=== PATIENT | male | born 1970 | race Caucasian/White ===

== ENCOUNTER 2018-10-22 00:52 | Outpatient (CLI) | payer BC, SELFPAY ==
--- NOTE | 2018-10-22 08:49 | DI.MRI_ITS ---
SYMPTOMS/DIAGNOSIS: LOW BACK PAIN, M54.5 MRI OF THE LUMBAR SPINE: T1, T2 and STIR sagittal and T1 and T2 axial sequences were performed. There are small endplate osteophytes, greatest at T10-11 and T11-12. Partial disc desiccation is seen throughout. There is minimal disc bulging, greatest at L3- 4. There are mild facet degenerative changes and mild ligamentous hypertrophy at this level causing mild neural foraminal narrowing bilaterally. There are facet degenerative changes at L4-5 with no significant neural foraminal narrowing or central canal stenosis. At L5-S1, there is moderate bilateral neural foraminal narrowing secondary to facet joint encroachment. No disc herniation is seen at any level. The marrow signal and conus medullaris are unremarkable. IMPRESSION: Bilateral moderate neural foraminal narrowing at L5-S1 secondary to encroachment by facet joints. There is mild neural foraminal narrowing at L3 -4 secondary to a combination of mild disc bulging and mild facet degenerative changes.
== END 2018-10-22 01:12 ==
PROVIDERS: PCP Physician Assistant Medical; Visit Provider Physician Assistant Medical
DX: M54.5 Low back pain (principal); M51.37 Other intervertebral disc degeneration, lumbosacral region; M47.817 Spondylosis without myelopathy or radiculopathy, lumbosacral region
CPT/HCPCS: 72148

== ENCOUNTER 2018-12-17 11:55 | Outpatient (CLI) | payer BC, SELFPAY ==
--- NOTE | 2018-12-17 06:00 | DI.RAD_ITS ---
SYMPTOMS/DIAGNOSIS: LUMBAR SPONDYLOSIS, LUMBAR MEDIAL BRANCH BLOCK C-ARM FLUOROSCOPY: Fluoroscopy Time: 20.9sec, 7.58mgy C-arm fluoroscopy was utilized by Dr. Groves during reported lumbar medial branch block. Hardcopies show needles projected adjacent to the pedicles of what appear to be L 4, L 5 and S 1 bilaterally.
[2018-12-17 12:01] VITALS: BP 123/86; PULSE 83; RESP 18; TEMP 36.7; O2SAT 97
--- NOTE | 2018-12-17 12:55 | PDOC.PAIN_ITS ---
Pain Clinic Procedure Note Current Active Problems Problem Status Onset Lumbar spondylosis Acute Lumbar/Sacral Medial Branch Blocks NYASIA PEREZ has been referred to the [facility] for lumbar/sacral medial branch blocks. COMMENTS: LBP with lumbar spondylosis Patient was interviewed and the medical record reviewed. There were no medical, pharmacologic, radiographic or other structural contraindications to attempting fluoroscopically guided local anesthetic lumbar/sacral medial branch blocks. Risks and expected side effects as well as potential benefit of the procedure were reviewed and voiced concerns addressed. The printed consent form was signed and witnessed. Standard time-out procedure was performed. Patient was placed in the prone position on the fluoroscopy table and automated blood pressure cuff and pulse oximeter applied. The skin entry points for abel roaching the anatomic target points of the segmental medial branches of { bilateral L3,4,5} were identified with anfluoroscopy and marked. Following thorough Chlorhexadine preparation of the skin and draping and 1% lidocaine infiltration of the skin entry points and subcutaneous tissues, a 22 gauge spinal needle was placed under fluoroscopic guidance down on to the target point for each respective segmental medial branch.Position was confirmed in A/P, oblique and lateral views with 0.25ml of omnipaque 240. At each point .5ml 0.5% Bupivacaine was injected. Vital signs were stable throughout the procedure and were as recorded in the docflowsheet by the nursing staff. Follow up plans and appointments were discussed and was instructed to keep careful note of how the usual pain was modified by these injections. Specifically was asked to keep a pain diary for the next 24 hours using a numeric pain scale of 0-10 and report these results at the follow-up visit. Post procedure instruction was given as documented in the nursing documentation and having met discharge criteria. Patient was discharged from the [facility]. Based on the medial branches blocked today, if the patient has adequate relief and we are able to proceed to radiofrequency ablation, the treatment should result in the denervation of the {bilateral L4-5,L5-S1 FACET JOINTS}. We would expect to denervate a total of {4} facets during the radiofrequency ablation. COMMENTS: pain went from 05/27 to 01/25. f/u up for 2nd MBB or RF if meets criteria. CC: Hugo Baumann
[2018-12-17 12:58] VITALS: BP 131/78; PULSE 77; RESP 17; O2SAT 100
[2018-12-17] MEDS: Bupivacaine 0.5% Pres-Free 30 ML VIAL IJ (13:00)
[2018-12-17] MEDS: Omnipaque 240 MG/ML 50 ML BTL IJ (13:00)
== END 2018-12-17 12:15 ==
PROVIDERS: PCP Physician Assistant Medical; Visit Provider Anesthesiology Pain Medicine
DX: M47.816 Spondylosis without myelopathy or radiculopathy, lumbar region (principal)
CPT/HCPCS: 64493; 64494; 64495; 72100; Q9967

== ENCOUNTER 2018-12-23 07:22 | Outpatient (CLI) | payer BC, SELFPAY ==
[2018-12-23 07:27] VITALS: BP 126/91; PULSE 83; RESP 18; TEMP 36.2; O2SAT 96
--- NOTE | 2018-12-23 08:31 | DI.RAD_ITS ---
SYMPTOMS/DIAGNOSIS: LUMBAR SPONDYLOSIS C-ARM FLUOROSCOPY OF THE LUMBAR SPINE: Fluoroscopy Time: 57.9 sec, 17.64 mGy Fluoroscopy was provided for guidance with Pain Clinic injections. Please see procedure note for details.
--- NOTE | 2018-12-23 08:32 | PDOC.PAIN ---
Pain Clinic Procedure Note Current Active Problems Problem Status Onset Lumbar spondylosis Acute Lumbar/Sacral Medial Branch Blocks #2 NYASIA PEREZ has been referred to the [facility] for lumbar/sacral medial branch blocks. COMMENTS: He did very well with the first LMBBs. Pre-procedure pain score was 7.5/10. Patient was interviewed and the medical record reviewed. There were no medical, pharmacologic, radiographic or other structural contraindications to attempting fluoroscopically guided local anesthetic lumbar/sacral medial branch blocks. Risks and expected side effects as well as potential benefit of the procedure were reviewed and voiced concerns addressed. The printed consent form was signed and witnessed. Standard time-out procedure was performed. Patient was placed in the prone position on the fluoroscopy table and automated blood pressure cuff and pulse oximeter applied. The skin entry points for approaching the anatomic target points of the segmental medial branches of bilateral L3-L5DR were identified with fluoroscopy and marked. Following thorough Chlorhexadine preparation of the skin and draping and 1% lidocaine infiltration of the skin entry points and subcutaneous tissues, a 25 gauge spinal needle was placed under fluoroscopic guidance down on to the target point for each respective segmental medial branch.Position was confirmed in A/P, oblique and lateral views with 0.25ml of omnipaque 240. At this point 0.5ml 2% Lidocaine was injected. Vital signs were stable throughout the procedure and were as recorded in the docflowsheet by the nursing staff. Follow up plans and appointments were discussed and was instructed to keep careful note of how the usual pain was modified by these injections. Specifically was asked to keep a pain diary for the next 24 hours using a numeric pain scale of 0-10 and report these results at the follow-up visit. Post procedure instruction was given as documented in the nursing documentation and having met discharge criteria. Patient was discharged from the [facility]. Based on the medial branches blocked today, if the patient has adequate relief and we are able to proceed to radiofrequency ablation, the treatment should result in the denervation of the bilateral L4-L5 and L5-S1 FACET JOINTS. We would expect to denervate a total of 4 facets during the radiofrequency ablation. COMMENTS:He will call back with his 1-4 hour post-procedure pain scores for his low back. Post-procedure pain score was 0/10. CC: Hugo Baumann
--- NOTE | 2018-12-23 08:36 | PDOC.PAIN_ITS ---
Pain Clinic Procedure Note Current Active Problems Problem Status Onset Lumbar spondylosis Acute Lumbar/Sacral Medial Branch Blocks #2 NYASIA PEREZ has been referred to the [facility] for lumbar/sacral medial branch blocks. COMMENTS: He did very well with the first LMBBs. Pre-procedure pain score was 7.5/10. Patient was interviewed and the medical record reviewed. There were no medical, pharmacologic, radiographic or other structural contraindications to attempting fluoroscopically guided local anesthetic lumbar/sacral medial branch blocks. Risks and expected side effects as well as potential benefit of the procedure were reviewed and voiced concerns addressed. The printed consent form was signed and witnessed. Standard time-out procedure was performed. Patient was placed in the prone position on the fluoroscopy table and automated blood pressure cuff and pulse oximeter applied. The skin entry points for approaching the anatomic target points of the segmental medial branches of bilateral L3-L5DR were identified with fluoroscopy and marked. Following t horough Chlorhexadine preparation of the skin and draping and 1% lidocaine infiltration of the skin entry points and subcutaneous tissues, a 25 gauge spinal needle was placed under fluoroscopic guidance down on to the target point for each respective segmental medial branch.Position was confirmed in A/P, oblique and lateral views with 0.25ml of omnipaque 240. At this point 0.5ml 2% Lidocaine was injected. Vital signs were stable throughout the procedure and were as recorded in the docflowsheet by the nursing staff. Follow up plans and appointments were discussed and was instructed to keep ca reful note of how the usual pain was modified by these injections. Specifically was asked to keep a pain diary for the next 24 hours using a numeric pain scale of 0-10 and report these results at the follow-up visit. Post procedure instruction was given as documented in the nursing documentation and having met discharge criteria. Patient was discharged from the [facility]. Based on the medial branches blocked today, if the patient has adequate relief and we are able to proceed to radiofrequency ablation, the treatment should result in the denervation of the bilateral L4-L5 and L5-S1 FACET JOINTS. We would expect to denervate a total of 4 facets during the radiofrequency ablation. COMMENTS:He will call back with his 1-4 hour post-procedure pain scores for his low back. Post-procedure pain score was 0/10. CC: Hugo Baumann
[2018-12-23 08:47] VITALS: BP 132/89; PULSE 82; RESP 20; O2SAT 99
[2018-12-23] MEDS: Omnipaque 240 MG/ML 50 ML BTL IJ (08:47)
[2018-12-23] MEDS: Lidocaine 2% Pres-Free 5 ML VIAL IJ (08:47)
== END 2018-12-23 07:42 ==
PROVIDERS: PCP Physician Assistant Medical; Visit Provider Preventive Medicine Occupational Medicine
DX: M47.816 Spondylosis without myelopathy or radiculopathy, lumbar region (principal)
CPT/HCPCS: 64493; 64494; 72100; Q9967

== ENCOUNTER 2019-01-20 07:38 | Outpatient (CLI) | payer BC, SELFPAY ==
--- NOTE | 2019-01-20 06:00 | DI.RAD_ITS ---
SYMPTOMS/DIAGNOSIS: LUMBAR SPONDYLOSIS, LUMBAR RADIOFREQUENCY ABLATION C-ARM FLUOROSCOPY OF THE LUMBAR SPINE: Fluoroscopy Time: 91.5 seconds /26.07mGy Fluoroscopy was provided for guidance with lumbar spine pain clinic injections. Please see procedure note for details.
[2019-01-20 07:44] VITALS: BP 119/82; PULSE 84; RESP 18; TEMP 36.6; O2SAT 98
[2019-01-20] MEDS: fentaNYL 100 MCG/2 ML VIAL IVP ×2 (08:17→08:22)
[2019-01-20] MEDS: Midazolam 2 MG/2 ML VIAL IVP (08:17)
[2019-01-20] MEDS: Lactated Ringers 1,000 ML 80 ML IV (08:17)
[2019-01-20 08:53] VITALS: BP 130/96; PULSE 77; RESP 15; O2SAT 97
[2019-01-20] MEDS: methylPREDNISolone ACETATE 40 MG/ML VIAL IJ (08:57)
[2019-01-20] MEDS: Lidocaine 2% Pres-Free 5 ML VIAL IJ (08:57)
[2019-01-20] MEDS: Bupivacaine 0.5% Pres-Free 10 ML VIAL IJ (08:59)
--- NOTE | 2019-01-20 09:14 | PDOC.PAIN ---
Pain Clinic Procedure Note Current Active Problems Problem Status Onset Lumbar spondylosis Acute LUMBAR/SACRAL MEDIAL BRANCH RADIOFREQUENCY WITH THE [employer] MACHINE NYASIA PEREZ has been referred to the [facility] for radiofrequency treatment of chronic axial back pain. NYASIA has had long standing back pain thought to be facet joint generated and which has been refractory to other therapies. Local anesthetic medial branch blocks or intra-articular facet joint injections resulted in NYASIA reporting reduction of the usual axial component of pain for at least the duration of the local anesthetic effect. COMMENTS: He previously had very successful LMBBs. Patient was interviewed and the medical record reviewed. There were no medical, pharmacologic, radiographic or other structural contraindications to attempting fluoroscopically guided radiofrequency treatment. Risks and expected side effects as well as potential benefit of the procedure were reviewed and voiced concerns addressed. The printed consent form was signed and witnessed. Standard time-out procedure was performed. Patient was placed in the prone position on the fluoroscopy table and automated blood pressure cuff and pulse oximeter applied. The skin entry points for approaching the anatomic target points of the segmental medial branches of the bilateral L3-L5DR medial branches were identified with fluoroscopy and marked. Following thorough Chlorhexadine preparation of the skin and draping and 1% lidocaine infiltration of the skin entry points and subcutaneous tissues, a single 18 guage curved 10 cm 10mm active tip radiofrequency cannula was placed under fluoroscopic guidance along or across the anatomic course of each respective segmental medial branch. Each placement was stimulated at 50Hz and les then 0.5V for medial branch sensory localization and the at 2Hz and up to 3 times the sensory voltage without any evidence of distal myotomal stimulation. 1cc of 1% ;idocaine was injected at each site. At each placement a continuous mode radiofrequency treatment was done at 80 degrees C for 90secs. 1/3 cc of Depomedrol (40 mg/cc) and 1 cc of Bupivacaine were injected at each segmental nerve. The needles were removed without difficulty. This radiofrequency treatment should result in the denervation of the bilateral L4-L5 and L5-S1 FACET JOINTS.~ A total of 4 facets were expected to be denervated from today's treatment. Vital signs were stable throughout the procedure and were as recorded in the docflowsheet by the nursing staff. If given, dosages of intravenous drugs for anxiolysis and analgesia were documented in the Medication Administration Record (MAR). Follow up plans and appointments were discussed. Post procedure instruction was given as documented in the nursing documentation and having met discharge criteria, NYASIA was discharged from the [facility]. COMMENTS: If this procedure gives him at least 6 months of low back pain relief, he can have this procedure repeated without repeating the LMBBs. CC: Hugo Baumann
--- NOTE | 2019-01-20 09:17 | PDOC.PAIN_ITS ---
Pain Clinic Procedure Note Current Active Problems Problem Status Onset Lumbar spondylosis Acute LUMBAR/SACRAL MEDIAL BRANCH RADIOFREQUENCY WITH THE [employer] MACHINE NYASIA PEREZ has been referred to the [facility] for radiofrequency treatment of chronic axial back pain. NYASIA has had long standing back pain thought to be facet joint generated and which has been refractory to other therapies. Local anesthetic medial branch blocks or intra- articular facet joint injections resulted in NYASIA reporting reduction of the usual axial component of pain for at least the duration of the local anesthetic effect. COMMENTS: He previously had very successful LMBBs. Patient was interviewed and the medical record reviewed. There were no medical, pharmacologic, radiographic or other structural contraindications to attempting fluoroscopically guided radiofrequency treatment. Risks and expected side effects as well as potential benefit of the procedure were reviewed and voiced concerns addressed. The printed consent form was signed and witnessed. Oscar vargas time-out procedure was performed. Patient was placed in the prone position on the fluoroscopy table and automated blood pressure cuff and pulse oximeter applied. The skin entry points for appro aching the anatomic target points of the segmental medial branches of the bilateral L3-L5DR medial branches were identified with fluoroscopy and marked. Following thorough Chlorhexadine preparation of the skin and draping and 1% lidocaine infiltration of the skin entry points and subcutaneous tissues, a single 18 guage curved 10 cm 10mm active tip radiofrequency cannula was placed under fluoroscopic guidance along or across the anatomic course of each respective segmental medial branch. Each placement was stimulated at 50Hz and l es then 0.5V for medial branch sensory localization and the at 2Hz and up to 3 times the sensory voltage without any evidence of distal myotomal stimulation. 1cc of 1% ;idocaine was injected at each site. At each placement a continuous mode radiofrequency treatment was done at 80 degrees C for 90secs. 1/3 cc of Depomedrol (40 mg/cc) and 1 cc of Bupivacaine were injected at each segmental nerve. The needles were removed without difficulty. This radiofrequency treatment should result in the denervation of the bilateral L4-L5 and L5-S1 FACET JOINTS.~ A total of 4 facets were expected to be denervated from today's treatment. Vital signs were stable throughout the procedure and were as recorded in the docflowsheet by the nursing staff. If given, dosages of intravenous drugs for anxiolysis and analgesia were documented in the Medication Administration Record (MAR). Follow up plans and appointments were discussed. Post procedure instruction was given as documented in the nursing documentation and having met discharge criteria, NYASIA was discharged from the [facility]. COMMENTS: If this procedure gives him at least 6 months of low back pain relief, he can have this procedure repeated without repeating the LMBBs. CC: Hugo Baumann
== END 2019-01-20 07:58 ==
PROVIDERS: PCP Physician Assistant Medical; Visit Provider Preventive Medicine Occupational Medicine
DX: M47.816 Spondylosis without myelopathy or radiculopathy, lumbar region (principal); M54.5 Low back pain; G89.29 Other chronic pain
CPT/HCPCS: 64635; 64636; 72100; J1030; J2250; J3010

== ENCOUNTER 2019-01-27 19:51 | Emergency (ER) | payer BC, SELFPAY ==
[2019-01-27] VITALS (15 sets, daily range): BP systolic 133–143; BP diastolic 87–92; PULSE 75–93; RESP 9–22; TEMP 36.9–37.3; O2SAT 94–98
--- NOTE | 2019-01-27 20:00 | W.ED.GENAD ---
Discharge Plan Disposition Patient Disposition: HOME Condition: Stable Discharge Details Chief Complaint: Chest Pain Clinical Impression: Left-sided chest pain Primary Care Provider: Hugo Baumann ED Provider: Julian Goff Home Meds and New Rx's Prescriptions: New lidocaine 5 % adhesive patch,medicated 2 patch TP DAILY Qty: 30 RF: 0 No Action aspirin 325 mg tablet,delayed release (DR/EC) 325 mg PO DAILY RF: 0 metformin [Glucophage] 500 mg tablet 500 mg PO BID RF: 0 naproxen 500 mg tablet 500 mg PO Q12H RF: 0 sertraline [Zoloft] 50 mg Tablet 50 mg PO DAILY RF: 0 methylsulfonylmethane [MSM] 1,000 MG tablet 1,000 mg PO DAILY RF: 0 Ibuprofen 400 MG tablet 400 mg PO DIRECTED RF: 0 Acetaminophen [Tylenol] 325 MG capsule 650 mg PO Q4H PRN PRNQty: 30 RF: 0 Discharge Instructions Additional Instructions: Your cat scan showed no concerning findings of the lung or blood vessels. There was nonspecific inflammation of the fat around your pancrease, your lipase level as well as your other lab values showed no concerning findings This could be early shingles. You may develop a rash in the area you can take 1000mg tylenol and 600mg ibuprofen every 6 hours for pain as needed if you have severe worsening of pain, difficulty breathing or feel significantly more ill return to the emergency department Medical Decision Making 48 yo male comes in with chief complaint of chest pain since this morning. He states he woke up and got out of bed and had left sided chest pain over the 5th and 6th ribs in the mid axillary line to the front of the chest without rashes. 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 he denies pain with exertion, fevers, sob, n/v, diaphoresis. HIs heart score is 2 based on age and risk factors, will send troponin. HE has no tearing back pain and normal vascular exam so doubt dissection. PE is as likely as any diagnosis, wells moderate, will obtain CTA. Given distribution of the pain could be shingles without rash present yet,b ut will eval for more worrisome pathlogy pt's labs hemolyzed so had to be redrawn. He remains HD stable, cta shows no thoracic pathology but ?haziness around pancreas concerning for pancreatitis. Will obtain ct abd/pelvis to evaluate further while labs are pending ct abd shows no other findings. lipase is normal. He only has pain in left latearl chest region in t4 dermatome. Given length of time with pain and atypical symptoms do not feel repeat troponin and ekg indicated. ADvised f/u with pcp and return precautions given Differential Diagnosis acs, pe, dissectionn, ptx, shingles Imaging Data Radiologic Study: Attestation: I personally reviewed and interpreted this imaging study as follows: Imaging: CT Scan Radiologist's impression: IMPRESSION: 1. No evidence of pulmonary embolism or other acute cardiopulmonary abnormality. No acute abnormality involving the thoracic aorta. 2. Findings concerning for acute pancreatitis. Correlate with clinical history and laboratory findings. Radiologic Study #2: Attestation: I personally reviewed and interpreted this imaging study as follows: Imaging: CT Scan Radiologist's impression: IMPRESSION: 1. Findings consistent with acute interstitial pancreatitis. 2. Diffuse hepatic steatosis. Lab Data Lab results reviewed: Yes I reviewed the patient's lab results. ECG Data Attestation: I personally reviewed and interpreted this ECG (s) as follows: Prior ECG tracings: available for review Interpretation: sinus rhythm rate of 91, pr 130, no acute st t wave ischemic changes HPI General Mode of arrival: ambulatory. Date/Time Provider Initiated Documentation: 01/27/19 19:55. Limitations to Documentation: no limitations. Information obtained by: patient. History of Present Illness 48 year old M presents to the emergency department with the chief complaint of left sided chest pain, described as moderate, with intensity rated at 7. Quality is described as aching, and is localized to the chest and left. Patient reports no radiation. Patient started experiencing this hour(s) (12) and it has been constant. No relieving factors improve symptom(s), No exacerbating factors reported . Patient notes no other symptoms.. Patient did receive the following treatments prior to arrival, NSAID Related Data Home Medications Medication Instructions Recorded Confirmed Ibuprofen 400 mg PO DIRECTED 05/03/18 01/27/19 methylsulfonylmethane [MSM] 1,000 mg PO DAILY 05/03/18 01/20/19 Acetaminophen [Tylenol] 650 mg PO Q4H PRN PRN #30 cap 05/04/18 01/20/19 aspirin 325 mg tablet,delayed 325 mg PO DAILY 12/03/18 01/20/19 release metformin 500 mg tablet 500 mg PO BID 12/03/18 01/27/19 naproxen 500 mg tablet 500 mg PO Q12H tab 12/03/18 12/23/18 sertraline [Zoloft] 50 mg PO DAILY 01/15/19 01/27/19 lidocaine 2 patch TP DAILY #30 each 01/27/19 Previous Rx's Medication Instructions Recorded Acetaminophen [Tylenol] 650 mg PO Q4H PRN PRN #30 cap 05/04/18 lidocaine 2 patch TP DAILY #30 each 01/27/19 Allergies Allergy/AdvReac Type Severity Reaction Status Date / Time Bee Sting Allergy Uncoded 01/27/19 20:03 Review of Systems Review of Systems All systems reviewed & are unremarkable except as noted in HPI and below Constitutional Denies chills, Denies fever(s) and Denies weakness ENT Denies change in voice Cardiovascular Denies dyspnea Respiratory Denies cough and Denies dyspnea Gastrointestinal Denies abdominal pain, Denies nausea and Denies vomiting Genitourinary Denies dysuria Musculoskeletal Denies joint swelling Integumentary/Breasts Denies rash Neurologic Denies weakness [facility] Medical History Acute URI (Acute) Arthritis (Acute) Hx of head injury (Acute) Low back pain (Acute) Diabetes (Chronic) Surgical History S/P shoulder surgery (Acute) H/O hernia repair (Chronic) Cholecystectomy (05/03/18) Family History Mother Lung cancer Father Myocardial infarction Sister Diabetes Carpal tunnel syndrome Fibromyalgia Social History household members: spouse housing: house lives independently: Yes number of children: 4 current occupational status: employed 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 what type of physical activity do you participate in: none Smoking and Tabacco status: Former Tobacco Use alcohol intake: never substance use type: does not use Exam Const General: no acute distress Orientation: alert HENMT Head: normal to inspection Ears: external ears normal General nose exam: external nose normal Mouth: moist mucous membranes Eyes General: appearance normal, both eyes and all related structures Neck Neck: normal visual inspection Resp Effort & Inspection: normal respiratory effort and able to speak in complete sentences Cardio Rate: regular rate Skin General skin exam: no rashes or lesions noted Neuro General: alert and oriented x3 Extrem General: normal to inspection Psych Mental Status: mental status grossly normal
--- NOTE | 2019-01-27 20:03 | ED.GENADUL_ITS ---
Discharge Plan Disposition Patient Disposition: HOME Condition: Stable Discharge Details Chief Complaint: Chest Pain Clinical Impression: Left-sided chest pain Primary Care Provider: Hugo Baumann ED Provider: Julian Goff Home Meds and New Rx's Prescriptions: New lidocaine 5 % adhesive patch,medicated 2 patch TP DAILY Qty: 30 RF: 0 No Action aspirin 325 mg tablet,delayed release (DR/EC) 325 mg PO DAILY RF: 0 metformin [Glucophage] 500 mg tablet 500 mg PO BID RF: 0 naproxen 500 mg tablet 500 mg PO Q12H RF: 0 sertraline [Zoloft] 50 mg Tablet 50 mg PO DAILY RF: 0 methylsulfonylmethane [MSM] 1,000 MG tablet 1,000 mg PO DAILY RF: 0 Ibuprofen 400 MG tablet 400 mg PO DIRECTED RF: 0 Acetaminophen [Tylenol] 325 MG capsule 650 mg PO Q4H PRN PRNQty: 30 RF: 0 Discharge Instructions Additional Instructions: Your cat scan showed no concerning findings of the lung or blood vessels. There was nonspecific inflammation of the fat around your pancrease, your lipase level as well as your other lab values showed no concerning findings This could be early shingles. You may develop a rash in the area you can take 1000mg tylenol and 600mg ibuprofen every 6 hours for pain as needed if you have severe worsening of pain, difficulty breathing or feel significantly more ill return to the emergency department Medical Decision Making 48 yo male comes in with chief complaint of chest pain since this morning. He states he woke up and got out of bed and had left sided chest pain over the 5th and 6th ribs in the mid axillary line to the front of the chest without rashes. 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 he denies pain with exertion, fevers, sob, n/v, diaphoresis. HIs heart score is 2 based on age and risk factors, will send troponin. HE has no tearing back pain and normal vascular exam so doubt dissection. PE is as likely as any diagnosis, wells moderate, will obtain CTA. Given distribution of the pain could be shingles without rash present yet,b ut will eval for more worrisome pathlogy pt's labs hemolyzed so had to be redrawn. He remains HD stable, cta shows no thoracic pathology but ?haziness around pancreas concerning for pancreatitis. Will obtain ct abd/pelvis to evaluate further while labs are pending ct abd shows no other findings. lipase is normal. He only has pain in left latearl chest region in t4 dermatome. Given length of time with pain and atyp ical symptoms do not feel repeat troponin and ekg indicated. ADvised f/u with pcp and return precautions given Differential Diagnosis acs, pe, dissectionn, ptx, shingles Imaging Data Radiologic Study: Attestation: I personally reviewed and interpreted this imaging study as follows: Imaging: CT Scan Radiologist's impression: IMPRESSION: 1. No evidence of pulmonary embolism or other acute cardiopulmonary abnormality. No acute abnormality involving the thoracic aorta. 2. Findings concerning for acute pancreatitis. Correlate with clinical history and laboratory findings. Radiologic Study #2: Attestation: I personally reviewed and interpreted this imaging study as follows: Imaging: CT Scan Radiologist's impression: IMPRESSION: 1. Findings consistent with acute interstitial pancreatitis. 2. Diffuse hepatic steatosis. Lab Data Lab results reviewed: Yes I reviewed the patient's lab results. ECG Data Attestation: I personally reviewed and interpreted this ECG (s) as follows: Prior ECG tracings: available for review Interpretation: sinus rhythm rate of 91, pr 130, no acute st t wave ischemic changes HPI General Mode of arrival: ambulatory . Date/Time Provider Initiated Documentation: 01/27/19 19:55 . Limitations to Documentation: no limitations . Information obtained by: patient . History of Present Illness 48 year old M presents to the emergency department with the chief complaint of left sided chest pain, described as moderate, with intensity rated at 7. Quality is described as aching, and is localized to the chest and left. Patient reports no radiation. Patient started experiencing this hour(s) (12) and it has been constant. No relieving factors improve symptom(s), No exacerbating factors reported . Patient notes no other symptoms.. Patient did receive the following treatments prior to arrival, NSAID Related Data Home Medications Medication Instructions Recorded Confirmed Ibuprofen 400 mg PO DIRECTED 05/03/18 01/27/19 methylsulfonylmethane [MSM] 1,000 mg PO DAILY 05/03/18 01/20/19 Acetaminophen [Tylenol] 650 mg PO Q4H PRN PRN #30 cap 05/04/18 01/20/19 aspirin 325 mg tablet,delayed 325 mg PO DAILY 12/03/18 01/20/19 release metformin 500 mg tablet 500 mg PO BID 12/03/18 01/27/19 naproxen 500 mg tablet 500 mg PO Q12H tab 12/03/18 12/23/18 sertraline [Zoloft] 50 mg PO DAILY 01/15/19 01/27/19 lidocaine 2 patch TP DAILY #30 each 01/27/19 Previous Rx's Medication Instructions Recorded Acetaminophen [Tylenol] 650 mg PO Q4H PRN PRN #30 cap 05/04/18 lidocaine 2 patch TP DAILY #30 each 01/27/19 Allergies Allergy/AdvReac Type Severity Reaction Status Date / Time Bee Sting Allergy Uncoded 01/27/19 20:03 Review of Systems Review of Systems All systems reviewed & are unremarkable except as noted in HPI and below Constitutional Denies chills, Denies fever(s) and Denies weakness ENT Denies change in voice Cardiovascular Denies dyspnea Respiratory Denies cough and Denies dyspnea Gastrointestinal Denies abdominal pain, Denies nausea and Denies vomiting Genitourinary Denies dysuria Musculoskeletal Denies joint swelling Integumentary/Breasts Denies rash Neurologic Denies weakness [facility] Medical History Acute URI (Acute) Arthritis (Acute) Hx of head injury (Acute) Low back pain (Acute) Diabetes (Chronic) Surgical History S/P shoulder surgery (Acute) H/O hernia repair (Chronic) Cholecystectomy (05/03/18) Family History Mother Lung cancer Father Myocardial infarction Sister Diabetes Carpal tunnel syndrome Fibromyalgia Social History household members: spouse housing: house lives independently: Yes number of children: 4 current occupational status: employed 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 what type of physical activity do you participate in: none Smoking and Tabacco status: Former Tobacco Use alcohol intake: never substance use type: does not use Exam Const General: no acute distress Orientation: alert HENMT Head: normal to inspection Ears: external ears normal General nose exam: external nose normal Mouth: moist mucous membranes Eyes General: appearance normal, both eyes and all related structures Neck Neck: normal visual inspection Resp Effort & Inspection: normal respiratory effort and able to speak in complete sentences Cardio Rate: regular rate Skin General skin exam: no rashes or lesions noted Neuro General: alert and oriented x3 Extrem General: normal to inspection Psych Mental Status: mental status grossly normal
--- NOTE | 2019-01-27 20:09 | DI.CT_ITS ---
SYMPTOM/DIAGNOSIS: LT SIDED CHEST PAIN, UPPER ABD PAIN PE CHEST CT: CT angiography was performed with multi slice acquisition and multi planar and 3D reconstruction. The study was conducted according to the usual protocol with an intravenous administration of 79 cc's of Omnipaque 350. Suboptimal contrast is noted in the pulmonary arteries. No gross emboli are demonstrated. There is no evidence of a pleural effusion or pulmonary infiltrate. The heart is normal. There is no pericardial effusion. There is nothing to suggest an aortic aneurysm. Evaluation of the upper abdomen reveals no abnormality involving the liver. There is some increased density in the peripancreatic fat in the pancreatic body and tail raising the possibility of pancreatitis in this patient. The findings to be correlated with the patient's clinical status. There is no evidence of ductal dilatation. Note is made of the patient's post cholecystectomy status. There are no enlarged lymph nodes. No acute bony abnormality is seen. SUMMARY: Suboptimal opacification of the pulmonary arteries is identified. There is no evidence of gross embolic disease. In the upper abdomen, there is some concern regarding the possibility of pancreatitis, the findings to be correlated with the patient's history and laboratory findings. ABDOMEN AND PELVIC CT: The study was carried out without contrast enhancement. A fatty liver is demonstrated. Note is made of small calcifications in the liver consistent with old healed granulomata. There is no hepatic mass. The patient is status post cholecystectomy. When compared with the chest CT, again noted is the haziness and fat stranding involving the peripancreatic fat consistent with pancreatitis. There is no ductal dilatation. The spleen is normal. The adrenals are normal. The kidneys are unremarkable. There is no evidence of hydronephrosis. There is no evidence of bowel obstruction or a localized bowel abnormality. There is nothing to suggest an acute appendix. The bladder appears intact. The reproductive organs as visualized are unremarkable. There is no evidence of free air or free fluid in the intraperitoneal space. There is no evidence of an intra-abdominal or pelvic mass or adenopathy. Atherosclerotic changes are identified in the aorta without evidence of an aneurysm. There are degenerative changes involving the spine. No acute bony abnormality is apparent. SUMMARY: Findings consistent with acute pancreatitis in this patient with a fatty liver who is status post cholecystectomy. There is no evidence of ductal dilatation.
[2019-01-27 20:28] LABS: Abs Immature Grans 0.03 k/cumm (0.0-0.09); Absolute Eosinophil Count 0.14 k/cumm (0.0-0.7); Absolute Lymphocyte Count 1.91 k/cumm (1.2-3.4); Absolute Monocyte Count 1.08 k/cumm (0.11-0.7); Basophils % 0.2; Eosinophils % 1.2; HCT 45.4 % (40.0-50.0); HGB 15.7 g/dL (13.5-17.5); Immature Grans % 0.2; Lymphocytes % 15.9; Mean Corp. HGB Concentration 34.6 g/dL (32.0-36.0); Mean Corpuscular Hemoglobin 30.7 pg (27.0-33.0); Mean Corpuscular Volume 88.8 fL (80-95); Mean Platelet Volume 9.2 fL (8.0-11.0); Neutrophils % 73.5; Platelet Count 172 x1000/uL (130-400); RBC 5.11 m/cumm (4.50-6.00); White Blood Cell Count 12.01 k/cumm (4.4-10.8)
[2019-01-27 20:29] LABS: Absolute Basophil Count 0.02 k/cumm (0.0-0.2); Absolute Neutrophil Count 8.83 k/cumm (1.2-6.7)
[2019-01-27] MEDS: Omnipaque 350 MG/ML 100 ML BTL IV (20:33)
[2019-01-27] MEDS: Normal Saline Flush 10 ML SYR IVP (20:51)
[2019-01-27] MEDS: fentaNYL 100 MCG/2 ML VIAL IVP (20:51)
--- NOTE | 2019-01-27 21:19 | DI.VRAD_ITS ---
EXAM: CT Angiography Chest With Contrast EXAM DATE/TIME: 01/27/2019 8:10 PM CLINICAL HISTORY: 48 years old, male; Signs and symptoms; Other: Left sided chest pain TECHNIQUE: Axial computed tomographic angiography images of the chest with intravenous contrast using CT angiography protocol. All CT scans at this facility use at least one of these dose optimization techniques: automated exposure control; mA and/or kV adjustment per patient size (includes targeted exams where dose is matched to clinical indication); or iterative reconstruction. Coronal and sagittal reformatted images were created and reviewed. MIP reconstructed images were created and reviewed. CONTRAST: Contrast Material: 79 ml of omnipaque 350 ; Contrast Route: iv COMPARISON: No relevant prior studies available. FINDINGS: Limitations: Timing of contrast bolus is suboptimal for evaluation of the pulmonary arteries. Pulmonary arteries: No pulmonary arterial filling defects are seen. Aorta: Minimal vascular calcifications are present in the aortic arch. There is no thoracic aortic aneurysm or evidence of dissection. Lungs: Bilateral dependent atelectasis. No consolidation. No masses. Pleural space: Normal. No pneumothorax. No pleural effusion. Heart: Normal. No cardiomegaly. No pericardial effusion. Liver: A few punctate calcifications in the liver likely represent small granulomas. No discrete mass is seen. Gallbladder and bile ducts: There has been a cholecystectomy. Pancreas: There is haziness of the fat about the pancreatic body and medial tail, concerning for acute pancreatitis. No evident pancreatic ductal dilatation. Lymph nodes: Unremarkable. No enlarged lymph nodes. Bones/joints: Unremarkable. No acute fracture. Soft tissues: Unremarkable. IMPRESSION: 1. No evidence of pulmonary embolism or other acute cardiopulmonary abnormality. No acute abnormality involving the thoracic aorta. 2. Findings concerning for acute pancreatitis. Correlate with clinical history and laboratory findings. Dictated and Authenticated by: Riki Milligan MD. Ordering:MARY Jordan MD
[2019-01-27 21:33] LABS: ALT 39 U/L (12-78); AST 13 U/L (15-37); Albumin 3.9 g/dL (3.4-5.0); Alkaline Phosphatase 68 U/L (46-116); Anion Gap 6.7 mmol/L (3-11); BUN 16 mg/dL (7-18); Bilirubin, Direct 0.14 mg/dL (0.00-0.20); Bilirubin, Total 0.5 mg/dL (0.2-1.0); CO2 29.3 mmol/L (21.0-32.0); Calcium 8.9 mg/dL (8.5-10.1); Chloride 101 mmol/L (98-107); Glucose 126 mg/dL (70-100); Lipase 203 U/L (73-393); Magnesium 1.9 mg/dL (1.8-2.4); Potassium 3.9 mmol/L (3.5-5.1); Sodium 137 mmol/L (136-145); Total Protein 7.3 g/dL (6.4-8.2)
[2019-01-27 21:34] LABS: Troponin I < 0.02 ng/mL (0.00-0.06)
[2019-01-27 21:47] LABS: Triglyceride 129 mg/dL (30-150)
[2019-01-27 21:54] LABS: ETHANOL BLOOD < 3.0 mg/dL (<3)
--- NOTE | 2019-01-27 22:08 | DI.VRAD_ITS ---
EXAM: CT Abdomen and Pelvis Without Contrast EXAM DATE/TIME: 01/27/2019 9:31 PM CLINICAL HISTORY: 48 years old, male; Pain; Abdominal pain; Localized; Upper; Prior surgery; Surgery date: 6+ months; Surgery type: Gallbladder removed; Patient HX: L sided chest pain and upper abdominal pain TECHNIQUE: Axial computed tomography images of the abdomen and pelvis without contrast. All CT scans at this facility use at least one of these dose optimization techniques: automated exposure control; mA and/or kV adjustment per patient size (includes targeted exams where dose is matched to clinical indication); or iterative reconstruction. Coronal and sagittal reformatted images were created and reviewed. COMPARISON: CT ABD PELVIS WITH CONTRAST 05/03/2018 4:07 AM FINDINGS: Lower thorax: No acute findings. ABDOMEN: Liver: The liver appears diffusely hypodense relative spleen, consistent with diffuse hepatic steatosis. Scattered punctate calcifications in the liver are consistent with small granulomas. No discrete masses seen. Gallbladder and bile ducts: There has been a cholecystectomy. Pancreas: Peripancreatic haziness and fat stranding is consistent with acute interstitial pancreatitis. No ductal dilatation. Spleen: Normal. No splenomegaly. Adrenals: Normal. No mass. Kidneys and ureters: Excreted contrast is present in the bilateral renal collecting systems and ureters, limiting evaluation for stones. There is no hydronephrosis. Stomach and bowel: Normal. No obstruction. No mucosal thickening. Appendix: No evidence of appendicitis. PELVIS: Bladder: Unremarkable as visualized. Reproductive: Unremarkable as visualized. ABDOMEN and PELVIS: Intraperitoneal space: Normal. No free air. No significant fluid collection. Bones/joints: Mild degenerative present in the spine. No acute fractures are seen. No subluxation/dislocation. Soft tissues: Unremarkable. Vasculature: Moderate vascular calcifications are present. There is no abdominal aortic aneurysm. Lymph nodes: Normal. No enlarged lymph nodes. IMPRESSION: 1. Findings consistent with acute interstitial pancreatitis. 2. Diffuse hepatic steatosis. Dictated and Authenticated by: Riki Milligan MD. Ordering:MARY Jordan MD
[2019-01-27] MEDS: Lidocaine 5% Patch 1 PATCH (22:40)
== END 2019-01-27 22:20 | disposition home or self-care (01) ==
PROVIDERS: Emergency Provider Emergency Medicine; PCP Physician Assistant Medical
DX: R07.9 Chest pain, unspecified (principal); E11.9 Type 2 diabetes mellitus without complications
CPT/HCPCS: 36415; 71275; 80053; 80076; 83690; 93005; 96375; 99285; 74176; 80320; 83735; 84478; 84484; 85025; 93010; 99284; J3010; J3490

== ENCOUNTER 2019-02-04 16:09 | Outpatient (REF) | payer BC, SELFPAY ==
[2019-02-04 20:16] LABS: Abs Immature Grans 0.02 k/cumm (0.0-0.09); Absolute Basophil Count 0.03 k/cumm (0.0-0.2); Absolute Eosinophil Count 0.18 k/cumm (0.0-0.7); Absolute Lymphocyte Count 1.99 k/cumm (1.2-3.4); Absolute Monocyte Count 0.45 k/cumm (0.11-0.7); Absolute Neutrophil Count 3.87 k/cumm (1.2-6.7); Basophils % 0.5; Eosinophils % 2.8; HCT 43.2 % (40.0-50.0); HGB 15.1 g/dL (13.5-17.5); Immature Grans % 0.3; Lymphocytes % 30.4; Mean Corpuscular Hemoglobin 30.8 pg (27.0-33.0); Mean Corpuscular Volume 88.2 fL (80-95); Mean Platelet Volume 9.4 fL (8.0-11.0); Monocytes % 6.9; Neutrophils % 59.1; Platelet Count 178 x1000/uL (130-400); RBC Distribution Width 12.8 % (11.8-14.1); White Blood Cell Count 6.54 k/cumm (4.4-10.8)
[2019-02-04 20:25] LABS: ALT 53 U/L (12-78); AST 22 U/L (15-37); Albumin 4.4 g/dL (3.4-5.0); Alkaline Phosphatase 59 U/L (46-116); Amylase 62 U/L (25-115); Anion Gap 7.6 mmol/L (3-11); BUN 16 mg/dL (7-18); Bilirubin, Total 0.5 mg/dL (0.2-1.0); CO2 29.4 mmol/L (21.0-32.0); CREATININE 1.05 mg/dL (0.70-1.30); Calcium 9.1 mg/dL (8.5-10.1); Chloride 101 mmol/L (98-107); Glucose 102 mg/dL (70-100); Lipase 190 U/L (73-393); Potassium 4.1 mmol/L (3.5-5.1); Sodium 138 mmol/L (136-145); Total Protein 7.7 g/dL (6.4-8.2)
== END 2019-02-04 16:29 ==
LOC: NCHCN 16:09
PROVIDERS: PCP Physician Assistant Medical; Visit Provider Physician Assistant Medical
DX: R10.9 Unspecified abdominal pain (principal)
CPT/HCPCS: 80053; 83690; 82150; 85025

== ENCOUNTER 2019-03-04 00:26 | Outpatient (CLI) | payer BC, SELFPAY ==
--- NOTE | 2019-03-04 08:44 | DI.CT_ITS ---
SYMPTOM/DIAGNOSIS: PANCREATIC DISORDER, K86.[address]: The study was carried out with oral and intravenous contrast. The examination is compared with the previous study of 01/27/2019. Small regions of bibasilar atelectasis are demonstrated. The liver is intact. The patient is status post cholecystectomy. The pancreas appears normal on today's examination and there is no evidence of a mass or pseudocyst or inflammatory change involving the peripancreatic fat. The spleen, kidneys and adrenals are normal. When compared with the prior examination, today's examination is within normal limits revealing no evidence of a pancreatic abnormality.
[2019-03-04] MEDS: Omnipaque 350 MG/ML 100 ML BTL IJ (08:49)
[2019-03-04] MEDS: Omnipaque 350 MG/ML 50 ML BTL PO (08:51)
== END 2019-03-04 00:46 ==
PROVIDERS: PCP Physician Assistant Medical; Visit Provider Physician Assistant Medical
DX: K86.9 Disease of pancreas, unspecified (principal); J98.11 Atelectasis; Z90.49 Acquired absence of other specified parts of digestive tract
CPT/HCPCS: 74160; J3490; Q9967

== ENCOUNTER 2019-08-06 07:29 | Outpatient (CLI) | payer BC, SELFPAY ==
[2019-08-06 07:41] VITALS: BP 123/86; PULSE 71; RESP 14; TEMP 36.5; O2SAT 96
[2019-08-06] MEDS: Lactated Ringers 1,000 ML 80 ML IV (08:10)
[2019-08-06] MEDS: fentaNYL 100 MCG/2 ML VIAL IVP ×3 (08:17→08:39)
[2019-08-06] MEDS: Midazolam 2 MG/2 ML VIAL IVP (08:17)
--- NOTE | 2019-08-06 09:05 | DI.RAD_ITS ---
EXAM: XR PAIN CLINIC LUMBAR SP 2V CLINICAL HISTORY: Dx: Lumbar Spondylosis. TECHNIQUE: 2D and realtime digital imaging was performed. COMPARISON: No exams were available for comparison FINDINGS: Images submitted from the pain clinic demonstrate needle positioning over the left lateral portion of L4 and L5 in connection with a radiofrequency ablation. Please see Dr. Khan's procedure report for further information.
--- NOTE | 2019-08-06 09:06 | PDOC.PAIN_ITS ---
Pain Clinic Procedure Note Procedure Note Procedure Note: LUMBAR/SACRAL MEDIAL BRANCH RADIOFREQUENCY USING THE COOLIEF MACHINE NYASIA PEREZ has been referred to the [facility] for radiofrequency treatment of chronic axial back pain. NYASIA has had long standing back pain thought to be facet joint generated and which has been refractory to other therapies. Local anesthetic medial branch blocks or intra- articular facet joint injections resulted in NYASIA reporting reduction of the usual axial component of pain for at least the duration of the local anesthetic effect. COMMENTS:>6 months relief with his last Lumbar RFA. I did add the bilateral S1 lateral branches to get a better denervation of the bilateral L5-S1 facet joints withou any added cost. Patient was interviewed and the medical record reviewed. There were no medical, pharmacologic, radiographic or other structural contraindications to attempting fluoroscopically guided radiofrequency treatment. Risks and expected side effects as well as potential benefit of the procedure were reviewed and voiced concerns addressed. The printed consent form was signed and witnessed. Standard time-out procedure was performed. Patient was placed in the prone position on the fluoroscopy table and automated blood pressure cuff and pulse oximeter applied. The skin entry points for approaching the anatomic target points of the segmental medial branches of bilateral L3-L5DR and bilateral S1 lateral branches were identified with fluoroscopy and marked. Following thorough Chlorhexadine preparation of the skin and draping and 1% lidocaine infiltration of the skin entry points and subcutaneous tissues, a single 18 guage curved 10 cm 10mm active tip radiofrequency cannula was placed under fluoroscopic guidance along or across the anatomic course of each respective segmental medial branch. Each placement was stimulated at 50Hz and les then 0.5V for medial branch sensory localization. 1cc of 1% ;idocaine was injected at each site. At each placement a continuous mode radiofrequency treatment was done at 90 degrees C for 90secs. This radiofrequency treatment should result in the denervation of the bilateral L4-L5 and L5-S1 FACET JOINTS. A total of 4 facets were expected to be denervated from today's treatment. Vital signs were stable throughout the procedure and were as recorded in the docflowsheet by the nursing staff. If given, dosages of intravenous drugs for anxiolysis and analgesia were documented in the Medication Administration Record (MAR). Follow up plans and appointments were discussed. Post procedure instruction was given as documented in the nursing documentation and having met discharge criteria, NYASIA was discharged from the [facility] Management Center. COMMENTS: If this procedure gives him at least 6 months of relief, he can have it repeated without repeating the LMBBs. CC: Hugo Baumann
[2019-08-06 09:07] VITALS: BP 142/94; PULSE 79; RESP 12; O2SAT 92
[2019-08-06] MEDS: Bupivacaine 0.5% Pres-Free 10 ML VIAL IJ (09:08)
[2019-08-06] MEDS: methylPREDNISolone ACETATE 40 MG/ML VIAL IJ (09:08)
[2019-08-06] MEDS: Lidocaine 2% Pres-Free 5 ML VIAL IJ (09:09)
== END 2019-08-06 07:49 ==
PROVIDERS: PCP Physician Assistant Medical; Visit Provider Preventive Medicine Occupational Medicine
DX: M47.817 Spondylosis without myelopathy or radiculopathy, lumbosacral region (principal)
CPT/HCPCS: 64635 ×2; 64636 ×2; 72100; J1030; J2250; J3010

== ENCOUNTER 2019-10-27 12:17 | Outpatient (CLI) | payer BC, SELFPAY ==
[2019-10-27 12:32] VITALS: BP 127/92; PULSE 78; RESP 16; TEMP 36.4; O2SAT 95
--- NOTE | 2019-10-27 13:08 | PDOC.PAIN_ITS ---
Pain Clinic Procedure Note Procedure Note Procedure Note: LUMBAR / SACRAL TRANSFORAMINAL INJECTION NYASIA PEREZ has been referred to the [facility] Center for a transforaminal nerve root block and steroid injection. COMMENTS: patient continues to have right leg pain, his back pain improved after lumbar RFA. He is here for right L5-S1 TFESI Patient was interviewed and the medical record reviewed. There were no medical, pharmacologic, radiographic or other structural contraindications to attempting fluoroscopically guided transforaminal nerve root block and epidural steroid injection. Risks and expected side effects as well as potential benefit of the procedure were reviewed and voiced concerns addressed. The printed consent form was signed and witnessed. Standard time-out procedure was performed. Patient was placed in the prone position on the fluoroscopy table and automated blood pressure cuff and pulse oximeter applied. Fluoroscopy was utilized to identify the right neural foramen between L5 and S1 . A skin desiree was made for the needle insertion site. A Chlorhexadine prep was carried out, and sterile drapes were applied. Local anesthesia was achieved in the skin and subcutaneous tissues. A 22 gauge 5'' spinal needle was then inserted, advanced with fluoroscopic guidance into the neural foramen, confirmed on the lateral view. After negative aspiration, 2 ml of Omnipaque 240 was injected confirming position in A/P and lateral views. This showed a good spread of dye transforaminally into the epidural space. There was no vascular update with contrast injection under continuous fluoroscopy and digital substraction. 15 mg of Dexamethasone was injected, followed by 0.5 ml of 1% Xylocaine flush for the nerve root block, as well. There was no unusual discomfort expressed.The needle was withdrawn. The patient tolerated the procedure well. A Band-Aid was applied. Vital signs were stable throughout the procedure and were as recorded in nursing records. If given, dosages of intravenous drugs for anxiolysis and analgesia were documented in nursing records. Follow up plans and appointments were discussed. Post procedure instruction was given as documented in nursing records and patient was discharged in the care of an identified refuse driver. COMMENTS: as the spinal needle was tracking through soft tissue, patient thought intense right sided back muscle spasm, he was tensing his back, additional 2cc of 1% lidocaine was injected. Patient was briefly diaphoretic. His vital signs was monitored and remained steady. A wet towel was placed on the back of his neck and he was able to tolerate the rest of procedure. Geeta Magallanes MD Pain Management CC: Hugo Baumann
--- NOTE | 2019-10-27 13:38 | DI.RAD_ITS ---
EXAM: XR PAIN CLINIC LUMBAR SP 2V CLINICAL HISTORY: Transforaminal Epidural Steroid Injection, lumbar radiculopathy TECHNIQUE: Fluoroscopy was provided for the referring physician for guidance with performing injecti on procedure. Fluoro time: 54.4 sec, 23.42 mGy COMPARISON: No exams were available for comparison FINDINGS: Please see procedure note for details.
[2019-10-27] MEDS: Dexamethasone Sod. Phos./Pres-Free 10 MG/ML VIAL IJ (13:41)
[2019-10-27] MEDS: Omnipaque 240 MG/ML 50 ML BTL IJ (13:42)
[2019-10-27 13:44] VITALS: BP 144/94; PULSE 80; RESP 19; O2SAT 100
== END 2019-10-27 12:37 ==
PROVIDERS: PCP Physician Assistant Medical; Visit Provider Internal Medicine
DX: M54.16 Radiculopathy, lumbar region (principal)
CPT/HCPCS: 64483; 72100; Q9967

== ENCOUNTER 2020-01-06 18:12 | Outpatient (REF) | payer BC, SELFPAY ==
[2020-01-06 20:21] LABS: ALT 51 U/L (16-63); AST 21 U/L (15-37); Albumin 4.1 g/dL (3.4-5.0); Alkaline Phosphatase 81 U/L (46-116); Anion Gap 8.9 mmol/L (3-11); Bilirubin, Total 0.3 mg/dL (0.2-1.0); CO2 28.1 mmol/L (21.0-32.0); CREATININE 0.95 mg/dL (0.70-1.30); Calcium 8.5 mg/dL (8.5-10.1); Chloride 101 mmol/L (98-107); Cholesterol 179 mg/dL (<200); Glucose 227 mg/dL (74-106); HDL Cholesterol 27 mg/dL (40-60); Potassium 4.4 mmol/L (3.5-5.1); Sodium 138 mmol/L (136-145); Total Protein 7.1 g/dL (6.4-8.2); Triglyceride 461 mg/dL (<150)
[2020-01-06 20:44] LABS: BUN 13 mg/dL (7-18); LDL CHOLESTEROL 100 mg/dL (<100)
[2020-01-08 10:07] LABS: PSA, Screening 0.6 ng/mL (0.0-3.5)
== END 2020-01-06 18:32 ==
LOC: NCHCN 18:12
PROVIDERS: PCP Physician Assistant Medical; Visit Provider Physician Assistant Medical
DX: E11.9 Type 2 diabetes mellitus without complications (principal); Z12.5 Encounter for screening for malignant neoplasm of prostate
CPT/HCPCS: 80053; 80061; 83721; 84153

== ENCOUNTER 2020-04-12 11:28 | Outpatient (CLI) | payer BC, SELFPAY ==
[2020-04-12 11:37] VITALS: BP 145/94; PULSE 86; RESP 20; TEMP 37.2; O2SAT 96
--- NOTE | 2020-04-12 12:05 | DI.RAD_ITS ---
EXAM: XR PAIN CLINIC LUMBAR SP 2V CLINICAL HISTORY: DX: Lumbar Radiculopathy. TECHNIQUE: Fluoroscopy was provided for the referring physician for guidance with performing injecti on procedure. COMPARISON: No exams were available for comparison FINDINGS: Please see procedure note for details. Fluoro time: 39.4 sec, 23.98 mGy RADIATION DOSE DELIVERED:
[2020-04-12] MEDS: Midazolam 2 MG/2 ML VIAL IVP (12:08)
[2020-04-12] MEDS: Lactated Ringers 1,000 ML 80 ML IV (12:08)
[2020-04-12 12:19] VITALS: BP 133/87; PULSE 88; RESP 14; O2SAT 95
[2020-04-12] MEDS: Dexamethasone Sod. Phos./Pres-Free 10 MG/ML VIAL IJ (12:19)
[2020-04-12] MEDS: Omnipaque 240 MG/ML 50 ML BTL IJ (12:19)
--- NOTE | 2020-04-12 12:22 | PDOC.PAIN_ITS ---
Pain Clinic Procedure Note Procedure Note Procedure Note: LUMBAR / SACRAL TRANSFORAMINAL INJECTION Pre-operative diagnosis: lumbar radiculopathy Post-operative diagnosis: same as above NYASIA PEREZ has been referred to the [facility] for a transforaminal nerve root block and steroid injection. COMMENTS: patient received right L5-S1 TFESI on 10/2019, he is unsure how much pain relief he received from this injection. I forgot to pay attention. He has been evaluated by Dr Ontiveros from [facility]. He is here for a repeat injection to see how much pain relief he gets and if he may need surgical intervention. Patient was interviewed and the medical record reviewed. There were no medical, pharmacologic, radiographic or other structural contraindications to attempting fluoroscopically guided transforaminal nerve root block and epidural steroid injection. Risks and expected side effects as well as potential benefit of the procedure were reviewed and voiced concerns addressed. The printed consent form was signed and witnessed. Standard time-out procedure was performed. Patient was placed in the prone position on the fluoroscopy table and automated blood pressure cuff and pulse oximeter applied. Fluoroscopy was utilized to identify the right neural foramen between L5 and S1 . A skin desiree was made for the needle insertion site. A Chlorhexadine prep was carried out, and sterile drapes were applied. Local anesthesia was achieved in the skin and subcutaneous tissues. A 22 gauge curved tip spinal needle was then inserted, advanced with fluoroscopic guidance into the neural foramen, confirmed on the lateral view. After negative aspiration, 2 ml of Omnipaque 240 was injected confirming position in A/P and lateral views. This showed a good spread of dye transforaminally into the epidural space. The contrast pattern is more consistent with selective nerve root. On lateral, the tip of spinal needle is well positioned into the foramen, however, contrast did not show well delineated epidural pattern. There was no vascular update with contrast injection under continuous fluoroscopy. patient reported pressure traveling to right buttock area with injection of omnipaque. Then 15 mg of Dexamethasone was injected, followed by 1 ml of 1% Xylocaine flush for the nerve root block, as well. There was no unusual discomfort expressed.Th e needle was withdrawn. The patient tolerated the procedure well. A Band-Aid was applied. Vital signs were stable throughout the procedure and were as recorded in nursing records. of note, patient has a history of anxiety and in 10/2019, he was diaphoretic during procedure. Today, he received 1mg of IV versed for anxiolytic and he tolerated procedure without issue. Follow up plans and appointments were discussed. Post procedure instruction was given as documented in nursing records and patient was discharged in the care of an identified emergency detail driver. COMMENTS: Pre-procedure VAS down right leg is 8/10, post-procedure VAS score is reported as 2 out of 10. Patient knows to follow up with Dr Ontiveros if today's injection provides significant but temporary pain relief. I personally performed the entire procedure. Geeta Magallanes MD Pain Management CC: Hugo Baumann
== END 2020-04-12 11:48 ==
PROVIDERS: PCP Physician Assistant Medical; Visit Provider Internal Medicine
DX: M54.16 Radiculopathy, lumbar region (principal)
CPT/HCPCS: 64483; 72100; J2250; Q9967

== ENCOUNTER 2020-05-09 22:11 | Outpatient (REF) | payer BC, SELFPAY ==
[2020-05-09 21:06] LABS: ALT 75 U/L (16-63); AST 32 U/L (15-37); Albumin 4.6 g/dL (3.4-5.0); Alkaline Phosphatase 81 U/L (46-116); Anion Gap 14.2 mmol/L (3-11); BUN 19 mg/dL (7-18); Bilirubin, Total 0.3 mg/dL (0.2-1.0); CO2 22.8 mmol/L (21.0-32.0); CREATININE 1.12 mg/dL (0.70-1.30); Calcium 9.2 mg/dL (8.5-10.1); Chloride 101 mmol/L (98-107); Glucose 238 mg/dL (74-106); Potassium 4.5 mmol/L (3.5-5.1); Sodium 138 mmol/L (136-145); Total Protein 7.9 g/dL (6.4-8.2)
[2020-05-09 21:12] LABS: HCT 44.9 % (40.0-50.0); HGB 15.3 g/dL (13.5-17.5); Mean Corp. HGB Concentration 34.1 g/dL (32.0-36.0); Mean Corpuscular Hemoglobin 30.4 pg (27.0-33.0); Mean Corpuscular Volume 89.3 fL (80-95); Mean Platelet Volume 10.4 fL (8.0-11.0); Platelet Count 219 x1000/uL (130-400); RBC 5.03 m/cumm (4.50-6.00); RBC Distribution Width 12.7 % (11.8-14.1); White Blood Cell Count 5.97 k/cumm (4.4-10.8)
[2020-05-09 21:47] LABS: Hemoglobin A1C 8.2 % (3.8-5.6)
== END 2020-05-09 22:31 ==
LOC: NCHCN 22:11
PROVIDERS: PCP Physician Assistant Medical; Visit Provider Physician Assistant Medical
DX: E11.9 Type 2 diabetes mellitus without complications (principal); Z01.818 Encounter for other preprocedural examination
CPT/HCPCS: 80053; 85027; 83036

== ENCOUNTER 2021-06-21 21:27 | Outpatient (REF) | payer MEDICAID, SELFPAY ==
[2021-06-21 20:26] LABS: Abs Immature Grans 0.02 10^3/uL (0.0-0.06); Absolute Basophil Count 0.05 10^3/uL (0.0-0.2); Absolute Eosinophil Count 0.22 10^3/uL (0.0-0.7); Absolute Lymphocyte Count 2.23 10^3/uL (1.2-3.4); Absolute Monocyte Count 0.49 10^3/uL (0.1-0.8); Basophils % 0.9; Eosinophils % 3.9; HCT 43.9 % (40.0-50.0); HGB 14.9 g/dL (13.5-17.5); Immature Grans % 0.4; Lymphocytes % 39.1; MCH 30.4 pg (27.0-33.0); MCHC 33.9 % (32.0-36.0); MCV 89.6 fL (80-95); MPV 9.8 fL (8.0-11.0); Monocytes % 8.6; Neutrophils % 47.1; Nucleated RBC 0 %; Platelet Count 179 10^3/uL (130-400); RDW 12.2 % (11.8-14.1); RDW-SD 40.1 fL; WBC 5.71 10^3/uL (4.4-10.8)
[2021-06-21 20:36] LABS: ALT 55 U/L (16-63); AST 19 U/L (15-37); Albumin 4.4 g/dL (3.4-5.0); Alkaline Phosphatase 72 U/L (46-116); Amylase 61 U/L (25-115); Anion Gap 11.2 mmol/L (3-11); BUN 17 mg/dL (7-18); Bilirubin, Total 0.3 mg/dL (0.2-1.0); CO2 24.8 mmol/L (21.0-32.0); CREATININE 1.1 mg/dL (0.70-1.30); Calcium 9.2 mg/dL (8.5-10.1); Chloride 106 mmol/L (98-107); Glucose 145 mg/dL (74-106); Lipase 195 U/L (73-393); Potassium 3.8 mmol/L (3.5-5.1); Sodium 142 mmol/L (136-145); Total Protein 7.4 g/dL (6.4-8.2)
[2021-06-21 20:52] LABS: Calculated LDL 92 mg/dL (<100); Cholesterol 193 mg/dL (<200); HDL Cholesterol 29 mg/dL (40-60); Triglyceride 363 mg/dL (<150)
[2021-06-21 21:02] LABS: Hemoglobin A1C 7.5 % (<5.7)
== END 2021-06-21 21:28 | disposition home or self-care (01) ==
LOC: NCHCN 21:27
PROVIDERS: PCP Physician Assistant Medical; Visit Provider Physician Assistant Medical
DX: E11.9 Type 2 diabetes mellitus without complications (principal); R10.12 Left upper quadrant pain
CPT/HCPCS: 80053; 80061; 83690; 82150; 83036; 85025

== ENCOUNTER 2022-05-16 18:12 | Outpatient (REF) | payer MEDICAID, SELFPAY ==
[2022-05-16 20:43] LABS: Abs Immature Grans 0.03 10^3/uL (0.0-0.06); Absolute Basophil Count 0.04 10^3/uL (0.0-0.2); Absolute Eosinophil Count 0.18 10^3/uL (0.0-0.7); Absolute Lymphocyte Count 2.05 10^3/uL (1.2-3.4); Absolute Monocyte Count 0.51 10^3/uL (0.1-0.8); Absolute Neutrophil Count 3.14 10^3/uL (1.2-6.7); Basophils % 0.7; HCT 45.1 % (40.0-50.0); HGB 15.5 g/dL (13.5-17.5); Immature Grans % 0.5; Lymphocytes % 34.5; MCH 30.7 pg (27.0-33.0); MCHC 34.4 % (32.0-36.0); MCV 89 fL (80-95); MPV 9.9 fL (8.0-11.0); Monocytes % 8.6; Neutrophils % 52.7; Platelet Count 177 10^3/uL (130-400); RBC 5.05 10^6/uL (4.36-5.78); RDW 12.7 % (11.8-14.1); RDW-SD 41.4 fL; WBC 5.95 10^3/uL (4.4-10.8)
[2022-05-16 21:01] LABS: ALT 41 U/L (16-63); AST 17 U/L (15-37); Albumin 4.5 g/dL (3.4-5.0); Alkaline Phosphatase 81 U/L (46-116); Amylase 67 U/L (25-115); Anion Gap 10.3 mmol/L (3-11); BUN 18 mg/dL (7-18); Bilirubin, Total 0.3 mg/dL (0.2-1.0); CO2 25.7 mmol/L (21.0-32.0); CREATININE 1.1 mg/dL (0.70-1.30); Calcium 9.2 mg/dL (8.5-10.1); Chloride 101 mmol/L (98-107); Glucose 122 mg/dL (74-106); Lipase 235 U/L (73-393); Potassium 3.7 mmol/L (3.5-5.1); Sodium 137 mmol/L (136-145); Total Protein 7.9 g/dL (6.4-8.2)
== END 2022-05-16 18:13 | disposition home or self-care (01) ==
LOC: NCHCN 18:12
PROVIDERS: PCP Physician Assistant Medical; Visit Provider Physician Assistant Medical
DX: R11.0 Nausea (principal); E11.9 Type 2 diabetes mellitus without complications
CPT/HCPCS: 80053; 83690; 82150; 83036; 85025

== ENCOUNTER 2023-03-20 20:36 | Outpatient (REF) | payer MEDICAID, SELFPAY ==
[2023-03-20 22:20] LABS: Hemoglobin A1C 8.6 % (<5.7)
[2023-03-20 22:41] LABS: Albumin 4.5 g/dL (3.4-5.0); Alkaline Phosphatase 95 U/L (46-116); Anion Gap 13.1 mmol/L (3-11); BUN 18 mg/dL (7-18); Bilirubin, Total 0.3 mg/dL (0.2-1.0); CO2 23.9 mmol/L (21.0-32.0); CREATININE 1.3 mg/dL (0.70-1.30); Calcium 9.1 mg/dL (8.5-10.1); Chloride 101 mmol/L (98-107); Cholesterol 232 mg/dL (<200); Estimated GFR 65.28 (mL/min/1.73m2); Glucose 219 mg/dL (74-106); HDL Cholesterol 27 mg/dL (40-60); Magnesium 2.1 mg/dL (1.8-2.4); Potassium 3.7 mmol/L (3.5-5.1); Sodium 138 mmol/L (136-145); Total Protein 8.1 g/dL (6.4-8.2); Triglyceride 851 mg/dL (<150)
[2023-03-20 23:48] LABS: ALT 44 U/L (16-63)
[2023-03-20 23:54] LABS: AST 18 U/L (15-37)
[2023-03-21 00:06] LABS: LDL CHOLESTEROL 107 mg/dL (<100)
== END 2023-03-20 20:37 | disposition home or self-care (01) ==
LOC: NCHCN 20:36
PROVIDERS: PCP Physician Assistant Medical; Visit Provider Physician Assistant Medical
DX: E11.9 Type 2 diabetes mellitus without complications (principal); R19.7 Diarrhea, unspecified
CPT/HCPCS: 80053; 80061; 83721; 83036; 83735

== ENCOUNTER 2023-05-31 15:15 | Outpatient (REF) | payer MEDICAID, SELFPAY ==
[2023-05-31 15:36] LABS: Abs Immature Grans 0.01 10^3/uL (0.0-0.06); Absolute Basophil Count 0.05 10^3/uL (0.0-0.2); Absolute Eosinophil Count 0.17 10^3/uL (0.0-0.7); Absolute Lymphocyte Count 1.94 10^3/uL (1.2-3.4); Absolute Monocyte Count 0.44 10^3/uL (0.1-0.8); Absolute Neutrophil Count 2.39 10^3/uL (1.2-6.7); Eosinophils % 3.4; HCT 45.9 % (40.0-50.0); HGB 15.7 g/dL (13.5-17.5); Immature Grans % 0.2; Lymphocytes % 38.8; MCHC 34.2 % (32.0-36.0); MCV 91 fL (80-95); MPV 9.8 fL (8.0-11.0); Monocytes % 8.8; Neutrophils % 47.8; Platelet Count 198 10^3/uL (130-400); RBC 5.07 10^6/uL (4.36-5.78); RDW 12.2 % (11.8-14.1); RDW-SD 40.3 fL
[2023-05-31 15:45] LABS: ALT 38 U/L (16-63); AST 16 U/L (15-37); Albumin 4.7 g/dL (3.4-5.0); Alkaline Phosphatase 72 U/L (46-116); Anion Gap 11.3 mmol/L (3-11); BUN 20 mg/dL (7-18); Bilirubin, Total 0.5 mg/dL (0.2-1.0); CO2 26.7 mmol/L (21.0-32.0); CREATININE 1.1 mg/dL (0.70-1.30); Calcium 9.6 mg/dL (8.5-10.1); Calculated LDL 103 mg/dL (<100); Chloride 103 mmol/L (98-107); Cholesterol 201 mg/dL (<200); Estimated GFR 79.77 (mL/min/1.73m2); Glucose 182 mg/dL (74-106); HDL Cholesterol 30 mg/dL (40-60); Potassium 4.4 mmol/L (3.5-5.1); Sodium 141 mmol/L (136-145); Total Protein 8.2 g/dL (6.4-8.2); Triglyceride 341 mg/dL (<150)
== END 2023-05-31 15:16 | disposition home or self-care (01) ==
LOC: NCHCN 15:15
PROVIDERS: PCP Physician Assistant Medical; Visit Provider Physician Assistant Medical
DX: E11.9 Type 2 diabetes mellitus without complications (principal); M12.851 Other specific arthropathies, not elsewhere classified, right hip; R79.89 Other specified abnormal findings of blood chemistry
CPT/HCPCS: 80053; 80061; 83036; 85025

== ENCOUNTER 2024-01-13 10:01 | Outpatient (RCR) | payer MEDICAID, SELFPAY | END 2024-01-16 23:59 | disposition home or self-care (01) | LOC: CR 10:01 | PROVIDERS: PCP Physician Assistant Medical; Visit Provider Internal Medicine Cardiovascular Disease | DX: R69 Illness, unspecified (principal) ==

== ENCOUNTER 2024-02-14 09:06 | Outpatient (RCR) | payer MEDICAID, SELFPAY | END 2024-02-16 23:59 | disposition home or self-care (01) | LOC: CR 09:06 | PROVIDERS: PCP Physician Assistant Medical; Visit Provider Internal Medicine Cardiovascular Disease | DX: I25.810 Atherosclerosis of coronary artery bypass graft(s) without angina pectoris (principal); Z51.89 Encounter for other specified aftercare | CPT/HCPCS: S9472 ==

== ENCOUNTER 2024-03-16 09:00 | Outpatient (RCR) | payer MEDICAID, SELFPAY ==
--- OUTSIDE RECORDS SUMMARY | 2024-02-17 10:55 | XMS_ITS | Continuity of Care Document ---
Author Name Unknown Organization [facility] Ambulatory Clinics Address [address] [place] [address] Care Team Providers Care Basket Turner Name Role Phone STANLEY PEREZ PA-C Primary Care Opal toconsuelo Encounter [facility] NBR [id number] Date(s): 04/16/23 - 04/16/23 [facility] Ambulatory Clinics [address] [place] [address]- [place] Discharge Disposition: Home Allergies, Adverse Reactions, Alerts Substance Reaction Severity Status Wasps critical Severe Active Assessment and Plan Future Scheduled Tests Radiology* MRI Hip w/o Contrast Right 04/10/23 Medications Creon 3000 units oral delayed release capsule 1 cap, Oral, QID, with each meal and snack, # 120 cap, 0 Refill(s) Start Date: 03/08/23 Status: Ordered glipiZIDE 5 mg oral tablet 5 mg = 1 tab, Oral, Daily, # 30 tab, 0 Refill(s) Start Date: 03/08/23 Status: Ordered Jardiance 10 mg oral tablet 10 mg = 1 tab, Oral, every morning, # 30 tab, 0 Refill(s) Start Date: 03/08/23 Status: Ordered pantoprazole 20 mg oral delayed release tablet 20 mg = 1 tab, Oral, Daily, # 90 tab, 0 Refill(s) Start Date: 03/08/23 Status: Ordered Procedures Procedure Date Related Diagnosis Body Site Status Procedure on 2019 [facility] ed Radiofrequency ablation of n erve root of lumbar spine using fluoroscopic guidance 01/19/19 Completed Arthroscopy of shoulder 1 10/04/15 Completed Abdominal wall hernia procedure 2 1970 Completed 1Left 2herniorraphy Social History Social History Type Response Tobacco Former tobacco user Tobacco Use:. Sex Male Patient Care team information Care Team Personnel Name: STANLEY PEREZ PA-C Position: No Access Member Role: Primary Care Physician Address: Address: [address] Care Team Related Persons Name: JG PEREZ Address: Home [address] [place], [place] [id number] [place] [address] Name: AYDEN DANIELSON Address: Home [address]
--- OUTSIDE RECORDS SUMMARY | 2024-02-17 10:55 | XMS_ITS | Continuity of Care Document ---
Author Name Unknown Organization [facility] Address [address] [place] [address] Care Team Providers Care Hydraulic Chair Assembler Name Role Phone STANLEY PEREZ PA-C Primary Care Opal steel Encounter [facility] NBR [id number] Date(s): 07/02/23 - 09/06/23 [facility] [address] [place] [address]- [place] Discharge Disposition: Home Attending Physician: Salty Rust PT, DPT Admitting Physician: Zo Vicente APRN Referring Physician: Zo Vicente APRN Allergies, Adverse Reactions, Alerts Substance Reaction Severity Status Wasps Anaphylaxis critical Severe Active Assessment and Plan Future Appointments Future Scheduled Tests Radiology* MRI Hip w/o Contrast Right 04/10/23 Medications acetaminophen 500 mg oral tablet 1,000 mg = 2 tab, Oral, every 6 hr, PRN as needed for pain Start Date: 07/08/23 Status: Ordered colestipol 1 g oral tablet 2 g = 2 tab, Oral, BID, with a full glass of water, # 120 tab, 11 Refill(s), Pharmacy: [facility], 167, cm, 07/10/23 16:23:00 EDT, Height/Length Dosing, 99, kg, 07/10/23 16:23:00 EDT, Weight Dosing Start Date: 08/06/23 Status: Ordered Creon 24,000 units oral delayed release capsule 2 cap, Oral, TID w/ Meals, also has snack time dose, 0 Refill(s) Start Date: 04/24/23 Status: Ordered Creon 24,000 units oral delayed release capsule 1 cap, Oral, TID, PRN other (see comment), with snacks; also has meal time dose Start Date: 07/08/23 Status: Ordered fenofibrate 48 mg oral tablet 48 mg = 1 tab, Oral, every evening, 0 Refill(s) Start Date: 04/24/23 Status: Ordered Jardiance 25 mg oral tablet 25 mg = 1 tab, Oral, every morning, 0 Refill(s) Start Date: 04/24/23 Status: Ordered MetFORMIN (Eqv-Glucophage XR) 500 mg oral tablet, extended release 1,000 mg = 2 tab, Oral, BID, 0 Refill(s) Start Date: 04/24/23 Status: Ordered NovoLOG FlexPen 100 units/mL injectable solution Subcutaneous, QID Start Date: 07/07/23 Status: Ordered oxyCODONE 5 mg oral tablet 5 mg = 1 tab, Oral, every 6 hr, PRN pain, take 1 to 2 tabs as needed for severe pain that is not tolerable, # 20 tab, 0 Refill(s), Pharmacy: [facility], 167, cm, 07/08/23 11:33:00 EDT, Height/Length Dosing, 99, kg, 07/08/23 11:33:00 EDT, Weight Dosing Start Date: 07/10/23 Stop Date: 07/13/23 Status: Ordered pantoprazole 40 mg oral delayed release tablet 40 mg = 1 tab, Oral, every morning, 0 Refill(s) Start Date: 04/24/23 Status: Ordered Tresiba FlexTouch 100 units/mL subcutaneous solution 26 units =, Subcutaneous, every evening Start Date: 07/07/23 Status: Ordered Xarelto 15 mg oral tablet 15 mg = 1 tab, Oral, BID, with food, # 42 tab, 0 Refill(s) Start Date: 08/06/23 Stop Date: 08/26/23 Status: Ordered Problem List Condition Confirmation Course Effective Dates Status Health St atus Informant Abdominal pain Confirmed Active Actinic keratosis Confirmed Active Acute pancreatitis Confirmed Active Alcohol abuse Confirmed Active Anxiety Confirmed Active Arthritis Confirmed Active Atelectasis Confirmed Active Diabetes mellitus Confirmed Active Diarrhea Confirmed Active Diastasis recti Confirmed Active Ex-smoker Confirmed Active Fatty liver Confirmed Active Blood in stool Confirmed Active Knee pain Confirmed Active Leukoplakia Confirmed Active Low back pain Confirmed Active Carcinoma 1 Confirmed Active EDGAR (obstructive sleep apnea) Confirmed Active Lumbar spine pain Confirmed Active Peptic ulcer Confirmed Active Spirochetal infection Confirmed Active Head trauma Confirmed Active Upper respiratory infection Confirmed Active 1basal cell Procedures Procedure Date Related Diagnosis Body Site Status Procedure on back 2019 [facility] ed Radiofrequency ablation of n erve root of lumbar spine using fluoroscopic guidance 01/19/19 Completed Arthroscopy of shoulder 1 10/04/15 Completed Abdominal wall hernia procedure 2 1969 Completed Cholecystectomy 3 [facility] ed 1Left 2herniorraphy [id number] Social History Social History Type Response Tobacco Former tobacco user Tobacco Use:. Sex Male Patient Care team information Care Team Personnel Name: STANLEY PEREZ PA-C Position: No Access Member Role: Primary Care Physician Address: Address: [address] Care Team Related Persons Name: JG PEREZ Address: Home [address] [place], [place] [phone] [facility] Name: AYDEN DANIELSON Address: Home [address] [place] [address] [facility] Name: AYDEN DANIELSON Address: Home [address] [place], [place] [id number] [facility]
--- OUTSIDE RECORDS SUMMARY | 2024-02-17 10:55 | XMS_ITS | Continuity of Care Document ---
Author Name Unknown Organization [facility] Address [address] [place] [address] Care Team Providers Care Supervisor Area Name Role Phone STANLEY PEREZ PA-C Primary Care Opal damián Encounter [facility] FIN NBR [id number] Date(s): 08/10/23 - 08/10/[address] [address]- [place] Discharge Disposition: Home or Self Care Attending Physician: Delmer Arrieta MD Admitting Physician: Delmer Arrieta MD Referring Physician: Delmer Arrieta MD Allergies, Adverse Reactions, Alerts Substance Reaction Severity Status Wasps Anaphylaxis critical Severe Active Assessment and Plan Future Appointments Diagnostic Tests Pending * Pancreatic Elastase, Fecal LC 08/10/23 * Calprotectin, Fecal LC 08/10/23 * Fecal Fat, Qualitative LC 08/10/23 Future Scheduled Tests Radiology* MRI Hip w/o Contrast Right 04/10/23 Medications acetaminophen 500 mg oral tablet 1,000 mg = 2 tab, Oral, every 6 hr, PRN as needed for pain Start Date: 07/08/23 Status: Ordered colestipol 1 g oral tablet 2 g = 2 tab, Oral, BID, with a full glass of water, # 120 tab, 11 Refill(s), Pharmacy: [facility], 167, cm, 07/10/23 16:23:00 EDT, Height/Length Dosing, [...] tolerable, # 20 tab, 0 Refill(s), Pharmacy: [facility], 167, cm, 07/08/23 11:33:00 EDT, Height/Length [...] Body Site Status Procedure on back 2019 [facility] ed Radiofrequency ablation of n erve root of lumbar spine using fluoroscopic guidance 01/19/19 Completed Arthroscopy of shoulder 1 10/04/15 Completed Abdominal wall hernia procedure 1969 Completed Cholecystectomy 3 [facility] ed 1Left 2herniorraphy [id number] Social History Social History Type Response Tobacco Former tobacco user Tobacco Use:. Sex Male Patient Care team information Care Team Personnel Name: STANLEY PEREZ PA-C Position: No Access Member Role: Primary Care Physician Address: Address: [facility] [address] [place], [place] [phone] [place] [address] Care Team Related Persons Name: JG PEREZ Address: Home [address] [place], [place] [phone] [facility] Name: AYDEN DANIELSON Address: Home [address] [place], [place] [phone] [facility] Name: AYDEN DANIELSON Address: Home [address] [place] [address] [facility]
--- OUTSIDE RECORDS SUMMARY | 2024-02-17 10:55 | XMS_ITS | Continuity of Care Document ---
Author Name Unknown Organization [facility] Ambulatory Clinics Address [address] [place] [address] Care Team Providers Care Manager Clinical Research Name Role Phone STANLEY PEREZ PA-C Primary Care Opal toconsuelo Encounter [facility] FIN NBR [id number] Date(s): 03/08/23 - 03/08/23 [facility] Ambulatory Clinics [address] [place], [place] [address] Encounter Diagnosis Primary osteoarthritis of right hip(Discharge Diagnosis) - 03/08/23 Discharge Disposition: Home or Self Care Attending Physician: Diana Meek LAWN SERVICE WORKER, Allergies, Adverse Reactions, Alerts Substance Reaction Severity Status Wasps critical Severe Active Assessment and Plan Future Appointments Functional Status 03/08/23 Other exposure to Infectious Disease Non e Medications Creon 3000 units oral delayed release [...] Diagnosis Body Site Status Procedure on 2019 [facility] ed Radiofrequency ablation of n erve root of lumbar spine using fluoroscopic guidance 01/19/19 Completed Arthroscopy of shoulder 1 10/04/15 Completed Abdominal wall hernia procedure 1969 Completed 1Left 2herniorraphy Vital Signs Most recent to oldest [Reference Range]: 1 Peripheral Pulse Rate [60-100 bpm] 92 bp m (03/08/23 8:22 AM) Blood Pressure [90-140/60-90 mmHg] 128/8 4mmHg (03/08/23 8:22 AM) Weight 97.07 kg (03/08/23 8:22 AM) Weight Measured (lbs) 214.002 lb (03/08/23 8:22 AM) Height 167.64 cm (03/08/23 8:22 AM) Height/Length Measured (inches) 66 inch (03/08/23 8:22 AM) BSA Measured 2.13 m2 (03/08/23 8:22 AM) Body Mass Index 34.54 kg/m2 (03/08/23 8:22 AM) Social History Social History Type Response Tobacco Former tobacco user Tobacco Use:. Sex Male Hospital Discharge Instructions Follow Up Care 02/12/2023 10:39:32 With:Zo Cortes APRN Address: [address] [place] [address] When: Unknown Comments:US-GUIDED INJECTION RIGHT HIP (NO X-RAY) Physician Outpatient Note * Diana Meek APRN,: PERFORM Event Display: Office Clinic Note Physician Authored Date: [id number] JULIAN PEREZ :1970 Age:52 years Sex:Male Visit Date:03/08/2023 Primary Care Physician: CHRIS KINNEY, STANLEY NUGENT Chief Complaint RIght hip pain History of Present Illness Julian is a pleasant??52-year-old man??who is kindly referred to the practice for evaluation of right hip pain.?? He tells me he has been struggling with??back and right leg pain for years now.?? Hedid have??back surgery through [facility] neurology and neurosurgery several years ago. ??This was successful. ??When he began to have back and hip pain??again he first went to see them, but they did not feel that his pain was coming from the lumbar spine.?? He then underwent evaluation for the hip. ??He has had x-rays of the hip.?? He describes a steady pain at the low back and right buttock??that is constant.?? He has pain with standing and walking. ??Pain with range of motion. ??He describes popping, snapping and crunching at the hip.?? In terms of treatment he has used Tylenol and ibuprofen. ??He has used some topical patches.?? He has not done any physical therapy. ??No previous injuries or surgeries to the right hip or leg.?? 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 Review of Systems Constitutional:?No??fevers,?No??chills,?No??sweats Respiratory:?No??shortness of breath,?No??cough Cardiovascular:?No??Chest pain,?No??palpitations,?No??syncope Gastrointestinal:?Nonausea,?No??vomiting,?No??diarrhea Musculoskeletal:??No??back pain,??No??neck pain,??No??joint pain,??No??muscle pain,??No??decreased range of motion Integumentary:?No??rash,?No??pruritus,?No??abrasions Neurologic: Alert & oriented X 4 Psychiatric:?No??anxiety,?No??depression Physical Exam Vitals & Measurements HR:??92??(Peripheral)?? BP:??128/84?? SpO2:??93%?? HT:??167.64??cm?? WT:??97.07??kg?? BMI:??34.54?? Pain Score:??7?? BSA:??2.13?? The patient is alert and oriented x3. ??Pleasant and cooperative. ??Well-dressed and well-groomed.?? Appears stated age and is well-nourished and well- developed.?? Examination of the right hip is without deformity. ??Skin is intact. ??There is no erythema or warmth. ??No signs or symptoms of infection. ??There is point tenderness overlying the greater trochanter. ??Forward flexion is to 95 degrees with groin and buttock pain.?? Internal and external rotation??are without limitation, but??external rotation reproduces buttock pain.?? Internal rotation does not reproduce pain.?? Abduction is to 80 degrees with mild discomfort at the buttock. ??Patient is able to straight leg raise and cross the leg without difficulty. ??Frog-leg maneuver is without difficulty.?? Strength is intact throughoutthe lower extremity. ??Thigh and calf compartments are soft and nontender. ??The right lower extremity is neurovascularly intact distally. Assessment/Plan 1.??Primary osteoarthritis of right hip??M16.11 Julian is a pleasant 52-year-old man who has been struggling with low back and right hip pain for quite some time now.?? He has a history of lumbar spine surgery through [facility].?? When the back and hip pain began,??he saw them for reevaluation but it was not??felt??his pain is stemming??from the lumbar spine.?? He has had recent x-rays of the hip which show earlydegenerative changes as well as gluteus tendinopathy.?? He complains of??buttock pain??worse with standing, walking.?? I do feel that some of his pain could be generating from the hip joint due to this early arthritis. ??Therefore I recommended that we try an ultrasound-guided intra-articular injection as both a diagnostic and therapeutic approach.?? He would like to give this a try.?? He also has point tenderness overlying the greater trochanter, however this pain is not as bothersome.?? However, if he does not respond to intra-articular injection we could consider??bursal injection??versus??referral to the pain service to consider??epidural spine injection??versus physical therapy.?? Julian may continue with all supportive care.?? He is encouraged to contact the office at anytime with questions or concerns. ??I spent 30 minutes in reviewing the record, seeing the patient and documenting in the medical record.?? I will follow-up with him post??intra-articular injection. Follow Up Instructions With When Contact Information Zo Cortes, LAWN SERVICE WORKER [address] [place] [address]- Additional Instructions: US-GUIDED INJECTION RIGHT HIP (NO X-RAY) Problem List/Past Medical History Ongoing No qualifying data Historical No qualifying data Procedure/Surgical History ???Procedure on back (2019) Medications Creon 3000 units oral delayed release capsule, 1 cap, Oral, QID glipiZIDE 5 mg oral tablet, 5 mg= 1 tab, Oral, Daily Jardiance 10 mg oral tablet, 10 mg= 1 tab, Oral, every morning pantoprazole 20 mg oral delayed release tablet, 20 mg= 1 tab, Oral, Daily Allergies Wasps??(critical) Social History Electronic Cigarette/Vaping Electronic Cigarette Use: Never. Tobacco Former tobacco user Tobacco Use:. Diagnostic Results Diagnostic Study Interpretation: X-rays of the pelvis and right hip from December 12, 2022 have been pushed to the [facility] system from [facility] and are personally reviewed.?? No acute fracture or dislocation.?? Small osteophyte seen at the lateral acetabulum with subchondral sclerosis indicative of early degenerative changes. Electronically Signed on 03/08/23 09:15 AM Diana Meek APRN, Patient Care team information Care Team Personnel Name: STANLEY PEREZ PA-C Position: No Access Member Role: Primary Care Physician Address: Address: [facility] [address] [place] [address]- Care Team Related Persons Name: JG PEREZ Address: Home [address] [place], [place] [phone] [place] [address] Name: AYDEN DANIELSON Address: Home [facility] [address]
--- OUTSIDE RECORDS SUMMARY | 2024-02-17 10:55 | XMS_ITS | Continuity of Care Document ---
Author Name Unknown Organization [facility] Address [address] [place] [address] Care Team Providers Care [employer] Team Member Name Role Phone STANLEY PEREZ PA-C Primary Care Opal damián Encounter [facility] NBR [id number] Date(s): 09/10/23 - 09/10/23 [facility] [address], [place] [address] Encounter Diagnosis Diarrhea(Discharge Diagnosis) - 09/10/23 Alcohol abuse(Discharge Diagnosis) - 09/10/23 Acute pancreatitis(Discharge Diagnosis) - 09/10/23 Discharge Disposition: Home or Self Care Attending Physician: Bhavana Villatoro APRN Allergies, Adverse Reactions, Alerts Substance Reaction Severity Status Wasps Anaphylaxis critical Severe Active Assessment and Plan Future Appointments Future Scheduled Tests Radiology* MRI Hip w/o Contrast Right 04/10/23 Functional Status 09/10/23 Other exposure to Infectious Disease Non e Medications acetaminophen 500 mg oral tablet 1,000 mg = 2 tab, Oral, every 6 hr, PRN as needed for pain Start Date: 07/08/23 Status: Ordered colestipol 1 g oral tablet 2 g = 2 tab, Oral, BID, with a full glass of water, # 120 tab, 11 Refill(s), [facility]acy: [id number], 167, cm, 07/10/23 16:23:00 EDT, Height/Length Dosing, 99, kg, 07/10/23 16:23:00 EDT, Weight Dosing Start Date: 08/06/23 Status: Ordered Creon 24,000 units oral delayed release capsule 3 cap, Oral, TID w/ Meals, also has snack time dose, # 270 cap, 3 Refill(s), Pharmacy: [id number], 167, cm, 07/10/23 16:23:00 EDT, Height/Length Dosing, 99, kg, 07/10/23 16:23:00 EDT, Weight Dosing Start Date: 09/10/23 Stop Date: 01/08/24 Status: Ordered Creon 24,000 units oral delayed release capsule 2 ccap, Oral, TID, PRN other (see comment), with snacks; also has meal time dose, # 120 cap, 0 Refill(s), Pharmacy: [id number], 167, cm, 07/10/23 16:23:00 EDT, Height/Length Dosing, 99, kg, 07/10/23 16:23:00 EDT, Weight Dosing Start Date: 09/10/23 Stop Date: 10/10/23 Status: Ordered fenofibrate 48 mg oral tablet [...] tolerable, # 20 tab, 0 Refill(s), Pharmacy: [facility], 167, cm, 07/08/23 11:33:00 [...] Confirmed Active Blood in stool Confirmed Active Hyperplastic polyp Confirmed Active Knee pain Confirmed Active Leukoplakia Confirmed Active Low back pain Confirmed Active Carcinoma 1 Confirmed Active EDGAR (obstructive sleep apnea) Confirmed Active Lumbar spine pain Confirmed Active Peptic ulcer Confirmed Active Spirochetal infection Confirmed Active Head trauma Confirmed Active Upper respiratory infection Confirmed Active 1basal cell Procedures Procedure Date Related Diagnosis Body Site Status Colonoscopy 06/13/22 Completed Esophagogastroduodenoscopy 06/13/22 Completed Procedure on back 2019 [facility] ed Radiofrequency ablation of n erve root of lumbar spine using fluoroscopic guidance 01/19/19 Completed Colonoscopy 02/17/18 Completed Arthroscopy of shoulder 1 10/04/15 Completed Abdominal wall hernia procedure 1969 Completed Cholecystectomy 3 [facility] ed Surgical removal of wisdom tooth Completed 1Left 2herniorraphy 56162 Vital Signs Most recent to oldest [Reference Range]: 1 Temperature Temporal Artery [36-38 Deg C ] 36.1 Deg C (09/10/23 8:06 AM) Apical Heart Rate [60-100 bpm] 75 bpm (09/10/23 8:06 AM) Weight 93.89 kg (09/10/23 8:06 AM) Weight Measured (lbs) 206.992 lb (09/10/23 8:06 AM) [place] Body Weight Calculated 63.8 kg (09/10/23 8:06 AM) Height 167.64 cm (09/10/23 8:06 AM) Height/Length Measured (inches) 66 inch (09/10/23 8:06 AM) BSA Measured 2.09 m2 (09/10/23 8:06 AM) Body Mass Index 33.41 kg/m2 (09/10/23 8:06 AM) Social History Social History Type Response Tobacco Former tobacco user Tobacco Use:. Sex Male Physician Outpatient Note * Bhavana Villatoro APRN: PERFORM Event Display: Office Clinic Note Physician Authored Date: [id number] NYASIA PEREZ :1970 Age:53 years Sex:Male Visit Date:09/10/2023 Primary Care Physician: STANLEY PEREZ PA-C Chief Complaint follow up chronic diarrhea History of Present Illness Patient is a 53-year-old??male??who is here at the request of Josephine Perez PA-C??for chronic diarrhea. ??He has a history of diabetes??, status postcholecystectomy,??alcohol use disorder in remission??who carries a diagnosis of chronic pancreatitis complicated by??recurrent acute pancreatitis??a nd??exocrine insufficiency,??on??pancreatic??enzyme??replacement therapy??complains of ongoing??diarrhea??despite??use of??Creon,??2 tablets before meals and 1 before snacks. ?? Patient has a history of??diabetes??established approximate 12 years ago. ??He has been on insulin for the last 3 months.?? His first episode of pancreatitis??was 10 years ago??but has??not been admitted to the hospital??until??June of this year??where he was admitted??from??07/07/2023 to 07/10/2023??for uncomplicated??interstitial pancreatitis.? The patient's last alcoholic drink??was over 25 years ago.?? He reports heavy alcohol use??for??approximately 5 years??prior to that.?? During his recent admission??his hematocrit was 45 on on discharge, BUN 17 admission 10 at discharge, normal liver enzymes, normal calcium, normal triglycerides.?? Amylase and lipase were??elevated less than twice the upper limit of normal.?? His triglycerides were 83??at that time.?? His admission was primarily due to pain.?? While n.p.o. during that admission he had no??bowel movements.?CT scan during that admission??which was a CT angio??ofthe abdomen pelvis??on 07/08/2023??showed mild atherosclerosis, no??stenosis,??fatty liver, status po stcholecystectomy with normal common bile duct, and mild peripancreatic inflammations without any abnormalities noted of the??pancreatic duct. ? The patient??underwent cholecystectomy??5 years ago??for cholecystitis??and??reports onset of diarrhea??with??in several months.?? The patient is unsure if he has ever had??light-colored, greasy, frothy??or bubbly stools.? Patient was seen at [facility] 1 year ago??for diarrhea??and at that time was??diagnosed with pancreatic insufficiency and treated with pancreatic enzymes which the patient reports??initially??improved his diarrhea??but as of late??he has had??more frequent??loose stools.?? Stools are dark??occasionally black??Montague 7.?? He is also had episodes of bright red blood per rectum.? Since starting colestipol 2 g twice??daily??his stools are now Montague form 6 and 7. ??They occur with urgency and occur 3-4 times per day.?? He states??this was overall an improvement??but still??bothersome. ?? Labs: 08/06/2023 celiac negative at, fecal calprotectin??normal,??fecal fat normal, pancreatic elastase??low 112. ?? EGD: 06/11/2022 showed no H. pylori infection and normal esophageal biopsies. -EIS at [facility] last week.?? Results are not available. ?? Colonoscopy: 06/11/2022 intestinal spherocytosis. ?? He is status post hemorrhoidectomy 12 years ago.? He has no first-degree relatives with colorectal cancer,??alcohol use disorder,??liver disease??or celiac disease.? Review of Systems Pertinent positives and negatives are discussed in HPI. Physical Exam Vitals & Measurements T:??36.1?C ??(Temporal Artery)?? HR:??75??(Apical)?? SpO2:??98%?? HT:??167.64??cm?? WT:??93.89??kg?? BMI:??33.41?? BSA:??2.09?? General: Well-nourished well-developed??male in no acute distress. HEENT: Head is normocephalic, trachea midline, and no cervical lymphadenopathy. Respiratory: Respirations are even and unlabored. ??Lungs are clear to auscultation. Cardiovascular: Regular rate and rhythm with S1 and S2. Abdomen: Positive bowel sounds x4 quadrants, no masses, no guarding, no tenderness. ??No hepatosplenomegaly. ??Abdomen is soft. Skin: Warm, dry, and pink. Neurological: Alert and oriented x3, speech is clear and gait is steady. Psychological: Pleasant, calm and cooperative. Assessment/Plan 1.??Diarrhea??R19.7 Slight improvement with colestipol 2??Pills daily.?? No inflammation seen calprotectin. ??Celiac negative.?? Pancreatic elastase low. ??Increase??Creon to 3 tablets with meals??and 2 tablets with snacks.?? Continue low-fat diet. ??Reevaluate in 4 weeks.?? Colonoscopy 2021 was unremarkable other than intestinal spirochetes which was treated.?? He was seen by??infectious disease at [facility]. 2.??Alcohol abuse??F10.10 As above.?Abstinent for over 25 years. 3.??Acute pancreatitis??K85.90 Had a EUS. ??Will get a copy of those results.?? Has pancreatic insufficiency??as a result. ??Increase Creon as above. ??Reevaluate in 4 weeks. Orders: Creon 24,000 units oral delayed release capsule, 3 cap, Oral, TID w/ Meals, also has snack time dose, # 270 cap, 3 Refill(s), Pharmacy: [id number], 167, cm, 07/10/23 16:23:00 EDT, Height/LengthDosing, 99, kg, 07/10/23 16:23:00 EDT, Weight Dosing Creon 24,000 units oral delayed release capsule, 2 ccap, Oral, TID, PRN other (see comment), with snacks; also has meal time dose, # 120 cap, 0 Refill(s), Pharmacy: [facility], 167, cm, 07/10/23 16:23:00 EDT, Height/Length Dosing, 99, kg, 07/10/23 16:23:00 EDT, Weight Dosing Follow-up Appointment Request [facility], *Est. 10/08/23 +/- 4 days, Future Order, f/u diarrhea, chroni pancreatitis, In Approximately, [facility] Gastroenterology Voice recognition software utilized which may result in minor line production cook error. Problem List/Past Medical History Ongoing Abdominal pain Actinic keratosis Acute pancreatitis Alcohol abuse Anxiety Arthritis Atelectasis Blood in stool Carcinoma Diabetes mellitus Diarrhea Diastasis recti Ex-smoker Fatty liver Head trauma Hyperplastic polyp Knee pain Leukoplakia Low back pain Lumbar spine pain EDGAR (obstructive sleep apnea) Peptic ulcer Spirochetal infection Upper respiratory infection Historical No qualifying data Procedure/Surgical History ???Colonoscopy (06/14/2022)???Esophagogastroduodenoscopy (06/14/2022)???Procedure on back (2019)???Radiofrequency ablation of nerve root of lumbar spine using fluoroscopic guidance (01/20/2019)???Colonoscopy (02/18/2018)???Arthroscopy of shoulder (10/05/2015)???Abdominal wall hernia procedure (1969)???Cholecystectomy???Surgical removal of wisdom tooth Medications acetaminophen 500 mg oral tablet, 1000 mg= 2 tab, Oral, every 6 hr, PRN colestipol 1 g oral tablet, 2 g= 2 tab, Oral, BID, 11 refills Creon 24,000 units oral delayed release capsule, 3 cap, Oral, TID w/ Meals, 3 refills Creon 24,000 units oral delayed release capsule, 2 ccap, Oral, TID, PRN fenofibrate 48 mg oral tablet, 48 mg= 1 tab, Oral, every evening NovoLOG FlexPen 100 units/mL injectable solution, Subcutaneous, QID oxyCODONE 5 mg oral tablet, 5 mg= 1 tab, Oral, every 6 hr, PRN pantoprazole 40 mg oral delayed release tablet, 40 mg= 1 tab, Oral, every morning Tresiba FlexTouch 100 units/mL subcutaneous solution, 26 units, Subcutaneous, every evening Xarelto 15 mg oral tablet, 15 mg= 1 tab, Oral, BID Allergies Wasps??(Anaphylaxis, critical) Social History Alcohol Never Electronic Cigarette/Vaping Electronic Cigarette Use: Never. Substance Use Never Tobacco Former tobacco user Tobacco Use:. Family History Heart disease: Father. Lung cancer: Mother. Myocardial infarction: Father. Family Member(s): ?? FATHER, at age: Unknown. Cause of : Family Member(s): ?? MOTHER, at age: Unknown. Cause of : Electronically Signed on 09/10/23 08:58 AM Bhavana Villatoro APRN Patient Care team information Care Team Personnel Name: STANLEY PEREZ PA-C Position: No Access Member Role: Primary Care Physician Address: Address: [place] [address]- Care Team Related Persons Name: JG PEREZ Address: Home [address] [place] [id number] [facility] Name: AYDEN DANIELSON Address: Home [address] [place], [place] [id number] [facility] Name: AYDEN DANIELSON Address: Home [address] [place] [address] [facility]
--- OUTSIDE RECORDS SUMMARY | 2024-02-17 10:55 | XMS_ITS | Continuity of Care Document ---
Author Name Unknown Organization [facility] Address [address] [place] [id number] Care Team Providers Care Product Planner Name Role Phone STANLEY PEREZ PA-C Primary Care Opal toconsuelo Encounter LTTL_DE FIN NBR [id number] Date(s): 07/07/23 - 07/07/[address] [id number] Encounter Diagnosis Duodenitis(Discharge Diagnosis) - 07/07/23 Discharge Disposition: Home or Self Care Attending Physician: Delmer Aguillon DO Admitting Physician: Delmer Aguillon DO Allergies, Adverse Reactions, Alerts Substance Reaction Severity Status Wasps critical Severe Active Assessment and Plan Future Scheduled Tests Radiology* MRI Hip w/o Contrast Right 04/10/23 Functional Status 07/07/23 Other exposure to Infectious Disease Non e Medications Creon 24,000 units oral delayed release capsule 2 cap, Oral, TID, 240 EA, TAKE 2 CAPSULES BY MOUTH PRIOR TO MEALS AND 1 CAPSULE PRIOR TO SNACKS, 0 Refill(s) Start Date: 04/24/23 Status: Ordered fenofibrate 48 mg oral tablet 48 mg = 1 tab, Oral, Daily, 90 EA, TAKE ONE TABLET BY MOUTH EVERY DAY, 0 Refill(s) Start Date: 04/24/23 Status: Ordered Jardiance 25 mg oral tablet 25 mg = 1 tab, Oral, every morning, 90 EA, TAKE 1 TABLET BY MOUTH DAILY, 0 Refill(s) Start Date: 04/24/23 Status: Ordered MetFORMIN (Eqv-Glucophage XR) 500 mg oral tablet, extended release 1,000 mg = 2 tab, Oral, BID, 360 EA, TAKE 2 TABLETS BY MOUTH TWICE DAILY, 0 Refill(s) Start Date: 04/24/23 Status: Ordered NovoLOG FlexPen 100 units/mL injectable solution Subcutaneous, QID Start Date: 07/07/23 Status: Ordered pantoprazole 40 mg oral delayed release tablet 40 mg = 1 tab, Oral, Daily, 90 EA, TAKE ONE TABLET BY MOUTH EVERY DAY (TO REPLACE OMEPRAZOLE), 0 Refill(s) Start Date: 04/24/23 Status: Ordered Percocet 5 mg-325 mg oral tablet 1 tab, Oral, every 6 hr, PRN as needed for pain, X 3 days, # 12 tab, 0 Refill(s), 07/10/23 1:30:00 PM CDT Start Date: 07/07/23 Stop Date: 07/10/23 Status: Ordered pioglitazone 30 mg oral tablet 30 mg = 1 tab, Oral, Daily, 0 Refill(s) Start Date: 04/24/23 Status: Ordered Tresiba FlexTouch 100 units/mL subcutaneous solution 26 units =, Subcutaneous, Daily Start Date: 07/07/23 Status: Ordered Mental Status 07/07/23 Eye Opening Response Luis Spontaneous ly Best Verbal Response Luis Oriented Best Motor Response Luis Obeys comman ds Luis Coma Score 15 Problem List Condition Confirmation Course Effective Dates Status Health St atus Informant Abdominal pain Confirmed Active Actinic keratosis Confirmed Active Alcohol abuse Confirmed Active Anxiety Confirmed Active Arthritis Confirmed Active Diabetes mellitus Confirmed Active Diarrhea Confirmed Active Diastasis recti Confirmed Active Blood in stool Confirmed Active Carcinoma 1 Confirmed Active EDGAR (obstructive sleep apnea) Confirmed Active Lumbar spine pain Confirmed Active Peptic ulcer Confirmed Active Spirochetal infection Confirmed Active Upper respiratory infection Confirmed Active 1basal cell Procedures Procedure Date Related Diagnosis Body Site Status Procedure on back 2019 [facility] ed Radiofrequency ablation of n erve root of lumbar spine using fluoroscopic guidance 01/19/19 Completed Arthroscopy of shoulder 1 10/04/15 Completed Abdominal wall hernia procedure 2 1969 Completed 1Left 2herniorraphy Results Laboratory List Name Date Urinalysis with Micro if Indicated and C ulture if Indicated 07/07/23 Amylase Level 07/07/23 CBC w/ Diff 07/07/23 Comprehensive Metabolic Panel 07/07/23 Lipase Level 07/07/23 PT/ INR 07/07/23 Troponin-I High Sensitivity 07/07/23 Automated Diff 07/07/23 Most recent to oldest [Reference Range]: 1 WBC [4.8-10.8 K/mcL] 7.8 K/mcL (07/07/23 12:40 PM) RBC [4.20-6.10 Million/mcL] 4.90 Million /mcL (07/07/23 12:40 PM) Neutro Auto [42.2-75.2 %] 67.0 % (07/07/23 12:40 PM) Lymph Auto [20.5-51.1 %] 21.9 % (07/07/23 12:40 PM) Garland Auto [1.7-9.3 %] 7.9 % (07/07/23 12:40 PM) Basophil Auto [0.0-0.8 %] 0.5 % (07/07/23 12:40 PM) Prothrombin Time [9.1-10.6 seconds] 9.9 seconds (07/07/23 12:40 PM) INR [0.9-1.1] 1.0 1 (07/07/23 12:40 PM) BUN [8-26 mg/dL] 17 mg/dL (07/07/23 12:40 PM) UA Color [Yellow] Yellow (07/07/23 2:45 PM) Glucose Level [74-106 mg/dL] 130 mg/dL *HI* (07/07/23 12:40 PM) Potassium Level [3.5-5.1 mmol/L] 4.5 mmo l/L (07/07/23 12:40 PM) Baso Absolute [0.0-0.2 K/mcL] 0.0 K/mcL (07/07/23 12:40 PM) MCV [80.0-94.0 fL] 92.2 fL (07/07/23 12:40 PM) UA Urobilinogen [0.2] 0.2 (07/07/23 2:45 PM) UA Bili [Negative] Negative (07/07/23 2:45 PM) UA Ketones [Negative] Negative (07/07/23 2:45 PM) AST [15-41 IntlUnit/L] 24 IntlUnit/L (07/07/23 12:40 PM) Amylase Level [28-100 unit/L] 70 unit/L (07/07/23 12:40 PM) ALT [17-63 IntlUnit/L] 22 IntlUnit/L (07/07/23 12:40 PM) MCHC [32.0-36.0 g/dL] 33.6 g/dL (07/07/23 12:40 PM) Osmolality [275-295 mOsm/kg] 279 mOsm/kg (07/07/23 12:40 PM) Sodium Level [134-143 mmol/L] 138 mmol/L (07/07/23 12:40 PM) UA Leuk Est [Negative] Negative (07/07/23 2:45 PM) Lymph Absolute [1.2-3.4 K/mcL] 1.7 K/mcL (07/07/23 12:40 PM) UA Nitrite [Negative] Negative (07/07/23 2:45 PM) UA Glucose [Negative] >=1000 *ABN* (07/07/23 2:45 PM) Hct [42.0-52.0 %] 45.2 % (07/07/23 12:40 PM) Lipase Level [18-51 unit/L] 47 unit/L 2 (07/07/23 12:40 PM) Calcium Level [8.9-10.3 mg/dL] 9.0 mg/dL (07/07/23 12:40 PM) Garland Absolute [0.1-0.6 K/mcL] 0.6 K/mcL (07/07/23 12:40 PM) Albumin Level [3.5-5.0 g/dL] 4.2 g/dL (07/07/23 12:40 PM) Protein Total [6.5-8.1 g/dL] 7.2 g/dL (07/07/23 12:40 PM) UA Protein [Negative] Negative (07/07/23 2:45 PM) MCH [27.0-31.0 pg] 31.0 pg (07/07/23 12:40 PM) Neutro Absolute [1.4-6.5 K/mcL] 5.2 K/mc L (07/07/23 12:40 PM) Bilirubin Total [0.2-1.2 mg/dL] 0.6 mg/d L (07/07/23 12:40 PM) Hgb [14.0-18.0 g/dL] 15.2 g/dL (07/07/23 12:40 PM) Alk Phos [38-130 IntlUnit/L] 49 IntlUnit /L (07/07/23 12:40 PM) UA Blood [Negative] Negative (07/07/23 2:45 PM) MPV [7.4-10.4 fL] 9.4 fL (07/07/23 12:40 PM) UA Spec Grav [1.001-1.030] 1.010 (07/07/23 2:45 PM) Platelets [130-400 K/mcL] 209 K/mcL (07/07/23 12:40 PM) CO2 [22-32 mmol/L] 22 mmol/L (07/07/23 12:40 PM) Eos Absolute [0.0-0.2 K/mcL] 0.2 K/mcL (07/07/23 12:40 PM) UA pH [5.00-9.00] 5.00 (07/07/23 2:45 PM) UA Appear [Clear] Clear (07/07/23 2:45 PM) Chloride Level [98-111 mmol/L] 105 mmol/ L (07/07/23 12:40 PM) RDW-CV [11.5-14.5 %] 12.4 % (07/07/23 12:40 PM) A/G Ratio [1.0-2.5 g/dL] 1.4 g/dL (07/07/23 12:40 PM) BUN/Creat Ratio [8.0-20.0] 14.8 (07/07/23 12:40 PM) Globulin [2.3-3.5 g/dL] 3.0 g/dL (07/07/23 12:40 PM) Imm Gran Absolute 0.03 *NA* (07/07/23 12:40 PM) Imm Gran Auto [0.0-0.5 %] 0.4 % (07/07/23 12:40 PM) Urine Srce Clean Catch (07/07/23 2:45 PM) Creatinine Level [0.61-1.24 mg/dL] 1.15 mg/dL (07/07/23 12:40 PM) Troponin-I HS [<=20 ng/L] 2 ng/L 3 (07/07/23 12:40 PM) Anion Gap [3.0-12.0] 11.0 (07/07/23 12:40 PM) Eos, Auto [0.00-3.00 %] 2.30 % (07/07/23 12:40 PM) eGFR CKD-EPI [>=60 mL/min/1.73 m2] 76 mL /min/1.73 m2 (07/07/23 12:40 PM) 1Interpretive Data: THERAPEUTIC INR RANGES FOR WARFARIN Uncomplicated venous thromboembolic disease 2-3 Lupus Anticoagulant and recurrent thrombosis 3-3.5 Mechanical prosthetic valve or recurrent thrombosis 2.5-3.5 2Interpretive Data: L-veitfp-i-benzoquinone imine (meabolite of Acetaminophen) will generate erroneously low lipase results in samples for patients that have taken toxic doses of acetaminophen. 3Interpretive Data: The [facility] ACCESS high-sensitivity Troponin I (hsTNI) 99 percentile cutoffs forhealthy adults are 12 ng/L or less for females and 20 ng/L or less for males. SERIAL MEASUREMENT IS HIGHLY RECOMMENDED for the diagnosis or exclusion of Acute Coronary Syndromes(ACS). Please refer to the High-Sensitivity Troponin Algorithm 2022 for guidance. As with all markers of cardiac injury, elevations of hsTnI do not in and of themselves indicate thepresence of an ischemic mechanism. Many other disease states can be associated with elevations via mechanisms different from those that cause injury in patients with ACS. These include trauma (contusion, ablation, pacing); congestive heart failure; pulmonary embolism; kidney failure; and myocarditis. Clinical judgement is necessary to distinguish patients who have ischemic heart disease from those who do not. Radiology Reports * Exam Date Time Procedure Performing Provider Status 07/07/23 1:[address] Abdomen and Pelvis w/ Contrast Perr as, Lawanda; Auth (Verified) Notes: (CT Abdomen and Pelvis w/ Contrast) Reason For Exam: Abdominal Pain CT Abdomen and Pelvis w/ Contrast PROCEDURE INFORMATION: Exam: CT Abdomen And Pelvis With Contrast Exam date and time: 07/07/2023 12:53 PM Age: 52 years old Clinical indication: Abdominal pain; Epigastric TECHNIQUE: Imaging protocol: Computed tomography of the abdomen and pelvis with contrast. Radiation optimization: All CT scans at this facility use at least one of these dose optimization techniques: automated exposure control; mA and/or kV adjustment per patient size (includes targeted exams where dose is matched to clinical indication); or iterative reconstruction. Contrast material: ISOVUE 300; Contrast volume: 100 ml; Contrast route: INTRAVENOUS (IV); REPORTING DATA: Count of CT and Cardiac NM exams in prior 12 months: This patient has received 0 known CTs and 0 known cardiac nuclear medicine studies in the 12 months prior to the current study. COMPARISON: CR XR HIP SINGLE W PELVIS 12/12/2022 8:04 AM FINDINGS: Liver: Fatty infiltration of the liver. Gallbladder and bile ducts: Previous cholecystectomy. Pancreas: Normal. No ductal dilation. Spleen: Normal. No splenomegaly. Adrenal glands: Normal. No mass. Kidneys and ureters: Normal. No hydronephrosis. Stomach and bowel: Suspected wall thickening of the 3rd portion of the duodenum with mild adjacent inflammatory changes. Nonspecific duodenitis, clinical correlation necessary. Appendix: No evidence of appendicitis. Intraperitoneal space: Unremarkable. No free air. No significant fluid collection. Vasculature: Unremarkable. No abdominal aortic aneurysm. Lymph nodes: Multiple adjacent unenlarged lymph nodes noted. Urinary bladder: Unremarkable as visualized. Reproductive: Unremarkable as visualized. Bones/joints: Unremarkable. No acute fracture. Soft tissues: Unremarkable. IMPRESSION: Suspected wall thickening of the 3rd portion of the duodenum with mild adjacent inflammatory changes. Multiple adjacent unenlarged lymph nodes noted. Nonspecific duodenitis, clinical correlation necessary. THIS DOCUMENT HAS BEEN ELECTRONICALLY SIGNED BY MARTI MUSE MD on 07/07/2023 01:46 PM Final Signed by: Marti Muse MD Signed (Electronic Signature): 07/07/2023 1:46 pm * Exam Date Time Procedure Performing Provider Status 07/07/23 1:02 PM XR Chest 2 Views Lawanda Gifford; Auth (V erified) Notes: (XR Chest 2 Views) Reason For Exam: Epigastric Pain XR Chest 2 Views PROCEDURE INFORMATION: Exam: XR Chest Exam date and time: 07/07/2023 12:48 PM Age: 52 years old Clinical indication: Pain; Chest pressure; Additional info: Epigastric pain TECHNIQUE: Imaging protocol: Radiologic exam of the chest. Views: 2 views. COMPARISON: MR SHOULDER RIGHT WO CONTRAST 12/15/2018 12:15 PM FINDINGS: Lungs: Mild left basilar atelectasis. No focal consolidation. Pleural spaces: Unremarkable. No pleural effusion. No pneumothorax. Heart/Mediastinum: Unremarkable. No cardiomegaly. Bones/joints: Unremarkable. IMPRESSION: Mild left basilar atelectasis. No focal consolidation. THIS DOCUMENT HAS BEEN ELECTRONICALLY SIGNED BY MARTI MUSE MD on 07/07/2023 01:48 PM Final Signed by: Marti Muse MD Signed (Electronic Signature): 07/07/2023 1:48 pm Vital Signs Most recent to oldest [Reference Range]: 1 2 3 Temperature Temporal Artery [36-38 Deg C] 36.2 Deg C (07/07/23 11:59 AM) Peripheral Pulse Rate [60-100 bpm] 72 bpm (07/07/23 2:16 PM) 79 bpm (07/07/23 1:30 PM) 84 bpm (07/07/23 11:59 AM) Heart Rate Monitored [60-100 bpm] 72 bpm (07/07/23 2:16 PM) 76 bpm (07/07/23 1:30 PM) Respiratory Rate [12-24 br/min] 16 br/min (07/07/23 2:16 PM) 16 br/min (07/07/23 1:30 PM) 16 br/min (07/07/23 11:59 AM) Blood Pressure [90-140/60-90 mmHg] 160/99mmHg *HI* (07/07/23 2:16 PM) 164/106mmHg *HI* (07/07/23 1:30 PM) 148/91mmHg *HI* (07/07/23 11:59 AM) Mean Arterial Pressure Cuff 123 mmHg (07/07/23 1:30 PM) Weight 99.79 kg (07/07/23 11:59 AM) Weight Dosing 99.79 kg (07/07/23 12:16 PM) Height 167.640 cm (07/07/23 11:59 AM) Height/Length Dosing 167.640 cm (07/07/23 12:16 PM) Body Mass Index 36.000 kg/m2 (07/07/23 11:59 AM) Social History Social History Type Response Tobacco Former tobacco user Tobacco Use:. Sex Male Hospital Discharge Instructions Patient Education 07/07/2023 13:27:24 Duodenitis Duodenitis Duodenitis is inflammation of the lining of the first part of the small intestine (duodenum). It iscommonly caused by an infection from bacteria, which may also lead to open sores (ulcers) in the intestine. Duodenitis may develop suddenly and last for a short time (acute), or it may develop gradually and last for months or years (chronic). What are the causes? The most common cause of duodenitis is an infection from a type of bacteria called Helicobacter pylori (H. pylori). Other causes of this condition include: ??? Long-term use of NSAIDs. ??? Excessive use of alcohol. ??? An infection of the small intestine caused by the Giardia parasite (giardiasis). ??? Crohn's disease. ??? Certain diseases of the body's defense system (immune system). ??? Certain treatments for cancer. What increases the risk? The following factors may make you more likely to develop this condition: ??? Smoking cigarettes. ??? Drinking alcohol. ??? Having a family history of duodenitis. ??? Taking NSAIDs. ??? Eating a high-fat diet. What are the signs or symptoms? Symptoms of this condition may include: ??? Gnawing or burning pain in the upper center of the abdomen (epigastric pain). This may get worse when the stomach is empty and may get better after eating. ??? Abdominal cramps. ??? Nausea and vomiting. ??? Bloody vomit. ??? Stools that are bloody, dark, or look like tar. ??? Diarrhea. ??? Weight loss. ??? Fatigue. How is this diagnosed? This condition may be diagnosed based on your medical history and a physical exam. You may also have tests, such as: ??? Blood tests. ??? Stool tests. ??? A test that checks the gases in your breath. ??? An X-ray that is done after you swallow a liquid (barium) that makes your digestive tract easier to see. ??? Endoscopy. This is an exam of the duodenum that is done by putting a thin tube with a tiny camera on the end (endoscope) down your throat. A sample of tissue from your duodenum (biopsy) may be removed with the endoscope and examined under a microscope for signs of inflammation and infection. How is this treated? Treatment depends on the cause of your condition. Treatment may include: ??? Antibiotic medicine to treat H. pylori infection. ??? Stopping your intake of NSAIDs. ??? Medicine to reduce stomach acids. ??? Medicines to treat other conditions, such as Crohn's disease or giardiasis. ??? Surgery to treat severe inflammation that causes scarring or severe bleeding. Follow these instructions at home: Medicines ??? Take ajsr-nrj-udwjzzo and prescription medicines only as told by your health care provider. ??? If you were prescribed an antibiotic medicine, take it as told by your health care provider. Donot stop taking the antibiotic even if you start to feel better. Eating and drinking ??? Eat small, frequent meals. ??? Do not drink alcohol. ??? Drink enough water to keep your urine pale yellow. ??? Follow instructions from your health care provider about eating or drinking restrictions. You may be asked to avoid: ??? Caffeinated drinks. ??? Chocolate. ??? Peppermint or mint-flavored food or drinks. ??? Garlic or onions. ??? Spicy foods. ??? Randall fruits. ??? Tomato-based foods. ??? Fatty or fried foods. General instructions ??? Do not use any products that contain nicotine or tobacco, such as cigarettes and e-cigarettes. If you need help quitting, ask your health care provider. ??? Keep all follow-up visits as told by your health care provider. This is important. Contact a health care provider if: ??? You have a fever. ??? Your symptoms come back, get worse, or do not get better with treatment. Get help right away if: ??? You vomit blood. ??? You have severe abdominal pain. ??? Your abdomen swells and is painful. ??? You have a lot of blood in your stool. ??? You feel dizzy or light-headed. Summary ??? Duodenitis is inflammation of the lining of the first part of the small intestine. This part ofthe small intestine is called the duodenum. ??? Duodenitis may develop suddenly and last for a short time (acute), or it may develop gradually and last longer (chronic). ??? The most common cause of duodenitis is an infection from a type of bacteria. ??? Take svfm-yis-muaaupr and prescription medicines only as told by your health care provider. This information is not intended to replace advice given to you by your health care provider. Make sure you discuss any questions you have with your health care provider. Document Revised: 05/16/2022 Document Reviewed: 05/16/2022 [employer] Patient Education ?? 2022 [employer] Follow Up Care 07/07/2023 11:59:01 With:STANLEY PEREZ PA-C Address: [address] When:1 week Comments:After extensive work-up in the emergency department the only??finding was of duodenitis which couldexplain your presentation of your??central back and epigastric discomfort.?? Please make sure you take your??Protonix as prescribed 40 mg daily.?? Additionally I prescribed you Percocet 5/325??for those times when pain is more moderate/severe. ??You can take 1??to 2 tablets every 6 hours.?? Adhere to a liquid diet for the next 12-24 hours (beef broth, bone broth, chicken broth) followed by brat diet for 24 hours??and then??only??advance as tolerated carefully.?? 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 Otherwise return to the emergency department any new or worsening symptoms or for any concerns you may have earlier. Physician Emergency department Note * Delmer Aguillon DO: MODIFY, PERFORM Event Display: ED Note Physician Authored Date: NYASIA PEREZ :1970 Age:52 years Sex:Male Visit Date:07/07/2023 Primary Care Physician: STANLEY PEREZ PA-C Basic Information Time Seen: Delmer Aguillon DO / 07/07/2023 11:59 Chief Complaint Diagnosed in the last year with pancreatic insufficiency, [place] [facility] [place] Thinks pancreas is 'acting up'. C/O LEFT sided pain and a headache since last night. 1 G tylenol, 800 mg ibuprofen 0900 with norelief. History Of Present Illness: This is a 52-year-old male PMH IDDM II, pancreatic insufficiency on Creon, GERD presents emergency department with concerns of centralized back discomfort with radiation around the left costovertebral angle under the axillary line to the epigastric region.?? He states that this discomfort was of insidious onset but??persistent since last evening??making difficult??sleeping.?? He also complains ofa headache. ??He attempted to take 1 g of Tylenol and 800 mg of ibuprofen at 9 AM with no??significant relief. ??Additionally he shares that for the past several months he just has not been feeling right and senses something is wrong.?? He has sensation of being in a fog??for the past??at least month timeframe.?? His sugars have wqdhg-ona-iyycvd from high to low??despite changing diet to a more appropriate glycemic index.?? Due to persistence??of this vague??sensation and now with new??pain in the central part of his back radiating to the epigastrium around the left??axillary region??promptedhim to come to the emergency department for evaluation. ??No fever/chills. Review of Systems: CONSTITUTIONAL: No fevers or chills. EYES: No change in vision. ENT: No hearing loss or tinnitus. No sore throat. ??No neck pain. CARDIOVASCULAR: No chest pain, palpitations or passing out episodes. RESPIRATORY: No cough, shortness of breath or hemoptysis. GI:??(+)ve central back pain with radiation to epigastric??abdominal region. No nausea, vomiting ordiarrhea. No melena or hematochezia. : No change in urination - no dysuria, urinary frequency or urgency. LMP xxx SKIN: No rash. NEUROLOGIC: No focal numbness or weakness.??(+)ve generalized??headache. MUSCULOSKELTAL: No midline CTLS tenderness. Moves all 4-extremities PSYCHIATRIC: No anxiety or depression. ?? Review of systems otherwise as stated in HPI Physical Exam Vitals & Measurements T:??36.2?C ??(Temporal Artery)?? HR:??84??(Peripheral)?? RR:??16?? BP:??148/91?? SpO2:??96%?? HT:??167.640??cm?? WT:??99.79??kg?? BMI:??36.000?? O2 Therapy:??Room air?? GENERAL APPEARANCE: Some very pleasant older male??resting semi-gonzalez on the hospital bed in no acute??distress. HEENT: NC/AT; EOMI. PERRL, no conjunctival injection; no scleral icterus. TMs not examined. Nares patent. No posterior pharyngeal erythema or tonsillar exudate. ??Dry mucous membranes/lips. NECK: Supple. HEART: RRR; No M/R/G CHEST: CTA B/L with symmetric excursions.?? ABDOMEN: Protuberant/obese, soft,??non-distended.?? There is tenderness from the central back region across the left CVAT??wrapping around the left side to the epigastric region.?? Villa sign negative. ??No guarding, rebound or rigidity. : Deferred. MUSCULOSKELETAL: Adequate gait and station without ataxia. ??Moves all 4 extremities. EXTREMITIES:??No edema. ??No unilateral leg swelling or posterior calf tenderness. BACK/SPINE: No midline CTLS tenderness. ??No CVAT. NEURO: Cranial nerves grossly intact. ??No acute focal neurologic deficit. Medical Decision Making: Central back pain wrapping around to the left CVAT to the epigastrium suggests??possible pancreaticversus ureterolithiasis??versus splenic pathology.?? Patient is overall a vague historian??he can only??share there??is a sensation as if something was wrong for the past several months and that he is definitely been in a fog for the past month. ??His sugars have been waxing and waning??from high to low??despite??being on a more strict glycemic index diet.?? No nausea, vomiting, fevers, chills. ??Does endorse a headache as well??which is generalized in nature and not associate with any focal neurologic deficit.?? No meningeal signs. ??No chest pain or shortness of breath. ??Will obtain Procedure Opiate requirements for emergency medicine prescribing: informed consent and agreement for opiate therapy was signed with the patient outlining the risks, benefits, and alternative associated with opioid use. ??In addition, the [place] prescription drug monitoring program was queried prior toprescribing the opioid today and results of the query were reviewed and negative. ??Finally, an opiate risk assessment was obtained and noted to have a score of??1 which places the patient in a low risk category. No Qualifying Data Reexamination/Reevaluation CT imaging demonstrated findings consistent with duodenitis (non- specific).??Gastritis and duodenitis were used to note inflammatory associated mucosal injury.?? He denied any associated gastrointestinal bleeding (no melena or hematochezia). ??No elevation in lipase or amylase. ??No evidence of panc reatitis on CT imaging. ??No objective evidence of acute ischemia or infarction on EKG or troponin testing.?? Normal chest x-ray makes pneumonia, pneumothorax, aortic or other intrathoracic abnormalities much less likely.?? His blood glucose here is 130 mg/dL??which is actually quite good especially in the setting of his reports of??highs and lows that have been waxing and??waning.?? Not much therapeutic intervention to pursue in the setting of duodenitis??as bleeding and discomfort is often self-limited.?? Treatment will include a course of acid suppression with PPI of which she is already maximized at 40 mg??Protonix. ??Patient states Tylenol has not been cutting for pain relief and NSAIDs??are questionable and likely not supported with an underlying diagnosis of duodenitis. ??Thereby??we agreed to start on??Percocet 5/325 1 tablet every 6 hours as needed for moderate/severe discomfort.?? I recommended he follow-up with his primary care health professional to discussed exercise provocative stress testing as a??another way to rule out any cardiac reason to explain his vague symptoms of??fogginess.?? Additionally I would like him to return to a diet carefully starting with liquid diet for the next 12-24 hours??followed by brat diet for 24 hours then only advance as tolerated from that point forward. ??Strict return to ED instructions were discussed in detail. Assessment/Plan 1.??Duodenitis??K29.80 Ordered: Percocet 5 mg-325 mg oral tablet, 1 tab, Oral, every 6 hr, PRN as needed for pain, X 3 days, # 12 tab, 0 Refill(s), 07/10/23 14:30:00 EDT ?? Orders: Dilaudid, 0.5 mg = 0.25 mL, IV Push, Injection, every 20 min for 3 doses, PRN pain, severe, First Dose: 07/07/23 12:31:00 EDT, Stop Date: Limited # of times, Physician Stop, Routine Normal Saline Flush, 10 mL, IV Flush, Injection, As Directed, PRN line repairer tower, First Dose: 07/07/23 12:31:00 EDT, Routine Troponin-I High Sensitivity, Blood, Timed Study, 07/07/23 13:39:00 EDT, Once, Nurse collect Urinalysis with Micro if Indicated and Culture if Indicated, Urine, Stat Collect, 07/07/23 12:31:00EDT, Once, Nurse collect, Print Label Vital Signs, 07/07/23 12:31:00 EDT, Once, Stop date 07/07/23 12:31:00 EDT, Q15min until stable and SBP greater than 90, then Q1hour Patient Education Duodenitis Follow Up With When Contact Information CHRIS KINNEY, STANLEY NUGENT Within 1 week [address] [place] [phone]- Additional Instructions: After extensive work-up in the emergency department the only??finding was of duodenitis which could explain your presentation of your??central back and epigastric discomfort.?? Please make sure you take your??Protonix as prescribed 40 mg daily.?? Additionally I prescribed you Percocet 5/325??for those times when pain is more moderate/severe. ??You can take 1??to 2 tabletsevery 6 hours.?? Adhere to a liquid diet for the next 12-24 hours (beef broth, bone broth, chicken broth) followed by brat diet for 24 hours??and then??only??advance as tolerated carefully.?? Please make arrangements to follow-up with your primary care??physician assistant store manager trainee and you may also reach out to??[facility]??for further evaluation and management with persistent discomfort??in the epigastric region.?? Otherwise return to the emergency department any new or worsening symptoms or for any concerns you may have earlier. Medication Reconciliation Unchanged empagliflozin (Jardiance 25 mg oral tablet)1 tab Oral (given by mouth) every morning. 90 EA, TAKE 1TABLET BY MOUTH DAILY. ?? fenofibrate (fenofibrate 48 mg oral tablet)1 tab Oral (given by mouth) every day. 90 EA, TAKE ONE TABLET BY MOUTH EVERY DAY. ?? insulin aspart (NovoLOG FlexPen 100 units/mL injectable solution)Subcutaneous (under the skin) 4 times a day. ?? insulin degludec (Tresiba FlexTouch 100 units/mL subcutaneous solution)26 Units Subcutaneous (underthe skin) every day. ?? metFORMIN (MetFORMIN (Eqv-Glucophage XR) 500 mg oral tablet, extended release)2 tab Oral (given by mouth) 2 times a day. 360 EA, TAKE 2 TABLETS BY MOUTH TWICE DAILY. ?? pancrelipase (Creon 24,000 units oral delayed release capsule)2 Capsules Oral (given by mouth) 3 times a day. 240 EA, TAKE 2 CAPSULES BY MOUTH PRIOR TO MEALS AND 1 CAPSULE PRIOR TO SNACKS. ?? pantoprazole (pantoprazole 40 mg oral delayed release tablet)1 tab Oral (given by mouth) every day.90 EA, TAKE ONE TABLET BY MOUTH EVERY DAY (TO REPLACE OMEPRAZOLE). ?? pioglitazone (pioglitazone 30 mg oral tablet)1 tab Oral (given by mouth) every day. Problem List/Past Medical History Ongoing Abdominal pain Actinic keratosis Alcohol abuse Anxiety Arthritis Blood in stool Carcinoma Diabetes mellitus Diarrhea Diastasis recti Lumbar spine pain EDGAR (obstructive sleep apnea) Peptic ulcer Spirochetal infection Upper respiratory infection Historical No qualifying data Procedure/Surgical History ???Procedure on back (2019)???Radiofrequency ablation of nerve root of lumbar spine using fluoroscopic guidance (01/20/2019)???Arthroscopy of shoulder (10/05/2015)???Abdominal wall hernia procedure (1969) Allergies Wasps??(critical) Social History Electronic Cigarette/Vaping Electronic Cigarette Use: Never. Tobacco Former tobacco user Tobacco Use:. Diagnostic Results CT Abdomen and Pelvis w/ Contrast 07/07/2023 13:47 EDT XR Chest 2 Views 07/07/2023 13:49 EDT XR Chest 2 Views ?? 07/07/23 12:48:43 PROCEDURE INFORMATION: Exam: XR Chest Exam date and time: 07/07/2023 12:48 PM Age: 52 years old Clinical indication: Pain; Chest pressure; Additional info: Epigastric pain ?? TECHNIQUE: Imaging protocol: Radiologic exam of the chest. Views: 2 views. ?? COMPARISON: MR SHOULDER RIGHT WO CONTRAST 12/15/2018 12:15 PM ?? FINDINGS: Lungs: Mild left basilar atelectasis. No focal consolidation. Pleural spaces: Unremarkable. No pleural effusion. No pneumothorax. Heart/Mediastinum: Unremarkable. No cardiomegaly. Bones/joints: Unremarkable. ?? IMPRESSION: Mild left basilar atelectasis. No focal consolidation. ? THIS DOCUMENT HAS BEEN ELECTRONICALLY SIGNED BY MARTI MUSE MD on 07/07/2023 01:48 PM ?? Signed By: Marti Muse MD ?? CT Abdomen and Pelvis w/ Contrast ?? 07/07/23 12:53:36 PROCEDURE INFORMATION: Exam: CT Abdomen And Pelvis With Contrast Exam date and time: 07/07/2023 12:53 PM Age: 52 years old Clinical indication: Abdominal pain; Epigastric ?? TECHNIQUE: Imaging protocol: Computed tomography of the abdomen and pelvis with contrast. Radiation optimization: All CT scans at this facility use at least one of these dose optimization techniques: automated exposure control; mA and/or kV adjustment per patient size (includes targeted exams where dose is matched to clinical indication); or iterative reconstruction. Contrast material: ISOVUE 300; Contrast volume: 100 ml; Contrast route: INTRAVENOUS (IV); ?? REPORTING DATA: Count of CT and Cardiac NM exams in prior 12 months: This patient has received 0 known CTs and 0 known cardiac nuclear medicine studies in the 12 months prior to the current study. ?? COMPARISON: CR XR HIP SINGLE W PELVIS 12/12/2022 8:04 AM ?? FINDINGS: Liver: Fatty infiltration of the liver. Gallbladder and bile ducts: Previous cholecystectomy. Pancreas: Normal. No ductal dilation. Spleen: Normal. No splenomegaly. Adrenal glands: Normal. No mass. Kidneys and ureters: Normal. No hydronephrosis. Stomach and bowel: Suspected wall thickening of the 3rd portion of the duodenum with mild adjacent inflammatory changes. Nonspecific duodenitis, clinical correlation necessary. Appendix: No evidence of appendicitis. ?? Intraperitoneal space: Unremarkable. No free air. No significant fluid collection. Vasculature: Unremarkable. No abdominal aortic aneurysm. Lymph nodes: Multiple adjacent unenlarged lymph nodes noted. Urinary bladder: Unremarkable as visualized. Reproductive: Unremarkable as visualized. Bones/joints: Unremarkable. No acute fracture. Soft tissues: Unremarkable. ?? IMPRESSION: Suspected wall thickening of the 3rd portion of the duodenum with mild adjacent inflammatory changes. Multiple adjacent unenlarged lymph nodes noted. Nonspecific duodenitis, clinical correlation necessary. ? THIS DOCUMENT HAS BEEN ELECTRONICALLY SIGNED BY MARTI MUSE MD on 07/07/2023 01:46 PM ?? Signed By: Marti Muse MD ECG EKG 1:12 PM: EKG demonstrates normal sinus rhythm at 81 bpm; normal axis; normal intervals; no objective evidence of acute ischemia or infarction Lab Results CBC and Differential?? LATEST RESULTS?? WBC?? 07/07/23 12:40?? 7.8?? RBC?? 07/07/23 12:40?? 4.90?? Hgb?? 07/07/23 12:40?? 15.2?? Hct?? 07/07/23 12:40?? 45.2?? MCV?? 07/07/23 12:40?? 92.2?? MCH?? 07/07/23 12:40?? 31.0?? MCHC?? 07/07/23 12:40?? 33.6?? RDW-CV?? 07/07/23 12:40?? 12.4?? Platelets?? 07/07/23 12:40?? 209?? MPV?? 07/07/23 12:40?? 9.4?? Neutro Auto?? 07/07/23 12:40?? 67.0?? Lymph Auto?? 07/07/23 12:40?? 21.9?? Garland Auto?? 07/07/23 12:40?? 7.9?? Eos, Auto?? 07/07/23 12:40?? 2.30?? Basophil Auto?? 07/07/23 12:40?? 0.5?? Imm Gran Auto?? 07/07/23 12:40?? 0.4?? Neutro Absolute?? 07/07/23 12:40?? 5.2?? Lymph Absolute?? 07/07/23 12:40?? 1.7?? Garland Absolute?? 07/07/23 12:40?? 0.6?? Eos Absolute?? 07/07/23 12:40?? 0.2?? Baso Absolute?? 07/07/23 12:40?? 0.0?? Imm Gran Absolute?? 07/07/23 12:40?? 0.03? Coagulation?? LATEST RESULTS?? Prothrombin Time?? 07/07/23 12:40?? 9.9?? INR?? 07/07/23 12:40?? 1.0? Routine Chemistry?? LATEST RESULTS?? Sodium Level?? 07/07/23 12:40?? 138?? Potassium Level?? 07/07/23 12:40?? 4.5?? Chloride Level?? 07/07/23 12:40?? 105?? CO2?? 07/07/23 12:40?? 22?? Alk Phos?? 07/07/23 12:40?? 49?? AST?? 07/07/23 12:40?? 24?? ALT?? 07/07/23 12:40?? 22?? BUN?? 07/07/23 12:40?? 17?? Glucose Level?? 07/07/23 12:40?? 130 ??High?? Creatinine Level?? 07/07/23 12:40?? 1.15?? BUN/Creat Ratio?? 07/07/23 12:40?? 14.8?? eGFR CKD-EPI?? 07/07/23 12:40?? 76?? Calcium Level?? 07/07/23 12:40?? 9.0?? Protein Total?? 07/07/23 12:40?? 7.2?? Albumin Level?? 07/07/23 12:40?? 4.2?? Globulin?? 07/07/23 12:40?? 3.0?? A/G Ratio?? 07/07/23 12:40?? 1.4?? Bilirubin Total?? 07/07/23 12:40?? 0.6?? Anion Gap?? 07/07/23 12:40?? 11.0?? Amylase Level?? 07/07/23 12:40?? 70?? Lipase Level?? 07/07/23 12:40?? 47?? Osmolality?? 07/07/23 12:40?? 279? Cardiac Isoenzymes?? LATEST RESULTS?? Troponin-I HS?? 07/07/23 12:40?? 2? Electronically Signed on 07/07/23 02:31 PM Delmer Aguillon DO Emergency department Discharge instructions * Delmer Aguillon DO: PERFORM Event Display: ED Discharge Information Authored Date: [id number] NYASIA PEREZ :1970 Age:52 years Sex:Male Visit Date:07/07/2023 Primary Care Physician: STANLEY PEREZ PA-C Discharge Instructions We would like to thank you for allowing us to assist you with your healthcare needs. The following includes patient education materials and information regarding your injury/illness. Diagnosis from Today's Visit Duodenitis Discharge Vitals Temperature??(Temporal Artery) 97.2 ??F (36.2 ??C) Heart Rate??(Peripheral) 72 Heart Rate??(Monitored) 72 Respiratory Rate?? 16 Blood Pressure?? 160/99?? Height?? 66.00 in (167.640 cm) Weight?? 220.04 lb (99.79 kg) BMI?? 36.000 Allergies Wasps??(critical) What to Do Next You Need to Schedule the Following Appointments Follow Up with??STANLEY PEREZ PA-C When:??Within 1 week Why: After extensive work-up in the emergency department the only??finding was of duodenitis which could explain your presentation of your??central back and epigastric discomfort.?? Please make sure you take your??Protonix as prescribed 40 mg daily.?? Additionally I prescribed you Percocet 5/325??for those times when pain is more moderate/severe. ??You can take 1??to 2 tablets every 6 hours.?? Adhere to a liquid diet for the next 12-24 hours (beef broth, bone broth, chicken broth) followed by brat diet for 24 hours??and then??only??advance as tolerated carefully.?? Please make arrangements tofollow- up with your primary care??physician assistant store manager trainee and you may also reach out to??[facility]??for further evaluation and management with persistent discomfort??in the epigastric region.?? Otherwise return to the emergency department any new or worsening symptoms or for any concerns you may have earlier. Where: [address] [place] [address] You were treated today on an emergency basis; it may be english to contact your primary care provider to notify them of your visit today. You may have been referred to your regular doctor or a specialist, please follow up as instructed. If your condition worsens or you can't get in to see the doctor, contact the Emergency Department. Medications What How Much When Why Instructions Next Dose New oxyCODONE-acetaminophen (Percocet 5 mg-325 mg oral tablet) 1 tab Oral (given by mouth) Every 6 hours as needed for as needed for pain Duodenitis Duration: 3 Days Printed Prescription Unchanged empagliflozin (Jardiance 25 mg oral tablet) 1 tab Oral (given by mouth) Every morning 90 EA, TAKE 1 TABLET BY MOUTH DAILY ?? Unchanged fenofibrate (fenofibrate 48 mg oral tablet) 1 tab Oral (given by mouth) Every day 90 EA, TAKE ONE TABLET BY MOUTH EVERY DAY ?? Unchanged insulin aspart (NovoLOG FlexPen 100 units/ mL injectable solution) Subcutaneous (under the skin) 4 times a day Unchanged insulin degludec (Tresiba FlexTouch 100 units/ mL subcutaneous solution) 26 Units Subcutaneous (under the skin) Every day Unchanged metFORMIN (MetFORMIN (Eqv-Glucophage XR) 500 mg oral tablet, extended release) 2 tab Oral (given by mouth) 2 times a day 360 EA, TAKE 2 TABLETS BY MOUTH TWICE DAILY ?? Unchanged pancrelipase (Creon 24,000 units oral delayed release capsule) 2 Capsules Oral (given by mouth) 3 times a day 240 EA, TAKE 2 CAPSULES BY MOUTH PRIOR TO MEALS AND 1 CAPSULE PRIOR TO SNACKS ?? Unchanged pantoprazole (pantoprazole 40 mg oral delayed release tablet) 1 tab Oral (given by mouth) Every day 90 EA, TAKE ONE TABLET BY MOUTH EVERY DAY (TO REPLACE OMEPRAZOLE) ?? Unchanged pioglitazone (pioglitazone 30 mg oral tablet) 1 tab Oral (given by mouth) Every day Education Materials Duodenitis Duodenitis is inflammation of the lining of the first part of the small intestine (duodenum). It iscommonly caused by an infection from bacteria, which may also lead to open sores (ulcers) in the intestine. Duodenitis may develop suddenly and last for a short time (acute), or it may develop gradually and last for months or years (chronic). What are the causes? The most common cause of duodenitis is an infection from a type of bacteria called Helicobacter pylori (H. pylori). Other causes of this condition include: ? Long-term use of NSAIDs. ? Excessive use of alcohol. ? An infection of the small intestine caused by the Giardia parasite (giardiasis). ? Crohn's disease. ? Certain diseases of the body's defense system (immune system). ? Certain treatments for cancer. What increases the risk? The following factors may make you more likely to develop this condition: ? Smoking cigarettes. ? Drinking alcohol. ? Having a family history of duodenitis. ? Taking NSAIDs. ? Eating a high-fat diet. What are the signs or symptoms? Symptoms of this condition may include: ? Gnawing or burning pain in the upper center of the abdomen (epigastric pain). This may get worse when the stomach is empty and may get better after eating. ? Abdominal cramps. ? Nausea and vomiting. ? Bloody vomit. ? Stools that are bloody, dark, or look like tar. ? Diarrhea. ? Weight loss. ? Fatigue. How is this diagnosed? This condition may be diagnosed based on your medical history and a physical exam. You may also have tests, such as: ? Blood tests. ? Stool tests. ? A test that checks the gases in your breath. ? An X-ray that is done after you swallow a liquid (barium) that makes your digestive tract easier tosee. ? Endoscopy. This is an exam of the duodenum that is done by putting a thin tube with a tiny camera on the end (endoscope) down your throat. A sample of tissue from your duodenum (biopsy) may be removed with the endoscope and examined under a microscope for signs of inflammation and infection. How is this treated? Treatment depends on the cause of your condition. Treatment may include: ? Antibiotic medicine to treat H. pylori infection. ? Stopping your intake of NSAIDs. ? Medicine to reduce stomach acids. ? Medicines to treat other conditions, such as Crohn's disease or giardiasis. ? Surgery to treat severe inflammation that causes scarring or severe bleeding. Follow these instructions at home: Medicines ? Take [id number] and prescription medicines only as told by your health care provider. ? If you were prescribed an antibiotic medicine, take it as told by your health care provider. Do notstop taking the antibiotic even if you start to feel better. Eating and drinking ? Eat small, frequent meals. ? Do not drink alcohol. ? Drink enough water to keep your urine pale yellow. ? Follow instructions from your health care provider about eating or drinking restrictions. You may be asked to avoid: ? Caffeinated drinks. ? Chocolate. ? Peppermint or mint-flavored food or drinks. ? Garlic or onions. ? Spicy foods. ? Randall fruits. ? Tomato-based foods. ? Fatty or fried foods. General instructions ? Do not use any products that contain nicotine or tobacco, such as cigarettes and e-cigarettes. If you need help quitting, ask your health care provider. ? Keep all follow-up visits as told by your health care provider. This is important. Contact a health care provider if: ? You have a fever. ? Your symptoms come back, get worse, or do not get better with treatment. Get help right away if: ? You vomit blood. ? You have severe abdominal pain. ? Your abdomen swells and is painful. ? You have a lot of blood in your stool. ? You feel dizzy or light-headed. Summary ? Duodenitis is inflammation of the lining of the first part of the small intestine. This part of thesmall intestine is called the duodenum. ? Duodenitis may develop suddenly and last for a short time (acute), or it may develop gradually and last longer (chronic). ? The most common cause of duodenitis is an infection from a type of bacteria. ? Take rrgu-asu-kjplhye and prescription medicines only as told by your health care provider. This information is not intended to replace advice given to you by your health care provider. Make sure you discuss any questions you have with your health care provider. Document Revised: 05/16/2022 Document Reviewed: 05/16/2022 [employer] Patient Education ?? 2022 [employer] Tests Performed Radiology CT Abdomen and Pelvis w/ Contrast 07/07/2023 13:47 EDT XR Chest 2 Views 07/07/2023 13:49 EDT Medications and Immunizations Administered Given Sodium Chloride 0.9%, 1000 mL, IV Bolus Dilaudid, 0.5 mg, IV Push ondansetron, 4 mg, IV Push Lab Test Name Test Result Date/Time WBC 7.8 K/mcL 07/07/2023 12:40 EDT RBC 4.90 Million/mcL 07/07/2023 12:40 EDT Hgb 15.2 g/dL 07/07/2023 12:40 EDT Hct 45.2 % 07/07/2023 12:40 EDT MCV 92.2 fL 07/07/2023 12:40 EDT MCH 31.0 pg 07/07/2023 12:40 EDT MCHC 33.6 g/dL 07/07/2023 12:40 EDT RDW-CV 12.4 % 07/07/2023 12:40 EDT Platelets 209 K/mcL 07/07/2023 12:40 EDT MPV 9.4 fL 07/07/2023 12:40 EDT Neutro Auto 67.0 % 07/07/2023 12:40 EDT Lymph Auto 21.9 % 07/07/2023 12:40 EDT Garland Auto 7.9 % 07/07/2023 12:40 EDT Eos, Auto 2.30 % 07/07/2023 12:40 EDT Basophil Auto 0.5 % 07/07/2023 12:40 EDT Imm Gran Auto 0.4 % 07/07/2023 12:40 EDT Neutro Absolute 5.2 K/mcL 07/07/2023 12:40 EDT Lymph Absolute 1.7 K/mcL 07/07/2023 12:40 EDT Garland Absolute 0.6 K/mcL 07/07/2023 12:40 EDT Eos Absolute 0.2 K/mcL 07/07/2023 12:40 EDT Baso Absolute 0.0 K/mcL 07/07/2023 12:40 EDT Imm Gran Absolute 0.03 07/07/2023 12:40 EDT Prothrombin Time 9.9 seconds 07/07/2023 12:40 EDT INR 1.0 07/07/2023 12:40 EDT Sodium Level 138 mmol/L 07/07/2023 12:40 EDT Potassium Level 4.5 mmol/L 07/07/2023 12:40 EDT Chloride Level 105 mmol/L 07/07/2023 12:40 EDT CO2 22 mmol/L 07/07/2023 12:40 EDT Alk Phos 49 IntlUnit/L 07/07/2023 12:40 EDT AST 24 IntlUnit/L 07/07/2023 12:40 EDT ALT 22 IntlUnit/L 07/07/2023 12:40 EDT BUN 17 mg/dL 07/07/2023 12:40 EDT Glucose Level 130 mg/dL 07/07/2023 12:40 EDT Creatinine Level 1.15 mg/dL 07/07/2023 12:40 EDT BUN/Creat Ratio 14.8 07/07/2023 12:40 EDT eGFR CKD-EPI 76 mL/min/1.73 m2 07/07/2023 12:40 EDT Calcium Level 9.0 mg/dL 07/07/2023 12:40 EDT Protein Total 7.2 g/dL 07/07/2023 12:40 EDT Albumin Level 4.2 g/dL 07/07/2023 12:40 EDT Globulin 3.0 g/dL 07/07/2023 12:40 EDT A/G Ratio 1.4 g/dL 07/07/2023 12:40 EDT Bilirubin Total 0.6 mg/dL 07/07/2023 12:40 EDT Anion Gap 11.0 07/07/2023 12:40 EDT Amylase Level 70 unit/L 07/07/2023 12:40 EDT Lipase Level 47 unit/L 07/07/2023 12:40 EDT Osmolality 279 mOsm/kg 07/07/2023 12:40 EDT Troponin-I HS 2 ng/L 07/07/2023 12:40 EDT Patient/Home Care Music Therapist Signature Patient Name:NYASIA PEREZ I have received this information and my questions have been answered. Patient/Home Care Music Therapist Name: Patient/Home Care Music Therapist Signature: Relationship to Patient: Witness Name/Signature: Date: Electronically Signed on: 07/07/2023 14:31 EDTSigned by:MARK Patient Care team information Care Team Personnel Name: STANLEY PEREZ PA-C Position: No Access Member Role: Primary Care Physician Address: Address: [address] [place] [phone] [place] Name: Delmer Aguillon DO Position: Physician Member Role: Admitting Physician Address: Address: [address] [place] [id number] Name: Rodney Ortega Position: Nurse Member Role: ED Nurse Care Team Related Persons Name: JG PEREZ Address: Home [address] [place], [place] [id number] [facility] Name: AYDEN DANIELSON Address: Home [address] [place] [address] [facility] Name: AYDEN DANIELSON Address: Home [address] [place], [place] [id number] [facility]
--- OUTSIDE RECORDS SUMMARY | 2024-02-17 10:55 | XMS_ITS | Continuity of Care Document ---
Author Name Unknown Organization [facility] Ambulatory Clinics Address [address] [place] [address] Care Team Providers Care Exhibit Specialist Name Role Phone STANLEY PEREZ PA-C Primary Care Opal steel Encounter [facility] NBR [id number] Date(s): 02/06/23 - 02/06/23 [facility] Amb[facility] [address] [place] [address] us Social History Social History Type Response Sex Male Patient Care team information Care Team Personnel Name: STANLEY PEREZ PA-C Position: No Access Member Role: Primary Care Physician Address: Address: [facility] [address] [place] [id number] [place] [address]
--- OUTSIDE RECORDS SUMMARY | 2024-02-17 10:55 | XMS_ITS | Continuity of Care Document ---
Author Name Unknown Organization [facility] Ambulatory Clinics Address [address] [place] [address] Care Team Providers Care Sales Effectiveness Manager Name Role Phone STANLEY PEREZ PA-C Primary Care Opal toconsuelo Encounter [facility] FIN NBR [id number] Date(s): 08/06/23 - 08/06/23 [facility] Ambulatory Clinics [address] [place], [place] [address] Encounter Diagnosis Chronic diarrhea(Discharge Diagnosis) - 08/06/23 Exocrine pancreatic insufficiency(Discharge Diagnosis) - 08/06/23 Chronic alcoholic pancreatitis(Discharge Diagnosis) - 08/06/23 Hematochezia(Discharge Diagnosis) - 08/06/23 S/P cholecystectomy(Discharge Diagnosis) - 08/06/23 Discharge Disposition: Home or Self Care Attending Physician: Delmer Arrieta MD Referring Physician: Julian Travis MD Allergies, Adverse Reactions, Alerts Substance Reaction Severity Status Wasps Anaphylaxis critical Severe Active Assessment and Plan Future Appointments Future Scheduled Tests Laboratory* Pancreatic Elastase, Fecal LC 08/06/23 * Calprotectin, Fecal LC 08/06/23 * Fecal Fat, Qualitative LC 08/06/23 Radiology* MRI Hip w/o Contrast Right 04/10/23 Functional Status 08/06/23 Other exposure to Infectious Disease Non e Medications acetaminophen 500 mg oral tablet 1,000 mg = 2 tab, Oral, every 6 hr, PRN as needed for pain Start Date: 07/08/23 Status: Ordered colestipol 1 g oral tablet 2 g = 2 tab, Oral, BID, with a full glass of water, # 120 tab, 11 Refill(s), Pharmacy: [id number], 167, cm, 07/10/23 16:23:00 EDT, Height/Length Dosing, [...] Body Site Status Procedure on back 2019 [facility] ed Radiofrequency ablation of n erve root of lumbar spine using fluoroscopic guidance 01/19/19 Completed Arthroscopy of shoulder 1 10/04/15 Completed Abdominal wall hernia procedure 2 1969 Completed Cholecystectomy 3 [facility] ed 1Left 2herniorraphy 91202 Vital Signs Most recent to oldest [Reference Range]: 1 Temperature Temporal Artery [36-38 Deg C ] 36.6 Deg C (08/06/23 8:21 AM) Apical Heart Rate [60-100 bpm] 66 bpm (08/06/23 8:21 AM) Weight 97.52 kg (08/06/23 8:21 AM) Weight Measured (lbs) 214.995 lb (08/06/23 8:21 AM) [place] Body Weight Calculated 63.8 kg (08/06/23 8:21 AM) Height 167.64 cm (08/06/23 8:21 AM) Height/Length Measured (inches) 66 inch (08/06/23 8:21 AM) BSA Measured 2.13 m2 (08/06/23 8:21 AM) Body Mass Index 34.7 kg/m2 (08/06/23 8:21 AM) Social History Social History Type Response Tobacco Former tobacco user Tobacco Use:. Sex Male Physician Outpatient Note * Delmer Arrieta MD: PERFORM Event Display: Office Clinic Note Physician Authored Date: [id number] JULIAN PEREZ :1970 Age:52 years Sex:Male Visit Date:08/06/2023 Primary Care Physician: STANLEY PEREZ PA-C Chief Complaint Chronic diarrhea History of Present Illness Initial visit for this 52-year-old??male??diabetic, status postcholecystectomy,??alcohol use disorder in remission??who carries a diagnosis of chronic pancreatitis complicated by??recurrent acute panc reatitis??and??exocrine insufficiency,??on??pancreatic??enzyme??replacement therapy??complains of ongoing??diarrhea??despite??use of??Creon,??2 tablets before meals and 1 before snacks. ? Patient has a history of??diabetes??established approximate 12 years ago. ??He has been on insulin for the last 3 months.?? His first episode of pancreatitis??was 10 years ago??but has??not been admitted to the hospital??until??June of this year??where he was admitted??from??07/07/2023 to 07/10/2023??for uncomplicated??interstitial pancreatitis.?? The patient's last alcoholic drink??was over 25 years ago.?? He reports heavy alcohol use??for??approximately 5 years??prior to that.?? During hisrecent admission??his hematocrit was 45 on admission 44 on discharge, BUN 17 admission 10 at discharge, normal liver enzymes, normal calcium, normal triglycerides.?? Amylase and lipase were??elevatedless than twice the upper limit of normal.?? His triglycerides were 83??at that time.?? His admission was primarily due to pain.?? While n.p.o. during that admission he had no??bowel movements.?CTscan during that admission??which was a CT angio??of the abdomen pelvis??on 07/08/2023??showed mild atherosclerosis, no??stenosis,??fatty liver, status postcholecystectomy with normal common bile duct, and mild peripancreatic inflammations without any abnormalities noted of the??pancreatic duct. ??The patient??underwent cholecystectomy??5 years ago??for cholecystitis??and??reports onset of diarrhea??with??in several months.?? The patient is unsure if he has ever had??light-colored, greasy, frothy??or bubbly stools.?? Patient was seen at [facility] 1 year ago??for diarrhea??and at that time was??diagnosed with pancreatic insufficiency and treated with pancreatic enzymes which the patient reports??initially??improved his diarrhea??but as of late??he has had??more frequent??loose stools.?? Stools are dark??occasionally black??[place] [facility].?? He is also had episodes of bright red blood per rectum. ??He is status post hemorrhoidectomy 12 years ago.?? He underwent EGD and colonoscopy??1 year agoat [facility]??for??hematochezia??and does not recall??being told of any abnormalities.?? He has no first-degree relatives with colorectal cancer,??alcohol use disorder,??liver disease??or celiac disease.??The patient continues to work full-time.?? He is currently on Xarelto??for a??recent DVT.?? He has been on metformin for 4 years??and reports no change in his bowel habits since that time.?? His abdominal pain has improved??since his last admission??but is currently 3 on a 10 scale. Review of Systems Pertinent positives and negatives documented in the HPI. Physical Exam Vitals & Measurements T:??36.6?C ??(Temporal Artery)?? HR:??66??(Apical)?? SpO2:??68%?? HT:??167.64??cm?? WT:??97.52??kg?? BMI:??34.7?? BSA:??2.13?? Developed well-nourished white male no acute distress Lungs: Clear to auscultation bilaterally Heart: Regular rhythm S1-S2 Abdomen: Normoactive bowel sounds, soft, no masses organomegaly.?? Mild epigastric tenderness without??peritoneal signs. Skin:??No palmar erythema, no spider angiomata Assessment/Plan 1.??Chronic diarrhea??K52.9 Several possibilities including progressive pancreatic exocrine insufficiency??versus??bile acid malabsorption status post cholecystectomy??versus??metformin side effect.?? Patient underwent colonosco py??and upper endoscopy 1 year??ago at??[facility]??for??the same indications.?? We will obtain those??procedure notes??prior to making further??recommendations as to??need for??repeat colonoscopy.?? Check celiac panel.?? Trial of??bile acid sequestrant's??given that??the patient?? history??suggest a temporal relationship??between onset of diarrhea??and cholecystectomy.?? Obtain prior records from [facility].?? Check stool??for??inflammatory markers??as well as??fat??and elastase??while on??pancreatic??supplements.?? Patient will return to clinic??in 4 to 6 weeks??with review of prior records.?? Referral to [facility]??for??endoscopic ultrasound??for further evidence??of??chronic pancreatitis,??confirmation of resolution of inflammatory changes??noted on??CT scan last month.?? Patient is a former smoker, [id number] history??and has been abstinent for the last 10 years.?? Patient has multiple risk factors for??pancreatic cancer??including??diabetes,??history of??alcohol??and tobacco use,??and history of??chronic pancreatitis. Ordered: colestipol 1 g oral tablet, 2 g = 2 tab, Oral, BID, with a full glass of water, # 120 tab, 11 Refill(s), Pharmacy: [facility] #[id number], 167, cm, 07/10/23 16:23:00 EDT, Height/Length Dosing, 99, kg, 07/10/23 16:23:00 EDT, Weight Dosing Calprotectin, Fecal LC, Stool, Routine Collect, 08/06/23, Once, Lab Collect, Print Label, Chronic diarrhea Exocrine pancreatic insufficiency Chronic alcoholic pancreatitis Hematochezia S/P cholecystectomy, Order for future visit Celiac Disease Comprehensive LC, Blood, Routine, 08/06/23, Once, Lab Collect, Chronic diarrhea Exocrine pancreatic insufficiency Chronic alcoholic pancreatitis Hematochezia, Order for future visit Fecal Fat, Qualitative LC, Stool, Routine Collect, 08/06/23, Once, Lab Collect, Print Label, Chronic diarrhea Exocrine pancreatic insufficiency Chronic alcoholic pancreatitis Hematochezia S/Pcholecystectomy, Order for future visit Pancreatic Elastase, Fecal LC, Stool, Routine Collect, 08/06/23, Once, Lab Collect, Print Label, Chronic diarrhea Exocrine pancreatic insufficiency Chronic alcoholic pancreatitis Hematochezia S/P cholecystectomy, Order for future visit ?? 2.??Exocrine pancreatic insufficiency??K86.81 See above. Ordered: colestipol 1 g oral tablet, 2 g = 2 tab, Oral, BID, with a full glass of water, # 120 tab, 11 Refill(s), Pharmacy: [facility] #94, 167, cm, 07/10/23 16:23:00 EDT, Height/Length Dosing, 99, kg, 07/10/23 16:23:00 EDT, Weight Dosing Calprotectin, Fecal LC, Stool, Routine Collect, 08/06/23, Once, Lab Collect, Print Label, Chronic diarrhea Exocrine pancreatic insufficiency Chronic alcoholic pancreatitis Hematochezia S/P cholecystectomy, Order for future visit Celiac Disease Comprehensive LC, Blood, Routine, 08/06/23, Once, Lab Collect, Chronic diarrhea Exocrine pancreatic insufficiency Chronic alcoholic pancreatitis Hematochezia, Order for future visit Fecal Fat, Qualitative LC, Stool, Routine Collect, 08/06/23, Once, Lab Collect, Print Label, Chronic diarrhea Exocrine pancreatic insufficiency Chronic alcoholic pancreatitis Hematochezia S/Pcholecystectomy, Order for future visit Pancreatic Elastase, Fecal LC, Stool, Routine Collect, 08/06/23, Once, Lab Collect, Print Label, Chronic diarrhea Exocrine pancreatic insufficiency Chronic alcoholic pancreatitis Hematochezia S/P cholecystectomy, Order for future visit ?? 3.??Chronic alcoholic pancreatitis??K86.0 See above. Ordered: colestipol 1 g oral tablet, 2 g = 2 tab, Oral, BID, with a full glass of water, # 120 tab, 11 Refill(s), Pharmacy: [facility] #94, 167, cm, 07/10/23 16:23:00 EDT, Height/Length Dosing, 99, kg, 07/10/23 16:23:00 EDT, Weight Dosing Calprotectin, Fecal LC, Stool, Routine Collect, 08/06/23, Once, Lab Collect, Print Label, Chronic diarrhea Exocrine pancreatic insufficiency Chronic alcoholic pancreatitis Hematochezia S/P cholecystectomy, Order for future visit Celiac Disease Comprehensive LC, Blood, Routine, 08/06/23, Once, Lab Collect, Chronic diarrhea Exocrine pancreatic insufficiency Chronic alcoholic pancreatitis Hematochezia, Order for future visit Fecal Fat, Qualitative LC, Stool, Routine Collect, 08/06/23, Once, Lab Collect, Print Label, Chronic diarrhea Exocrine pancreatic insufficiency Chronic alcoholic pancreatitis Hematochezia S/Pcholecystectomy, Order for future visit Pancreatic Elastase, Fecal LC, Stool, Routine Collect, 08/06/23, Once, Lab Collect, Print Label, Chronic diarrhea Exocrine pancreatic insufficiency Chronic alcoholic pancreatitis Hematochezia S/P cholecystectomy, Order for future visit ?? 4.??Hematochezia??K92.1 See above. Ordered: colestipol 1 g oral tablet, 2 g = 2 tab, Oral, BID, with a full glass of water, # 120 tab, 11 Refill(s), Pharmacy: [facility] #94, 167, cm, 07/10/23 16:23:00 EDT, Height/Length Dosing, 99, kg, 07/10/23 16:23:00 EDT, Weight Dosing Calprotectin, Fecal LC, Stool, Routine Collect, 08/06/23, Once, Lab Collect, Print Label, Chronic diarrhea Exocrine pancreatic insufficiency Chronic alcoholic pancreatitis Hematochezia S/P cholecystectomy, Order for future visit Celiac Disease Comprehensive LC, Blood, Routine, 08/06/23, Once, Lab Collect, Chronic diarrhea Exocrine pancreatic insufficiency Chronic alcoholic pancreatitis Hematochezia, Order for future visit Fecal Fat, Qualitative LC, Stool, Routine Collect, 08/06/23, Once, Lab Collect, Print Label, Chronic diarrhea Exocrine pancreatic insufficiency Chronic alcoholic pancreatitis Hematochezia S/Pcholecystectomy, Order for future visit Pancreatic Elastase, Fecal LC, Stool, Routine Collect, 08/06/23, Once, Lab Collect, Print Label, Chronic diarrhea Exocrine pancreatic insufficiency Chronic alcoholic pancreatitis Hematochezia S/P cholecystectomy, Order for future visit ?? 5.??S/P cholecystectomy??Z90.49 See above. Ordered: colestipol 1 g oral tablet, 2 g = 2 tab, Oral, BID, with a full glass of water, # 120 tab, 11 Refill(s), Pharmacy: [facility] #94, 167, cm, 07/10/23 16:23:00 EDT, Height/Length Dosing, 99, kg, 07/10/23 16:23:00 EDT, Weight Dosing Calprotectin, Fecal LC, Stool, Routine Collect, 08/06/23, Once, Lab Collect, Print Label, Chronic diarrhea Exocrine pancreatic insufficiency Chronic alcoholic pancreatitis Hematochezia S/P cholecystectomy, Order for future visit Fecal Fat, Qualitative LC, Stool, Routine Collect, 08/06/23, Once, Lab Collect, Print Label, Chronic diarrhea Exocrine pancreatic insufficiency Chronic alcoholic pancreatitis Hematochezia S/Pcholecystectomy, Order for future visit Pancreatic Elastase, Fecal LC, Stool, Routine Collect, 08/06/23, Once, Lab Collect, Print Label, Chronic diarrhea Exocrine pancreatic insufficiency Chronic alcoholic pancreatitis Hematochezia S/P cholecystectomy, Order for future visit ?? Future Orders Calprotectin, Fecal LC, Stool, Routine Collect, 08/06/23, Once, Lab Collect, Print Label, Chronic diarrhea Exocrine pancreatic insufficiency Chronic alcoholic pancreatitis Hematochezia S/P cholecystectomy, Order for future visit Fecal Fat, Qualitative LC, Stool, Routine Collect, 08/06/23, Once, Lab Collect, Print Label, Chronic diarrhea Exocrine pancreatic insufficiency Chronic alcoholic pancreatitis Hematochezia S/Pcholecystectomy, Order for future visit Pancreatic Elastase, Fecal LC, Stool, Routine Collect, 08/06/23, Once, Lab Collect, Print Label, Chronic diarrhea Exocrine pancreatic insufficiency Chronic alcoholic pancreatitis Hematochezia S/P cholecystectomy, Order for future visit Referral Orders Referral Management, Medical Service: Gastroenterology, Reason: Endoscopic ultrasound to evaluate chronic alcoholic pancreatitis, Type: Procedure, Refer To: Provider Not Specified, [facility], [address] [place] [address]., Start: 08/06/23, Urgent: Problem List/Past Medical History Ongoing Abdominal pain Actinic keratosis Acute pancreatitis Alcohol abuse Anxiety Arthritis Atelectasis Blood in stool Carcinoma Diabetes mellitus Diarrhea Diastasis recti Ex-smoker Fatty liver Head trauma Knee pain Leukoplakia Low back pain Lumbar spine pain EDGAR (obstructive sleep apnea) Peptic ulcer Spirochetal infection Upper respiratory infection Historical No qualifying data Procedure/Surgical History ???Procedure on back (2019)???Radiofrequency ablation of nerve root of lumbar spine using fluoroscopic guidance (01/20/2019)???Arthroscopy of shoulder (10/05/2015)???Abdominal wall hernia procedure (1970)???Cholecystectomy Medications acetaminophen 500 mg oral tablet, 1000 mg= 2 tab, Oral, every 6 hr, PRN colestipol 1 g oral tablet, 2 g= 2 tab, Oral, BID, 11 refills Creon 24,000 units oral delayed release capsule, 2 cap, Oral, TID w/ Meals Creon 24,000 units oral delayed release capsule, 1 cap, Oral, TID, PRN fenofibrate 48 mg oral tablet, 48 mg= 1 tab, Oral, every evening Jardiance 25 mg oral tablet, 25 mg= 1 tab, Oral, every morning MetFORMIN (Eqv-Glucophage XR) 500 mg oral tablet, extended release, 1000 mg= 2 tab, Oral, BID NovoLOG FlexPen 100 units/mL injectable solution, Subcutaneous, [...] Unknown. Cause of : Electronically Signed on 08/06/23 09:08 AM Delmer Arrieta MD * Delmer Arrieta MD: PERFORM Event Display: Office Clinic Note Physician Authored Date: [id number] Records received from [facility].?? Bidirectional endoscopy performed on 06/11/2022:??EGD unremarkable, antral biopsies,??distal esophageal biopsies were normal.?? Colonoscopy??showed sigmoid diverticulosis, internal/external hemorrhoids.?? 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 Adequate??preparation, complete examination to the cecum. Electronically Signed on 08/06/23 01:43 PM Delmer Arrieta MD Patient Care team information Care Team Personnel Name: STANLEY PEREZ PA-C Position: No Access Member Role: Primary Care Physician Address: Address: [address] Care Team Related Persons Name: JG PEREZ Address: Home [address] [place], [place] [id number] [facility] Name: AYDEN DANIELSON Address: Home [address] [place], [place] [phone] [facility] Name: AYDEN DANIELSON Address: Home [address] [place] [address] [facility]
--- OUTSIDE RECORDS SUMMARY | 2024-02-17 10:55 | XMS_ITS | Continuity of Care Document ---
Author Name Unknown Organization [facility] Address [address] [place] [id number] Care Team Providers Care Resaw Carriage Operator Name Role Phone STANLEY PEREZ PA-C Primary Care Opal steel Encounter [facility] FIN NBR [id number] Date(s): 08/06/23 - 08/06/[address] [id number] Encounter Diagnosis Noninfective gastroenteritis and colitis, unspecified(Final) - Exocrine pancreatic insufficiency(Final) - Alcohol-induced chronic pancreatitis(Final) - Melena(Final) - Discharge Disposition: Home or Self Care Attending Physician: Delmer Arrieta MD Admitting Physician: Delmer Arrieta MD Allergies, Adverse Reactions, Alerts Substance Reaction Severity Status Wasps Anaphylaxis critical Severe Active Assessment and Plan Future Appointments Diagnostic Tests Pending * Celiac Disease Comprehensive LC 08/06/23 Future Scheduled Tests Laboratory* Pancreatic Elastase, Fecal [...] water, # 120 tab, 11 Refill(s), Pharmacy: [id number], 167, cm, 07/10/23 16:23:00 EDT, Height/Length Dosing, [...] tolerable, # 20 tab, 0 Refill(s), Pharmacy: [facility], 167, cm, 07/08/23 11:33:00 EDT, [...] Body Site Status Procedure on back 2019 [facility] ed Radiofrequency ablation of n erve root of lumbar spine using fluoroscopic guidance 01/19/19 Completed Arthroscopy of shoulder 1 10/04/15 Completed Abdominal wall hernia procedure 1969 Completed Cholecystectomy 3 [facility] ed 1Left 2herniorraphy 38120 Social History Social History Type Response Tobacco Former tobacco user Tobacco Use:. Sex Male Patient Care team information Care Team Personnel Name: STANLEY PEREZ PA-C Position: No Access Member Role: Primary Care Physician Address: Address: [address] [place] [address]- Care Team Related Persons Name: JG PEREZ Address: Home [address] [place], [place] [phone] [facility] Name: AYDEN DANIELSON Address: Home [address] [place], [place] [phone] [facility] Name: AYDEN DANIELSON Address: Home [address] [place] [address] [facility]
--- OUTSIDE RECORDS SUMMARY | 2024-02-17 10:55 | XMS_ITS | Continuity of Care Document ---
Author Name Unknown Organization [facility] Address [address] [place] [id number] Care Team Providers Care Hospital Educator Name Role Phone STANLEY PEREZ PA-C Primary Care Opal toconsuelo Encounter [facility] FIN NBR [id number] Date(s): 07/08/23 - 07/10/[address] [phone]- [phone] Encounter Diagnosis Acute pancreatitis(Discharge Diagnosis) - 07/08/23 Diabetes mellitus(Discharge Diagnosis) - 07/08/23 Discharge Disposition: Home or Self Care Attending Physician: Jaydon Valero MD Admitting Physician: Jaydon Valero MD Allergies, Adverse Reactions, Alerts Substance Reaction Severity Status Wasps Anaphylaxis critical Severe Active Assessment and Plan Future Appointments Future Scheduled Tests Radiology* MRI Hip w/o Contrast Right 04/10/23 Functional Status 07/10/23 Living Environment No Living Environmen t Information Available Lives In Single level home Lives With Spouse 07/10/23 Breakfast Percent 100 07/09/23 Personal Care Provided Linen change 07/09/23 Patient's Responsibilities Rehab Persona l ADL Prior ADL Status Independent Prior Mobility Status Independent Prior Instrumental ADL Level Independent Prior Cognitive-Communication Skills Ind ependent 07/09/23 Activity Status ADL HOB elevated 07/08/23 Family Member Travel History No recent t ravel Recent Travel History No recent travel Other exposure to Infectious Disease Non e Medications acetaminophen 500 mg oral tablet 1,000 mg = 2 tab, Oral, every 6 hr, PRN as needed for pain Start Date: 07/08/23 Status: Ordered Creon 24,000 units oral delayed [...] tolerable, # 20 tab, 0 Refill(s), Pharmacy: [facility], 167, cm, 07/08/23 11:33:00 EDT, Height/Length Dosing, 99, kg, 07/08/23 11:33:00 EDT, Weight Dosing Start Date: 07/10/23 Stop Date: 07/13/23 Status: Ordered pantoprazole 40 mg oral delayed release tablet 40 mg = 1 tab, Oral, every morning, 0 Refill(s) Start Date: 04/24/23 Status: Ordered Tresiba FlexTouch 100 units/mL subcutaneous solution 26 units =, Subcutaneous, every evening Start Date: 07/07/23 Status: Ordered Mental Status 07/08/23 Eye Opening Response Luis Spontaneous ly Best Verbal Response [place] Oriented Best Motor Response Luis Obeys comman [...] Diagnosis Body Site Status Procedure on 2019 Complet ed Radiofrequency ablation of n erve root of lumbar spine using fluoroscopic guidance 01/19/19 Completed Arthroscopy of shoulder 1 10/04/15 Completed Abdominal wall hernia procedure 2 1969 Completed 1Left 2herniorraphy Results Laboratory List Name Date Glucose POCT 07/09/23 Automated Diff 07/09/23 Glucose POCT 07/09/23 CBC w/ Diff 07/09/23 Basic Metabolic Panel (BMP) 07/09/23 Lipase Level 07/09/23 Lipid Panel 07/09/23 Magnesium Level 07/09/23 Glucose POCT 07/09/23 Comprehensive Metabolic Panel (CMP) 07/09 Albumin Level 07/08/23 Basic Metabolic Panel (BMP) 07/08/23 Magnesium Level 07/08/23 Amylase Level 07/08/23 CBC w/ Diff 07/08/23 Comprehensive Metabolic Panel 07/08/23 Lactic Acid 07/08/23 Lipase Level 07/08/23 Triglycerides 07/08/23 Troponin-I High Sensitivity 07/08/23 Automated Diff 07/08/23 Most recent to oldest [Reference Range]: 1 2 3 WBC [4.8-10.8 K/mcL] 8.9 K/mcL (07/09/23 6:25 AM) 10.8 K/mcL (07/08/23 5:50 AM) RBC [4.20-6.10 Million/mcL] 4.73 Million /mcL (07/09/23 6:25 AM) 4.84 Million/mcL (07/08/23 5:50 AM) Neutro Auto [42.2-75.2 %] 76.0 % *HI* (07/09/23 6:25 AM) 78.4 % *HI* (07/08/23 5:50 AM) Lymph Auto [20.5-51.1 %] 14.3 % *LOW* (07/09/23 6:25 AM) 12.9 % *LOW* (07/08/23 5:50 AM) Shoshone Auto [1.7-9.3 %] 8.4 % (07/09/23 6:25 AM) 6.6 % (07/08/23 5:50 AM) Basophil Auto [0.0-0.8 %] 0.3 % (07/09/23 6:25 AM) 0.5 % (07/08/23 5:50 AM) BUN [8-26 mg/dL] 10 mg/dL (07/09/23 5:03 AM) 10 mg/dL (07/09/23 12:39 AM) 10 mg/dL (07/08/23 7:25 PM) Glucose POC 99 *NA* (07/09/23 1:03 PM) 92 *NA* (07/09/23 8:45 AM) 124 *NA* (07/09/23 1:34 AM) Cholesterol Total [129-209 mg/dL] 136 mg/dL (07/09/23 5:03 AM) LDL 75.0 1 *NA* (07/09/23 5:03 AM) Glucose Level [74-106 mg/dL] 106 mg/dL (07/09/23 5:03 AM) 71 mg/dL *LOW* (07/09/23 12:39 AM) 96 mg/dL (07/08/23 7:25 PM) Potassium Level [3.5-5.1 mmol/L] 4.5 mmol/L (07/09/23 5:03 AM) 4.2 mmol/L (07/09/23 12:39 AM) 4.7 mmol/L (07/08/23 7:25 PM) Baso Absolute [0.0-0.2 K/mcL] 0.0 K/mcL (07/09/23 6:25 AM) 0.0 K/mcL (07/08/23 5:50 AM) MCV [80.0-94.0 fL] 92.4 fL (07/09/23 6:25 AM) 91.7 fL (07/08/23 5:50 AM) HDL [40-80 mg/dL] 44 mg/dL (07/09/23 5:03 AM) AST [15-41 IntlUnit/L] 14 IntlUnit/L *LOW* (07/09/23 12:39 AM) 17 IntlUnit/L (07/08/23 5:50 AM) Amylase Level [28-100 unit/L] 120 unit/L *HI* (07/08/23 5:50 AM) ALT [17-63 IntlUnit/L] 17 IntlUnit/L (07/09/23 12:39 AM) 22 IntlUnit/L (07/08/23 5:50 AM) MCHC [32.0-36.0 g/dL] 34.1 g/dL (07/09/23 6:25 AM) 34.0 g/dL (07/08/23 5:50 AM) Osmolality [275-295 mOsm/kg] 271 mOsm/kg *LOW* (07/09/23 5:03 AM) 266 mOsm/kg *LOW* (07/09/23 12:39 AM) 273 mOsm/kg *LOW* (07/08/23 7:25 PM) Sodium Level [134-143 mmol/L] 136 mmol/L (07/09/23 5:03 AM) 134 mmol/L (07/09/23 12:39 AM) 137 mmol/L (07/08/23 7:25 PM) Chol/HDL 3.1 2 *NA* (07/09/23 5:03 AM) Lymph Absolute [1.2-3.4 K/mcL] 1.3 K/mcL (07/09/23 6:25 AM) 1.4 K/mcL (07/08/23 5:50 AM) Hct [42.0-52.0 %] 43.7 % (07/09/23 6:25 AM) 44.4 % (07/08/23 5:50 AM) Lipase Level [18-51 unit/L] 43 unit/L 3 (07/09/23 5:03 AM) 91 unit/L 4 *HI* (07/08/23 5:50 AM) Triglycerides [10-150 mg/dL] 83 mg/dL (07/09/23 5:03 AM) 98 mg/dL (07/08/23 5:50 AM) Calcium Level [8.9-10.3 mg/dL] 8.9 mg/dL (07/09/23 5:03 AM) 8.5 mg/dL *LOW* (07/09/23 12:39 AM) 8.9 mg/dL (07/08/23 7:25 PM) Shoshone Absolute [0.1-0.6 K/mcL] 0.8 K/mcL *HI* (07/09/23 6:25 AM) 0.7 K/mcL *HI* (07/08/23 5:50 AM) Albumin Level [3.5-5.0 g/dL] 3.9 g/dL (07/09/23 12:39 AM) 3.6 g/dL (07/08/23 7:25 PM) 4.7 g/dL (07/08/23 5:50 AM) Protein Total [6.5-8.1 g/dL] 6.8 g/dL (07/09/23 12:39 AM) 7.8 g/dL (07/08/23 5:50 AM) MCH [27.0-31.0 pg] 31.5 pg *HI* (07/09/23 6:25 AM) 31.2 pg *HI* (07/08/23 5:50 AM) Magnesium Level [1.8-2.5 mg/dL] 2.0 mg/dL (07/09/23 5:03 AM) 2.2 mg/dL (07/08/23 7:25 PM) Neutro Absolute [1.4-6.5 K/mcL] 6.8 K/mcL *HI* (07/09/23 6:25 AM) 8.5 K/mcL *HI* (07/08/23 5:50 AM) Bilirubin Total [0.2-1.2 mg/dL] 1.1 mg/dL (07/09/23 12:39 AM) 0.8 mg/dL (07/08/23 5:50 AM) Hgb [14.0-18.0 g/dL] 14.9 g/dL (07/09/23 6:25 AM) 15.1 g/dL (07/08/23 5:50 AM) Alk Phos [38-130 IntlUnit/L] 39 IntlUnit /L (07/09/23 12:39 AM) 43 IntlUnit/L (07/08/23 5:50 AM) MPV [7.4-10.4 fL] 9.0 fL (07/09/23 6:25 AM) 9.1 fL (07/08/23 5:50 AM) Platelets [130-400 K/mcL] 161 K/mcL (07/09/23 6:25 AM) 191 K/mcL (07/08/23 5:50 AM) CO2 [22-32 mmol/L] 28 mmol/L (07/09/23 5:03 AM) 27 mmol/L (07/09/23 12:39 AM) 18 mmol/L *LOW* (07/08/23 7:25 PM) Eos Absolute [0.0-0.2 K/mcL] 0.1 K/mcL (07/09/23 6:25 AM) 0.1 K/mcL (07/08/23 5:50 AM) Lactic Acid Lvl [0.5-2.2 mmol/L] 1.0 mmol/L (07/08/23 5:50 AM) Chloride Level [98-111 mmol/L] 99 mmol/L (07/09/23 5:03 AM) 101 mmol/L (07/09/23 12:39 AM) 102 mmol/L (07/08/23 7:25 PM) RDW-CV [11.5-14.5 %] 12.1 % (07/09/23 6:25 AM) 12.3 % (07/08/23 5:50 AM) A/G Ratio [1.0-2.5 g/dL] 1.3 g/dL (07/09/23 12:39 AM) 1.5 g/dL (07/08/23 5:50 AM) BUN/Creat Ratio [8.0-20.0] 11.1 (07/09/23 5:03 AM) 11.0 (07/09/23 12:39 AM) 10.6 (07/08/23 7:25 PM) Globulin [2.3-3.5 g/dL] 2.9 g/dL (07/09/23 12:39 AM) 3.1 g/dL (07/08/23 5:50 AM) Imm Gran Absolute 0.02 *NA* (07/09/23 6:25 AM) 0.05 *NA* (07/08/23 5:50 AM) Imm Gran Auto [0.0-0.5 %] 0.2 % (07/09/23 6:25 AM) 0.5 % (07/08/23 5:50 AM) Creatinine Level [0.61-1.24 mg/dL] 0.90 mg/dL (07/09/23 5:03 AM) 0.91 mg/dL (07/09/23 12:39 AM) 0.94 mg/dL (07/08/23 7:25 PM) Troponin-I HS [<=20 ng/L] 3 ng/L 5 (07/08/23 5:50 AM) Anion Gap [3.0-12.0] 9.0 (07/09/23 5:03 AM) 6.0 (07/09/23 12:39 AM) 17.0 *HI* (07/08/23 7:25 PM) Eos, Auto [0.00-3.00 %] 0.80 % (07/09/23 6:25 AM) 1.10 % (07/08/23 5:50 AM) eGFR CKD-EPI [>=60 mL/min/1.73 m2] 101 mL/min/1.73 m2 (07/09/23 5:03 AM) 100 mL/min/1.73 m2 (07/09/23 12:39 AM) 96 mL/min/1.73 m2 (07/08/23 7:25 PM) 1Interpretive Data: Optimal: Less than 100 mg/dL Above Optimal: 100 - 129 mg/dL Borderline High: 130 - 159 mg/dL High: 160 - 189 mg/dL Very High: > or = 190 mg/dL 2Interpretive Data: RISK MALE FEMALE 1/2 average 3.4 3.3 Average 5.0 4.4 2x Average 9.6 7.1 3x Average 23.4 11.0 3Interpretive Data: Z-dilgcp-z-benzoquinone imine (meabolite of Acetaminophen) will generate erroneously low lipase results in samples for patients that have taken toxic doses of acetaminophen. 4Interpretive Data: B-zkqwrp-b-benzoquinone imine (meabolite of Acetaminophen) will generate erroneously low lipase results in samples for patients that have taken toxic doses of acetaminophen. 5Interpretive Data: The [facility] ACCESS high-sensitivity Troponin I [...] Exam Date Time Procedure Performing Provider Status 07/08/23 5:[address] Angio Chest Delmi Gifford (Hank ified) Notes: (CT Angio Chest) Reason For Exam: Pain out of proportion to examination across L CVAT, Splenic Region, Epigastric CT Angio Chest PROCEDURE INFORMATION: Exam: CTA Chest With Contrast Exam date and time: 07/08/2023 5:46 AM Age: 52 years old Clinical indication: Pain; Radiating; Additional info: Pain out of proportion to examination across L cvat, splenic region, epigastric TECHNIQUE: Imaging protocol: Computed tomographic angiography of the chest with contrast. Exam focused on the arteries. 3D rendering (Not supervised by radiologist): MIP and/or 3D reconstructed images were created by the technologist. Radiation optimization: All CT scans at this facility use at least one of these dose optimization techniques: automated exposure control; mA and/or kV adjustment per patient size (includes targeted exams where dose is matched to clinical indication); or iterative reconstruction. Contrast material: ISOVUE 370; Contrast volume: 100 ml; Contrast route: INTRAVENOUS (IV); REPORTING DATA: Count of CT and Cardiac NM exams in prior 12 months: This patient has received [address] and 0 known cardiac nuclear medicine studies in the 12 months prior to the current study. COMPARISON: CR XR CHEST, 2 VIEWS 07/07/2023 12:48 PM FINDINGS: Pulmonary arteries: Normal. No pulmonary emboli. Aorta: Unremarkable. No aortic aneurysm. No aortic dissection. Lungs: There is mild linear atelectasis within the lower lobes bilaterally with and within the lingula. No consolidation. Pleural spaces: Unremarkable. No pneumothorax. No pleural effusion. Heart: No cardiomegaly. No pericardial effusion. Lymph nodes: Unremarkable. No enlarged lymph nodes. Bones/joints: Unremarkable for age. No acute fracture. Soft tissues: Unremarkable. IMPRESSION: 1. No evidence of pulmonary embolism, thoracic aneurysm or thoracic dissection. 2. Mild areas of linear atelectasis within the lower lobes bilaterally and within the lingula. 754 images. This includes images for the CTA of the abdomen and pelvis which will be dictated separately. THIS DOCUMENT HAS BEEN ELECTRONICALLY SIGNED BY QUIN GUNDERSON MD on 07/08/2023 06:18 AM Final Signed by: Quin Gunderson MD Signed (Electronic Signature): 07/08/2023 6:18 am * Exam Date Time Procedure Performing Provider Status 07/08/23 5:[address] Angio Abdomen and Pelvis Perras, An na; Auth (Verified) Notes: (CT Angio Abdomen and Pelvis) Reason For Exam: Pain out of proportion to examination across L CVAT,Splenic Region, Epigastric CT Angio Abdomen and Pelvis PROCEDURE INFORMATION: Exam: CTA Abdomen and Pelvis With Contrast Exam date and time: 07/08/2023 5:46 AM Age: 52 years old Clinical indication: Abdominal pain; Localized; Left upper quadrant (luq); Patient HX: ? Dissection; Additional info: Pain out of proportion to examination across L cvat, splenic region, epigastric TECHNIQUE: Imaging protocol: Computed tomographic angiography of the abdomen and pelvis with contrast. Exam focused on the arteries. 3D rendering (Not supervised by radiologist): MIP and/or 3D reconstructed images were created by the technologist. Radiation optimization: All CT scans at this facility use at least one of these dose optimization techniques: automated exposure control; mA and/or kV adjustment per patient size (includes targeted exams where dose is matched to clinical indication); or iterative reconstruction. Contrast material: ISOVUE 370; Contrast volume: 100 ml; Contrast route: INTRAVENOUS (IV); REPORTING DATA: Count of CT and Cardiac NM exams in prior 12 months: This patient has received [address] and 0 known cardiac nuclear medicine studies in the 12 months prior to the current study. COMPARISON: CT ABD/PELVIS W CONTRAST 07/07/2023 12:53 PM FINDINGS: Aorta: Mild atherosclerotic calcification of the abdominal aorta. No aneurysm. No dissection. Celiac trunk and mesenteric arteries: No occlusion or significant stenosis. Renal arteries: No occlusion or significant stenosis. Right iliac arteries: No occlusion or significant stenosis. There is atherosclerotic calcification of the iliac arteries Left iliac arteries: No occlusion or significant stenosis. There is atherosclerotic calcification of the iliac arteries. Liver: There is fatty infiltration of the liver. Gallbladder and bile ducts: Cholecystectomy with clips present. Pancreas: There is mild indistinctness of the fat adjacent to the pancreatic head. No dilatation of the pancreatic duct. Spleen: Unremarkable. No splenomegaly. Adrenal glands: Unremarkable. No mass. Kidneys and ureters: No hydronephrosis or nephrolithiasis of either kidney. Stomach and bowel: Evaluation for mucosal thickening of the stomach and bowel is limited secondary to lack of oral contrast. No obstruction. Appendix: The appendix is not visualized. Intraperitoneal space: Unremarkable. No free air. No significant fluid collection. Lymph nodes: Unremarkable. No enlarged lymph nodes. Urinary bladder: Unremarkable. No mass. Reproductive: Unremarkable as visualized. Bones/joints: No acute fracture. Soft tissues: There is fat within the inguinal canals bilaterally. IMPRESSION: 1. No evidence of abdominal aortic aneurysm or dissection. 2. Mild indistinctness of the fat adjacent to the pancreatic head. Correlation with serum amylase and lipase is suggested to exclude acute pancreatitis. 3. Fatty infiltration of the liver. 754 images. The images for the CTA of the chest were included within the image count and was dictated separately. THIS DOCUMENT HAS BEEN ELECTRONICALLY SIGNED BY QUIN UGNDERSON MD on 07/08/2023 06:27 AM Final Signed by: Quin Gunderson MD Signed (Electronic Signature): 07/08/2023 6:27 am Vital Signs Most recent to oldest [Reference Range]: 1 2 3 Temperature Temporal Artery [36-38 Deg C] 35.9 Deg C *LOW* (07/10/23 12:15 PM) 36.5 Deg C (07/10/23 8:36 AM) 37.0 Deg C (07/10/23 5:45 AM) Temperature Temporal Artery (DegF) [97.3-100 Deg F] 98.6 Deg F (07/10/23 5:45 AM) 98.24 Deg F (07/10/23 12:29 AM) 98.78 Deg F (07/09/23 7:45 PM) Peripheral Pulse Rate [60-100 bpm] 113 bpm *HI* (07/10/23 12:15 PM) 102 bpm *HI* (07/10/23 8:36 AM) 92 bpm (07/10/23 5:45 AM) Heart Rate Monitored [60-100 bpm] 80 bpm (07/08/23 9:06 AM) 90 bpm (07/08/23 9:02 AM) 80 bpm (07/08/23 8:30 AM) Respiratory Rate [12-24 br/min] 15 br/min (07/10/23 12:15 PM) 16 br/min (07/10/23 8:36 AM) 18 br/min (07/10/23 5:45 AM) Blood Pressure [90-140/60-90 mmHg] 144/95mmHg *HI* (07/10/23 12:15 PM) 135/93mmHg (07/10/23 8:36 AM) 128/98mmHg (07/10/23 5:45 AM) Mean Arterial Pressure, Cuff [65-140 mmHg] 93 mmHg (07/09/23 6:00 AM) 111 mmHg (07/09/23 4:00 AM) 111 mmHg (07/09/23 2:00 AM) Mean Arterial Pressure Cuff 94 mmHg (07/09/23 6:00 AM) 110 mmHg (07/09/23 4:00 AM) 110 mmHg (07/09/23 2:00 AM) Blood Pressure Location Right arm (07/10/23 5:45 AM) Right arm (07/10/23 12:29 AM) Right arm (07/09/23 7:45 PM) Blood Pressure Method Automatic (07/10/23 5:45 AM) Automatic (07/10/23 12:29 AM) Automatic (07/09/23 7:45 PM) Weight 99.000 kg (07/10/23 1:25 PM) 97.5 kg (07/09/23 5:19 AM) 99.000 kg (07/08/23 11:33 AM) Weight Dosing 99.000 kg (07/10/23 1:25 PM) 99.000 kg (07/08/23 11:33 AM) 99.00 kg (07/08/23 5:24 AM) Height 167.000 cm (07/10/23 1:25 PM) 167.000 cm (07/08/23 11:33 AM) 167.000 cm (07/08/23 5:16 AM) Height/Length Dosing 167.000 cm (07/10/23 1:25 PM) 167.000 cm (07/08/23 11:33 AM) 167.000 cm (07/08/23 5:24 AM) Body Mass Index 35.500 kg/m2 (07/10/23 1:25 PM) 35.500 kg/m2 (07/08/23 11:33 AM) 35.000 kg/m2 (07/08/23 5:16 AM) Social History Social History Type Response Tobacco Former tobacco user Tobacco Use:. Sex Male Hospital Discharge Instructions Patient Education 07/10/2023 10:45:55 Acute Pancreatitis Acute Pancreatitis Acute pancreatitis happens when a gland called the pancreas suddenly develops inflammation, making it irritated and swollen. The pancreas is found on the left side of the abdomen, behind the stomach.The pancreas makes proteins (enzymes) that help to digest food. It also releases the hormones glucagon and insulin. These help to regulate blood sugar. Most sudden (acute) attacks of this condition last a few days and can cause serious problems. Some people become dehydrated and develop low blood pressure. In severe cases, bleeding in the abdomen can lead to shock and can be life- threatening. The lungs, heart, and kidneys may stop working. What are the causes? This condition may be caused by: ??? Heavy alcohol use. ??? Drug use. ??? Gallstones or other conditions that can block the tube that drains the pancreas (pancreatic duct). ??? A tumor in the pancreas. Other causes include: ??? Being exposed to certain medicines or certain chemicals. ??? Having health conditions such as diabetes, high triglycerides, or high calcium levels in your blood. High calcium levels are usually caused by the parathyroid gland being too active. ??? An infection in the pancreas. ??? Damage caused by an accident (trauma) or by the poison (venom) of a scorpion sting. ??? Abdominal surgery. ??? Autoimmune pancreatitis. This is when the body's disease-fighting system (immune system) attacks the pancreas. ??? Genes that are passed from parent to child (inherited). In some cases, the cause of this condition is not known. What are the signs or symptoms? Symptoms of this condition include: ??? Pain in the upper abdomen that may spread (radiate) to the back. Pain may be severe and often worsens after you eat. ??? A tender and swollen abdomen. ??? Nausea and vomiting. ??? Fever. How is this diagnosed? This condition may be diagnosed based on: ??? A physical exam. ??? Blood tests. These include an increased (elevated) level of lipase or amylase. ??? Imaging tests, such as CT scans, MRIs, or an ultrasound of the abdomen. How is this treated? Treatment for this condition often requires a hospital stay and may include: ??? Pain medicine. ??? IV fluids. ??? Placing a tube in the stomach to remove stomach contents and to control vomiting (nasogastric tube, or NG tube). ??? Not eating until vomiting has lessened. ??? Treating any underlying conditions that may be the cause. Treatment may include: ??? Antibiotic medicines, if your condition is caused by an infection. ??? Steroid medicine, if your condition is caused by your immune system attacking your pancreas (autoimmune disease). ??? Surgery on the gallbladder or pancreas, if your condition is caused by gallstones or another blockage. Follow these instructions at home: Medicines ??? Take wkgp-phg-nigjgtk and prescription medicines only as told by your health care provider. ??? If you were prescribed an antibiotic medicine, take it as told by your health care provider. Donot stop using the antibiotic even if you start to feel better. ??? Ask your health care provider if the medicine prescribed to you: ??? Requires you to avoid driving or using machinery. ??? Can cause constipation. You may need to take these actions to prevent or treat constipation: ??? Take fggu-tit-vfvstia or prescription medicines. ??? Eat foods that are high in fiber, such as beans, whole grains, and fresh fruits and vegetables. ??? Limit foods that are high in fat and processed sugars, such as fried or sweet foods. Eating and drinking ??? Follow instructions from your health care provider about diet. This may involve avoiding alcohol and having less fat in your diet. ??? Eat smaller, more frequent meals. Doing this causes the pancreas to make less digestive fluid. ??? Drink enough fluid to keep your urine pale yellow. ??? Do not drink alcohol if it caused your condition. General instructions ??? Do not use any products that contain nicotine or tobacco. These products include cigarettes, chewing tobacco, and vaping devices, such as e-cigarettes. If you need help quitting, ask your health care provider. ??? Get plenty of rest. ??? If directed, check your blood sugar at home as told by your health care provider. ??? Keep all follow-up visits. This is important. Contact a health care provider if: ??? You do not get better as fast as expected. ??? Your symptoms get worse or you get new symptoms. ??? You keep having pain, weakness, or nausea. ??? You get better and then pain comes back. ??? You have a fever. Get help right away if: ??? You vomit every time you eat or drink. ??? Your pain becomes severe. ??? Your skin or the white parts of your eyes turn yellow (jaundice). ??? You have sudden swelling in your abdomen. ??? You feel dizzy or you faint. ??? Your blood sugar is high (over 300 mg/dL). ??? You vomit blood. These symptoms may be an emergency. Get help right away. Call 911. ??? Do not wait to see if the symptoms will go away. ??? Do not drive yourself to the hospital. Summary ??? Acute pancreatitis happens when inflammation of the pancreas suddenly occurs and the pancreas becomes irritated and swollen. ??? This condition is typically caused by heavy alcohol use, drug use, or gallstones. ??? Treatment for this condition usually requires a stay in the hospital. This information is not intended to replace advice given to you by your health care provider. Make sure you discuss any questions you have with your health care provider. Document Revised: 09/25/2022 Document Reviewed: 09/25/2022 [employer] Patient Education ?? 2022 [employer] Follow Up Care 07/08/2023 05:16:13 With:STANLEY PEREZ PA-C Address: [address] [address]- When:1 month Comments:August 07 2023 4:45pm Discharge instructions * Jocelin Culver: PERFORM Event Display: Discharge Instructions Authored Date: [id number] NYASIA PEREZ :1970 Age:52 years Sex:Male Visit Date:07/08/2023 Primary Care Physician: RATSTANLEY LAFLEUR PA-C Hospital Discharge Instructions We would like to thank you for allowing us to assist you with your healthcare needs. The following includes patient education materials and information regarding your injury/illness. Your Next Steps Instructions From Your Care Team The next 2 to 3 days while you are eating the low-fat pancreatitis diet??take only 13 units of yourlong-acting insulin??before returning to the normal dose. Follow Up Appointments Follow Up with??CHRIS KINNEY, STANLEY NUGENT When:??Within 1 month Why: August 07 2023 4:45pm Where: [address] [place] [address]- Medications What How Much When Why Instructions Next Dose New oxyCODONE (oxyCODONE 5 mg oral tablet) 1 tab Oral (given by mouth) Every 6 hours as needed for pain Acute pancreatitis Diabetes mellitus Alcohol abuse Duration: 3 Days take 1 to 2 tabs as needed for severe pain that is not tolerable ?? Pickup at [facility] Changed pancrelipase (Creon 24,000 units oral delayed release capsule) 2 Capsules Oral (given by mouth) 3 times a day (with meals) also has snack time dose ?? Changed pancrelipase (Creon 24,000 units oral delayed release capsule) 1 Capsules Oral (given by mouth) 3 times a day as needed for other (see comment) with snacks; also has meal time dose ?? Changed pantoprazole (pantoprazole 40 mg oral delayed release tablet) 1 tab Oral (given by mouth) Every morning Unchanged acetaminophen (acetaminophen 500 mg oral tablet) 2 tab Oral (given by mouth) Every 6 hours as needed for as needed for pain Unchanged empagliflozin (Jardiance 25 mg oral tablet) 1 tab Oral (given by mouth) Every morning Unchanged fenofibrate (fenofibrate 48 mg oral tablet) 1 tab Oral (given by mouth) Every evening Unchanged insulin aspart (NovoLOG FlexPen 100 units/ mL injectable solution) Subcutaneous (under the skin) 4 times a day Unchanged insulin degludec (Tresiba FlexTouch 100 units/ mL subcutaneous solution) 26 Units Subcutaneous (under the skin) Every evening Unchanged metFORMIN (MetFORMIN (Eqv-Glucophage XR) 500 mg oral tablet, extended release) 2 tab Oral (given by mouth) 2 times a day Pharmacy Information [facility]: [address], [place] [phone] ?? What How Much When Why Comments Stop Taking oxyCODONE-acetaminophen (Percocet 5 mg-325 mg oral tablet) 1 tab Oral (given by mouth) Every 6 hours as needed for as needed for pain Duodenitis Duration: 3 Days Your Summary Your Care Team Admitting Physician - Marylu PARISI, Jaydon Attending Physician - Marylu PARISI, Jaydon Primary Care Physician - CHRIS KINNEY, STANLEY NUGENT Your Diagnosis Acute pancreatitis Diabetes mellitus Problems Ongoing - Any problem that you are currently receiving treatment for. Abdominal pain Actinic keratosis Alcohol abuse Anxiety Arthritis Blood in stool Carcinoma Diabetes mellitus Diarrhea Diastasis recti Lumbar spine pain EDGAR (obstructive sleep apnea) Peptic ulcer Spirochetal infection Upper respiratory infection Tests Performed/Pending Albumin Level Amylase Level Automated Diff BMP BMP CBC w/ Diff CMP Comprehensive Metabolic Panel Glucose POCT Lactic Acid Lipase Level Lipid Panel Magnesium Level Triglycerides Troponin-I High Sensitivity CT Angio Abdomen and Pelvis CT Angio Chest Discharge Vitals Temperature??(Temporal Artery) 97.7 ??F (36.5 ??C) Heart Rate??(Peripheral) 102 Respiratory Rate?? 16 Blood Pressure?? 135/93?? Allergies Wasps??(Anaphylaxis, critical) Education Materials Acute Pancreatitis Acute pancreatitis happens when a gland called the pancreas suddenly develops inflammation, making it irritated and swollen. The pancreas is found on the left side of the abdomen, behind the stomach.The pancreas makes proteins (enzymes) that help to digest food. It also releases the hormones glucagon and insulin. These help to regulate blood sugar. Most sudden (acute) attacks of this condition last a few days and can cause serious problems. Some people become dehydrated and develop low blood pressure. In severe cases, bleeding in the abdomen can lead to shock and can be life- threatening. The lungs, heart, and kidneys may stop working. What are the causes? This condition may be caused by: ? Heavy alcohol use. ? Drug use. ? Gallstones or other conditions that can block the tube that drains the pancreas (pancreatic duct). ? A tumor in the pancreas. Other causes include: ? Being exposed to certain medicines or certain chemicals. ? Having health conditions such as diabetes, high triglycerides, or high calcium levels in your blood. High calcium levels are usually caused by the parathyroid gland being too active. ? An infection in the pancreas. ? Damage caused by an accident (trauma) or by the poison (venom) of a scorpion sting. ? Abdominal surgery. ? Autoimmune pancreatitis. This is when the body's disease-fighting system (immune system) attacks the pancreas. ? Genes that are passed from parent to child (inherited). In some cases, the cause of this condition is not known. What are the signs or symptoms? Symptoms of this condition include: ? Pain in the upper abdomen that may spread (radiate) to the back. Pain may be severe and often worsens after you eat. ? A tender and swollen abdomen. ? Nausea and vomiting. ? Fever. How is this diagnosed? This condition may be diagnosed based on: ? A physical exam. ? Blood tests. These include an increased (elevated) level of lipase or amylase. ? Imaging tests, such as CT scans, MRIs, or an ultrasound of the abdomen. How is this treated? Treatment for this condition often requires a hospital stay and may include: ? Pain medicine. ? IV fluids. ? Placing a tube in the stomach to remove stomach contents and to control vomiting (nasogastric tube,or NG tube). ? Not eating until vomiting has lessened. ? Treating any underlying conditions that may be the cause. Treatment may include: ? Antibiotic medicines, if your condition is caused by an infection. ? Steroid medicine, if your condition is caused by your immune system attacking your pancreas (autoimmune disease). ? Surgery on the gallbladder or pancreas, if your condition is caused by gallstones or another blockage. Follow these instructions at home: Medicines ? Take rbkg-ydc-ctzxuec and prescription medicines only as told by your health care provider. ? If you were prescribed an antibiotic medicine, take it as told by your health care provider. Do notstop using the antibiotic even if you start to feel better. ? Ask your health care provider if the medicine prescribed to you: ? Requires you to avoid driving or using machinery. ? Can cause constipation. You may need to take these actions to prevent or treat constipation: ? Take qhhe-tdc-hfnlmlz or prescription medicines. ? Eat foods that are high in fiber, such as beans, whole grains, and fresh fruits and vegetables. ? Limit foods that are high in fat and processed sugars, such as fried or sweet foods. Eating and drinking ? Follow instructions from your health care provider about diet. This may involve avoiding alcohol and having less fat in your diet. ? Eat smaller, more frequent meals. Doing this causes the pancreas to make less digestive fluid. ? Drink enough fluid to keep your urine pale yellow. ? Do not drink alcohol if it caused your condition. General instructions ? Do not use any products that contain nicotine or tobacco. These products include cigarettes, chewing tobacco, and vaping devices, such as e-cigarettes. If you need help quitting, ask your health careprovider. ? Get plenty of rest. ? If directed, check your blood sugar at home as told by your health care provider. ? Keep all follow-up visits. This is important. Contact a health care provider if: ? You do not get better as fast as expected. ? Your symptoms get worse or you get new symptoms. ? You keep having pain, weakness, or nausea. ? You get better and then pain comes back. ? You have a fever. Get help right away if: ? You vomit every time you eat or drink. ? Your pain becomes severe. ? Your skin or the white parts of your eyes turn yellow (jaundice). ? You have sudden swelling in your abdomen. ? You feel dizzy or you faint. ? Your blood sugar is high (over 300 mg/dL). ? You vomit blood. These symptoms may be an emergency. Get help right away. Call 911. ? Do not wait to see if the symptoms will go away. ? Do not drive yourself to the hospital. Summary ? Acute pancreatitis happens when inflammation of the pancreas suddenly occurs and the pancreas becomes irritated and swollen. ? This condition is typically caused by heavy alcohol use, drug use, or gallstones. ? Treatment for this condition usually requires a stay in the hospital. This information is not intended to replace advice given to you by your health care provider. Make sure you discuss any questions you have with your health care provider. Document Revised: 09/25/2022 Document Reviewed: 09/25/2022 [employer] Patient Education ?? 2022 [employer]. Medication Information oxycodone?? (ox i KOE done) ?? Oxaydo, OxyCONTIN, Roxicodone, RoxyBond, Xtampza ER? What is the most important information I should know about oxycodone? MISUSE OF OPIOID MEDICINE CAN CAUSE ADDICTION, OVERDOSE, OR .?Keep the medication in a place where others cannot get to it. ?? Taking opioid medicine during may cause life-threatening withdrawal symptoms in the . ?? Fatal side effects can occur if you use opioid medicine with alcohol, or with other drugs that cause drowsiness or slow your breathing. ?? What is oxycodone? Oxycodone is an opioid pain medication used to treat moderate to severe pain.? The??extended-release form??of oxycodone is for gxteks-nig-yqrip treatment of pain and should??not??be used on an as-needed basis for pain. ?? Oxycodone may also be used for purposes not listed in this medication guide. ?? What should I discuss with my healthcare provider before using oxycodone? You should not use oxycodone if you are allergic to it, or if you have: ?severe asthma or breathing problems; or ?a blockage in your stomach or intestines. ?? You should not use oxycodone unless you are already using a similar opioid medicine and are tolerant to it.? Most brands of oxycodone are not approved for use in people under 18.??OxyContin??should not be given to a child younger than 11 years old. ?? Tell your doctor if you have ever had: ?breathing problems, sleep apnea; ?a head injury, or seizures;?drug or alcohol addiction, or mental illness; ?liver or kidney disease; ?urination problems; or ?problems with your gallbladder, pancreas, or thyroid. ?? If you use opioid medicine while you are , your baby could become dependent on the drug.?This can cause life-threatening withdrawal symptoms in the baby after it is born. Babies born dependent on opioids may need medical treatment for several weeks. ?? Ask a doctor before using opioid medicine if you are .??Tell your doctor if you noticesevere drowsiness or slow breathing in the nursing baby.? How should I use oxycodone? Follow the directions on your prescription label and read all medication guides.??Never use oxycodone in larger amounts, or for longer than prescribed.?Tell your doctor if you feel an increased urge to take more of this medicine. ?? Never share opioid medicine with another person, especially someone with a history of drug abuse oraddiction. MISUSE CAN CAUSE ADDICTION, OVERDOSE, OR .?Keep the medication in a place where others cannot get to it. Selling or giving away opioid medicine is against the law.? Stop taking all other wildaz-oxz-uwjrt opioid pain medicines when you start taking??extended-release oxycodone. ?? Take oxycodone with food. ?? Swallow the capsule or tablet whole??to avoid exposure to a potentially fatal overdose. Do not crush, chew, break, open, or dissolve. ?? If you cannot swallow a capsule whole,??open it and sprinkle the medicine into a spoonful of pudding or applesauce. ??Swallow the mixture right away without chewing. ??Do not save it for later use. ?? Never crush or break an oxycodone pill to inhale the powder or mix it into a liquid to inject the drug into your vein.?This can cause in .? Measure??liquid medicine??carefully. Use the dosing syringe provided, or use a medicine dose-measuring device (not a kitchen spoon). ?? You should not stop using oxycodone suddenly.?Follow your doctor's instructions about tapering your dose. ?? Store at room temperature, away from heat, moisture, and light. Keep track of your medicine. Oxycodone is a drug of abuse and you should be aware if anyone is using your medicine improperly or without a prescription. ?? Do not keep leftover opioid medication.??Just one dose can cause in someone using this medicine accidentally or improperly.??Ask your pharmacist where to locate a drug take-back disposal program. If there is no take-back program, flush the unused medicine down the toilet. ?? What happens if I miss a dose? Since oxycodone is used for pain, you are not likely to miss a dose. Skip any missed dose if it is almost time for your next dose.??Do not??use two doses at one time. ?? What happens if I overdose? Seek emergency medical attention or call the Poison Help line at .??An opioid overdose can be fatal, especially in a child or other person using the medicine without a prescription.??Overdose symptoms may include severe drowsiness, pinpoint pupils, slow breathing, or no breathing. ?? Your doctor may recommend you get naloxone (a medicine to reverse an opioid overdose) and keep it with you at all times. A person caring for you can give the naloxone if you stop breathing or don't wake up. Your caregiver must still get emergency medical help and may need to perform CPR (cardiopulmonary resuscitation) on you while waiting for help to arrive. ?? Anyone can buy naloxone from a pharmacy or local health department. Make sure any person caring foryou knows where you keep naloxone and how to use it. ?? What should I avoid while using oxycodone? Do not drink alcohol.?Dangerous side effects or could occur.? Avoid driving or operating machinery until you know how oxycodone will affect you. Dizziness or severe drowsiness can cause falls or other accidents. ?? Avoid medication errors.?Always check the brand and strength of oxycodone you get from the pharmacy. ?? What are the possible side effects of oxycodone? Get emergency medical help if you have??signs of an allergic reaction:?hives; difficult breathing; swelling of your face, lips, tongue, or throat. ?? Opioid medicine can slow or stop your breathing, and may occur.??A person caring for you should give naloxone and/or seek emergency medical attention if you have slow breathing with long pauses, blue colored lips, or if you are hard to wake up. ?? Call your doctor at once if you have: ?noisy breathing, sighing, shallow breathing, breathing that stops during sleep; ?a slow heart rate or weak pulse; ?a light-headed feeling, like you might pass out;?confusion, unusual thoughts or behavior; ?seizure (convulsions);?low cortisol levels-- nausea, vomiting, loss of appetite, dizziness, worsening tiredness or weakness; or ?high levels of serotonin in the body--agitation, hallucinations, fever, sweating, shivering, fast heart rate, muscle stiffness, twitching, loss of coordination, nausea, vomiting, diarrhea. ?? Serious breathing problems may be more likely in older adults and in those who are debilitated or have wasting syndrome or chronic breathing disorders. ?? Common side effects may include: ?drowsiness, headache, dizziness, tiredness; or ?constipation, stomach pain, nausea, vomiting. ?? This is not a complete list of side effects and others may occur. Call your doctor for medical advice about side effects. You may report side effects to FDA at 8-902-GYE-3787. ?? What other drugs will affect oxycodone? You may have breathing problems or withdrawal symptoms if you start or stop taking certain other medicines.?Tell your doctor if you also use an antibiotic, antifungal medication, heart or blood pressure medication, seizure medication, or medicine to treat HIV or hepatitis C. ?? Opioid medication can interact with many other drugs and cause dangerous side effects or .?Be sure your doctor knows if you also use: ?cold or allergy medicines, bronchodilator asthma/COPD medication, or a diuretic ('water pill'); ?medicines for motion sickness, irritable bowel syndrome, or overactive bladder; ?other opioids--opioid pain medicine or prescription cough medicine; ?a sedative like Valium--diazepam, alprazolam, lorazepam, Xanax, Klonopin, Versed, and others; ?drugs that make you sleepy or slow your breathing--a sleeping pill, muscle relaxer, medicine totreat mood disorders or mental illness; or ?drugs that affect serotonin levels in your body--a stimulant, or medicine for depression, Parkinson's disease, migraine headaches, serious infections, or nausea and vomiting. ?? This list is not complete and many other drugs may affect oxycodone.??This includes prescription and kdyj-vsu-yvmuxaz medicines, vitamins, and herbal products. Not all possible drug interactions are listed here. ?? Where can I get more information? Your pharmacist can provide more information about oxycodone. ?? Remember, keep this and all other medicines out of the reach of children, never share your medicines with others, and use this medication only for the indication prescribed. ?? Every effort has been made to ensure that the information provided by [employer] is accurate, up-to-date, and complete, but no guarantee is made to that effect. Drug information contained herein may be time sensitive. [employer] information has been compiled for use by healthcare practitioners and consumers in the [place] and therefore [employer] does not warrant that uses outside of the [place] are appropriate, unless specifically indicated otherwise. [employer] drug information does not endorse drugs, diagnose patients or recommend therapy. [employer] drug information isan informational resource designed to assist licensed healthcare practitioners in caring for their p atients and/or to serve consumers viewing this service as a supplement to, and not a substitute for, the expertise, skill, knowledge and judgment of healthcare practitioners. The absence of a warningfor a given drug or drug combination in no way should be construed to indicate that the drug or drug combination is safe, effective or appropriate for any given patient. [employer] does not assume any responsibility for any aspect of healthcare administered with the aid of information [employer] provides. The information contained herein is not intended to cover all possible uses, directions, precautions, warnings, drug interactions, allergic reactions, or adverse effects. If you have questions about the drugs you are taking, check with your doctor, nurse or pharmacist.? Copyright [employer] Version: . Revision Date: 06/21/2023. ? Patient/Electronic Device Repairer Signature Patient Name:ANA NYASIA Crowell I have received this information and my questions have been answered. Patient/Electronic Device Repairer Name: Patient/Electronic Device Repairer Signature: Relationship to Patient: Witness Name/Signature: Date: Electronically Signed on: 07/10/2023 11:51 EDTSigned by:CC Physician Emergency department Note * Delmer Aguillon DO W: PERFORM Event Display: ED Note Physician Authored Date: [id number] NYASIA PEREZ :1970 Age:52 years Sex:Male Visit Date:07/08/2023 Primary Care Physician: STANLEY PEREZ PA-C Basic Information Time Seen: Delmer Aguillon DO W / 07/08/2023 05:24 Chief Complaint pt here for work up yesterday back pain on left side that radiates the side. pt took percocet this morning at 3:30 with no relief. History Of Present Illness: This is a 52-year-old male PMH IDDM II, pancreatic insufficiency on Creon, GERD presents emergency department with concerns of centralized back discomfort with radiation around the left costovertebral angle under the axillary line to the epigastric region.?? He was seen earlier in the day and diagnosed with duodenitis with normal laboratory work-up, normal urinalysis, no objective findings of ACS.?? CT abdomen/pelvis at that time demonstrated suspected wall thickening of the third portion of the duodenum with mild adjacent inflammatory changes.?? There were multiple adjacent unenlarged lymph nodes noted.?? Non- specific duodenitis was documented.?? At the time I was feeling this was more related to the pancreas and the pancreas was completely normal with no ductal dilation.?? Patient is status postcholecystectomy.?? Patient was discharged home on PPI, pain measures, and slow return to diet.?? This morning he is pain exacerbated and he could no longer even participate in activities of daily living prompting him to come back to the emergency department for investigation.?? His last Percocet was at 3:30 AM with no relief. Review of Systems: CONSTITUTIONAL: No fevers or [...] in HPI Physical Exam Vitals & Measurements T:??35.7?C ??(Temporal Artery)?? HR:??87??(Peripheral)?? HR:??86??(Monitored)?? RR:??15?? BP:??176/118?? SpO2:??90%?? HT:??167.000??cm?? WT:??99.00??kg?? BMI:??35.000?? Pain Score:??8?? O2 Therapy:??Room air?? GENERAL APPEARANCE: Older male??arriving somewhat diaphoretic??distress splinting his??left flank??and epigastric region.?? Hypertension noted. HEENT: NC/AT; EOMI. PERRL, no conjunctival injection; no scleral icterus. TMs not examined. Nares patent. No posterior pharyngeal erythema or tonsillar exudate. ??Dry mucous membranes/lips. NECK: Supple. HEART: RRR; No M/R/G CHEST: CTA B/L with symmetric excursions.?? ABDOMEN: Protuberant/obese, soft,??non-distended.??There is tenderness from the central back regionacross the left CVAT??wrapping around the left side to the epigastric region now with voluntary guarding without rigidity or??rebound.?Villa sign negative. : Deferred. MUSCULOSKELETAL: Adequate gait and station without ataxia. ??Moves all 4 extremities. EXTREMITIES:??Trace edema. ??No unilateral leg swelling or posterior calf tenderness. BACK/SPINE: No midline CTLS tenderness. ??No CVAT. NEURO: Cranial nerves grossly intact. ??No acute focal neurologic deficit. Medical Decision Making: L CVAT??with radiation to the epigastrium or vice versa. ??Duodenitis is the working diagnosis at present time.?? Will obtain repeat laboratory work-up to see if there is any interval change??in??anyvalues.?? I do remain concerned at present time on arrival that he is somewhat diaphoretic and splinting in this region that this may represent an underlying aortic pathology.?? He is quite uncomfortable. ??Pain is out of proportion to examination.?Review of previous??CT abdomen with contrast reveals no??aneurysm.?? I will proceed with??CT angiogram chest/abdomen/pelvis. ??We will treat with IV fluids, intravenous opiates, intravenous antiemetics. Procedure No Qualifying Data Reexamination/Reevaluation 6:25 AM:??CT angiogram??was fortunately unremarkable and reassuring without any evidence of aortic aneurysm or dissection.?? There is also mention of no pulmonary embolism.?? Atelectasis was noted inthe bilateral lower lobes including lingula. ??Laboratory work-up showed??an interval change in pancreatic enzymes suggestive of??pancreatitis. ??There is no objective evidence of acute ischemia or infarction on EKG or troponin testing. ?? 6:55 AM: Spoke with the IM CORK GRINDER??to communicate to the oncoming??internal medicine physician about??admission??for pain control??measures as the patient??clearly needs??time??to settle.?? Will remain in the emergency department until??admission orders are placed. Assessment/Plan 1.??Acute pancreatitis??K85.90 Orders: acetaminophen, 1,000 mg = 100 mL, IV Piggyback, Injection, Once, Administer over: 0.3 hr, First Dose: 07/08/23 7:00:00 EDT, Stop Date: 07/08/23 7:00:00 EDT, Physician Stop, Routine, 333.33 mL/hr Dilaudid, 1 mg = 0.5 mL, IV Push, Injection, every 20 min for 3 doses, PRN pain, moderate, First Dose: 07/08/23 5:25:00 EDT, Stop Date: Limited # of times, Physician Stop, Routine Percocet 5 mg-325 mg oral tablet, 1 tab, Oral, every 6 hr, PRN as needed for pain, X 3 days, # 12 tab, 0 Refill(s), 07/10/23 14:30:00 EDT Normal Saline Flush, 10 mL, IV Flush, Injection, As Directed, PRN online project manager, First Dose: 07/08/23 5:25:00 EDT, Routine NS drip 1,000 mL, Total Volume (mL): 1,000, 1,000 mL, Soln-IV, IV Bolus, 999 mL/hr, Order Duration:1 doses, Start Date: 07/08/23 6:56:00 EDT, Stop Date: 07/08/23 7:55:00 EDT, 99 kg, Populate Charting Weight From Order, 2.14, m2 NS drip 1,000 mL, Total Volume (mL): 1,000, 1,000 mL, Soln-IV, IV, 150 mL/hr, Order Duration: 30 days, Start Date: 07/08/23 6:56:00 EDT, Stop Date: 08/07/23 6:55:00 EDT, 99 kg, Populate Charting Weight From Order, 2.14, m2 Sodium Chloride 0.9% 1,000 mL, Total Volume (mL): 1,000, 1,000 mL, Soln-IV, IV Bolus, 999 mL/hr, Start Date: 07/08/23 5:25:00 EDT, 99 kg, Populate Charting Weight From Order, 2.14, m2 Decision to Admit, 07/08/23 6:57:00 EDT, Medical Unit Diet Order, 07/08/23 6:55:00 EDT, NPO Troponin-I High Sensitivity, Blood, Timed Study, 07/08/23 6:32:00 EDT, Once, Nurse collect Medication Reconciliation Unchanged empagliflozin (Jardiance 25 mg [...] 2 TABLETS BY MOUTH TWICE DAILY. ?? oxyCODONE-acetaminophen (Percocet 5 mg-325 mg oral tablet)1 tab Oral (given by mouth) every 6 hoursas needed as needed for pain for 3 Days. Refills: 0. ?? pancrelipase (Creon 24,000 units oral delayed [...] of shoulder (10/05/2015)???Abdominal wall hernia procedure (1969) Medication Administration Given NS drip, 1000 mL, IV Bolus Sodium Chloride 0.9%, 1000 mL, IV Bolus Al hydroxide/Mg hydroxide/simethicone, 30 mL, Oral Dilaudid, 1 mg, IV Push Lidocaine Viscous, 15 mL, Oral Normal Saline Flush, 10 mL, IV Flush ondansetron, 4 mg, IV Push pantoprazole, 40 mg, IV Push Allergies Wasps??(critical) Social History Electronic Cigarette/Vaping Electronic Cigarette Use: Never. Tobacco Former tobacco user Tobacco Use:. Diagnostic Results CT Angio Abdomen and Pelvis 07/08/2023 06:[address] Angio Chest 07/08/2023 06:[address] Angio Chest ?? 07/08/23 05:46:51 PROCEDURE INFORMATION: Exam: CTA Chest With Contrast Exam date and time: 07/08/2023 5:46 AM Age: 52 years old Clinical indication: Pain; Radiating; Additional info: Pain out of proportion to examination across L cvat, splenic region, epigastric ?? TECHNIQUE: Imaging protocol: Computed tomographic angiography of the chest with contrast. Exam focused on the arteries. 3D rendering (Not supervised by radiologist): MIP and/or 3D reconstructed images were created by the technologist. Radiation optimization: All CT scans at this facility use at least one of these dose optimization techniques: automated exposure control; mA and/or kV adjustment per patient size (includes targeted exams where dose is matched to clinical indication); or iterative reconstruction. Contrast material: ISOVUE 370; Contrast volume: 100 ml; Contrast route: INTRAVENOUS (IV); ?? REPORTING DATA: Count of CT and Cardiac NM exams in prior 12 months: This patient has received [address] and 0 known cardiac nuclear medicine studies in the 12 months prior to the current study. ?? COMPARISON: CR XR CHEST, 2 VIEWS 07/07/2023 12:48 PM ?? FINDINGS: Pulmonary arteries: Normal. No pulmonary emboli. Aorta: Unremarkable. No aortic aneurysm. No aortic dissection. ?? Lungs: There is mild linear atelectasis within the lower lobes bilaterally with and within the lingula. No consolidation. Pleural spaces: Unremarkable. No pneumothorax. No pleural effusion. Heart: No cardiomegaly. No pericardial effusion. Lymph nodes: Unremarkable. No enlarged lymph nodes. ?? Bones/joints: Unremarkable for age. No acute fracture. Soft tissues: Unremarkable. ?? IMPRESSION: 1. No evidence of pulmonary embolism, thoracic aneurysm or thoracic dissection. 2. Mild areas of linear atelectasis within the lower lobes bilaterally and within the lingula. ?? 754 images. This includes images for the CTA of the abdomen and pelvis which will be dictated separately. ? THIS DOCUMENT HAS BEEN ELECTRONICALLY SIGNED BY QUIN GUNDERSON MD on 07/08/2023 06:18 AM ?? Signed By: Quin Gunderson MD ?? CT Angio Abdomen and Pelvis ?? 07/08/23 05:46:51 PROCEDURE INFORMATION: Exam: CTA Abdomen and Pelvis With Contrast Exam date and time: 07/08/2023 5:46 AM Age: 52 years old Clinical indication: Abdominal pain; Localized; Left upper quadrant (luq); Patient HX: ? Dissection; Additional info: Pain out of proportion to examination across L cvat, splenic region, epigastric ?? TECHNIQUE: Imaging protocol: Computed tomographic angiography of the abdomen and pelvis with contrast. Exam focused on the arteries. 3D rendering (Not supervised by radiologist): MIP and/or 3D reconstructed images were created by the technologist. Radiation optimization: All CT scans at this facility use at least one of these dose optimization techniques: automated exposure control; mA and/or kV adjustment per patient size (includes targeted exams where dose is matched to clinical indication); or iterative reconstruction. Contrast material: ISOVUE 370; Contrast volume: 100 ml; Contrast route: INTRAVENOUS (IV); ?? REPORTING DATA: Count of CT and Cardiac NM exams in prior 12 months: This patient has received [address] and 0 known cardiac nuclear medicine studies in the 12 months prior to the current study. ?? COMPARISON: CT ABD/PELVIS W CONTRAST 07/07/2023 12:53 PM ?? FINDINGS: Aorta: Mild atherosclerotic calcification of the abdominal aorta. No aneurysm. No dissection. Celiac trunk and mesenteric arteries: No occlusion or significant stenosis. Renal arteries: No occlusion or significant stenosis. Right iliac arteries: No occlusion or significant stenosis. There is atherosclerotic calcification of the iliac arteries Left iliac arteries: No occlusion or significant stenosis. There is atherosclerotic calcification of the iliac arteries. ?? Liver: There is fatty infiltration of the liver. Gallbladder and bile ducts: Cholecystectomy with clips present. Pancreas: There is mild indistinctness of the fat adjacent to the pancreatic head. No dilatation of the pancreatic duct. Spleen: Unremarkable. No splenomegaly. Adrenal glands: Unremarkable. No mass. Kidneys and ureters: No hydronephrosis or nephrolithiasis of either kidney. Stomach and bowel: Evaluation for mucosal thickening of the stomach and bowel is limited secondary to lack of oral contrast. No obstruction. Appendix: The appendix is not visualized. Intraperitoneal space: Unremarkable. No free air. No significant fluid collection. Lymph nodes: Unremarkable. No enlarged lymph nodes. ?? Urinary bladder: Unremarkable. No mass. Reproductive: Unremarkable as visualized. Bones/joints: No acute fracture. Soft tissues: There is fat within the inguinal canals bilaterally. ?? IMPRESSION: 1. No evidence of abdominal aortic aneurysm or dissection. 2. Mild indistinctness of the fat adjacent to the pancreatic head. Correlation with serum amylase and lipase is suggested to exclude acute pancreatitis. 3. Fatty infiltration of the liver. ?? 754 images. The images for the CTA of the chest were included within the image count and was dictated separately. ? THIS DOCUMENT HAS BEEN ELECTRONICALLY SIGNED BY QUIN GUNDERSON MD on 07/08/2023 06:27 AM ?? Signed By: Quin Gunderson MD ECG EKG 6:16 AM: EKG demonstrates normal sinus rhythm at 81 beats minute; normal axis;??normal intervals; no objective evidence of acute ischemia or infarction. Lab Results CBC and Differential?? LATEST RESULTS?? HISTORICAL RESULTS?? WBC?? 07/08/23 05:50?? 10.8?? 07/07/23?? 7.8?? RBC?? 07/08/23 05:50?? 4.84?? 07/07/23?? 4.90?? Hgb?? 07/08/23 05:50?? 15.1?? 07/07/23?? 15.2?? Hct?? 07/08/23 05:50?? 44.4?? 07/07/23?? 45.2?? MCV?? 07/08/23 05:50?? 91.7?? 07/07/23?? 92.2?? MCH?? 07/08/23 05:50?? 31.2 ??High?? 07/07/23?? 31.0?? MCHC?? 07/08/23 05:50?? 34.0?? 07/07/23?? 33.6?? RDW-CV?? 07/08/23 05:50?? 12.3?? 07/07/23?? 12.4?? Platelets?? 07/08/23 05:50?? 191?? 07/07/23?? 209?? MPV?? 07/08/23 05:50?? 9.1?? 07/07/23?? 9.4?? Neutro Auto?? 07/08/23 05:50?? 78.4 ??High?? 07/07/23?? 67.0?? Lymph Auto?? 07/08/23 05:50?? 12.9 ??Low?? 07/07/23?? 21.9?? Shoshone Auto?? 07/08/23 05:50?? 6.6?? 07/07/23?? 7.9?? Eos, Auto?? 07/08/23 05:50?? 1.10?? 07/07/23?? 2.30?? Basophil Auto?? 07/08/23 05:50?? 0.5?? 07/07/23?? 0.5?? Imm Gran Auto?? 07/08/23 05:50?? 0.5?? 07/07/23?? 0.4?? Neutro Absolute?? 07/08/23 05:50?? 8.5 ??High?? 07/07/23?? 5.2?? Lymph Absolute?? 07/08/23 05:50?? 1.4?? 07/07/23?? 1.7?? Shoshone Absolute?? 07/08/23 05:50?? 0.7 ??High?? 07/07/23?? 0.6?? Eos Absolute?? 07/08/23 05:50?? 0.1?? 07/07/23?? 0.2?? Baso Absolute?? 07/08/23 05:50?? 0.0?? 07/07/23?? 0.0?? Imm Gran Absolute?? 07/08/23 05:50?? 0.05?? 07/07/23?? 0.03? Routine Chemistry?? LATEST RESULTS?? HISTORICAL RESULTS?? Sodium Level?? 07/08/23 05:50?? 135?? 07/07/23?? 138?? Potassium Level?? 07/08/23 05:50?? 4.6?? 07/07/23?? 4.5?? Chloride Level?? 07/08/23 05:50?? 101?? 07/07/23?? 105?? CO2?? 07/08/23 05:50?? 24?? 07/07/23?? 22?? Alk Phos?? 07/08/23 05:50?? 43?? 07/07/23?? 49?? AST?? 07/08/23 05:50?? 17?? 07/07/23?? 24?? ALT?? 07/08/23 05:50?? 22?? 07/07/23?? 22?? BUN?? 07/08/23 05:50?? 14?? 07/07/23?? 17?? Glucose Level?? 07/08/23 05:50?? 138 ??High?? 07/07/23?? 130 ??High?? Creatinine Level?? 07/08/23 05:50?? 0.96?? 07/07/23?? 1.15?? BUN/Creat Ratio?? 07/08/23 05:50?? 14.6?? 07/07/23?? 14.8?? eGFR CKD-EPI?? 07/08/23 05:50?? 94?? 07/07/23?? 76?? Calcium Level?? 07/08/23 05:50?? 9.3?? 07/07/23?? 9.0?? Protein Total?? 07/08/23 05:50?? 7.8?? 07/07/23?? 7.2?? Albumin Level?? 07/08/23 05:50?? 4.7?? 07/07/23?? 4.2?? Globulin?? 07/08/23 05:50?? 3.1?? 07/07/23?? 3.0?? A/G Ratio?? 07/08/23 05:50?? 1.5?? 07/07/23?? 1.4?? Bilirubin Total?? 07/08/23 05:50?? 0.8?? 07/07/23?? 0.6?? Anion Gap?? 07/08/23 05:50?? 10.0?? 07/07/23?? 11.0?? Amylase Level?? 07/08/23 05:50?? 120 ??High?? 07/07/23?? 70?? Lactic Acid Lvl?? 07/08/23 05:50?? 1.0? Lipase Level?? 07/08/23 05:50?? 91 ??High?? 07/07/23?? 47?? Osmolality?? 07/08/23 05:50?? 273 ??Low?? 07/07/23?? 279? Cardiac Isoenzymes?? LATEST RESULTS?? HISTORICAL RESULTS?? Troponin-I HS?? 07/08/23 05:50?? 3?? 07/07/23?? 2? Electronically Signed on 07/08/23 07:44 AM Delmer Aguillon DO Nutrition and dietetics Progress note * Cristal Evangelista: PERFORM Event Display: Nutrition Note Authored Date: [id number] Assessment and Monitoring follow up ?? gave handouts pancreatitis diet/ portion sizes, carb choices. answered some questions. is slightly overwhelming as just started counting carbs for T2DM and trying to manage that. Does have diabetes edu. working with so does have support person to go to. is being discharged today. tolerating low fat diet. Anthropometrics/Estimated Needs Fqpozn34.5 kg(Recorded: 07/09/2023 05:19 EDT) Ccplmq559.000 cm(Recorded: 07/08/2023 11:33 EDT) Body Mass Index35.500 kg/m2(Recorded: 07/08/2023 11:33 EDT) Reason for Visit LUQ abdominal pain Problem List/Past Medical History Ongoing Abdominal pain [...] of shoulder (10/05/2015)???Abdominal wall hernia procedure (1969) Social History Electronic Cigarette/Vaping Electronic Cigarette Use: Never. Tobacco Former tobacco user Tobacco Use:. Diet Orders Diet Order, 07/09/23 16:23:00 EDT, Custom (See Special Instructions), low fat pancreatitis diet Allergies Wasps??(Anaphylaxis, critical) Nutrition Lab Results Test Name Test Result Date/Time WBC 8.9 K/mcL 07/09/2023 06:25 EDT Hgb 14.9 g/dL 07/09/2023 06:25 EDT Hct 43.7 % 07/09/2023 06:25 EDT MCV 92.4 fL 07/09/2023 06:25 EDT Platelets 161 K/mcL 07/09/2023 06:25 EDT Sodium Level 136 mmol/L 07/09/2023 05:03 EDT Potassium Level 4.5 mmol/L 07/09/2023 05:03 EDT Chloride Level 99 mmol/L 07/09/2023 05:03 EDT CO2 28 mmol/L 07/09/2023 05:03 EDT Alk Phos 39 IntlUnit/L 07/09/2023 00:39 EDT ALT 17 IntlUnit/L 07/09/2023 00:39 EDT BUN 10 mg/dL 07/09/2023 05:03 EDT Glucose Level 106 mg/dL 07/09/2023 05:03 EDT Creatinine Level 0.90 mg/dL 07/09/2023 05:03 EDT Albumin Level 3.9 g/dL 07/09/2023 00:39 EDT Bilirubin Total 1.1 mg/dL 07/09/2023 00:39 EDT Magnesium Level 2.0 mg/dL 07/09/2023 05:03 EDT Medications Inpatient acetaminophen, 1000 mg= 100 mL, IV Piggyback, every 8 hr, PRN Creon 12,000 units oral delayed release capsule, 2 cap, Oral, TID, PRN Creon 12,000 units oral delayed release capsule, 1 cap, Oral, TID, PRN glucagon, 1 mg= 1 EA, Subcutaneous, As Directed Normal Saline Flush, 10 mL, IV Flush, As Directed, PRN ondansetron, 4 mg= 2 mL, IV Push, every 6 hr, PRN oxyCODONE 5 mg oral tablet, 5 mg= 1 tab, Oral, every 4 hr, PRN Protonix, 40 mg= 1 EA, IV Push, Daily Tricor, 48 mg= 1 tab, Oral, Daily Home acetaminophen 500 mg oral tablet, 1000 mg= 2 tab, Oral, every 6 hr, PRN Creon 24,000 units oral delayed release capsule, [...] subcutaneous solution, 26 units, Subcutaneous, every evening Electronically Signed on 07/10/23 12:15 PM Cristal Evangelista * Cristal Evangelista: PERFORM Event Display: Nutrition Note Authored Date: [id number] Assessment and Monitoring ?? Reason for Referral:??education ? Nutrition Assessment: 52 yo??M admit LUQ abdominal pain. Dx: pancreatitits. does take creon,??generally is an improvement??in bowel movements. Also,??is T2DM and??recently started counting carbs??with insulin. Sounds likemet with opthalmic tech in [place]. Also says recently diagnosed with??Duodenitis. patient and ??unsure of what to eat??to manage both of chronic diseases. went over a bit of following low fatdiet, good protein sources per meal.??mindful??of portions sizes of carbs as well, pairing??it with??protein and fiber will help??blood sugar spikes. at this time, NPO and explained with gradually increase fat and??fiber into diet again. asked for some handouts- will provide more handouts on low fat, portion sizes and??asked??specifically about fruit??for diabetes. monitoring. labs noted. skin??intact. ? Monitor/Evaluation:?? Nutrition Diagnosis inadequate oral intakes r/t altered GI fxn as evidenced by NPO r/t pancreatitis. Nutrition Goals adv. diet no s/sx hyper,hypogylcemia labs wnl skin intact GI fxn improves Nutrition Interventions diet edu./handouts NPO Anthropometrics/Estimated Needs Jhsiff07.5 kg(Recorded: 07/09/2023 05:19 EDT) Fkfdlu676.000 cm(Recorded: 07/08/2023 11:33 EDT) Body Mass Index35.500 kg/m2(Recorded: 07/08/2023 11:33 EDT) Estimated Energy Needs: 1960-2450kcal (20-25kcal/kg actual BW) Estimated Fluid Needs: 1960-2450ml (1ml/kcal) Estimated Protein Needs: 78-98g (.8-1.0g/kg actual BW) Reason for Visit LUQ abdominal pain Problem List/Past Medical History Ongoing Abdominal pain [...] of shoulder (10/05/2015)???Abdominal wall hernia procedure (1969) Social History Electronic Cigarette/Vaping Electronic Cigarette Use: Never. Tobacco Former tobacco user Tobacco Use:. Diet Orders Diet Order, 07/08/23 8:23:00 EDT, NPO, sips and chips okay Allergies Wasps??(Anaphylaxis, critical) Nutrition Lab Results Test Name Test Result Date/Time WBC 8.9 K/mcL 07/09/2023 06:25 EDT Hgb 14.9 g/dL 07/09/2023 06:25 EDT Hct 43.7 % 07/09/2023 06:25 EDT MCV 92.4 fL 07/09/2023 06:25 EDT Platelets 161 K/mcL 07/09/2023 06:25 EDT Sodium Level 136 mmol/L 07/09/2023 05:03 EDT Potassium Level 4.5 mmol/L 07/09/2023 05:03 EDT Chloride Level 99 mmol/L 07/09/2023 05:03 EDT CO2 28 mmol/L 07/09/2023 05:03 EDT Alk Phos 39 IntlUnit/L 07/09/2023 00:39 EDT ALT 17 IntlUnit/L 07/09/2023 00:39 EDT BUN 10 mg/dL 07/09/2023 05:03 EDT Glucose Level 106 mg/dL 07/09/2023 05:03 EDT Creatinine Level 0.90 mg/dL 07/09/2023 05:03 EDT Albumin Level 3.9 g/dL 07/09/2023 00:39 EDT Bilirubin Total 1.1 mg/dL 07/09/2023 00:39 EDT Magnesium Level 2.0 mg/dL 07/09/2023 05:03 EDT Medications Inpatient acetaminophen, 1000 mg= 100 mL, IV Piggyback, every 8 hr, PRN Creon 12,000 units oral delayed release capsule, 2 cap, Oral, TID, PRN Creon 12,000 units oral delayed release capsule, 1 cap, Oral, TID, PRN Dextrose 5% with 0.45% NaCl 1,000 mL, 1000 mL, IV glucagon, 1 mg= 1 EA, Subcutaneous, As Directed HYDROmorphone, 1 mg= 0.5 mL, IV Push, every 3 hr, PRN Normal Saline Flush, 10 mL, IV Flush, As Directed, PRN ondansetron, 4 mg= 2 mL, IV Push, every 6 hr, PRN Protonix, 40 mg= 1 EA, IV Push, Daily Tricor, 48 mg= 1 tab, Oral, Daily Home acetaminophen 500 mg oral tablet, 1000 mg= 2 tab, Oral, every 6 hr, PRN Creon 24,000 units oral delayed release capsule, [...] FlexPen 100 units/mL injectable solution, Subcutaneous, QID pantoprazole 40 mg oral delayed release tablet, 40 mg= 1 tab, Oral, every morning Percocet 5 mg-325 mg oral tablet, 1 tab, Oral, every 6 hr, PRN Tresiba FlexTouch 100 units/mL subcutaneous solution, 26 units, Subcutaneous, every evening Electronically Signed on 07/09/23 12:11 PM Cristal Evangelista Progress note * Nyasia Travis MD: PERFORM Event Display: Progress Note - Physician Authored Date: [id number] NYASIA PEREZ :1970 Age:52 years Sex:Male Visit Date:07/08/2023 Primary Care Physician: CHRIS KINNEY, STANLEY NUGENT Subjective Feels hungry??and that pain is improving Review of Systems Constitutional:??No fevers overnight Respiratory:??No shortness of breath Cardiovascular:??No Chest pain Gastrointestinal:??No nausea, vomiting, diarrhea Musculoskeletal:??No new joint pain Objective Vitals & Measurements T:??36.1?C ??(Temporal Artery)?? TMIN:??36?C ??(Temporal Artery)?? TMAX:??36.4?C ??(Temporal Artery)?? HR:??95??(Peripheral)?? RR:??16?? BP:??133/80?? SpO2:??92%?? WT:??97.5??kg?? Pain Score:??5?? O2 Flow Rate:??2?? O2 Therapy:??Nasal cannula?? Physical Exam General:??Alert and oriented, well nourished, No acute distress Eye:??PERRL, EOMI, normal conjunctiva Lungs:??Clear to auscultation and percussion, Non-labored respiration Heart:??Normal rate, Normal rhythm, No murmur, No gallop Abdomen:??Soft, non-tender, non-distended, normal bowel sounds, no masses Lab Results Labs??(Last four charted values) WBC ?8.9?(JUL 09)?10.8?(JUL 08) Hgb ?14.9?(JUL 09)?15.1?(JUL 08) Hct ?43.7?(AUG 22)?44.4?(AUG 21) Plt ?161?(AUG 22)?191?(AUG 21) Na ?136?(AUG 22)?134?(AUG 22)?137?(AUG 21)?135?(AUG 21) K ?4.5?(AUG 22)?4.2?(AUG 22)?4.7?(AUG 21)?4.6?(AUG 21) CO2 ?28?(AUG 22)?27?(AUG 22)?L??18?(AUG 21)?24?(AUG 21) Cr ?0.90?(AUG 22)?0.91?(AUG 22)?0.94?(AUG 21)?0.96?(AUG 21) BUN ?10?(AUG 22)?10?(AUG 22)?10?(AUG 21)?14?(AUG 21) Glucose Random ?106?(AUG 22)?L??71?(JUL 09)?96?(JUL 08)?H??138?(JUL 08) Diagnostic Results Home Medications (10) Active acetaminophen 500 mg oral tablet??1,000 mg = 2 tab, PRN, Oral, every 6 hr Creon 24,000 units oral delayed release capsule??2 cap, Oral, TID w/ Meals Creon 24,000 units oral delayed release capsule??1 cap, PRN, Oral, TID fenofibrate 48 mg oral tablet??48 mg = 1 tab, Oral, every evening Jardiance 25 mg oral tablet??25 mg = 1 tab, Oral, every morning MetFORMIN (Eqv-Glucophage XR) 500 mg oral tablet, extended release??1,000 mg = 2 tab, Oral, BID NovoLOG FlexPen 100 units/mL injectable solution??, Subcutaneous, QID pantoprazole 40 mg oral delayed release tablet??40 mg = 1 tab, Oral, every morning Percocet 5 mg-325 mg oral tablet??1 tab, PRN, Oral, every 6 hr Tresiba FlexTouch 100 units/mL subcutaneous solution??26 units, Subcutaneous, every evening Assessment/Plan 1.??Acute pancreatitis??K85.90 Doing well lipase now nearly normal and no longer need to check this, will progress to low-fat pancreatitis diet, switch to oral pain medications Ordered: oxyCODONE 5 mg oral tablet, 5 mg = 1 tab, Oral, Tab, every 6 hr, PRN pain, First Dose: 07/09/23 15:15:00 EDT, Routine ?? 2.??Diabetes mellitus??E11.9 A1c is 9 at home blood sugars been quite good here. ??Checking??anticipate discharge home tomorrow if prolonged admission will go back to checking blood sugars Ordered: oxyCODONE 5 mg oral tablet, 5 mg = 1 tab, Oral, Tab, every 6 hr, PRN pain, First Dose: 07/09/23 15:15:00 EDT, Routine ?? Orders: Diet Order, 07/09/23 16:23:00 EDT, Custom (See Special Instructions), low fat pancreatitis diet Resuscitation Status, 07/09/23 15:15:00 EDT, Full Code Vital Signs, 07/09/23 14:31:00 EDT, every 6 hr Electronically Signed on 07/09/23 04:31 PM Nyasia Travis MD History and physical note * Jaydon Valero MD: PERFORM, MODIFY Event Display: History and Physical Authored Date: [id number] NYASIA PEREZ :1970 Age:52 years Sex:Male Visit Date:07/08/2023 Primary Care Physician: STANLEY PEREZ PA-C Chief Complaint pt here for work up yesterday back pain on left side that radiates the side. pt took percocet this morning at 3:30 with no relief. History of Present Illness This is a pleasant??52-year-old male who I am meeting for the first time on this visit. ??He has a past medical history that includes??insulin-dependent diabetes. ?? He has had multiple episodes of pancreatitis his pancreatic insufficiency. ??He is on Creon. ?? In speaking with the patient the causation of his pancreatitis is unclear. ??He denies alcohol use but I do see alcohol abuse??in the patient's history. ??I will have to reinterview him??regarding this. ??He does not have a gallbladder. ?? He does take fenofibrate. ??His triglycerides are within normal limits. ?? The Patient came to the emergency room yesterday with his traditional pancreatic pain. ??He is not aware of what set it off. ??It starts in his epigastrium and runs through the??left side to his lower back. ?? The emergency room CT imaging of the particularly revealing, possible some nonspecific duodenitis.?? The patient went home and then came back with the pain worsening. ?? CT angio of the chest abdomen was undertaken and this time it did show what appears to be pancreatitis. ??This correlates with the patient's rising lipase, his epigastric pain radiating around to hisback. ?? The Hospitalist service is called for admission Review of Systems Constitutional: No constitutional symptoms. ENT:??No ear pain, nasal congestion, sore throat Respiratory: No shortness of breath. Cardiovascular:??No Chest pain, palpitations, syncope Gastrointestinal: Abdominal pain??in the epigastric rating around left side to the back. Genitourinary:??No hematuria Musculoskeletal:??No back pain, neck pain, joint pain, muscle pain, decreased range of motion Neurologic:??Alert & oriented X 4 Physical Exam Vitals & Measurements T:??35.7?C ??(Temporal Artery)?? HR:??85??(Peripheral)?? HR:??80??(Monitored)?? RR:??16?? BP:??153/101?? SpO2:??93%?? HT:??167.000??cm?? WT:??99.00??kg?? BMI:??35.000?? Pain Score:??8?? O2 Therapy:??Room air?? General: Oriented x4, pleasant..?? HENT:??Normocephalic, clear tympanic membranes, normal hearing, moist oral mucosa, no scleral icterus, no sinus tenderness.?? Lungs: Lungs are clear..?? Heart:??Normal rate, regular rhythm, no murmur, gallop or edema. Abdomen: Pain is noted in the epigastrium and left upper quadrant..?? Musculoskeletal:??Normal range of motion and strength, no tenderness or swelling. Skin:??Skin is warm, dry and pink, no rashes or lesions. Neurologic:??Awake, alert and oriented X4, CN I-XII intact Assessment/Plan 1.??Acute pancreatitis??K85.90 Pancreatic protocol including frequent vital signs, frequent??electrolyte checks, triglycerides within normal limits. ??Glucose control less than 180.?? Early refeeding if possible with mild pancreatitis.?? Fluid resuscitation to some point. ?? Patient is unclear. ??Triglycerides within normal limits. ??I will reinterview him??regarding his??alcohol use. 2.??Abdominal pain??R10.9 Currently IV Dilaudid. ??Try to switch off opiates and to orals as soon as possible. 3.??Diabetes??E11.9,??Diabetes mellitus??E11.9 Hold oral??antihyperglycemics.?? Insulin scale currently gentle, currently every 6. ??Watch blood sugars??carefully. 5.??Fluid loss??E86.9 Is already received a great amount of fluid and studies are starting to show??that aggressive fluid, especially mild pancreatitis might not be necessary. ??Start with LR at 125. 6.??Alcohol abuse??F10.10 Reinterview patient upon such, for causation, for need for detox protocol but vital signs will be greatly monitored. ?? Time??spent??on patient care today is 60 minutes. Orders: glucagon, 1 mg = 1 EA, Subcutaneous, Injection, As Directed, First Dose: 07/08/23 9:10:00 EDT, Physician Stop, Routine Dextrose 50% injection, 25 g = 50 mL, IV Push, Injection, As Directed, First Dose: 07/08/23 9:10:00EDT, Physician Stop, Routine insulin aspart Sliding Scale - Low Dose, Insulin Aspart Sliding Scale See Comments, Subcutaneous, Injection, every 6 hr, First Dose: 07/08/23 10:00:00 EDT, Routine Lactated Ringers Injection 1,000 mL, Total Volume (mL): 1,000, 1,000 mL, Soln- IV, IV, 125 mL/hr, Order Duration: 30 days, Start Date: 07/08/23 9:13:00 EDT, Stop Date: 08/07/23 9:12:00 EDT, 99 kg, Populate Charting Weight From Order, 2.14, m2 Creon 12,000 units oral delayed release capsule, 2 cap, Oral, Cap-DR, TID, PRN other (see comment),First Dose: 07/08/23 9:09:00 EDT, Routine Basic Metabolic Panel, Blood, Routine, 07/08/23 8:24:00 EDT, Daily, for 3 days, Lab Collect CBC w/ Diff, Blood, Routine, 07/08/23 8:24:00 EDT, Daily, for 3 days, Lab Collect Consult to Dietitian Adult, 07/08/23 8:23:00 EDT, Reason for Consult Education Diet Order, 07/08/23 8:23:00 EDT, NPO, sips and chips Fall Risk Precautions, 07/08/23 8:23:00 EDT Intake and Output, 07/08/23 8:23:00 EDT, every 12 hr (nette), q shift, 07/08/23 9:00:00 EDT Lipase Level, Blood, Routine, 07/08/23 8:24:00 EDT, Daily, for 3 days, Lab Collect Lipid Panel, Blood, Routine, 07/08/23 9:10:00 EDT, every morning, for 1 days, Lab Collect Magnesium Level, Blood, Routine, 07/08/23 8:24:00 EDT, Daily, for 3 days, Lab Collect Occupational Therapy Evaluation and Treatment Acute, 07/08/23 8:23:00 EDT, Once Patient Condition, 07/08/23 8:23:00 EDT, Condition Good/ Stable Physical Therapy Evaluation and Treatment, 07/08/23 8:23:00 EDT, Once PSO Place in Observation, Observation, Observation, 07/08/23 8:21:00 EDT, 07/08/23 8:21:00 EDT, 07/08/23 8:21:00 EDT, 1 midnight or less Resuscitation Status, 07/08/23 8:23:00 EDT, Do Not Resuscitate Up ad Jennifer, 07/08/23 8:23:00 EDT, Constant Order, at nurse's discretion, 07/08/23 8:23:00 EDT Vital Signs, 07/08/23 8:23:00 EDT, every 4 hr (nette) Weight, 07/09/23 5:00:00 EDT, every 24 hr Problem List/Past Medical History Ongoing Abdominal pain [...] of shoulder (10/05/2015)???Abdominal wall hernia procedure (1969) Medications Inpatient Creon 12,000 units oral delayed release capsule, 2 cap, Oral, TID, PRN Dextrose 50% injection, 25 g= 50 mL, IV Push, As Directed Dilaudid, 1 mg= 0.5 mL, IV Push, every 20 min, PRN glucagon, 1 mg= 1 EA, Subcutaneous, As Directed insulin aspart Sliding Scale - Low Dose, Insulin Aspart Sliding Scale See Comments, Subcutaneous, every 6 hr Lactated Ringers Injection 1,000 mL, 1000 mL, IV Normal Saline Flush, 10 mL, IV Flush, As Directed, PRN Home acetaminophen 500 mg oral tablet, 1000 mg= 2 tab, Oral, every 6 hr, PRN Creon 24,000 units oral delayed release capsule, [...] FlexPen 100 units/mL injectable solution, Subcutaneous, QID pantoprazole 40 mg oral delayed release tablet, 40 mg= 1 tab, Oral, every morning Percocet 5 mg-325 mg oral tablet, 1 tab, Oral, every 6 hr, PRN Tresiba FlexTouch 100 units/mL subcutaneous solution, 26 units, Subcutaneous, every evening Allergies Wasps??(Anaphylaxis, critical) Social History Electronic Cigarette/Vaping Electronic Cigarette Use: Never. Tobacco Former tobacco user Tobacco Use:. Lab Results Test Name Test Result Date/Time WBC 10.8 K/mcL 07/08/2023 05:50 EDT RBC 4.84 Million/mcL 07/08/2023 05:50 EDT Hgb 15.1 g/dL 07/08/2023 05:50 EDT Hct 44.4 % 07/08/2023 05:50 EDT MCV 91.7 fL 07/08/2023 05:50 EDT MCH 31.2 pg 07/08/2023 05:50 EDT MCHC 34.0 g/dL 07/08/2023 05:50 EDT RDW-CV 12.3 % 07/08/2023 05:50 EDT Platelets 191 K/mcL 07/08/2023 05:50 EDT MPV 9.1 fL 07/08/2023 05:50 EDT Neutro Auto 78.4 % 07/08/2023 05:50 EDT Lymph Auto 12.9 % 07/08/2023 05:50 EDT Shoshone Auto 6.6 % 07/08/2023 05:50 EDT Eos, Auto 1.10 % 07/08/2023 05:50 EDT Basophil Auto 0.5 % 07/08/2023 05:50 EDT Imm Gran Auto 0.5 % 07/08/2023 05:50 EDT Neutro Absolute 8.5 K/mcL 07/08/2023 05:50 EDT Lymph Absolute 1.4 K/mcL 07/08/2023 05:50 EDT Shoshone Absolute 0.7 K/mcL 07/08/2023 05:50 EDT Eos Absolute 0.1 K/mcL 07/08/2023 05:50 EDT Baso Absolute 0.0 K/mcL 07/08/2023 05:50 EDT Imm Gran Absolute 0.05 07/08/2023 05:50 EDT Sodium Level 135 mmol/L 07/08/2023 05:50 EDT Potassium Level 4.6 mmol/L 07/08/2023 05:50 EDT Chloride Level 101 mmol/L 07/08/2023 05:50 EDT CO2 24 mmol/L 07/08/2023 05:50 EDT Alk Phos 43 IntlUnit/L 07/08/2023 05:50 EDT AST 17 IntlUnit/L 07/08/2023 05:50 EDT ALT 22 IntlUnit/L 07/08/2023 05:50 EDT BUN 14 mg/dL 07/08/2023 05:50 EDT Glucose Level 138 mg/dL 07/08/2023 05:50 EDT Creatinine Level 0.96 mg/dL 07/08/2023 05:50 EDT BUN/Creat Ratio 14.6 07/08/2023 05:50 EDT eGFR CKD-EPI 94 mL/min/1.73 m2 07/08/2023 05:50 EDT Calcium Level 9.3 mg/dL 07/08/2023 05:50 EDT Protein Total 7.8 g/dL 07/08/2023 05:50 EDT Albumin Level 4.7 g/dL 07/08/2023 05:50 EDT Globulin 3.1 g/dL 07/08/2023 05:50 EDT A/G Ratio 1.5 g/dL 07/08/2023 05:50 EDT Bilirubin Total 0.8 mg/dL 07/08/2023 05:50 EDT Anion Gap 10.0 07/08/2023 05:50 EDT Amylase Level 120 unit/L 07/08/2023 05:50 EDT Lactic Acid Lvl 1.0 mmol/L 07/08/2023 05:50 EDT Lipase Level 91 unit/L 07/08/2023 05:50 EDT Osmolality 273 mOsm/kg 07/08/2023 05:50 EDT Triglycerides 98 mg/dL 07/08/2023 05:50 EDT Troponin-I HS 3 ng/L 07/08/2023 05:50 EDT Electronically Signed on 07/08/23 09:27 AM Jaydon Valero MD Discharge summary * Angy PARISI, Nyasia Davis: PERFORM Event Display: Discharge Summary Authored Date: [id number] NYASIA PEREZ :1970 Age:52 years Sex:Male Visit Date:07/08/2023 Primary Care Physician: CHRIS KINNEY, [facility] Course 52-year-old male with history of insulin-dependent diabetes uncontrolled with an A1c of 9, thought that pancreatic insufficiency may be related to diabetes??on??Creon supplementation??presented with a mild pancreatitis??that??improved quickly.?? He is tolerating low-fat pancreatitis diet has been off fluids for a day??off IV pain meds.?? Lipase is down to 40.?? He is a fairly low??pain tolerance??contributes to perceived degree of pain. ??He had no hemodynamic instability here.?? He will followthis diet for sometime the next couple days??and??then return to normal diet. Physical Exam Vitals & Measurements T:??36.5?C ??(Temporal Artery)?? TMIN:??36.1?C ??(Temporal Artery)?? TMAX:??37.1?C ??(Temporal Artery)?? HR:??102??(Peripheral)?? RR:??16?? BP:??135/93?? SpO2:??92%?? Pain Score:??7?? O2 Flow Rate:??2?? O2 Therapy:??Room air?? General:??Alert and oriented, well nourished, No acute distress Eye:??PERRL, EOMI, normal conjunctiva Lungs:??Clear to auscultation and percussion, Non-labored respiration Heart:??Normal rate, Normal rhythm, No murmur, No gallop Abdomen:??Soft, non-distended, normal bowel sounds, no masses, mild ttp Medications Inpatient acetaminophen, 1000 mg= 100 mL, IV Piggyback, every 8 hr, PRN Creon 12,000 units oral delayed release capsule, 2 cap, Oral, TID, PRN Creon 12,000 units oral delayed release capsule, 1 cap, Oral, TID, PRN glucagon, 1 mg= 1 EA, Subcutaneous, As Directed Normal Saline Flush, 10 mL, IV Flush, As Directed, PRN ondansetron, 4 mg= 2 mL, IV Push, every 6 hr, PRN oxyCODONE 5 mg oral tablet, 5 mg= 1 tab, Oral, every 4 hr, PRN Protonix, 40 mg= 1 EA, IV Push, Daily Tricor, 48 mg= 1 tab, Oral, Daily Home acetaminophen 500 mg oral tablet, 1000 mg= 2 tab, Oral, every 6 hr, PRN Creon 24,000 units oral delayed release capsule, [...] subcutaneous solution, 26 units, Subcutaneous, every evening Procedure/Surgical History ???Procedure on back (2019)???Radiofrequency ablation of nerve root of lumbar spine using fluoroscopic guidance (01/20/2019)???Arthroscopy of shoulder (10/05/2015)???Abdominal wall hernia procedure (1969) Social History Electronic Cigarette/Vaping Electronic Cigarette Use: Never. Tobacco Former tobacco user Tobacco Use:. Discharge Plan 1.??Acute pancreatitis??K85.90 Normal triglycerides does not have a gallbladder no gallstones.?? Idiopathic in etiology versus pancreatic insufficiency from chronic diabetes Ordered: oxyCODONE 5 mg oral tablet, 5 mg = 1 tab, Oral, Tab, every 4 hr, PRN pain, First Dose: 07/09/23 15:15:00 EDT, Routine oxyCODONE 5 mg oral tablet, 5 mg = 1 tab, Oral, every 6 hr, PRN pain, take 1 to 2 tabs as needed for severe pain that is not tolerable, # 20 tab, 0 Refill(s), Pharmacy: [facility], 167, cm, 07/08/23 11:33:00 EDT, Height/Length Dosing, 99, kg, 07/08/23 11:33:00 EDT, W... Discharge Patient, 07/10/23 11:34:00 EDT ?? 2.??Diabetes mellitus??E11.9 Ordered: oxyCODONE 5 mg oral tablet, 5 mg = 1 tab, Oral, Tab, every 4 hr, PRN pain, First Dose: 07/09/23 15:15:00 EDT, Routine oxyCODONE 5 mg oral tablet, 5 mg = 1 tab, Oral, every 6 hr, PRN pain, take 1 to 2 tabs as needed for severe pain that is not tolerable, # 20 tab, 0 Refill(s), Pharmacy: [facility], 167, cm, 07/08/23 11:33:00 EDT, Height/Length Dosing, 99, kg, 07/08/23 11:33:00 EDT, W... Discharge Patient, 07/10/23 11:34:00 EDT ?? Orders: Diet Order, 07/09/23 16:23:00 EDT, Custom (See Special Instructions), low fat pancreatitis diet Resuscitation Status, 07/09/23 15:15:00 EDT, Full Code Vital Signs, 07/09/23 14:31:00 EDT, every 6 hr All Diagnoses This Visit Acute pancreatitis Diabetes mellitus Patient Instructions The next 2 to 3 days while you are eating the low-fat pancreatitis diet??take only 13 units of yourlong-acting insulin??before returning to the normal dose. Patient Education Acute Pancreatitis Follow Up With When Contact Information CHRIS KINNEY, STANLEY NUGENT Within 1 month [address] [place] [address]- Additional Instructions: Medication Reconciliation New Prescription oxyCODONE (oxyCODONE 5 mg oral tablet)1 tab Oral (given by mouth) every 6 hours as needed pain for 3 Days. take 1 to 2 tabs as needed for severe pain that is not tolerable. Refills: 0. ?? Changed pancrelipase (Creon 24,000 units oral delayed release capsule)2 Capsules Oral (given by mouth) 3 times a day (with meals). also has snack time dose. ?? pancrelipase (Creon 24,000 units oral delayed release capsule)1 Capsules Oral (given by mouth) 3 times a day as needed other (see comment). with snacks; also has meal time dose. ?? pantoprazole (pantoprazole 40 mg oral delayed release tablet)1 tab Oral (given by mouth) every morning. ?? Unchanged acetaminophen (acetaminophen 500 mg oral tablet)2 tab Oral (given by mouth) every 6 hours as neededas needed for pain. ?? empagliflozin (Jardiance 25 mg oral tablet)1 tab Oral (given by mouth) every morning. ?? fenofibrate (fenofibrate 48 mg oral tablet)1 tab Oral (given by mouth) every evening. ?? insulin aspart (NovoLOG FlexPen 100 units/mL injectable solution)Subcutaneous (under the skin) 4 times a day. ?? insulin degludec (Tresiba FlexTouch 100 units/mL subcutaneous solution)26 Units Subcutaneous (underthe skin) every evening. ?? metFORMIN (MetFORMIN (Eqv-Glucophage XR) 500 mg oral tablet, extended release)2 tab Oral (given by mouth) 2 times a day. ?? Discontinued oxyCODONE-acetaminophen (Percocet 5 mg-325 mg oral tablet)1 tab Oral (given by mouth) every 6 hoursas needed as needed for pain for 3 Days. Refills: 0. Electronically Signed on 07/10/23 11:49 AM Nyasia Travis MD Patient Care team information Care Team Personnel Name: CHRIS KINNEY, STANLEY NUGENT Position: No Access Member Role: Primary Care Physician Address: Address: [id number] [place] [address] Name: Diana Ritter Position: Nurse Member Role: Registered Nurse Name: Delmer Aguillon DO Position: Physician Address: Address: [address] [place] [id number] Name: Leida Osorio Position: Nurse Member Role: ED Nurse Care Team Related Persons Name: JG PEREZ Address: Home [address] [place], [place] [id number] [facility] Name: AYDEN DANIELSON Address: Home [address] [address] [facility] Name: AYDEN DANIELSON Address: Home [facility] [address] [place], [place] [id number] [facility]
--- OUTSIDE RECORDS SUMMARY | 2024-02-17 10:55 | XMS_ITS | Continuity of Care Document ---
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 Name Role Phone STANLEY PEREZ PA-C Primary Care Opal damián Encounter [facility] FIN NBR [id number] Date(s): 03/21/23 - 03/21/23 [facility] [address] [place], [place] [address] Encounter Diagnosis Osteoarthritis of right hip(Discharge Diagnosis) - 03/21/23 Discharge Disposition: Home or Self Care Attending Physician: Zo Cortes APRN Allergies, Adverse Reactions, Alerts Substance Reaction Severity Status Wasps critical Severe Active Functional Status 03/21/23 Family Member Travel History No recent t ravel Recent Travel History No recent travel Medications Creon 3000 units oral delayed release [...] Body Site Status Procedure on back 2019 [facility] ed Radiofrequency ablation of n erve root of lumbar spine using fluoroscopic guidance 01/19/19 Completed Arthroscopy of shoulder 1 10/04/15 Completed Abdominal wall hernia procedure 1969 Completed 1Left 2herniorraphy Vital Signs Most recent to oldest [Reference Range]: 1 Peripheral Pulse Rate [60-100 bpm] 94 bp m (03/21/23 1:23 PM) Blood Pressure [90-140/60-90 mmHg] 148/7 8mmHg *HI* (03/21/23 1:23 PM) Weight 99.79 kg (03/21/23 1:23 PM) Weight Measured (lbs) 219.999 lb (03/21/23 1:23 PM) Height 167.64 cm (03/21/23 1:23 PM) Height/Length Measured (inches) 66 inch (03/21/23 1:23 PM) BSA Measured 2.16 m2 (03/21/23 1:23 PM) Body Mass Index 35.51 kg/m2 (03/21/23 1:23 PM) Social History Social History Type Response Tobacco Former tobacco user Tobacco Use:. Sex Male Physician Outpatient Note * Zo Cortes, WAREHOUSE GUARD: PERFORM Event Display: Office Clinic Note Physician Authored Date: [id number] JULIAN PEREZ :1970 Age:52 years Sex:Male Visit Date:03/21/2023 Primary Care Physician: CHRIS KINNEY, STANLEY NUGENT Chief Complaint right hip pain History of Present Illness Julian??is here today for evaluation of his right hip, he has been followed by Diana Meek, he has history of low back surgery, multiple injections and ablations.?? He recently??was evaluated by spine and they felt that it was likely due to??an issue with his hip.?? Diana evaluated him,??he has been having some buttock discomfort, difficulty sleeping at night, difficulty with range of motion.?? She felt that given his lumbar spine history??and some mild changes on x-ray of his femoral acetabular joint??that ultrasound-guided injection could be considered??for #1 to give him some relief andpossibly #2 diagnostic in nature.?? We did discuss that if he gets even 1 day of relief that that does point more toward the femoral acetabular joint is a pain generator.?? Again he is here today to be considered for ultrasound-guided injection.?? He has been feeling in his normal state of health, has not had any traumatic injury or event. Review of Systems Constitutional:?No??fevers,?No??chills,?No??sweats Eye:?No??recent visual problems ENT:?No??ear pain,?No??nasal congestion,?No??sore throat Respiratory:?No??shortness of breath,?No??cough Cardiovascular:?No??Chest pain,?No??palpitations,?No??syncope Gastrointestinal:?Nonausea,?No??vomiting,?No??diarrhea Genitourinary:?No??hematuria Evaristo/Lymph:?No??bruising tendency,?No??swollen lymph glands Endocrine:?No??excessive thirst,??No??excessive hunger Musculoskeletal:??No??back pain,??No??neck pain,??Positive for??joint pain,??No??muscle pain,??No??decreased range of motion Integumentary:?No??rash,?No??pruritus,?No??abrasions Neurologic: Alert & oriented X 4 Psychiatric:?No??anxiety,?No??depression Physical Exam Vitals & Measurements HR:??94??(Peripheral)?? BP:??148/78?? SpO2:??97%?? HT:??167.64??cm?? WT:??99.79??kg?? BMI:??35.51?? Pain Score:??6?? BSA:??2.16?? General: ??appears stated age, well dressed HEENT: no loss of hearing, normocephalic, EOMs intact Neuro: ??grossly intact, if indicated see specific neurology exam Psych: ??alert and oriented to place and time, pleasant, cooperative Dermatology: ??no gross open areas of skin-see exam of limb for specifics Lymphatics: ??no lymphedema of affected limb Gait: Slightly antalgic with start up Vascular: ??pulses distally of limb are 2+?? Musculoskeletal: Right hip: To inspection no obvious deformity no redness erythema no effusion no open areas of the skin no signs or symptoms of infection Procedure Risks and benefits of injection discussed with the patient today. ??Patient verbalized understanding and would like to proceed. Right hip is exposed, the ASIS is identified with ultrasound, I moved distally to identify the femoral acetabular joint. ??The probe was then moved longitudinally to again identify the femoral acetabular joint and the attachment of the hip capsule at the femoral neck. ??The skin is prepped with ChloraPrep, 1% lidocaine with epi 4 mils is infiltrated to the skin and the deeper tissues. ??The skin is reprepped with ChloraPrep, 22-gauge spinal needle is introduced into the hip capsule at the femoral neck via ultrasound guidance. ??The hip is then injected intra-articularly with a 4 mL's 1% lidocaine plain and 40 mg of Kenalog, the patient tolerated the procedure very well and a sterile dressing is applied. ??The patient is asked not to take a shower or bath this evening, they may be the 24 hours after injection to decrease infection risk. Assessment/Plan 1.??Osteoarthritis of right hip??M16.11 Julian and I spent about 30 minutes together today with 20 this minutes spent reviewing his symptoms, his extensive history with this lumbar spine,??after physical exam I do feel comfortable proceeding with surgery and I think it is a great idea.?? This will hopefully help us sort out which is hismajor pain generator he has also undergone EMG studies as well.?? I did asked that he give Diana Meek a call in about 2 weeks to let her know how he is progressing.?Hopefully he will get great symptomatic benefit from??from the injection I will last quite some time. ??If he has any issues questions concerns he is encouraged to call. Problem List/Past Medical History Ongoing No qualifying data Historical No qualifying data Medications Creon 3000 units oral delayed release capsule, 1 cap, Oral, QID glipiZIDE 5 mg oral tablet, 5 mg= 1 tab, Oral, Daily Jardiance 10 mg oral tablet, 10 mg= 1 tab, Oral, every morning pantoprazole 20 mg oral delayed release tablet, 20 mg= 1 tab, Oral, Daily Allergies Wasps??(critical) Electronically Signed on 03/21/23 02:27 PM Zo Cortes APRN Reviewed by: Monse Cortes DO Patient Care team information Care Team Personnel Name: CHRIS KINNEY, STANLEY NUGENT Position: No Access Member Role: Primary Care Physician Address: Address: [place] [address]- Care Team Related Persons Name: JG PEREZ Address: Home [address] Name: AYDEN DANIELSON Address: Home [facility] [address]
--- OUTSIDE RECORDS SUMMARY | 2024-02-17 10:55 | XMS_ITS | Continuity of Care Document ---
Author Name Unknown Organization [facility] Address [address] [place] [address] Care Team Providers Care Supervisor Belt And Link Assembly Name Role Phone STANLEY PEREZ PA-C Primary Care Ivonolivia steel Encounter [facility] NBR [phone] Date(s): 04/24/23 - 04/24/23 [facility] [address], [place] [address] Encounter Diagnosis Right hip pain(Discharge Diagnosis) - 04/24/23 Osteoarthritis of right hip(Discharge Diagnosis) - 04/24/23 Hip dysplasia(Discharge Diagnosis) - 04/24/23 History of total hip arthroplasty(Discharge Diagnosis) - 04/24/23 Discharge Disposition: Home or Self Care Attending Physician: Monse Cortes DO Allergies, Adverse Reactions, Alerts Substance Reaction Severity Status Wasps critical Severe Active Assessment and Plan Future Appointments Future Scheduled Tests Radiology* MRI Hip w/o Contrast Right 04/10/23 Functional Status 04/24/23 Recent Travel History No recent travel Medications Creon 24,000 units oral delayed release capsule 240 EA, TAKE 2 CAPSULES BY MOUTH PRIOR TO MEALS AND 1 CAPSULE PRIOR TO SNACKS, 0 Refill(s) Start Date: 04/24/23 Status: Ordered Creon 3000 units oral delayed release capsule 1 cap, Oral, QID, with each meal and snack, # 120 cap, 0 Refill(s) Start Date: 03/08/23 Status: Ordered fenofibrate 48 mg oral tablet 90 EA, TAKE ONE TABLET BY MOUTH EVERY DAY, 0 Refill(s) Start Date: 04/24/23 Status: Ordered glipiZIDE 10 mg oral tablet, extended release 90 EA, TAKE ONE TABLET BY MOUTH EVERY MORNING, 0 Refill(s) Start Date: 04/24/23 Status: Ordered glipiZIDE 5 mg oral tablet 5 mg = 1 tab, Oral, Daily, # 30 tab, 0 Refill(s) Start Date: 03/08/23 Status: Ordered glipiZIDE 5 mg oral tablet, extended release 90 EA, TAKE 1 TABLET BY MOUTH IN THE MORNING, 0 Refill(s) Start Date: 04/24/23 Status: Ordered Jardiance 10 mg oral tablet 10 mg = 1 tab, Oral, every morning, # 30 tab, 0 Refill(s) Start Date: 03/08/23 Status: Ordered Jardiance 25 mg oral tablet 90 EA, TAKE 1 TABLET BY MOUTH DAILY, 0 Refill(s) Start Date: 04/24/23 Status: Ordered metFORMIN 0 Refill(s) Start Date: 04/24/23 Status: Ordered MetFORMIN (Eqv-Glucophage XR) 500 mg oral tablet, extended release 360 EA, TAKE 2 TABLETS BY MOUTH TWICE DAILY, 0 Refill(s) Start Date: 04/24/23 Status: Ordered pantoprazole 20 mg oral delayed release tablet 20 mg = 1 tab, Oral, Daily, # 90 tab, 0 Refill(s) Start Date: 03/08/23 Status: Ordered pantoprazole 40 mg oral delayed release tablet 90 EA, TAKE ONE TABLET BY MOUTH EVERY DAY (TO REPLACE OMEPRAZOLE), 0 Refill(s) Start Date: 04/24/23 Status: Ordered pioglitazone 30 mg oral tablet 0 Refill(s) Start Date: 04/24/23 Status: Ordered Tricor 0 Refill(s) Start Date: 04/24/23 Status: Ordered Procedures Procedure Date Related Diagnosis Body Site Status Procedure on 2019 [facility] ed Radiofrequency ablation of n erve root of lumbar spine using fluoroscopic guidance 01/19/19 Completed Arthroscopy of shoulder 1 10/04/15 Completed Abdominal wall hernia procedure 2 1970 Completed 1Left 2herniorraphy Vital Signs Most recent to oldest [Reference Range]: 1 Peripheral Pulse Rate [60-100 bpm] 85 bp m (04/24/23 9:04 AM) Blood Pressure [90-140/60-90 mmHg] 130/8 8mmHg (04/24/23 9:04 AM) Weight 100.24 kg (04/24/23 9:04 AM) Weight Measured (lbs) 220.991 lb (04/24/23 9:04 AM) Height 167.64 cm (04/24/23 9:04 AM) Height/Length Measured (inches) 66 inch (04/24/23 9:04 AM) BSA Measured 2.16 m2 (04/24/23 9:04 AM) Body Mass Index 35.67 kg/m2 (04/24/23 9:04 AM) Social History Social History Type Response Tobacco Former tobacco user Tobacco Use:. 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 He complains of groin pain, thigh pain??and occasional mid buttocks pain as well as??low back pain on the right side.?? He does have a history??of??lumbar decompression completed with??neurosurgery in [place]. ? ?Surgery has??read MRI and is back??and assessed that??his pain is unlikely coming from his back and he came to us for hip evaluation.?? His??hip x-rays demonstrated some mild degenerative changes??but most??revealing was??a degree of dysplasia??with approximately 50% of the right femoral head??uncovered.?? MRI??was fairly unrevealing.?? The most definitive history is an ultrasound- guided right hip injection which??Julian jung gave him 48 hours of??complete relief??of his symptoms.?? He has been indicated??for discussion about potential??right total hip and he presents today to have that discussion. Review of Systems Constitutional:?No??fevers,?No??chills,?No??sweats Eye:?No??recent visual problems ENT:?No??ear pain,?No??nasal congestion,?No??sore throat Respiratory:?No??shortness of breath,?No??cough Cardiovascular:?No??Chest pain,?No??palpitations,?No??syncope Gastrointestinal:?Nonausea,?No??vomiting,?No??diarrhea Genitourinary:?No??hematuria Evaristo/Lymph:?No??bruising tendency,?No??swollen lymph glands Endocrine:?No??excessive thirst,??No??excessive hunger Musculoskeletal:??No??back pain,??No??neck pain,??Positive for??joint pain,??No??muscle pain,??No??decreased range of motion Integumentary:?No??rash,?No??pruritus,?No??abrasions Neurologic: Alert & oriented X 4 Psychiatric:?No??anxiety,?No??depression Physical Exam Vitals & Measurements HR:??85??(Peripheral)?? BP:??130/88?? SpO2:??99%?? HT:??167.64??cm?? WT:??100.24??kg?? BMI:??35.67?? Pain Score:??7?? BSA:??2.16?? On physical exam he ambulates in the office with a slightly antalgic gait. ??Laying on the exam table??in first looking at the left lower extremity??there is no gross deformity. ??Nontender throughout. ??Skin intact.?? Extensor neutral without difficulty. ??He flexes??to 90 degrees without difficulty.?? 10 degrees of internal rotation and 60 degrees of external rotation and this is a pain-free arc of motion. ??The affected right hip??has skin intact. ??Nontender throughout. ??He extends to neutral without difficulty.?? He flexes to 90 degrees.?? He has??no internal rotation??and attempting todo so does exacerbate some right groin pain. ??He externally rotates to approximately 45 degrees.0 X-rays??of the right hip reviewed on the??Pete system??demonstrating??a degree of hip dysplasia??with??at least 50% of the right femoral head uncovered.?? Although the joint space??is well-maintained superiorly there is evidence of a small osteophyte at the superior??rim of the acetabulum??andthere is some joint space narrowing at the inferior and medial aspect??of the acetabulum??just distal to the teardrop. Assessment/Plan 1.??Osteoarthritis of right hip??M16.11 Given his complete relief after??ultrasound-guided right hip injection??he is indicated cautiously at this point for outpatient right anterior total hip. ??We reviewed his images together as well as models,??preoperative protocols, restratification and reasonable postop expectations.?? We will request preoperative medical optimization visit with his primary care provider and get him on the schedule at his convenience. ??Spent approximately 35 minutes together with 30 of those 35 minutes direct [id number] counseling discussing this. 2.??Hip dysplasia??Q65.89 Right hip pain??M25.551 Problem List/Past Medical History Ongoing No qualifying data Historical No qualifying data Procedure/Surgical History ???Procedure on back (2019)???Radiofrequency ablation of nerve root of lumbar spine using fluoroscopic guidance (01/20/2019)???Arthroscopy of shoulder (10/05/2015)???Abdominal wall hernia procedure (1970) Medications Creon 24,000 units oral delayed release capsule Creon 3000 units oral delayed release capsule, 1 cap, Oral, QID fenofibrate 48 mg oral tablet glipiZIDE 10 mg oral tablet, extended release glipiZIDE 5 mg oral tablet, 5 mg= 1 tab, Oral, Daily glipiZIDE 5 mg oral tablet, extended release Jardiance 10 mg oral tablet, 10 mg= 1 tab, Oral, every morning Jardiance 25 mg oral tablet metFORMIN MetFORMIN (Eqv-Glucophage XR) 500 mg oral tablet, extended release pantoprazole 20 mg oral delayed release tablet, 20 mg= 1 tab, Oral, Daily pantoprazole 40 mg oral delayed release tablet pioglitazone 30 mg oral tablet Tricor Allergies Wasps??(critical) Social History Electronic Cigarette/Vaping Electronic Cigarette Use: Never. Tobacco Former tobacco user Tobacco Use:. Electronically Signed on 04/24/23 09:46 AM Monse Cortes DO Patient Care team information Care Team Personnel Name: STANLEY PEREZ PA-C Position: No Access Member Role: Primary Care Physician Address: Address: [id number] [place] [address] Care Team Related Persons Name: JG PEREZ Address: Home [address] [place], [place] [id number] [facility] Name: AYDEN DANIELSON Address: Home [address] [place], [place] [id number] [facility] Name: AYDEN DANIELSON Address: Home [address] [place] [address] [facility]
--- OUTSIDE RECORDS SUMMARY | 2024-03-16 10:19 | XMS_ITS | Continuity of Care Document ---
Author Name Unknown Organization [facility] Ambulatory Clinics Address [address] [place] [address] Care Team Providers Care Classroom Assistant Name Role Phone STANLEY PEREZ PA-C Primary Care Opal steel Encounter [facility] NBR [id number] Date(s): 03/13/24 - 03/13/24 [facility] Ambulatory [facility] [address], [place] [address] Encounter Diagnosis Cervical spondylosis(Discharge Diagnosis) - 03/13/24 Facet arthropathy, cervical(Discharge Diagnosis) - 03/13/24 Foraminal stenosis of cervical region(Discharge Diagnosis) - 03/13/24 Cervical radiculopathy(Discharge Diagnosis) - 03/13/24 Discharge Disposition: Home or Self Care Attending Physician: Abi Martines DO Referring Physician: STANLEY PEREZ PA-C Allergies, Adverse Reactions, Alerts Substance Reaction Severity Status Wasps Anaphylaxis critical Severe Active Assessment and Plan Extracted from: Title:Office Visit Note - Pain Management Author :Abi Martines DO Date:03/13/24 Cervical radiculopathy??M54. 12 Ordered: Surgical Procedure Booking Request [facility], 03/13/24 9:39:00 EDT, cervical radiculopathy, Foraminal stenosis of cervical region Cervical radiculopathy, Outpatient, [facility], Primary Procedure, 45, Special equipment needed (include C-Arm requests)?, Diabetic, Local, 33, Abi Martines, , Cervic... ?? Cervical spondylosis??M47.812,??Facet arthropathy, cervical??M47.812 ?? Foraminal stenosis of cervical region??M48.02 Ordered: Surgical Procedure Booking Request [facility], 03/13/24 9:39:00 EDT, cervical radiculopathy, Foraminal stenosis of cervical region Cervical radiculopathy, Outpatient, [facility], Primary Procedure, 45, Special equipment needed (include C-Arm requests)?, Diabetic, Local, 33, Abi Martines, DO, Cervic... ? Julian is here for evaluation of neck pain with radiation to the upper extremities bilaterally, slightly worse on the right side.?He describes as 60% of the discomfort being in the neck versus 40% in the arms.?? MRI of the cervical spine from??October 2023 was personally reviewed.?? There are multilevel degenerative changes.?? At??C4-5 there is??right lateral recess narrowing with right foraminal narrowing. ??At C5-6, there is bilateral recess stenosis with right greater than left??foraminal narrowing. ??At C6-7, there is a disc osteophyte complex with lateral recess narrowing with left greater than right foraminal narrowing.?There is also multilevel facet arthropathy. ?? There are several injection options??that can be considered to help with his neck and arm symptoms.?? We reviewed the option to trial a cervical epidural steroid injection. ??Risks and potential benefits were reviewed.?? We discussed that a cervical CARLENE would be most helpful for the arm symptoms??and may also help with the axial neck pain.?? We also reviewed the option to consider diagnostic facet blocks??to determine if he is??for cervical RFA to address the neck pain. ??We reviewed that??cervical RFA would not be expected to help with the arm symptoms.?? Given that the arm symptoms are a significant component of his current discomfort, he would like to move forward with a cervical CARLENE. ?? He is currently in cardiac??rehab following a myocardial infarction in??December. ??He had a four-vessel CABG. ??He??is currently on aspirin.?? Would need to obtain clearance from cardiology to hold aspirin for 7 days prior??to this procedure given??recent cardiac event.?? Past medical history also pertinent for??pancreatitis. ??He has a ERCP scheduled with GI at [facility]??for next week.?Will plan to order a platelet count prior to the cervical CARLENE, unless labs are??being done next week before his ERCP.?If that is the case,??will plan to??request??labs results from [facility].?? He also reports low back pain however he states the neck pain is most bothersome??and primarily focused on the neck pain today.?? Once the neck pain is addressed, can next pursue treatment options for the low back pain. ?? He will return for [facility]. ? Future Scheduled Tests Radiology* MRI Hip w/o Contrast Right 04/10/23 Medications acetaminophen 500 mg oral tablet 1,000 mg = 2 tab, Oral, every 6 hr, PRN as needed for pain Start Date: 07/08/23 Status: Ordered aspirin 81 mg oral capsule 81 mg = 1 cap, Oral, Daily, do not exceed 48 capsules in 24 hours, # 30 cap, 0 Refill(s) Start Date: 03/13/24 Status: Ordered atorvastatin 80 mg oral tablet TAKE ONE TABLET BY MOUTH AT BEDTIME Start Date: 03/13/24 Status: Ordered Creon 24,000 units oral delayed release capsule 3 cap, Oral, TID w/ Meals, also has snack time dose, # 270 cap, 3 Refill(s), Pharmacy: [id number], 167, cm, 07/10/23 16:23:00 EDT, Height/Length Dosing, 99, kg, 07/10/23 16:23:00 EDT, Weight Dosing Start Date: 09/10/23 Stop Date: 01/08/24 Status: Ordered Creon 24,000 units oral delayed release capsule 2 ccap, Oral, TID, PRN other (see comment), with snacks; also has meal time dose, # 120 cap, 0 Refill(s), Pharmacy: [id number], 167, cm, 07/10/23 16:23:00 EDT, Height/Length Dosing, 99, kg, 07/10/23 16:23:00 EDT, Weight Dosing Start Date: 09/10/23 Stop Date: 10/10/23 Status: Ordered DEXCOM G7 SENSOR DEXCOM G7 SENSOR, CHANGE EVERY 10 DAYS DIRECTED Start Date: 03/13/24 Status: Ordered DULoxetine 60 mg oral delayed release capsule TAKE ONE CAPSULE BY MOUTH EVERY DAY Start Date: 03/13/24 Status: Ordered fenofibrate 48 mg oral tablet 48 mg = 1 tab, Oral, every evening, 0 Refill(s) Start Date: 04/24/23 Status: Ordered melatonin 1 mg oral tablet 1 mg = 1 tab, Oral, every night at bedtime, PRN as needed for insomnia, # 90 tab, 0 Refill(s) Start Date: 03/13/24 Status: Ordered Metoprolol Tartrate 25 mg oral tablet 12.5 mg = 0.5 tab, Oral, BID, TAKE 1 TABLET BY MOUTH EVERY 12 HOURS Start Date: 03/13/24 Status: Ordered NovoLOG FlexPen 100 units/mL injectable solution Subcutaneous, QID Start Date: 07/07/23 Status: Ordered pantoprazole 40 mg oral delayed release tablet 40 mg = 1 tab, Oral, every morning, 0 Refill(s) Start Date: 04/24/23 Status: Ordered sertraline 100 mg oral tablet TAKE ONE TABLET BY MOUTH EVERY DAY Start Date: 03/13/24 Status: Ordered Tresiba FlexTouch 100 units/mL subcutaneous solution 26 units =, Subcutaneous, every evening Start Date: 07/07/23 Status: Ordered Problem List Condition Confirmation Course Effective Dates Status H ealth Status Informant Abdominal pain Confirmed Active Actinic keratosis Confirmed Active Acute pancreatitis Confirmed Active Alcohol abuse Confirmed Active Anxiety Confirmed Active Arthritis Confirmed Active Atelectasis Confirmed Active Diabetes mellitus Confirmed Active Diarrhea Confirmed Active Diastasis recti Confirmed Active Ex-smoker Confirmed Active Fatty liver Confirmed Active Intestinal spherocytosis Confirmed Active Blood in stool Confirmed Active Hyperplastic polyp Confirmed Active Knee pain Confirmed Active Leukoplakia Confirmed Active Loose bowel movement Confirmed Active Low back pain Confirmed Active Carcinoma 1 Confirmed Active Nausea Confirmed Active OA - Osteoarthritis Confirmed Active EDGAR (obstructive sleep apnea) Confirmed Active Lumbar spine pain Confirmed Active Peptic ulcer Confirmed Active Spirochetal infection Confirmed Active Head trauma Confirmed Active Upper respiratory infection Confirmed Active 1basal cell Procedures Procedure Date Related Diagnosis Body Site Status Colonoscopy 06/13/22 Completed Esophagogastroduodenoscopy 06/13/22 Completed Procedure on back 2019 [facility] ed Radiofrequency ablation of n erve root of lumbar spine using fluoroscopic guidance 01/19/19 Completed Colonoscopy 02/17/18 Completed Arthroscopy of shoulder 1 10/04/15 Completed Abdominal wall hernia procedure 2 1970 Completed Cholecystectomy 3 Complet ed Surgical removal of wisdom tooth Completed 1Left 2herniorraphy 10251 Vital Signs Most recent to oldest [Reference Range]: 1 Temperature Temporal Artery [36-38 Deg C ] 36.8 Deg C (03/13/24 9:16 AM) Peripheral Pulse Rate [60-100 bpm] 53 bp m *LOW* (03/13/24 9:16 AM) Respiratory Rate [12-24 br/min] 16 br/mi n (03/13/24 9:16 AM) Blood Pressure [90-140/60-90 mmHg] 106/7 4mmHg (03/13/24 9:16 AM) Mean Arterial Pressure, Cuff [65-140 mmH g] 85 mmHg (03/13/24 9:16 AM) Weight 95.5 kg (03/13/24 9:16 AM) Weight Measured (lbs) 210.541 lb (03/13/24 9:16 AM) Weight Dosing 95.500 kg (03/13/24 9:16 AM) [place] Body Weight Calculated 64.126 kg (03/13/24 9:16 AM) Height 168 cm (03/13/24 9:16 AM) Height/Length Measured (inches) 66.14 in ch (03/13/24 9:16 AM) BSA Measured 2.11 m2 (03/13/24 9:16 AM) Body Mass Index 33.84 kg/m2 (03/13/24 9:16 AM) Social History Social History Type Response Tobacco Former tobacco user Tobacco Use:. Sex Male Physician Outpatient Note * Abi Martines, DO: MODIFY, PERFORM, MODIFY, MODIFY Event Display: Office Clinic Note Physician Authored Date: [id number] JULIAN PEREZ :1970 Age:53 years Sex:Male Visit Date:03/13/2024 Primary Care Physician: STANLEY PEREZ PA-C Chief Complaint neck and lower back pain History of Present Illness ?? Julian is here for evaluation of neck and arm pain. ??His pain??has been ongoing for a few years but worsened over the past??8 to 12 months.?Pain level is rated 6/10.?? 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 Pain is described as aching and burning in quality both sides of the neck with radiation to the bilateral upper extremities, slightly worse in the right arm.?Right arm discomfort is fairly constant whereas left arm discomfort is more intermittent.?? Pain can extend all the way down to the hands.?? He reports very subtle numbness involving the third and fourth digits of both hands.?? 60% of the discomfort in the neck versus 40% in the arms. ??He denies weakness. ??He occasionally takes Tylenol for pain. ??Heavoids NSAIDs. ?? Past medical history admitted for four-vessel??CABG??at [facility] (Dr. Teresa) in December 2023. ??He is currently on aspirin.?? He is attending cardiac rehab 3 times per week at [facility]. ?? Also of note, he has a history of pancreatitis. ??He states he was hospitalized last year for the first time for pancreatitis??he will be seeing GI at [facility] next week for ERCP. ??He states that??he was on Xarelto??for blood clot in his right arm that he developed at the site of the IV when he was hospitalized for pancreatitis.?? He was on Xarelto until this past December when he was admitted for the??MO. ??He states he was told he no longer needs to be on Xarelto.? Review of Systems Constitutional:?No fevers/chills Respiratory:?No shortness of breath Cardiovascular:?No Chest pain Gastrointestinal:?No bowel dysfunction Genitourinary:?No bladder dysfunction Musculoskeletal:??Positive for back pain,??neck pain Neurological: No weakness,??subtle numbness in 3rd and 4th digits both hands Physical Exam Vitals & Measurements T:??36.8?C ??(Temporal Artery)?? HR:??53??(Peripheral)?? RR:??16?? BP:??106/74?? SpO2:??96%?? HT:??168??cm?? WT:??95.5??kg?? BMI:??33.84?? BSA:??2.11?? General: NAD HEENT: Facial movements symmetric Resp: Breathing comfortably, unlabored respirations Cervical ROM: mildly reduced ROM with rotation to right with end range discomfort?? +mild tenderness to palpation of the??right cervical paraspinal muscles facet loading positive b/l Neuro: Motor:Strength is 5 out of 5 in the upper and lower extremities bilaterally HF, EF, EE, WE, oracle database architect, finger abduction, HF, KE, AD, EHL, PF Sensation: slightly reduced middle digit and half of 4th digit bilaterally, otherwise intact to light touch in the upper and??lower extremities bilaterally Reflexes: 1+ bilateral biceps, triceps, BR, patellar, achilles.??Spring's negative b/l.??No clonus. Gait: normal Assessment/Plan Cervical radiculopathy??M54.12 Ordered: Surgical Procedure Booking Request [facility], 03/13/24 9:39:00 EDT, cervical radiculopathy, Foraminal stenosis of cervical region Cervical radiculopathy, Outpatient, [facility], Primary Procedure, 45, Specialequipment needed (include C-Arm requests)?, Diabetic, Local, 33, Abi Martines, DO, Cervic... ?? Cervical spondylosis??M47.812,??Facet arthropathy, cervical??M47.812 ?? Foraminal stenosis of cervical region??M48.02 Ordered: Surgical Procedure Booking Request [facility], 03/13/24 9:39:00 EDT, cervical radiculopathy, Foraminal stenosis of cervical region Cervical radiculopathy, Outpatient, [facility], Primary Procedure, 45, Specialequipment needed (include C-Arm requests)?, Diabetic, Local, 33, Abi Martines, DO, Cervic... ? Julian is here for evaluation of neck pain with radiation to the upper extremities bilaterally, slightly worse on the right side.?He describes as 60% of the discomfort being in the neck versus 40% in the arms.?? MRI of the cervical spine from??October 2023 was personally reviewed.?? There are m ultilevel degenerative changes.?? At??C4-5 there is??right lateral recess narrowing with right foraminal narrowing. ??At C5-6, there is bilateral recess stenosis with right greater than left??foraminal narrowing. ??At C6-7, there is a disc osteophyte complex with lateral recess narrowing with left greater than right foraminal narrowing.?There is also multilevel facet arthropathy. ?? There are several injection options??that can be considered to help with his neck and arm symptoms.?? We reviewed the option to trial a cervical epidural steroid injection. ??Risks and potential benefits were reviewed.?? We discussed that a cervical CARLENE would be most helpful for the arm symptoms??and may also help with the axial neck pain.?? We also reviewed the option to consider diagnostic facet blocks??to determine if he is??for cervical RFA to address the neck pain. ??We reviewed that??cervical RFA would not be expected to help with the arm symptoms.?? Given that the arm symptoms are a significant component of his current discomfort, he would like to move forward with a cervical CARLENE. ?? He is currently in cardiac??rehab following a myocardial infarction in??December. ??He had a four-vessel CABG. ??He??is currently on aspirin.?? Would need to obtain clearance from cardiology to hold aspirin for 7 days prior??to this procedure given??recent cardiac event.?? Past medical history alsopertinent for??pancreatitis. ??He has a ERCP scheduled with GI at [facility]??for next week.?Willplan to order a platelet count prior to the cervical CARLENE, unless labs are??being done next week before his ERCP.?If that is the case,??will plan to??request??labs results from [facility].?? He also reports low back pain however he states the neck pain is most bothersome??and primarily focused on the neck pain today.?? Once the neck pain is addressed, can next pursue treatment options for the low back pain. ?? He will return for [facility]. Images MRI cervical spine??from 11/06/2023??independently interpreted and agree with radiology report ? Greater than??50??minutes??spent??in this encounter??including [id number] time, chart review, imaging review, documentation,??orders/coordinating care. Problem List/Past Medical History Ongoing Abdominal pain Actinic keratosis Acute pancreatitis Alcohol abuse Anxiety Arthritis Atelectasis Blood in stool Carcinoma Diabetes mellitus Diarrhea Diastasis recti Ex-smoker Fatty liver Head trauma Hyperplastic polyp Intestinal spherocytosis Knee pain Leukoplakia Loose bowel movement Low back pain Lumbar spine pain Nausea OA - Osteoarthritis EDGAR (obstructive sleep apnea) Peptic ulcer Spirochetal infection Upper respiratory infection Historical No qualifying data Procedure/Surgical History ???Colonoscopy (06/14/2022)???Esophagogastroduodenoscopy (06/14/2022)???Procedure on back (2019)???Radiofrequency ablation of nerve root of lumbar spine using fluoroscopic guidance (01/20/2019)???Colonoscopy (02/18/2018)???Arthroscopy of shoulder (10/05/2015)???Abdominal wall hernia procedure (1969)???Cholecystectomy???Surgical removal of wisdom tooth Medications acetaminophen 500 mg oral tablet, 1000 mg= 2 tab, Oral, every 6 hr, PRN aspirin 81 mg oral capsule, 81 mg= 1 cap, Oral, Daily atorvastatin 80 mg oral tablet Creon 24,000 units oral delayed release capsule, 3 cap, Oral, TID w/ Meals, 3 refills Creon 24,000 units oral delayed release capsule, 2 ccap, Oral, TID, PRN DEXCOM G7 SENSOR DULoxetine 60 mg oral delayed release capsule fenofibrate 48 mg oral tablet, 48 mg= 1 tab, Oral, every evening melatonin 1 mg oral tablet, 1 mg= 1 tab, Oral, every night at bedtime, PRN Metoprolol Tartrate 25 mg oral tablet, 12.5 mg= 0.5 tab, Oral, BID NovoLOG FlexPen 100 units/mL injectable solution, Subcutaneous, QID pantoprazole 40 mg oral delayed release tablet, 40 mg= 1 tab, Oral, every morning sertraline 100 mg oral tablet Tresiba FlexTouch 100 units/mL subcutaneous solution, 26 units, Subcutaneous, every evening Allergies Wasps??(Anaphylaxis, critical) Social History Alcohol Never Electronic Cigarette/Vaping Electronic Cigarette Use: Never. Substance Use Never Tobacco Former tobacco user Tobacco Use:. Family History Heart disease: Father. Lung cancer: Mother. Myocardial infarction: Father. Family Member(s): ?? FATHER, at age: Unknown. Cause of : Family Member(s): ?? MOTHER, at age: Unknown. Cause of : Electronically Signed on 03/13/24 11:01 AM Abi Martines DO Patient Care team information Care Team Personnel Name: CHRIS KINNEY, STANLEY NUGENT Position: No Access Member Role: Primary Care Physician Address: Address: [id number] [place] [address] Care Team Related Persons Name: JG PEREZ Address: Home [address] [place], [place] [id number] [facility] Name: AYDEN DANIELSON Address: Home [address] [id number] [facility] Name: AYDEN DANIELSON Address: Home [facility] [address] [place] [address] [facility]
== END 2024-03-17 23:59 | disposition home or self-care (01) ==
LOC: CR 09:00
PROVIDERS: PCP Physician Assistant Medical; Visit Provider Internal Medicine Cardiovascular Disease
DX: I25.810 Atherosclerosis of coronary artery bypass graft(s) without angina pectoris (principal); Z51.89 Encounter for other specified aftercare
CPT/HCPCS: S9472

== ENCOUNTER 2024-04-08 09:00 | Outpatient (RCR) | payer MEDICAID, SELFPAY ==
[2024-03-19 13:06] VITALS: BP 116/69; PULSE 69; O2SAT 98
--- OUTSIDE RECORDS SUMMARY | 2024-03-30 09:18 | XMS_ITS | Continuity of Care Document ---
Author Name Unknown Organization [facility] Address [address] [place] [id number] Care Team Providers Care Orchard Pruner Name Role Phone STANLEY PEREZ PA-C Primary Care Opal damián Encounter LTTL_VT FIN NBR [id number] Date(s): 03/19/24 - 03/24/[address] [id number]- Encounter Diagnosis Acute renal failure(Discharge Diagnosis) - 03/23/24 Hypotension(Discharge Diagnosis) - 03/23/24 Pneumonia(Discharge Diagnosis) - 03/23/24 Acute pancreatitis(Discharge Diagnosis) - 03/20/24 Diabetes mellitus, type 2(Discharge Diagnosis) - 03/20/24 EDGAR (obstructive sleep apnea)(Discharge Diagnosis) - 03/21/24 Discharge Disposition: Home or Self Care Attending Physician: Von Soares APRN Admitting Physician: Von Soares APRN Allergies, Adverse Reactions, Alerts Substance Reaction Severity Status Wasps Anaphylaxis critical Severe Active Assessment and Plan Extracted from: Title:Progress/SOAP Note Author:Nyasia Travis MD Date:03/23/24 1.??Hypotension??I95.9 Happened quite suddenly this morning, likely at least in part from dehydration??but also consider infection and sepsis??as possibilities.?? This is improving with IV fluids for today and he feels much better,??his only antihypertensive is metoprolol 12.5 mg twice daily ?? 2.??Acute renal failure??N17.9 Creatinine elevation of 1.3??Jolene shows prerenal etiology??so given IV fluids??also started holding his??Toradol??which she had for about a day and a half??and also note that??he did get a CT with contrast a couple days ago when he was reporting a lot of abdominal pain??so that could have contributed to his acute renal failure. ??CAT scan rules out any obstructions or hydro ?? 3.??Pneumonia??J18.9 With his white count and imaging suggesting possible pneumonia??even though he has no clear symptoms??we will err on the side of treatment with ceftriaxone and doxycycline for pneumonia.?? Hypoventilation??is a risk factor for this??so as yesterday encouraged him strongly to??really get up out of the bed which he is??stating for 4 days now and try to get up and moving. ?? 4.??Acute pancreatitis??K85.90 Really mild has been mild entire time, I strongly encouraged him as his other days to get better at??trying to eat and drink??as some of his complications here related to??not eating drinking well Ordered: cefTRIAXone, 1 g = 50 mL, IV Piggyback, Injection, every 24 hr, Antibiotic Indication Pneumonia, Administer over: 30 minutes, First Dose: 03/23/24 15:00:00 EDT, Routine doxycycline, 100 mg = 1 cap, Oral, Cap, BID for 30 days, Antibiotic Indication Pneumonia, First Dose: 03/23/24 21:00:00 EDT, Stop Date: 04/22/24 20:59:00 EDT, Physician Stop, Routine Lactated Ringers Injection 1,000 mL, Total Volume (mL): 1,000, 1,000 mL, Soln- IV, IV, 150 mL/hr, Order Duration: 30 days, Start Date: 03/23/24 13:37:00 EDT, Stop Date: 04/22/24 13:36:00 EDT, 92.08 kg, Populate Charting Weight From Order, 2.07, m2 Physical Therapy Evaluation and Treatment Acute, 03/23/24 11:41:00 EDT, Once, Acute pancreatitis Diabetes mellitus, type 2 EDGAR (obstructive sleep apnea) Anxiety US Kidney Bladder, 03/23/24 8:35:00 EDT, Routine, Reason: eval for hydro, Transport Mode: Wheelchair, Acute pancreatitis Diabetes mellitus, type 2 EDGAR (obstructive sleep apnea) Anxiety ?? 5.??Diabetes mellitus, type 2??E11.9 Insulin-dependent he is managing his pump by himself Ordered: cefTRIAXone, 1 g = 50 mL, IV Piggyback, Injection, every 24 hr, Antibiotic Indication Pneumonia, Administer over: 30 minutes, First Dose: 03/23/24 15:00:00 EDT, Routine doxycycline, 100 mg = 1 cap, Oral, Cap, BID for 30 days, Antibiotic Indication Pneumonia, First Dose: 03/23/24 21:00:00 EDT, Stop Date: 04/22/24 20:59:00 EDT, Physician Stop, Routine Lactated Ringers Injection 1,000 mL, Total Volume (mL): 1,000, 1,000 mL, Soln- IV, IV, 150 mL/hr, Order Duration: 30 days, Start Date: 03/23/24 13:37:00 EDT, Stop Date: 04/22/24 13:36:00 EDT, 92.08 kg, Populate Charting Weight From Order, 2.07, m2 Physical Therapy Evaluation and Treatment Acute, 03/23/24 11:41:00 EDT, Once, Acute pancreatitis Diabetes mellitus, type 2 EDGAR (obstructive sleep apnea) Anxiety US Kidney Bladder, 03/23/24 8:35:00 EDT, Routine, Reason: eval for hydro, Transport Mode: Wheelchair, Acute pancreatitis Diabetes mellitus, type 2 EDGAR (obstructive sleep apnea) Anxiety ?? 6.??EDGAR (obstructive sleep apnea)??G47.33 I asked his to bring in his sleep apnea??machine as it also could contribute to his pneumonia Ordered: cefTRIAXone, 1 g = 50 mL, IV Piggyback, Injection, every 24 hr, Antibiotic Indication Pneumonia, Administer over: 30 minutes, First Dose: 03/23/24 15:00:00 EDT, Routine doxycycline, 100 mg = 1 cap, Oral, Cap, BID for 30 days, Antibiotic Indication Pneumonia, First Dose: 03/23/24 21:00:00 EDT, Stop Date: 04/22/24 20:59:00 EDT, Physician Stop, Routine Lactated Ringers Injection 1,000 mL, Total Volume (mL): 1,000, 1,000 mL, Soln- IV, IV, 150 mL/hr, Order Duration: 30 days, Start Date: 03/23/24 13:37:00 EDT, Stop Date: 04/22/24 13:36:00 EDT, 92.08 kg, Populate Charting Weight From Order, 2.07, m2 Physical Therapy Evaluation and Treatment Acute, 03/23/24 11:41:00 EDT, Once, Acute pancreatitis Diabetes mellitus, type 2 EDGAR (obstructive sleep apnea) Anxiety US Kidney Bladder, 03/23/24 8:35:00 EDT, Routine, Reason: eval for hydro, Transport Mode: Wheelchair, Acute pancreatitis Diabetes mellitus, type 2 EDGAR (obstructive sleep apnea) Anxiety ?? Extracted from: Title:H & P Author:Von Soares, [employer] Haseeb e:03/20/24 1.??Acute pancreatitis??K85. 90 s/p stenting at [facility] for pancreas divisum given fluids at ED 2L NS NPO for now , may have ice chips, reassess in am for advancing diet NS at 125cc/hr hydromorphone 1mg IV q3h prn ? 2.??Diabetes mellitus, type 2??E11.9 consistent carbohydrate diet once eating has insulin pump POC glucose monitoring achs ?? dvt prophylaxis: heparin subcu 5000 units q 8 ?? code status: full code ? Orders: atorvastatin, 80 mg = 4 tab, Oral, Tab, Daily, First Dose: 03/20/24 9:00:00 EDT, Routine DULoxetine, 60 mg = 2 cap, Oral, Cap-DR, Daily, First Dose: 03/20/24 9:00:00 EDT, Routine heparin, 5,000 units = 1 mL, Subcutaneous, Injection, every 8 hr (nette), First Dose: 03/20/24 6:00:00 EDT, Routine HYDROmorphone, 1 mg = 1 mL, IV Push, Injection, every 3 hr, PRN pain, First Dose: 03/20/24 2:29:00 EDT, Physician Stop, Routine Metoprolol Tartrate, 12.5 mg = 0.5 tab, Oral, Tab, BID, First Dose: 03/20/24 9:00:00 EDT, Routine ondansetron, 4 mg = 2 mL, IV Push, Vial, every 6 hr, PRN nausea/vomiting, First Dose: 03/20/24 3:22:00 EDT, Routine, zofran pantoprazole, 40 mg = 1 tab, Oral, Tab-DR, every morning, First Dose: 03/20/24 5:00:00 EDT, Routine sertraline, 100 mg = 2 tab, Oral, Tab, Daily, First Dose: 03/20/24 9:00:00 EDT, Routine NS drip 1,000 mL, Total Volume (mL): 1,000, 1,000 mL, Soln-IV, IV, 125 mL/hr, Order Duration: 30 days, Start Date: 03/20/24 2:28:00 EDT, Stop Date: 04/19/24 2:27:00 EDT, 92.08 kg, Populate Charting Weight From Order, 2.07, m2 Basic Metabolic Panel, Blood, Routine, 03/20/24 2:26:00 EDT, every morning, for 3 days, Lab Collect CBC w/ Diff, Blood, Routine, 03/20/24 2:26:00 EDT, every morning, for 3 days, Lab Collect Diet Order, 03/20/24 2:25:00 EDT, NPO, may have ice chips Magnesium Level, Blood, Routine, 03/20/24 2:26:00 EDT, every morning, for 3 days, Lab Collect Patient Condition, 03/20/24 2:25:00 EDT, Condition Guarded PSO Admit to Inpatient, [facility], Inpatient, 03/20/24 2:23:00 EDT, 03/20/24 2:23:00 EDT, 03/20/24 2:23:00 EDT, 1 midnight or less Resuscitation Status, 03/20/24 2:25:00 EDT, Full Code Up ad Jennifer, 03/20/24 2:25:00 EDT, Constant Order, at nurse's discretion, 03/20/24 2:25:00 EDT Vital Signs, 03/20/24 2:25:00 EDT, every 4 hr (nette) Extracted from: Title:ED Provider Note Author:Hannah Molina Date:03/20/24 Ordered: Sodium Chloride 0.9% 1,000 mL, Total Volume (mL): 1,000, 1,000 mL, Soln-IV, Medication Bolus, 999 mL/hr, Order Duration: 1 times, Start Date: 03/20/24 1:46:00 EDT, Stop Date: 03/20/24 2:45:00 EDT, 92.08 kg, Populate Charting Weight From Order, 2.07, m2 Decision to Admit, 03/20/24 2:08:00 EDT, Medical Unit Future Scheduled Tests Radiology* MRI Hip w/o Contrast Right 04/10/23 Functional Status 03/24/24 Living Environment Living Situation: Ho me independently Current Home Treatments: Home Devices/Equipment Professional Skilled Services: Special Services and Community Resources: Sensory Deficits: Performed by: Eugenio Ochoa PT, DPT-03/23/24 16:18:00 Living Situation: Home independently Current Home Treatments: Home Devices/Equipment Professional Skilled Services: Special Services and Community Resources: Sensory Deficits: Performed by: Sarah Gutierrez-03/20/24 03:29:00 Lives In Mobile home Lives With Significant other Living Situation Home independently Number of Stairs Inside 0 Number of Stairs Outside 3 03/24/24 Activity Status ADL Up to chair 03/24/24 Personal Care Provided Other: pt set up in bathroom. pt denied needing any assistance. 03/23/24 Prior ADL Status Independent Prior Mobility Status Independent Prior Instrumental ADL Level Independent Prior Cognitive-Communication Skills Ind ependent 03/23/24 Lunch Percent 40 03/22/24 Dinner Percent 75 03/22/24 Breakfast Percent 75 03/20/24 Family Member Travel History No recent t ravel Recent Travel History No recent travel Medications acetaminophen 500 mg oral tablet 1,000 mg = 2 tab, Oral, every 6 hr, PRN as needed for pain Start Date: 07/08/23 Status: Ordered amoxicillin-clavulanate 875 mg-125 mg oral tablet 1 tab, Oral, every 12 hr, # 10 tab, 0 Refill(s), Pharmacy: [facility], 167, cm, 03/20/24 3:30:00 EDT, Height, 92.08, kg, 03/20/24 0:12:00 EDT, Weight Dosing Start Date: 03/25/24 Stop Date: 03/30/24 Status: Ordered aspirin 81 mg oral delayed release tablet 81 mg = 1 tab, Oral, Daily Start Date: 03/20/24 Status: Ordered atorvastatin 80 mg oral tablet 80 mg = 1 tab, Oral, every night at bedtime Start Date: 03/13/24 Status: Ordered Creon 24,000 units oral delayed release capsule 3 cap, Oral, TID w/ Meals, also has snack time dose, # 270 cap, 3 Refill(s), Pharmacy: [id number], 167, cm, 07/10/23 16:23:00 EDT, Height/Length Dosing, 99, kg, 07/10/23 16:23:00 EDT, Weight Dosing Start Date: 09/10/23 Stop Date: 01/08/24 Status: Ordered Creon 24,000 units oral delayed release capsule 2 ccap, Oral, TID, PRN other (see comment), with snacks; also has meal time dose, # 120 cap, 0 Refill(s), [facility]acy: [id number], 167, cm, 07/10/23 16:23:00 EDT, Height/Length Dosing, 99, kg, 07/10/23 16:23:00 EDT, Weight Dosing Start Date: 09/10/23 Stop Date: 10/10/23 Status: Ordered DEXCOM G7 SENSOR DEXCOM G7 SENSOR, CHANGE EVERY 10 DAYS DIRECTED Start Date: 03/13/24 Status: Ordered doxycycline hyclate 100 mg oral capsule 100 mg = 1 cap, Oral, BID, # 11 cap, 0 Refill(s), Pharmacy: [facility], 167, cm, 03/20/24 3:30:00 EDT, Height, 92.08, kg, 03/20/24 0:12:00 EDT, Weight Dosing Start Date: 03/24/24 Stop Date: 03/29/24 Status: Ordered DULoxetine 60 mg oral delayed release capsule 60 mg = 1 cap, Oral, Daily Start Date: 03/13/24 Status: Ordered fenofibrate 48 mg oral tablet 48 mg = 1 tab, Oral, every evening, 0 Refill(s) Start Date: 04/24/23 Status: Ordered ferrous gluconate 324 mg (38 mg elemental iron) oral tablet 324 mg = 1 tab, Oral, Daily, 0 Refill(s) Start Date: 03/20/24 Status: Ordered Melatonin 5 mg oral tablet 5 mg = 1 tab, Oral, every night at bedtime, 0 Refill(s) Start Date: 03/20/24 Status: Ordered Metoprolol Tartrate 25 mg oral tablet 12.5 mg = 0.5 tab, Oral, BID Start Date: 03/13/24 Status: Ordered nitroglycerin 0.4 mg sublingual tablet 0.4 mg = 1 tab, Sublingual, every 5 min, PRN as needed for chest pain, not to exceed 3 doses/15 min--if pain persists, seek medical attention, # 100 tab, 0 Refill(s) Start Date: 03/20/24 Status: Ordered NovoLOG FlexPen 100 units/mL injectable solution 0.8 unit/hour, Subcutaneous, As Directed, via insulin pump Start Date: 07/07/23 Status: Ordered pantoprazole 40 mg oral delayed release tablet 40 mg = 1 tab, Oral, every morning, 0 Refill(s) Start Date: 04/24/23 Status: Ordered sertraline 100 mg oral tablet 100 mg = 1 tab, Oral, every morning Start Date: 03/13/24 Status: Ordered Mental Status 03/20/24 Eye Opening Response Luis Spontaneous ly Best Verbal Response [place] Oriented Best Motor Response Luis Obeys comman [...] Esophagogastroduodenoscopy 06/13/22 Completed Procedure on back 2019 [facility] ed Radiofrequency ablation of n erve root of lumbar spine using fluoroscopic guidance 01/19/19 Completed Colonoscopy 02/17/18 Completed Arthroscopy of shoulder 1 10/04/15 Completed Abdominal wall hernia procedure 2 1969 Completed Cholecystectomy 3 Complet ed Surgical removal of wisdom tooth Completed 1Left 2herniorraphy [id number] Results Laboratory List Name Date Glucose POCT 03/24/24 Basic Metabolic Panel (BMP) 03/24/24 CBC w/ Diff 03/24/24 Magnesium Level 03/24/24 Automated Diff 03/24/24 Glucose POCT 03/24/24 Glucose POCT 03/23/24 Creatinine Urine 03/23/24 Sodium Level Urine 03/23/24 Urinalysis with Micro if Indicated and C ulture if Indicated 03/23/24 Basic Metabolic Panel (BMP) 03/23/24 CBC w/ Diff 03/23/24 Lipase Level 03/23/24 Automated Diff 03/23/24 Basic Metabolic Panel (BMP) 03/22/24 Lipase Level 03/22/24 Hepatic Function Panel 03/21/24 Lipase Level 03/21/24 Automated Diff 03/20/24 CBC w/ Diff 03/20/24 Lipid Panel 03/20/24 Magnesium Level 03/20/24 CBC w/ Diff 03/20/24 Comprehensive Metabolic Panel (CMP) Most recent to oldest [Reference Range]: 1 2 3 WBC [4.8-10.8 K/mcL] 8.1 K/mcL (03/24/24 9:45 AM) 12.0 K/mcL *HI* (03/23/24 6:46 AM) 9.1 K/mcL (03/20/24 6:06 AM) RBC [4.70-6.10 Million/mcL] 3.84 Million /mcL *LOW* (03/24/24 9:45 AM) 4.08 Million/mcL *LOW* (03/23/24 6:46 AM) 4.14 Million/mcL *LOW* (03/20/24 6:06 AM) Neutro Auto [42.2-75.2 %] 79.4 % *HI* (03/24/24 9:45 AM) 87.5 % *HI* (03/23/24 6:46 AM) 75.4 % *HI* (03/20/24 6:06 AM) Lymph Auto [20.5-51.1 %] 12.5 % *LOW* (03/24/24 9:45 AM) 6.5 % *LOW* (03/23/24 6:46 AM) 18.0 % *LOW* (03/20/24 6:06 AM) [place] Auto [1.7-9.3 %] 4.0 % (03/24/24 9:45 AM) 4.0 % (03/23/24 6:46 AM) 5.6 % (03/20/24 6:06 AM) Basophil Auto [0.0-0.8 %] 0.5 % (03/24/24 9:45 AM) 0.5 % (03/23/24 6:46 AM) 0.4 % (03/20/24 6:06 AM) BUN [7-25 mg/dL] 6 mg/dL *LOW* (03/24/24:45 AM) 8 mg/dL (03/23/24 6:46 AM) 5 mg/dL *LOW* (03/22/24 6:35 AM) Glucose POC 184 *NA* (03/24/24 11:45 AM) 83 *NA* (03/24/24 7:27 AM) 143 *NA* (03/23/24 5:44 PM) Cholesterol Total [<=200 mg/dL] 84 mg/dL (03/20/24 6:06 AM) UA Color [Yellow] Yellow (03/23/24 11:45 AM) LDL 39.0 mg/dL 1 *NA* (03/20/24 6:06 AM) Glucose Level [70-109 mg/dL] 207 mg/dL *HI* (03/24/24 9:45 AM) 144 mg/dL *HI* (03/23/24:46 AM) 103 mg/dL (03/22/24 6:35 AM) Potassium Level [3.5-5.1 mmol/L] 3.7 mmol/L (03/24/24 9:45 AM) 3.4 mmol/L *LOW* (03/23/24 6:46 AM) 3.5 mmol/L (03/22/24 6:35 AM) Baso Absolute [0.0-0.2 K/mcL] 0.0 K/mcL (03/24/24 9:45 AM) 0.1 K/mcL (03/23/24 6:46 AM) 0.0 K/mcL (03/20/24 6:06 AM) MCV [80.0-94.0 fL] 87.3 fL (03/24/24 9:45 AM) 87.5 fL (03/23/24 6:46 AM) 88.4 fL (03/20/24 6:06 AM) UA Urobilinogen [0.2] 1.0 *ABN* (03/23/24 11:45 AM) HDL [23-92 mg/dL] 29 mg/dL (03/20/24 6:06 AM) UA Bili [Negative] Small *ABN* (03/23/24 11:45 AM) UA Ketones [Negative] Trace *ABN* (03/23/24 11:45 AM) AST [13-39 IntlUnit/L] 34 IntlUnit/L (03/21/24 5:20 AM) 76 IntlUnit/L *HI* (03/20/24 12:31 AM) ALT [7-52 IntlUnit/L] 65 IntlUnit/L *HI* (03/21/24 5:20 AM) 56 IntlUnit/L 2 *HI* (03/20/24 12:31 AM) MCHC [32.0-37.0 g/dL] 34.0 g/dL (03/24/24 9:45 AM) 33.9 g/dL (03/23/24 6:46 AM) 33.7 g/dL (03/20/24 6:06 AM) Osmolality [275-295 mOsm/kg] 278 mOsm/kg (03/24/24 9:45 AM) 265 mOsm/kg *LOW* (03/23/24 6:46 AM) 270 mOsm/kg *LOW* (03/22/24 6:35 AM) Sodium Level [136-145 mmol/L] 137 mmol/L (03/24/24 9:45 AM) 132 mmol/L *LOW* (03/23/24 6:46 AM) 136 mmol/L (03/22/24 6:35 AM) UA Leuk Est [Negative] Negative (03/23/24 11:45 AM) Chol/HDL 2.9 3 *NA* (03/20/24 6:06 AM) Lymph Absolute [1.2-3.4 K/mcL] 1.0 K/mcL *LOW* (03/24/24 9:45 AM) 0.8 K/mcL *LOW* (03/23/24 6:46 AM) 1.6 K/mcL (03/20/24 6:06 AM) UA Nitrite [Negative] Negative (03/23/24 11:45 AM) UA Glucose [Negative] Negative (03/23/24 11:45 AM) Hct [42.0-52.0 %] 33.5 % *LOW* (03/24/24 9:45 AM) 35.7 % *LOW* (03/23/24 6:46 AM) 36.6 % *LOW* (03/20/24 6:06 AM) Lipase Level [11-82 unit/L] 99 unit/L 4 *HI* (03/23/24 6:46 AM) 189 unit/L 5 *HI* (03/22/24 6:35 AM) 527 unit/L 6 *HI* (03/21/24 5:20 AM) Triglycerides [<=150 mg/dL] 81 mg/dL (03/20/24 6:06 AM) Calcium Level [8.6-10.3 mg/dL] 8.7 mg/dL (03/24/24 9:45 AM) 8.3 mg/dL *LOW* (03/23/24 6:46 AM) 8.7 mg/dL (03/22/24 6:35 AM) [place] Absolute [0.1-0.6 K/mcL] 0.3 K/mcL (03/24/24 9:45 AM) 0.5 K/mcL (03/23/24 6:46 AM) 0.5 K/mcL (03/20/24 6:06 AM) Albumin Level [3.5-5.7 g/dL] 3.6 g/dL (03/21/24 5:20 AM) 4.0 g/dL (03/20/24 12:31 AM) Protein Total [6.4-8.9 g/dL] 6.2 g/dL *LOW* (03/21/24 5:20 AM) 7.0 g/dL (03/20/24 12:31 AM) UA Protein [Negative] Trace *ABN* (03/23/24 11:45 AM) MCH [27.0-31.0 pg] 29.6 pg (03/24/24 9:45 AM) 29.7 pg (03/23/24 6:46 AM) 29.8 pg (03/20/24 6:06 AM) Magnesium Level [1.9-2.7 mg/dL] 1.5 mg/dL *LOW* (03/24/24 9:45 AM) 1.8 mg/dL *LOW* (03/20/24 6:06 AM) Neutro Absolute [1.4-6.5 K/mcL] 6.4 K/mcL (03/24/24 9:45 AM) 10.5 K/mcL *HI* (03/23/24 6:46 AM) 6.9 K/mcL *HI* (03/20/24 6:06 AM) Bilirubin Total [0.3-1.0 mg/dL] 0.5 mg/dL (03/21/24 5:20 AM) 0.8 mg/dL (03/20/24 12:31 AM) Hgb [14.0-18.0 g/dL] 11.4 g/dL *LOW* (03/24/24 9:45 AM) 12.1 g/dL *LOW* (03/23/24 6:46 AM) 12.3 g/dL *LOW* (03/20/24 6:06 AM) Alk Phos [34-104 IntlUnit/L] 72 IntlUnit /L (03/21/24 5:20 AM) 77 IntlUnit/L (03/20/24 12:31 AM) UA Blood [Negative] Negative (03/23/24 11:45 AM) MPV [7.4-10.4 fL] 7.2 fL *LOW* (03/24/24 9:45 AM) 7.4 fL (03/23/24 6:46 AM) 7.5 fL (03/20/24 6:06 AM) UA Spec Grav [1.001-1.030] 1.015 (03/23/24 11:45 AM) Bilirubin Direct [0.0-0.2 mg/dL] 0.1 mg/dL (03/21/24 5:20 AM) Platelets [130-400 K/mcL] 191 K/mcL (03/24/24 9:45 AM) 168 K/mcL (03/23/24 6:46 AM) 191 K/mcL (03/20/24 6:06 AM) CO2 [21-31 mmol/L] 27 mmol/L (03/24/24 9:45 AM) 23 mmol/L (03/23/24 6:46 AM) 24 mmol/L (03/22/24 6:35 AM) Eos Absolute [0.0-0.2 K/mcL] 0.3 K/mcL *HI* (03/24/24 9:45 AM) 0.2 K/mcL (03/23/24 6:46 AM) 0.1 K/mcL (03/20/24 6:06 AM) UA pH [5.00-9.00] 5.50 (03/23/24 11:45 AM) UA Appear [Clear] Clear (03/23/24 11:45 AM) U Creatinine 251.0 mg/dL *NA* (03/23/24 11:45 AM) Chloride Level [98-107 mmol/L] 104 mmol/L (03/24/24 9:45 AM) 102 mmol/L (03/23/24 6:46 AM) 105 mmol/L (03/22/24 6:35 AM) RDW-CV [11.5-14.5 %] 15.4 % *HI* (03/24/24 9:45 AM) 15.3 % *HI* (03/23/24 6:46 AM) 14.8 % *HI* (03/20/24 6:06 AM) A/G Ratio [1.0-2.5 g/dL] 1.4 g/dL (03/21/24 5:20 AM) 1.3 g/dL (03/20/24 12:31 AM) BUN/Creat Ratio [8.0-20.0] 6.7 *LOW* (03/24/24 9:45 AM) 6.2 *LOW* (03/23/24 6:46 AM) 6.3 *LOW* (03/22/24 6:35 AM) Globulin [2.3-3.5 g/dL] 2.6 g/dL (03/21/24 5:20 AM) 3.0 g/dL (03/20/24 12:31 AM) Slide Review Not Indicated (03/23/24 6:46 AM) Not Indicated (03/20/24 12:31 AM) Urine Srce Clean Catch (03/23/24 11:45 AM) Creatinine Level [0.70-1.30 mg/dL] 0.90 mg/dL (03/24/24 9:45 AM) 1.30 mg/dL (03/23/24 6:46 AM) 0.80 mg/dL (03/22/24 6:35 AM) U Sodium 18 mmol/L *NA* (03/23/24 11:45 AM) Anion Gap [3.0-12.0] 6.0 (03/24/24 9:45 AM) 7.0 (03/23/24 6:46 AM) 7.0 (03/22/24 6:35 AM) Eos, Auto [0.00-3.00 %] 3.60 % *HI* (03/24/24 9:45 AM) 1.50 % (03/23/24 6:46 AM) 0.60 % (03/20/24 6:06 AM) eGFR CKD-EPI [>=60 mL/min/1.73 m2] 101 mL/min/1.73 m2 (03/24/24 9:45 AM) 65 mL/min/1.73 m2 (03/23/24 6:46 AM) 105 mL/min/1.73 m2 (03/22/24 6:35 AM) 1Interpretive Data: Optimal: Less than 100 mg/dL Above Optimal: 100 - 129 mg/dL Borderline High: 130 - 159 mg/dL High: 160 - 189 mg/dL Very High: > or = 190 mg/dL 2Result Comment: SLIGHT HEMOLYSIS 3Interpretive Data: RISK MALE FEMALE 1/2 average 3.4 3.3 Average 5.0 4.4 2x Average 9.6 7.1 3x Average 23.4 11.0 4Interpretive Data: M-iocwnm-a-benzoquinone imine (meabolite of Acetaminophen) will generate erroneously low lipase results in samples for patients that have taken toxic doses of acetaminophen. 5Interpretive Data: Q-txkpyz-o-benzoquinone imine (meabolite of Acetaminophen) will generate erroneously low lipase results in samples for patients that have taken toxic doses of acetaminophen. 6Interpretive Data: I-loqyup-z-benzoquinone imine (meabolite of Acetaminophen) will generate erroneously low lipase results in samples for patients that have taken toxic doses of acetaminophen. Radiology Reports * Exam Date Time Procedure Performing Provider Status 03/23/24 10:[address] Abdomen and Pelvi s w/o Contrast Maria Eugenia Templeton; Auth (Verified) Notes: (CT Abdomen and Pelvis w/o Contrast) Reason For Exam: eval for PNA or ileus CT Abdomen and Pelvis w/o Contrast EXAM DESCRIPTION: CT Abdomen and Pelvis w/o Contrast 03/23/2024 INDICATION: EVAL FOR PNA OR ILEUS TECHNIQUE: All CT scans at this facility use at least one of these dose optimization techniques: Automated exposure control; mA and/or kV adjustment per patient size (includes targeted exams where dose is matched to clinical indication); or iterative reconstruction. Technique: Axial CT images of the abdomen/pelvis without IV contrast administration COMPARISON: CT abdomen/pelvis with contrast from 03/21/2024 FINDINGS: Liver, spleen and adrenal glands demonstrate a normal unenhanced CT appearance. Stent within the pancreatic duct in the pancreatic head and proximal body region without significant change in position. Mild inflammatory stranding in the fat planes surrounding the pancreatic head consistent with acute pancreatitis as described on recent study. No significant interval change with no peripancreatic fluid. No renal calculi on either side. No hydronephrosis or hydroureter on either side with no evidence of obstructing urinary tract calculus. Normal caliber abdominal aorta with atherosclerotic calcifications No retroperitoneal adenopathy in the abdomen or pelvis. No bowel dilatation to suggest obstruction or ileus. No free intraperitoneal air, ascites or inflammatory changes. Appendix not identified. Small fat containing left inguinal hernia. No suspicious regional osseous lesions. Spondylotic changes in the visualized spinal axis IMPRESSION: Findings consistent with acute pancreatitis without significant change from 03/21/2024 examination. Nonobstructive bowel pattern. No free air or inflammatory changes. JOB #: [id number] Final Signed by: Lucas Villalobos MD Signed (Electronic Signature): 03/23/2024 11:04 am * Exam Date Time Procedure Performing Provider Status 03/23/24 10:[address] Chest w/o Contrast Maria Eugenia Templeton; Auth (Verified) Notes: (CT Chest w/o Contrast) Reason For Exam: eval for PNA or ileus CT Chest w/o Contrast EXAM DESCRIPTION: CT Chest w/o Contrast 03/23/2024 INDICATION: EVAL FOR PNA OR ILEUS TECHNIQUE: All CT scans at this facility use at least one of these dose optimization techniques: Automated exposure control; mA and/or kV adjustment per patient size (includes targeted exams where dose is matched to clinical indication); or iterative reconstruction. Technique: Axial CT images of the chest with IV contrast administration COMPARISON: CT angiography chest examination from 07/08/2023 FINDINGS: Mediastinal evaluation is limited by lack of IV contrast. No mediastinal mass or adenopathy is identified. No axillary adenopathy. No pericardial effusion. Normal caliber thoracic aorta. Coronary artery calcifications are noted. Mild areas of atelectatic or inflammatory consolidation in the posterior aspect of both lower lobes as well as in the inferior aspect of the lingula and right middle lobe. Lungs otherwise clear. No central endobronchial filling defect identified No pleural effusion or pneumothorax. No suspicious regional osseous lesions. Spondylotic changes in the visualized spinal axis IMPRESSION: Mild areas of atelectatic or inflammatory consolidation in the posterior aspect of both lower lobes as well as the inferior aspect of the right middle lobe and lingula. JOB #: [id number] Final Signed by: Lucas Villalobos MD Signed (Electronic Signature): 03/23/2024 10:58 am * Exam Date Time Procedure Performing Provider Status 03/21/24 12:[address] Abdomen and Pelvis w/ Contrast Jasmin eMaria Eugenia E; Auth (Verified) Notes: (CT Abdomen and Pelvis w/ Contrast) Reason For Exam: abd pain and pancreatitis, recent pancreatic stent at [facility] CT Abdomen and Pelvis w/ Contrast PROCEDURE INFORMATION: Exam: CT Abdomen And Pelvis With Contrast Exam date and time: 03/21/2024 12:40 PM Age: 53 years old Clinical indication: Type 2 diabetes mellitus without complications; Type 2 diabetes mellitus without complications; Acute pancreatitis without necrosis or infection, unspecified; Acute pancreatitis without necrosis or infection, unspecified; Additional info: Abd pain and pancreatitis, recent pancreatic stent at [facility] TECHNIQUE: Imaging protocol: Computed tomography of the [...] volume: 100 ml; Contrast route: INTRAVENOUS (IV); COMPARISON: CT ANGIO ABDOMEN 07/08/2023 5:46 AM FINDINGS: Lungs: There is bilateral airspace disease for which atelectasis is favored. Coronary arteries: Calcified coronary artery atherosclerotic plaque visualized. Liver: Calcified granuloma in the liver. There is an ill-defined focus of diminished subcapsular attenuation in segment 4B adjacent to the fissure for the falciform ligament which can be due to focal fatty change or an area of anomalous perfusion. Gallbladder and bile ducts: Prior cholecystectomy. No biliary ductal dilatation allowing for that. Pancreas: There is a pancreatic stent in the head of the pancreas. There is mild stranding in the fat around the pancreatic head and at the adjacent duodenal compatible with acute pancreatitis. No pancreatic ductal dilatation. No pseudocyst formation. Spleen: The spleen is homogeneous and is not enlarged. Adrenal glands: No mass. Kidneys and ureters: No hydronephrosis, nephrolithiasis, or renal mass. Stomach and bowel: No bowel obstruction or diverticulitis. Appendix: No evidence of appendicitis. Intraperitoneal space: Small volume low-attenuation fluid in the pelvis. No pneumoperitoneum. Retroperitoneal space: Stranding in the retroperitoneal fat bilaterally, more so on the right, which could be secondary to acute pancreatitis with extension of inflammatory changes inferiorly. Vasculature: No abdominal aortic aneurysm. Lymph nodes: No enlarged lymph nodes. Urinary bladder: No urinary bladder calculus or wall thickening. Reproductive: Prominent prostate. Bones/joints: Multilevel disc degeneration in the lower thoracic and upper lumbar spine. Soft tissues: Bilateral inguinal canal lipomas versus inguinal hernias containing fat. IMPRESSION: Findings compatible with mild acute pancreatitis. THIS DOCUMENT HAS BEEN ELECTRONICALLY SIGNED BY FADI BARRAZA MD on 03/21/2024 02:09 PM Final Signed by: Fadi Barraza MD Signed (Electronic Signature): 03/21/2024 2:09 pm Vital Signs Most recent to oldest [Reference Range]: 1 2 3 Temperature Oral [35.8-37.3 Deg C] 36.3 Deg C (03/22/24 4:56 PM) Temperature Temporal Artery [36-38 Deg C] 36.3 Deg C (03/24/24 7:01 AM) 36.8 Deg C (03/24/24 4:54 AM) 36.8 Deg C (03/23/24 4:50 PM) Temperature Temporal Artery (DegF) [97.3-100 Deg F] 99.32 Deg F (03/22/24 3:59 PM) 96.44 Deg F *LOW* (03/20/24 3:14 PM) 96.8 Deg F *LOW* (03/20/24 11:04 AM) Peripheral Pulse Rate [60-100 bpm] 90 bpm (03/24/24 7:01 AM) 97 bpm (03/24/24 4:54 AM) 98 bpm (03/23/24 7:30 PM) Heart Rate Monitored [60-100 bpm] 99 bpm (03/23/24 4:50 PM) 91 bpm (03/23/24 1:30 PM) 98 bpm (03/23/24 11:51 AM) Respiratory Rate [12-24 br/min] 16 br/min (03/24/24 7:01 AM) 19 br/min (03/24/24 4:54 AM) 17 br/min (03/23/24 7:30 PM) Blood Pressure [90-140/60-90 mmHg] 133/82mmHg (03/24/24 7:01 AM) 119/80mmHg (03/24/24 4:54 AM) 120/75mmHg (03/23/24 7:30 PM) Mean Arterial Pressure, Cuff [65-140 mmHg] 82 mmHg (03/23/24 1:30 PM) 62 mmHg *LOW* (03/23/24 4:12 AM) 88 mmHg (03/20/24 3:14 PM) Blood Pressure Location Right arm (03/24/24 4:54 AM) Left arm (03/23/24 7:30 PM) Left arm (03/23/24 1:30 PM) Blood Pressure Method Automatic (03/24/24 4:54 AM) Automatic (03/23/24 7:30 PM) Automatic (03/23/24 9:51 AM) Weight 92.08 kg (03/20/24 3:29 AM) 92.08 kg (03/20/24 3:11 AM) 92.08 kg (03/20/24 12:08 AM) Weight Dosing 92.080 kg (03/20/24 12:08 AM) Height 167 cm (03/20/24 3:29 AM) 167 cm (03/20/24 3:11 AM) 167 cm (03/20/24 12:08 AM) BSA Measured 2.07 m2 (03/20/24 3:11 AM) BSA Estimated 0 m2 (03/20/24 3:11 AM) Body Mass Index 33.02 kg/m2 (03/20/24 3:29 AM) 33.02 kg/m2 (03/20/24 3:11 AM) 33.02 kg/m2 (03/20/24 12:08 AM) Social History Social History Type Response Tobacco Former tobacco user Tobacco Use:. Sex Male Hospital Discharge Instructions Patient Education 03/24/2024 10:21:50 Acute Pancreatitis, [id number] Acute Pancreatitis Acute pancreatitis happens when there is sudden swelling and irritation of the pancreas. The pancreas is a gland in your body that helps to control blood sugar. This gland also helps to digest food. This condition can last a few days and cause serious problems. Some problems can be life-threatening. The lungs, heart, and kidneys may stop working. What are the causes? Causes may include: ??? Heavy alcohol use. ??? Drug use. ??? Gallstones. ??? An abnormal growth of tissue (tumor) in the pancreas. Other causes include: ??? Some medicines or some chemicals. ??? Diabetes or infection. ??? High levels of a type of fat in your blood. ??? High levels of calcium in your blood. ??? Damage caused by: ??? An accident. ??? The poison (venom) from a scorpion sting. ??? Belly (abdominal) surgery. ??? The body's defense system (immune system) attacking the pancreas (autoimmune pancreatitis). ??? Genes that are passed from parent to child (inherited). Sometimes, the cause is not known. What are the signs or symptoms? Pain in the upper belly that may be felt in the back. The pain may be very bad. It often gets worse after you eat. ??? A tender and swollen belly. ??? Feeling like you may vomit (nausea) and vomiting. ??? Fever. How is this treated? A stay in the hospital, in many cases. ??? Pain medicine. ??? Fluid through an IV tube. ??? Placing a tube in the stomach to take out the stomach contents. This also helps you stop vomiting. ??? Not eating until you vomit less. ??? Antibiotic medicines, if you have an infection. ??? Steroid medicines, if your problem is caused by attacks on your body's own tissues by your defense system. ??? Surgery, if your problem is caused by gallstones or other blockage. ??? Treating other health problems that may be the cause. Follow these instructions at home: Medicines ??? Take [id number] and prescription medicines only as told by your doctor. ??? If you were prescribed an antibiotic medicine, take it as told by your doctor. Do not stop taking it even if you start to feel better. ??? If told, take steps to prevent problems with pooping (constipation). You may need to: ??? Take medicines. You will be told what medicines to take. ??? Eat foods that are high in fiber. These include beans, whole grains, and fresh fruits and vegetables. ??? Limit foods that are high in fat and sugar. These include fried or sweet foods. ??? Ask your doctor if you should avoid driving or using machines while you are taking your medicine. Eating and drinking ??? Follow instructions from your doctor about what to eat and drink. You may need to: ??? Avoid alcohol. ??? Eat foods that do not have a lot of fat in them. ??? Eat small meals often. Do not eat big meals. ??? Drink enough fluid to keep your pee (urine) pale yellow. ??? Do not drink alcohol if it caused your condition. General instructions ??? Do not smoke or use any products that contain nicotine or tobacco. If you need help quitting, ask your doctor. ??? Get plenty of rest. ??? Check your blood sugar at home if your doctor tells you to. ??? Keep all follow-up visits. Contact a doctor if: ??? You do not get better as fast as expected. ??? Your symptoms get worse. ??? You have new symptoms. ??? You have pain or weakness that lasts a long time. ??? You keep feeling like you may vomit. ??? You get better and then pain comes back. ??? You have a fever. Get help right away if: ??? You vomit every time you eat or drink. ??? Your pain gets very bad. ??? Your skin or the white parts of your eyes turn yellow. ??? You have sudden swelling in your belly. ??? You feel dizzy or you faint. ??? Your blood sugar is high (over 300 mg/dL). ??? You vomit blood. These symptoms may be an emergency. Do not wait to see if the symptoms will go away. Get help rightaway. Call 911. Summary ??? Acute pancreatitis happens when there is sudden swelling and irritation of the pancreas. ??? This condition is often caused by heavy alcohol use, drug use, or gallstones. ??? You will likely have to stay in the hospital for treatment. This information is not intended to replace advice given to you by your health care provider. Make sure you discuss any questions you have with your health care provider. Document Revised: 09/25/2022 Document Reviewed: 09/25/2022 [employer] Patient Education ?? 2022 [employer]. Follow Up Care 03/19/2024 23:58:57 With:STANLEY PEREZ PA-C Address: [address] [address]- When:04/10/2024 08:30:00 Comments:Pt had appointment with this provider tomorrow 03/25, this appointment has been cancelled. New appointment on . Discharge instructions * Jenifer Marx: PERFORM Event Display: Discharge Instructions Authored Date: [id number] NYASIA PEREZ :1970 Age:53 years Sex:Male Visit Date:03/19/2024 Primary Care Physician: STANLEY PEREZ PA-C Hospital Discharge Instructions We would like to thank you for allowing us to assist you with your healthcare needs. The following includes patient education materials and information regarding your injury/illness. Your Next Steps Follow Up Appointments Follow Up with??STANLEY PEREZ PA-C When:??04/10/2024 09:30 AM EDT Why: Pt had appointment with this provider tomorrow 03/25, this appointment has been cancelled. New appointment on . Where: [address] [place] [address]- Medications What How Much When Instructions Next Dose New amoxicillin-clavulanate (amoxicillin-clavulanate 875 mg-125 mg oral tablet) 1 tab Oral (given by mouth) Every 12 hours Duration: 5 Days Pickup at [facility] New doxycycline (doxycycline hyclate 100 mg oral capsule) 1 Capsules Oral (given by mouth) 2 times a day Duration: 11 Doses Pickup at [facility] Changed DULoxetine (DULoxetine 60 mg oral delayed release capsule) 1 Capsules Oral (given by mouth) Every day Changed aspirin (aspirin 81 mg oral delayed release tablet) 1 tab Oral (given by mouth) Every day Changed atorvastatin (atorvastatin 80 mg oral tablet) 1 tab Oral (given by mouth) Every night at bedtime Changed insulin aspart (NovoLOG FlexPen 100 units/ mL injectable solution) 0.8 unit/hour Subcutaneous (under the skin) As Directed via insulin ??pump ?? Changed melatonin (Melatonin 5 mg oral tablet) 1 tab Oral (given by mouth) Every night at bedtime Changed metoprolol (Metoprolol Tartrate 25 mg oral tablet) 0.5 tab Oral (given by mouth) 2 times a day Hold until seen by PCP ?? Changed sertraline (sertraline 100 mg oral tablet) 1 tab Oral (given by mouth) Every morning Unchanged acetaminophen (acetaminophen 500 mg oral tablet) 2 tab Oral (given by mouth) Every 6 hours as needed for as needed for pain Unchanged fenofibrate (fenofibrate 48 mg oral tablet) 1 tab Oral (given by mouth) Every evening Unchanged ferrous gluconate (ferrous gluconate 324 mg (38 mg elemental iron) oral tablet) 1 tab Oral (given by mouth) Every day Unchanged nitroglycerin (nitroglycerin 0.4 mg sublingual tablet) 1 tab Sublingual (dissolve under the tongue) Every 5 minutes as needed for as needed for chest pain not to exceed 3 doses/ 15 min--if pain persists, seek medical attention ?? Unchanged Other Prescription (DEXCOM G7 SENSOR) CHANGE EVERY 10 DAYS DIRECTED ?? Unchanged pancrelipase (Creon 24,000 units oral delayed release capsule) 2 ccap Oral (given by mouth) 3 times a day as needed for other (see comment) Duration: 30 Days with snacks; also has meal time dose ?? Unchanged pancrelipase (Creon 24,000 units oral delayed release capsule) 3 Capsules Oral (given by mouth) 3 times a day (with meals) Duration: 30 Days also has snack time dose ?? Unchanged pantoprazole (pantoprazole 40 mg oral delayed release tablet) 1 tab Oral (given by mouth) Every morning Pharmacy Information [facility]: [address], [place] [phone] Your Summary Your Care Team Admitting Physician - Von Soares APRN Attending Physician - Von Soares APRN Primary Care Physician - STANLEY PEREZ PA-C Your Diagnosis Hypotension Acute renal failure Pneumonia Acute pancreatitis Diabetes mellitus, type 2 EDGAR (obstructive sleep apnea) Problems Ongoing - Any problem that you are currently receiving treatment for. Abdominal pain Actinic keratosis Acute pancreatitis Alcohol abuse Anxiety Arthritis Atelectasis Blood in stool Carcinoma Diabetes mellitus Diarrhea Diastasis recti Ex-smoker Fatty liver Head trauma Hyperplastic polyp Intestinal spherocytosis Knee pain Leukoplakia Loose bowel movement Low back pain Lumbar spine pain Nausea OA - Osteoarthritis EDGAR (obstructive sleep apnea) Peptic ulcer Spirochetal infection Upper respiratory infection Tests Performed/Pending Automated Diff BMP BMP CBC w/ Diff CMP Creatinine Urine Glucose POCT Hepatic Function Panel Lipase Level Lipid Panel Magnesium Level Sodium Level Urine Urinalysis with Micro if Indicated and Culture if Indicated CT Abdomen and Pelvis w/ Contrast CT Abdomen and Pelvis w/o Contrast CT Chest w/o Contrast Discharge Vitals Temperature??(Temporal Artery) 97.3 ??F (36.3 ??C) Heart Rate??(Peripheral) 90 Respiratory Rate?? 16 Blood Pressure?? 133/82?? SpO2?? 93% Allergies Wasps??(Anaphylaxis, critical) Education Materials Acute Pancreatitis Acute pancreatitis happens when there is sudden swelling and irritation of the pancreas. The pancreas is a gland in your body that helps to control blood sugar. This gland also helps to digest food. This condition can last a few days and cause serious problems. Some problems can be life-threatening. The lungs, heart, and kidneys may stop working. What are the causes? Causes may include: ? Heavy alcohol use. ? Drug use. ? Gallstones. ? An abnormal growth of tissue (tumor) in the pancreas. Other causes include: ? Some medicines or some chemicals. ? Diabetes or infection. ? High levels of a type of fat in your blood. ? High levels of calcium in your blood. ? Damage caused by: ? An accident. ? The poison (venom) from a scorpion sting. ? Belly (abdominal) surgery. ? The body's defense system (immune system) attacking the pancreas (autoimmune pancreatitis). ? Genes that are passed from parent to child (inherited). Sometimes, the cause is not known. What are the signs or symptoms? Pain in the upper belly that may be felt in the back. The pain may be very bad. It often gets worseafter you eat. ? A tender and swollen belly. ? Feeling like you may vomit (nausea) and vomiting. ? Fever. How is this treated? A stay in the hospital, in many cases. ? Pain medicine. ? Fluid through an IV tube. ? Placing a tube in the stomach to take out the stomach contents. This also helps you stop vomiting. ? Not eating until you vomit less. ? Antibiotic medicines, if you have an infection. ? Steroid medicines, if your problem is caused by attacks on your body's own tissues by your defense system. ? Surgery, if your problem is caused by gallstones or other blockage. ? Treating other health problems that may be the cause. Follow these instructions at home: Medicines ? Take iqyi-[id number]-[id number] and prescription medicines only as told by your doctor. ? If you were prescribed an antibiotic medicine, take it as told by your doctor. Do not stop taking it even if you start to feel better. ? If told, take steps to prevent problems with pooping (constipation). You may need to: ? Take medicines. You will be told what medicines to take. ? Eat foods that are high in fiber. These include beans, whole grains, and fresh fruits and vegetables. ? Limit foods that are high in fat and sugar. These include fried or sweet foods. ? Ask your doctor if you should avoid driving or using machines while you are taking your medicine. Eating and drinking ? Follow instructions from your doctor about what to eat and drink. You may need to: ? Avoid alcohol. ? Eat foods that do not have a lot of fat in them. ? Eat small meals often. Do not eat big meals. ? Drink enough fluid to keep your pee (urine) pale yellow. ? Do not drink alcohol if it caused your condition. General instructions ? Do not smoke or use any products that contain nicotine or tobacco. If you need help quitting, ask your doctor. ? Get plenty of rest. ? Check your blood sugar at home if your doctor tells you to. ? Keep all follow-up visits. Contact a doctor if: ? You do not get better as fast as expected. ? Your symptoms get worse. ? You have new symptoms. ? You have pain or weakness that lasts a long time. ? You keep feeling like you may vomit. ? You get better and then pain comes back. ? You have a fever. Get help right away if: ? You vomit every time you eat or drink. ? Your pain gets very bad. ? Your skin or the white parts of your eyes turn yellow. ? You have sudden swelling in your belly. ? You feel dizzy or you faint. ? Your blood sugar is high (over 300 mg/dL). ? You vomit blood. These symptoms may be an emergency. Do not wait to see if the symptoms will go away. Get help rightaway. Call 911. Summary ? Acute pancreatitis happens when there is sudden swelling and irritation of the pancreas. ? This condition is often caused by heavy alcohol use, drug use, or gallstones. ? You will likely have to stay in the hospital for treatment. This information is not intended to replace advice given to you by your health care provider. Make sure you discuss any questions you have with your health care provider. Document Revised: 09/25/2022 Document Reviewed: 09/25/2022 [employer] Patient Education ?? 2022 [employer]. Medication Information doxycycline (oral/injection)?? (DOX i JOSE JUANJaziel kleen) ?? Acticlate, Adoxa, Alodox, Avidoxy, Doryx, Doryx MPC, Lymepak, Mondoxyne NL, Monodox, Morgidox, Morgidox [id number], Morgidox 4x002po, Okebo, Oracea, Targadox, Vibramycin, Vibramycin Monohydrate? What is the most important information I should know about doxycycline? You should not take this medicine if you are allergic to any tetracycline antibiotic. ?? Children younger than 8 years old should use doxycycline only in cases of severe or life-threatening conditions. ??This medicine can cause permanent yellowing or graying of the teeth in children ?? Using doxycycline during could harm the unborn baby or cause permanent tooth discoloration later in the baby's life.? What is doxycycline? Doxycycline is a tetracycline antibiotic that? Doxycycline is used to treat many different bacterial infections, such as acne, urinary tract infections, intestinal infections, eye infections, gonorrhea, chlamydia, periodontitis (gum disease), andothers. ? Doxycycline is also used to treat blemishes, bumps, and acne-like lesions caused by rosacea. ??Doxycycline will not treat facial redness caused by rosacea. ?? Some forms of doxycycline are used to prevent malaria, to treat anthrax, or to treat infections caused by mites, ticks, or lice. ?? Doxycycline may also be used for purposes not listed in this medication guide. ?? What should I discuss with my healthcare provider before taking doxycycline? You should not take this medicine if you are allergic to doxycycline or other tetracycline antibiotics such as demeclocycline, minocycline, tetracycline, or tigecycline. ?? Tell your doctor if you have ever had: ?liver disease; ?kidney disease;?asthma or sulfite allergy;?increased pressure inside your skull; or ?if you also take isotretinoin, seizure medicine, or a blood thinner such as warfarin (Coumadin).? If you are using doxycycline to treat gonorrhea, your doctor may test you to make sure you do not also have syphilis, another sexually transmitted disease. ?? Taking this medicine during may affect tooth and bone development in the unborn baby.?Taking doxycycline during the last half of can cause permanent tooth discoloration later in the baby's life. ??Tell your doctor if you are or if you become . ?? Doxycycline can make control pills less effective. Ask your doctor about using a non-hormonalbirth control (condom, diaphragm with spermicide) to prevent . ?? Doxycycline can pass into breast milk and may affect bone and tooth development in a nursing . ??Do not breastfeed while you are taking doxycycline. ?? Doxycycline can cause permanent yellowing or graying of the teeth in children younger than 8 years old. ??Children should use doxycycline only in cases of severe or life-threatening conditions such as anthrax or [place] spotted fever. ??The benefit of treating a serious condition may outweigh any risks to the child's tooth development.? How should I take doxycycline? Follow all directions on your prescription label and read all medication guides or instruction sheets. ??Use the medicine exactly as directed. ?? Take doxycycline with a full glass of water. ??Drink plenty of liquids while you are taking doxycycline.? Read and carefully follow any Instructions for Use provided with your medicine.?Ask your doctor or pharmacist if you do not understand these instructions. ?? Most brands of doxycyline may be taken with food or milk if the medicine upsets your stomach. ? Different brands of doxycycline may have different instructions about taking them with or without food. ?? Take??Oracea??on an empty stomach, at least 1 hour before or 2 hours after a meal. ?? You may need to split a doxycycline tablet to get the correct dose. ??Follow your doctor's instructions. ?? Swallow a??delayed-release capsule or tablet??whole. Do not crush, chew, break, or open it. ?? Measure??liquid medicine??with the dosing syringe provided, or with a special dose-measuring spoon or medicine cup. If you do not have a dose-measuring device, ask your pharmacist for one. ?? If you take doxycycline to prevent malaria:?Start taking the medicine 1 or 2 days before entering an area where malaria is common. ??Continue taking the medicine every day during your stay and forat least 4 weeks after you leave the area. ? Doxycycline is usually??given by injection??only if you are unable to take the medicine by mouth. ??A healthcare provider will give you this injection as an infusion into a vein. ? Use this medicine for the full prescribed length of time, even if your symptoms quickly improve. ??Skipping doses can increase your risk of infection that is resistant to medication. ??Doxycycline will not treat a viral infection such as the flu or a common cold. ?? Store at room temperature away from moisture, heat, and light. ?? Throw away any unused medicine after the expiration date on the label has passed. ??Using doxycycline can cause damage to your kidneys. ?? What happens if I miss a dose? Take the medicine as soon as you can, but skip the missed dose if it is almost time for your next dose.??Do not??take two doses at one time.? What happens if I overdose? Seek emergency medical attention or call the Poison Help line at . ?? What should I avoid while taking doxycycline? Do not take iron supplements, multivitamins, calcium supplements, antacids, or laxatives within 2 hours before or after taking doxycycline. ?? Avoid taking any other antibiotics with doxycycline unless your doctor has told you to. ? Doxycycline could make you sunburn more easily. ??Avoid sunlight or tanning beds. Wear protective clothing and use sunscreen (SPF 30 or higher) when you are outdoors. ?? Antibiotic medicines can cause diarrhea, which may be a sign of a new infection. ??If you have diarrhea that is watery or bloody, call your doctor.?Do not use anti-diarrhea medicine unless your doctor tells you to. ?? What are the possible side effects of doxycycline? Get emergency medical help if you have??signs of an allergic reaction??(hives, difficult breathing,swelling in your face or throat)??or a severe skin reaction??(fever, sore throat, burning in your eyes, skin pain, red or purple skin rash that spreads and causes blistering and peeling). ?? Seek medical treatment if you have a serious drug reaction that can affect many parts of your body.?Symptoms may include: ??skin rash, fever, swollen glands, flu-like symptoms, muscle aches, severe weakness, unusual bruising, or yellowing of your skin or eyes. ??This reaction may occur several weeks after you began using doxycycline. ?? Call your doctor at once if you have: ?severe stomach pain, diarrhea that is watery or bloody; ?throat irritation, trouble swallowing; ?chest pain, irregular heart rhythm, feeling short of breath; ?little or no urination; ?low white blood cell counts--fever, chills, swollen glands, body aches, weakness, pale skin, easy bruising or bleeding;?increased pressure inside the skull--severe headaches, ringing in your ears, dizziness, nausea,vision problems, pain behind your eyes; or ?signs of liver or pancreas problems--loss of appetite, upper stomach pain (that may spread to your back), tiredness, nausea or vomiting, fast heart rate, dark urine, jaundice (yellowing of the skin or eyes). ?? Common side effects may include: ?nausea, vomiting, upset stomach, loss of appetite; ?mild diarrhea; ?skin rash or itching;?darkened skin color; or ?vaginal itching or discharge. ?? This is not a complete list of side effects and others may occur. Call your doctor for medical advice about side effects. You may report side effects to FDA at 4-669-MPJ-6299. ?? What other drugs will affect doxycycline? Sometimes it is not safe to use certain medications at the same time.?Some drugs can affect yourblood levels of other drugs you take, which may increase side effects or make the medications less effective. ? Other drugs may affect doxycycline, including prescription and phch-zwa-gnliepx medicines, vitamins, and herbal products. ??Tell your doctor about all your current medicines and any medicine you start or stop using. ?? Where can I get more information? Your pharmacist can provide more information about doxycycline. ?? Remember, keep this and all other medicines out of the reach of children, never share your medicines with others, and use this medication only for the indication prescribed. ?? Every effort has been made to ensure that the information provided by [employer] [facility]. ('[employer]') is accurate, up-to-date, and complete, but no guarantee is made to that effect. Drug information contained herein may be time sensitive. [employer] information has been compiled for use by healthcare practitioners and consumers in the [place] and therefore [employer] does not warrant that uses outside of the [place] are appropriate, unless specifically indicated otherwise. [employer] drug information does not endorse drugs, diagnose patients or recommend therapy. [employer] drug information isan informational resource designed to [...] effective or appropriate for any given patient. [employer] does not assume any responsibility for any aspect of healthcare administered with the aid of information [employer] provides. The information contained herein is not intended to cover all possible uses, directions, precautions, warnings, drug interactions, allergic reactions, or adverse effects. If you have questions about the drugs you are taking, check with your doctor, nurse or pharmacist.? Copyright 5454-7406 [employer] [facility]. Version: 25.. Revision Date: 07/24/2023. ?? amoxicillin and clavulanate potassium?? (am OK i RHIANNON in ??KLAV ue MILADY ate ??bree TAS ee um) ?? Augmentin? What is the most important information I should know about amoxicillin and clavulanate potassium? You should not use this medicine if you have severe kidney disease, if you have had liver problems or jaundice while taking amoxicillin and clavulanate potassium, or if you are allergic to any penicillin or cephalosporin antibiotic, such as Amoxil, Ceftin, Cefzil, Moxatag, Omnicef, and others. ? What is amoxicillin and clavulanate potassium? Amoxicillin is a penicillin antibiotic. Clavulanate potassium helps prevent certain bacteria from becoming resistant to amoxicillin. ?? Amoxicillin and clavulanate potassium is a combination medicine used to treat many different infections caused by bacteria, such as sinusitis, pneumonia, ear infections, bronchitis, urinary tract infections, and infections of the skin. ?? Amoxicillin and clavulanate potassium may also be used for purposes not listed in this medication guide. ?? What should I discuss with my healthcare provider before taking amoxicillin and clavulanate potassium? You should not use this medicine if you are allergic to it, or if: ?you have severe kidney disease (or if you are on dialysis);?you have had liver problems or jaundice while taking amoxicillin and clavulanate potassium; or ?you are allergic to any penicillin or cephalosporin antibiotic, such as Amoxil, Ceftin, Cefzil,Moxatag, Omnicef, and others. ?? Tell your doctor if you have ever had: ?liver disease (hepatitis or jaundice); ?kidney disease; or ?mononucleosis. ?? The??liquid??or??chewable tablet??may contain phenylalanine. ??Tell your doctor if you have phenylketonuria (PKU). ?? Tell your doctor if you are or . ?? Amoxicillin and clavulanate potassium can make control pills less effective. Ask your doctor about using a non-hormonal control (condom, diaphragm, cervical cap, or contraceptive sponge) to prevent . ?? Do not give this medicine to a child without medical advice. ?? How should I take amoxicillin and clavulanate potassium? Follow all directions on your prescription label and read all medication guides or instruction sheets. ??Use the medicine exactly as directed. ?? Amoxicillin and clavulanate potassium may work best if you take it at the start of a meal. ?? Take the medicine every 12 hours.? Do not crush or chew the??extended-release tablet. ??Swallow the pill whole, or break the pill in half and take both halves one at a time. Tell your doctor if you have trouble swallowing a whole or half pill. ?? You must chew the??chewable tablet??before you swallow it. ?? Shake the??oral suspension??(liquid) before you measure a dose. Use the dosing syringe provided, oruse a medicine dose-measuring device (not a kitchen spoon). ?? This medicine can affect the results of certain medical tests. ??Tell any doctor who treats you that you are using amoxicillin and clavulanate potassium. ?? Use this medicine for the full prescribed length of time, even if your symptoms quickly improve. ??Skipping doses can increase your risk of infection that is resistant to medication. ??Amoxicillin and clavulanate potassium will not treat a viral infection such as the flu or a common cold. ?? Store the??tablets??at room temperature away from moisture and heat. ?? Store the??liquid??in the refrigerator. Throw away any unused liquid after 10 days. ?? What happens if I miss a dose? Take the medicine as soon as you can, but skip the missed dose if it is almost time for your next dose.??Do not??take two doses at one time.? What happens if I overdose? Seek emergency medical attention or call the Poison Help line at . ?? Overdose can cause nausea, vomiting, stomach pain, diarrhea, skin rash, drowsiness, hyperactivity, and decreased urination. ?? What should I avoid while taking amoxicillin and clavulanate potassium? Avoid taking this medicine together with or just after eating a high-fat meal. ??This will make it harder for your body to absorb the medication. ?? Antibiotic medicines can cause diarrhea, which may be a sign of a new infection. ??If you have diarrhea that is watery or bloody, call your doctor before using anti-diarrhea medicine.? What are the possible side effects of amoxicillin and clavulanate potassium? Get emergency medical help if you have??signs of an allergic reaction??(hives, difficult breathing,swelling in your face or throat)??or a severe skin reaction??(fever, sore throat, burning eyes, skin pain, red or purple skin rash with blistering and peeling). ?? Stop using amoxicillin and clavulanate potassium and seek medical treatment if you have a serious drug reaction that can affect many parts of your body.?Symptoms may include skin rash, fever, swollen glands, muscle aches, severe weakness, unusual bruising, or yellowing of your skin or eyes. ?? Call your doctor at once if you have: ?severe stomach pain, diarrhea that is watery or bloody (even if it occurs months after your last dose); ?pale or yellowed skin, dark colored urine, fever, confusion or weakness; ?loss of appetite, upper stomach pain; ?little or no urination; or ?easy bruising or bleeding. ?? Common side effects may include: ?nausea, vomiting; diarrhea;?rash, itching;?vaginal itching or discharge; or ?diaper rash. ?? This is not a complete list of side effects and others may occur. Call your doctor for medical advice about side effects. You may report side effects to FDA at 0-550-OXG-0181. ?? What other drugs will affect amoxicillin and clavulanate potassium? Tell your doctor about all your other medicines, especially: ?allopurinol; ?probenecid; or ?a blood thinner--warfarin, Coumadin, Jantoven. ?? This list is not complete. ??Other drugs may affect amoxicillin and clavulanate potassium, including prescription and esgy-ban-ygrhbow medicines, vitamins, and herbal products. ??Not all possible drug interactions are listed here. ?? Where can I get more information? Your doctor or pharmacist can provide more information about amoxicillin and clavulanate potassium. ?? Remember, keep this and all other medicines out of the reach of children, never share your medicines with others, and use this medication only for the indication prescribed. ?? Every effort has been made to ensure that the information provided by [facility]. ('[employer]') is accurate, up-to-date, and complete, but no guarantee is made to that effect. Drug information contained herein may be time sensitive. [employer] information has been compiled for use by healthcare practitioners and consumers in the [place] and therefore [employer] does not warrant that uses outside of the [place] are appropriate, unless specifically indicated otherwise. [facility] drug information does not endorse drugs, diagnose patients or recommend therapy. [facility] drug information isan informational resource designed to [...] effective or appropriate for any given patient. [facility] does not assume any responsibility for any aspect of healthcare administered with the aid of information [facility] provides. The information contained herein is not intended to cover all possible uses, directions, precautions, warnings, drug interactions, allergic reactions, or adverse effects. If you have questions about the drugs you are taking, check with your doctor, nurse or pharmacist.? Copyright [id number] [facility] [employer]. Version: 14.. Revision Date: 08/24/2022. ? Patient/Embedded Systems Designer Signature Patient Name:NYASIA PEREZ I have received this information and my questions have been answered. Patient/Embedded Systems Designer Name: Patient/Embedded Systems Designer Signature: Relationship to Patient: Witness Name/Signature: Date: Electronically Signed on: 03/24/2024 15:10 EDTSigned by:JUNG Physician Emergency department Note * Chemo Hill MD: PERFORM Event Display: ED Note Physician Authored Date: [id number] ANA PAOLO :1970 Age:53 years Sex:Male Visit Date:03/19/2024 Primary Care Physician: STANLEY PEREZ PA-C Basic Information Time Seen: Chemo Hill MD / 03/20/2024 00:39 Chief Complaint Had a pancreas divisum, stent placement yesterday 03[place]19 at [facility] Started having gradually increasing LUQ pain that radiates to back. Densegundo, N/V, did not take any OTC pain medications. History Of Present Illness: Patient had ERCP with pancreatic??duct stenting??yesterday??May 2??and was feeling??mainly??okay ondischarge??from [facility] but??about an hour prior to arrival around 11 PM he began to have increased pain??typical from his??prior bouts of pancreatitis. ??The pain is in the upper abdomen and has had nausea and vomiting as well. Review of Systems: Review of systems negative other than that stated above Physical Exam Vitals & Measurements T:??35.7?C ??(Temporal Artery)?? HR:??71??(Monitored)?? RR:??18?? BP:??111/62?? SpO2:??97%?? HT:??167??cm?? WT:??92.08??kg?? BMI:??33.02?? Pain Score:??8?? O2 Therapy:??Room air?? General: Alert and oriented, well nourished, no acute distress. Eye: PERRL, EOMI, normal conjunctiva. HENT: Normocephalic,??normal hearing, moist oral mucosa, no scleral icterus, . Neck: Supple, non-tender, no carotid bruits, no JVD, no lymphadenopathy. No rigidity Lungs: Clear to auscultation and percussion, non-labored respiration. Heart: Normal rate, regular rhythm, no murmur, gallop or edema. Abdomen: Soft, epigastric tenderness non-distended, normal bowel sounds, no masses. Musculoskeletal: Normal range of motion and strength, no tenderness or swelling. Skin: Skin is warm, dry and appropriate for ethnicity, no rashes or lesions. Neurologic: Awake, alert and oriented X4, CN II-XII intact. Psychiatric: Cooperative, appropriate mood and affect. Procedure No Qualifying Data Reexamination/Reevaluation Patient given IV fluids and morphine but??the pain was not controlled. ??Was given Dilaudid and feels much better. ??The lipase does come back at 1600 but the liver functions are not particularly elevated.?? I spoke with covering??gastroenterology at [facility] and they recommend admission with regul ar supportive care for pancreatitis??and they feel that there is no need for??admission or reevaluation??by GI down in [facility].?? I told the patient that??he needs to be admitted and he agrees thathe needs to be admitted. ??I spoke with hospitalist and patient was admitted for??pancreatitis Assessment/Plan Ordered: Sodium Chloride 0.9% 1,000 mL, Total Volume (mL): 1,000, 1,000 mL, Soln-IV, Medication Bolus, 999 mL/hr, Order Duration: 1 times, Start Date: 03/20/24 1:46:00 EDT, Stop Date: 03/20/24 2:45:00 EDT, 92.08 kg, Populate Charting Weight From Order, 2.07, m2 Decision to Admit, 03/20/24 2:08:00 EDT, Medical Unit Medication Reconciliation Unchanged acetaminophen (acetaminophen 500 mg oral tablet)2 tab Oral (given by mouth) every 6 hours as neededas needed for pain. ?? aspirin (aspirin 81 mg oral capsule)1 Capsules Oral (given by mouth) every day. do not exceed 48 capsules in 24 hours. ?? atorvastatin (atorvastatin 80 mg oral tablet)TAKE ONE TABLET BY MOUTH AT BEDTIME. ?? DULoxetine (DULoxetine 60 mg oral delayed release capsule)TAKE ONE CAPSULE BY MOUTH EVERY DAY. ?? fenofibrate (fenofibrate 48 mg oral tablet)1 tab Oral (given by mouth) every evening. ?? insulin aspart (NovoLOG FlexPen 100 units/mL injectable solution)Subcutaneous (under the skin) 4 times a day. ?? insulin degludec (Tresiba FlexTouch 100 units/mL subcutaneous solution)26 Units Subcutaneous (underthe skin) every evening. ?? melatonin (melatonin 1 mg oral tablet)1 tab Oral (given by mouth) every night at bedtime as needed as needed for insomnia. ?? metoprolol (Metoprolol Tartrate 25 mg oral tablet)0.5 tab Oral (given by mouth) 2 times a day. TAKE1 TABLET BY MOUTH EVERY 12 HOURS. ?? Other Prescription ([employer] G7 SENSOR)CHANGE EVERY 10 DAYS DIRECTED. ?? pancrelipase (Creon 24,000 units oral delayed release capsule)2 ccap Oral (given by mouth) 3 times a day as needed other (see comment) for 30 Days. with snacks; also has meal time dose. Refills: 0. ?? pancrelipase (Creon 24,000 units oral delayed release capsule)3 Capsules Oral (given by mouth) 3 times a day (with meals) for 30 Days. also has snack time dose. Refills: 3. ?? pantoprazole (pantoprazole 40 mg oral delayed release tablet)1 tab Oral (given by mouth) every morning. ?? sertraline (sertraline 100 mg oral tablet)TAKE ONE TABLET BY MOUTH EVERY DAY. Problem List/Past Medical History Ongoing Abdominal pain [...] (02/18/2018)???Arthroscopy of shoulder (10/05/2015)???Abdominal wall hernia procedure (1970)???Cholecystectomy???Surgical removal of wisdom tooth Medication Administration Given 0.9% NaCl, 1000 mL, Medication Bolus Sodium Chloride 0.9%, 1000 mL, Medication Bolus HYDROmorphone, 1 mg, IV Push morphine, 4 mg, IV Allergies Wasps??(Anaphylaxis, critical) Social History Alcohol Never Electronic Cigarette/Vaping Electronic Cigarette Use: Never. Substance Use Never Tobacco Former tobacco user Tobacco Use:. Family History Heart disease: Father. Lung cancer: Mother. Myocardial infarction: Father. Family Member(s): ?? FATHER, at age: Unknown. Cause of : Family Member(s): ?? MOTHER, at age: Unknown. Cause of : Lab Results CBC and Differential?? LATEST RESULTS?? HISTORICAL RESULTS?? WBC?? 03/20/24 00:31?? 9.5?? 07/09/23?? 8.9?? RBC?? 03/20/24 00:31?? 4.63 ??Low?? 07/09/23?? 4.73?? Hgb?? 03/20/24 00:31?? 13.7 ??Low?? 07/09/23?? 14.9?? Hct?? 03/20/24 00:31?? 40.9 ??Low?? 07/09/23?? 43.7?? MCV?? 03/20/24 00:31?? 88.3?? 07/09/23?? 92.4?? MCH?? 03/20/24 00:31?? 29.7?? 07/09/23?? 31.5 ??High?? MCHC?? 03/20/24 00:31?? 33.6?? 07/09/23?? 34.1?? RDW-CV?? 03/20/24 00:31?? 14.9 ??High?? 07/09/23?? 12.1?? Platelets?? 03/20/24 00:31?? 223?? 07/09/23?? 161?? MPV?? 03/20/24 00:31?? 8.3?? 07/09/23?? 9.0?? Neutro Auto?? 03/20/24 00:31?? 81.2 ??High?? 07/09/23?? 76.0 ??High?? Lymph Auto?? 03/20/24 00:31?? 13.9 ??Low?? 07/09/23?? 14.3 ??Low?? [place] Auto?? 03/20/24 00:31?? 4.4?? 07/09/23?? 8.4?? Eos, Auto?? 03/20/24 00:31?? 0.20?? 07/09/23?? 0.80?? Basophil Auto?? 03/20/24 00:31?? 0.3?? 07/09/23?? 0.3?? Neutro Absolute?? 03/20/24 00:31?? 7.7 ??High?? 07/09/23?? 6.8 ??High?? Lymph Absolute?? 03/20/24 00:31?? 1.3?? 07/09/23?? 1.3?? [place] Absolute?? 03/20/24 00:31?? 0.4?? 07/09/23?? 0.8 ??High?? Eos Absolute?? 03/20/24 00:31?? 0.0?? 07/09/23?? 0.1?? Baso Absolute?? 03/20/24 00:31?? 0.0?? 07/09/23?? 0.0?? Slide Review?? 03/20/24 00:31?? Not Indicated? Routine Chemistry?? LATEST RESULTS?? HISTORICAL RESULTS?? Sodium Level?? 03/20/24 00:31?? 136?? 07/09/23?? 136?? Potassium Level?? 03/20/24 00:31?? 4.3?? 07/09/23?? 4.5?? Chloride Level?? 03/20/24 00:31?? 104?? 07/09/23?? 99?? CO2?? 03/20/24 00:31?? 25?? 07/09/23?? 28?? Alk Phos?? 03/20/24 00:31?? 77?? 07/09/23?? 39?? AST?? 03/20/24 00:31?? 76 ??High?? 07/09/23?? 14 ??Low?? ALT?? 03/20/24 00:31?? 56 ??High?? 07/09/23?? 17?? BUN?? 03/20/24 00:31?? 17?? 07/09/23?? 10?? Glucose Level?? 03/20/24 00:31?? 213 ??High?? 07/09/23?? 106?? Creatinine Level?? 03/20/24 00:31?? 1.00?? 07/09/23?? 0.90?? BUN/Creat Ratio?? 03/20/24 00:31?? 17.0?? 07/09/23?? 11.1?? eGFR CKD-EPI?? 03/20/24 00:31?? 89?? 07/09/23?? 101?? Calcium Level?? 03/20/24 00:31?? 9.7?? 07/09/23?? 8.9?? Protein Total?? 03/20/24 00:31?? 7.0?? 07/09/23?? 6.8?? Albumin Level?? 03/20/24 00:31?? 4.0?? 07/09/23?? 3.9?? Globulin?? 03/20/24 00:31?? 3.0?? 07/09/23?? 2.9?? A/G Ratio?? 03/20/24 00:31?? 1.3?? 07/09/23?? 1.3?? Bilirubin Total?? 03/20/24 00:31?? 0.8?? 07/09/23?? 1.1?? Anion Gap?? 03/20/24 00:31?? 7.0?? 07/09/23?? 9.0?? Lipase Level?? 03/20/24 00:31?? 1617 ??Critical?? 07/09/23?? 43?? Osmolality?? 03/20/24 00:31?? 280?? 07/09/23?? 271 ??Low? Electronically Signed on 03/20/24 02:41 AM Chemo Hill MD Nutrition and dietetics Progress note * Cristal Evangelista: PERFORM Event Display: Nutrition Note Authored Date: Assessment and Monitoring ?? Reason for Referral:??nutrition bella score ?? weight change: -7kg x 1 year Skin: intact Edema: n/a Chewing/Swallowing: n/a GI: Eating Habits at Home: tries follow low fat, monitors sodium and carb intakes. just started using insulin pump ~1x month ? Nutrition Assessment: ?? 53 yo??M admit with acute pancreatitis. Had procedure for stent placement??pancreas divisum yesterday??at [facility].??Has had pancreatitis in the past, in hospital last June with episode. thinks maybe related to yesterday procedure. does follow pretty low fat diet, and tries to watch for sodium/carb intakes. says can be complicated. Just started a??insulin pump about a month ago, says has follow up in [place] this??month??for pump. says BS??usually okay.??not sure what A1c is. lipid panel wnl. sounds like following??a diet low in fiber- would be try to increase after??acute episode, may helpwith??blood sugars and may be over restriction. did??have a popsicle today and coffee and toleratedthat. monitor for diet upgrade. ? Monitor/Evaluation:?? Nutrition Diagnosis inadequate oral intakes r/t altered GI fxn as evidenced by abdominal pain, need clear liquid diet. Nutrition Goals No s/sx hyper,hypoglycemia labs wnl skin intact tolerate diet upgrade Nutrition Interventions clear liquids diet edu. prn Anthropometrics/Estimated Needs Hlrjwd80.08 kg(Recorded: 03/20/2024 03:29 EDT) [id number] cm(Recorded: 03/20/2024 03:29 EDT) Body Mass Index33.02 kg/m2(Recorded: 03/20/2024 03:29 EDT) Estimated Energy Needs: 1840-2300kcal (20-25kcal/kg actual BW) Estimated Fluid Needs: 1840-2300ml (1ml/kcal) Estimated Protein Needs: 74-92g (.8-1.0g/kg actual BW) Reason for Visit Pacreatitis Problem List/Past Medical History Ongoing Abdominal pain [...] hernia procedure (1969)???Cholecystectomy???Surgical removal of wisdom tooth Social History Alcohol Never Electronic Cigarette/Vaping Electronic Cigarette Use: Never. Substance Use Never Tobacco Former tobacco user Tobacco Use:. Family History Heart disease: Father. Lung cancer: Mother. Myocardial infarction: Father. Family Member(s): ?? FATHER, at age: Unknown. Cause of : Family Member(s): ?? MOTHER, at age: Unknown. Cause of : Diet Orders Diet Order, 03/20/24 8:31:00 EDT, Clear Liquids Allergies Wasps??(Anaphylaxis, critical) Nutrition Lab Results Test Name Test Result Date/Time WBC 9.1 K/mcL 03/20/2024 06:06 EDT Hgb 12.3 g/dL 03/20/2024 06:06 EDT Hct 36.6 % 03/20/2024 06:06 EDT MCV 88.4 fL 03/20/2024 06:06 EDT Platelets 191 K/mcL 03/20/2024 06:06 EDT Sodium Level 139 mmol/L 03/20/2024 06:06 EDT Potassium Level 4.0 mmol/L 03/20/2024 06:06 EDT Chloride Level 109 mmol/L 03/20/2024 06:06 EDT CO2 27 mmol/L 03/20/2024 06:06 EDT Alk Phos 77 IntlUnit/L 03/20/2024 00:31 EDT ALT 56 IntlUnit/L 03/20/2024 00:31 EDT BUN 14 mg/dL 03/20/2024 06:06 EDT Glucose Level 141 mg/dL 03/20/2024 06:06 EDT Creatinine Level 0.90 mg/dL 03/20/2024 06:06 EDT Albumin Level 4.0 g/dL 03/20/2024 00:31 EDT Bilirubin Total 0.8 mg/dL 03/20/2024 00:31 EDT Magnesium Level 1.8 mg/dL 03/20/2024 06:06 EDT Medications Inpatient acetaminophen 10 mg/mL intravenous solution, 1000 mg= 100 mL, IV Piggyback, every 6 hr, PRN atorvastatin, 80 mg= 4 tab, Oral, Daily Dextrose 50% injection, 25 g= 50 mL, IV Push, As Directed DULoxetine, 60 mg= 2 cap, Oral, Daily glucagon, 1 mg= 1 EA, Subcutaneous, As Directed HYDROmorphone, 1 mg= 1 mL, IV Push, every 3 hr, PRN Metoprolol Tartrate, 12.5 mg= 0.5 tab, Oral, BID NS drip 1,000 mL, 1000 mL, IV ondansetron, 4 mg= 2 mL, IV Push, every 6 hr, PRN pantoprazole, 40 mg= 1 tab, Oral, every morning sertraline, 100 mg= 2 tab, Oral, Daily Home acetaminophen 500 mg [...] 48 mg= 1 tab, Oral, every evening ferrous gluconate 324 mg (38 mg elemental iron) oral tablet Melatonin 5 mg oral tablet, 5 mg= 1 tab, Oral, every night at bedtime, PRN Metoprolol Tartrate 25 mg oral tablet, 12.5 mg= 0.5 tab, Oral, BID NovoLOG FlexPen 100 units/mL injectable solution, Subcutaneous, QID pantoprazole 40 mg oral delayed release tablet, 40 mg= 1 tab, Oral, every morning sertraline 100 mg oral tablet Tresiba FlexTouch 100 units/mL subcutaneous solution, 26 units, Subcutaneous, every evening Electronically Signed on 03/20/24 12:48 PM Cristal Evangelista Progress note * Nyasia Travis MD: PERFORM Event Display: Progress Note - Physician Authored Date: [id number] NYASIA PEREZ :1970 Age:53 years Sex:Male Visit Date:03/19/2024 Primary Care Physician: STANLEY PEREZ PA-C Subjective Patient reports he had a great night last night was feeling the best he had the well until??lightheaded this morning Review of Systems Constitutional:??No fevers overnight Respiratory:??No shortness of breath Cardiovascular:??No Chest pain Gastrointestinal:??No nausea, vomiting, diarrhea Musculoskeletal:??No new joint pain Objective Vitals & Measurements T:??37.5?C ??(Temporal Artery)?? TMIN:??36.3?C ??(Oral)?? TMAX:??37.5?C ??(Temporal Artery)?? HR:??91??(Monitored)?? RR:??18?? BP:??121/63?? SpO2:??97%?? Pain Score:??6?? O2 Flow Rate:??2?? O2 Therapy:??Room air?? Physical Exam General:??Alert and oriented, No acute distress Eye:??PERRL, EOMI, normal conjunctiva Lungs:??Clear to auscultation and percussion, Non-labored respiration Heart:??Normal rate, Normal rhythm, No murmur, No gallop Abdomen:??Soft, mild tender, non-distended, normal bowel sounds, no masses Lab Results Labs??(Last four charted values) WBC ?H??12.0?(MAY )?9.1?(MAY )?9.5?(MAY ) Hgb ?L??12.1?(MARCH 23)?L??12.3?(MAY )?L??13.7?(MAY ) Hct ?L??35.7?(MAY )?L??36.6?(MAY )?L??40.9?(MAY ) Plt ?168?(MAY )?191?(MAY )?223?(MAY ) Na ?L??132?(MAY )?136?(MAY )?136?(MAY )?139?(MAY ) K ?L??3.4?(MAY )?3.5?(MARCH 22)?3.5?(MARCH 21)?4.0?() CO2 ?23?(MARCH 23)?24?(MARCH 22)?24?(MARCH 21)?27?(MARCH 20) Cr ?1.30?(MARCH 23)?0.80?(MARCH 22)?0.80?(MARCH 21)?0.90?(MARCH 20) BUN ?8?(MARCH 23)?L??5?(MARCH 22)?7?(MARCH 21)?14?(MARCH 20) Glucose Random ?H??144?(MARCH 23)?103?(MARCH 22)?106?(MARCH 21)?H??141?(MARCH 20) ?? X-Ray:?? Computed Tomography: ?? CT Chest w/o Contrast ?? 03/23/24 10:58:35 EXAM DESCRIPTION: CT Chest w/o Contrast ?? 03/23/2024 ?? INDICATION: EVAL FOR PNA OR ILEUS ?? TECHNIQUE: All CT scans at this facility use at least one of these dose optimization techniques: Automated exposure control; mA and/or kV adjustment per patient size (includes targeted exams where dose is matched to clinical indication); or iterative reconstruction. ?? Technique: Axial CT images of the chest with IV contrast administration ?? COMPARISON: CT angiography chest examination from 07/08/2023 ?? FINDINGS: Mediastinal evaluation is limited by lack of IV contrast. No mediastinal mass or adenopathy is identified. No axillary adenopathy. No pericardial effusion. Normal caliber thoracic aorta. Coronary artery calcifications are noted. ?? Mild areas of atelectatic or inflammatory consolidation in the posterior aspect of both lower lobes as well as in the inferior aspect of the lingula and right middle lobe. Lungs otherwise clear. No central endobronchial filling defect identified ?? No pleural effusion or pneumothorax. ?? No suspicious regional osseous lesions. Spondylotic changes in the visualized spinal axis ?? IMPRESSION: Mild areas of atelectatic or inflammatory consolidation in the posterior aspect of both lower lobes as well as the inferior aspect of the right middle lobe and lingula. ? JOB #: [id number] Electronically Signed By: ?? Signed By: Lucas Villalobos MD ?? CT Abdomen and Pelvis w/o Contrast ?? 03/23/24 11:04:10 EXAM DESCRIPTION: CT Abdomen and Pelvis w/o Contrast ?? 03/23/2024 ?? INDICATION: EVAL FOR PNA OR ILEUS ?? TECHNIQUE: All CT scans at this facility use at least one of these dose optimization techniques: Automated exposure control; mA and/or kV adjustment per patient size (includes targeted exams where dose is matched to clinical indication); or iterative reconstruction. ?? Technique: Axial CT images of the abdomen/pelvis without IV contrast administration ?? COMPARISON: CT abdomen/pelvis with contrast from 03/21/2024 ?? FINDINGS: Liver, spleen and adrenal glands demonstrate a normal unenhanced CT appearance. ?? Stent within the pancreatic duct in the pancreatic head and proximal body region without significant change in position. Mild inflammatory stranding in the fat planes surrounding the pancreatic head consistent with acute pancreatitis as described on recent study. No significant interval change with no peripancreatic fluid. ?? No renal calculi on either side. No hydronephrosis or hydroureter on either side with no evidence of obstructing urinary tract calculus. ?? Normal caliber abdominal aorta with atherosclerotic calcifications ?? No retroperitoneal adenopathy in the abdomen or pelvis. ?? No bowel dilatation to suggest obstruction or ileus. No free intraperitoneal air, ascites or inflammatory changes. Appendix not identified. Small fat containing left inguinal hernia. ?? No suspicious regional osseous lesions. Spondylotic changes in the visualized spinal axis ?? IMPRESSION: Findings consistent with acute pancreatitis without significant change from 03/21/2024 examination. ?? Nonobstructive bowel pattern. No free air or inflammatory changes. ? JOB #: [id number] Electronically Signed By: ?? Signed By: Lucas Villalobos MD Ultrasound:?? MRI:?? Echo:?? Mammography:? Bone Densitometry:?? No qualifying data available. Assessment/Plan 1.??Hypotension??I95.9 Happened quite suddenly this morning, likely at least in part from dehydration??but also consider infection and sepsis??as possibilities.?? This is improving with IV fluids for today and he feels much better,??his only antihypertensive is metoprolol 12.5 mg twice daily ?? 2.??Acute renal failure??N17.9 Creatinine elevation of 1.3??Jolene shows prerenal etiology??so given IV fluids??also started holdinghis??Toradol??which she had for about a day and a half??and also note that??he did get a CT with contrast a couple days ago when he was reporting a lot of abdominal pain??so that could have contributed to his acute renal failure. ??CAT scan rules out any obstructions or hydro ?? 3.??Pneumonia??J18.9 With his white count and imaging suggesting possible pneumonia??even though he has no clear symptoms??we will err on the side of treatment with ceftriaxone and doxycycline for pneumonia.?? Hypoventilation??is a risk factor for this??so as yesterday encouraged him strongly to??really get up out of the bed which he is??stating for 4 days now and try to get up and moving. ?? 4.??Acute pancreatitis??K85.90 Really mild has been mild entire time, I strongly encouraged him as his other days to get better at??trying to eat and drink??as some of his complications here related to??not eating drinking well Ordered: cefTRIAXone, 1 g = 50 mL, IV Piggyback, Injection, every 24 hr, Antibiotic Indication Pneumonia, Administer over: 30 minutes, First Dose: 03/23/24 15:00:00 EDT, Routine doxycycline, 100 mg = 1 cap, Oral, Cap, BID for 30 days, Antibiotic Indication Pneumonia, First Dose: 03/23/24 21:00:00 EDT, Stop Date: 04/22/24 20:59:00 EDT, Physician Stop, Routine Lactated Ringers Injection 1,000 mL, Total Volume (mL): 1,000, 1,000 mL, Soln- IV, IV, 150 mL/hr, Order Duration: 30 days, Start Date: 03/23/24 13:37:00 EDT, Stop Date: 04/22/24 13:36:00 EDT, 92.08 kg, Populate Charting Weight From Order, 2.07, m2 Physical Therapy Evaluation and Treatment Acute, 03/23/24 11:41:00 EDT, Once, Acute pancreatitis Diabetes mellitus, type 2 EDGAR (obstructive sleep apnea) Anxiety US Kidney Bladder, 03/23/24 8:35:00 EDT, Routine, Reason: eval for hydro, Transport Mode: Wheelchair, Acute pancreatitis Diabetes mellitus, type 2 EDGAR (obstructive sleep apnea) Anxiety ?? 5.??Diabetes mellitus, type 2??E11.9 Insulin-dependent he is managing his pump by himself Ordered: cefTRIAXone, 1 g = 50 mL, IV Piggyback, Injection, every 24 hr, Antibiotic Indication Pneumonia, Administer over: 30 minutes, First Dose: 03/23/24 15:00:00 EDT, Routine doxycycline, 100 mg = 1 cap, Oral, Cap, BID for 30 days, Antibiotic Indication Pneumonia, First Dose: 03/23/24 21:00:00 EDT, Stop Date: 04/22/24 20:59:00 EDT, Physician Stop, Routine Lactated Ringers Injection 1,000 mL, Total Volume (mL): 1,000, 1,000 mL, Soln- IV, IV, 150 mL/hr, Order Duration: 30 days, Start Date: 03/23/24 13:37:00 EDT, Stop Date: 04/22/24 13:36:00 EDT, 92.08 kg, Populate Charting Weight From Order, 2.07, m2 Physical Therapy Evaluation and Treatment Acute, 03/23/24 11:41:00 EDT, Once, Acute pancreatitis Diabetes mellitus, type 2 EDGAR (obstructive sleep apnea) Anxiety US Kidney Bladder, 03/23/24 8:35:00 EDT, Routine, Reason: eval for hydro, Transport Mode: Wheelchair, Acute pancreatitis Diabetes mellitus, type 2 EDGRA (obstructive sleep apnea) Anxiety ?? 6.??EDGAR (obstructive sleep apnea)??G47.33 I asked his to bring in his sleep apnea??machine as it also could contribute to his pneumonia Ordered: cefTRIAXone, 1 g = 50 mL, IV Piggyback, Injection, every 24 hr, Antibiotic Indication Pneumonia, Administer over: 30 minutes, First Dose: 03/23/24 15:00:00 EDT, Routine doxycycline, 100 mg = 1 cap, Oral, Cap, BID for 30 days, Antibiotic Indication Pneumonia, First Dose: 03/23/24 21:00:00 EDT, Stop Date: 04/22/24 20:59:00 EDT, Physician Stop, Routine Lactated Ringers Injection 1,000 mL, Total Volume (mL): 1,000, 1,000 mL, Soln- IV, IV, 150 mL/hr, Order Duration: 30 days, Start Date: 03/23/24 13:37:00 EDT, Stop Date: 04/22/24 13:36:00 EDT, 92.08 kg, Populate Charting Weight From Order, 2.07, m2 Physical Therapy Evaluation and Treatment Acute, 03/23/24 11:41:00 EDT, Once, Acute pancreatitis Diabetes mellitus, type 2 EDGAR (obstructive sleep apnea) Anxiety US Kidney Bladder, 03/23/24 8:35:00 EDT, Routine, Reason: eval for hydro, Transport Mode: Wheelchair, Acute pancreatitis Diabetes mellitus, type 2 EDGAR (obstructive sleep apnea) Anxiety ?? Electronically Signed on 03/23/24 02:28 PM Nyasia Travis MD * Nyasia Travis MD: PERFORM Event Display: Progress Note - Physician Authored Date: [id number] NYASIA PEREZ :1970 Age:53 years Sex:Male Visit Date:03/19/2024 Primary Care Physician: CHRIS KINNEY, STANLEY NUGENT Subjective Patient is starting to??feel better Review of Systems Constitutional:??No fevers overnight Respiratory:??No shortness of breath Cardiovascular:??No Chest pain Gastrointestinal:??No nausea, vomiting, diarrhea Musculoskeletal:??No new joint pain Objective Vitals & Measurements T:??36.8?C ??(Temporal Artery)?? TMIN:??36.4?C ??(Temporal Artery)?? TMAX:??36.8?C ??(Temporal Artery)?? HR:??93??(Monitored)?? RR:??16?? BP:??126/79?? SpO2:??94%?? Pain Score:??3?? O2 Flow Rate:??2?? O2 Therapy:??Room air?? O2 Therapy:??Room air?? Physical Exam General:??Alert and oriented, No acute distress Eye:??PERRL, EOMI, normal conjunctiva Lungs:??Clear to auscultation and percussion, Non-labored respiration Heart:??Normal rate, Normal rhythm, No murmur, No gallop Abdomen:??Mild tenderness??midline??not severe Lab Results Labs??(Last four charted values) WBC ?9.1?(MAY 03)?9.5?(MAY 03) Hgb ?L??12.3?(MAY 03)?L??13.7?(MAY 03) Hct ?L??36.6?(MAY 03)?L??40.9?(MARCH 03) Plt ?191?(MARCH 03)?223?(MARCH 20) Na ?136?(MARCH 22)?136?(MARCH 21)?139?(MAY )?136?(MARCH 20) K ?3.5?(MARCH 22)?3.5?(MAY )?4.0?(MARCH 20)?4.3?(MARCH 20) CO2 ?24?(MARCH 22)?24?(MAY )?27?(MARCH 20)?25?(MARCH 20) Cr ?0.80?(MAY )?0.80?(MARCH 21)?0.90?(MAY )?1.00?(MAY ) BUN ?L??5?(MARCH 22)?7?(MAY )?14?(MAY )?17?(MARCH 20) Glucose Random ?103?(MARCH 22)?106?(MAY )?H??141?(MAY )?H??213?(MARCH 20) Assessment/Plan 1.??Acute pancreatitis??K85.90 Continue make progress,??is receiving IV Tylenol and Toradol along with oral Dilaudid, will stop IVfluids today as he feels he is hydrating enough.?? He needs to start walking more given??he has nothad a bowel movement yet although he is passing gas??he is on a low-fat diet but not eating much atall given his insulin needs another day??in the hospital??to make sure he is stable. Ordered: Lovenox, 40 mg = 0.4 mL, Subcutaneous, Injection, Daily for 30 days, First Dose: 03/22/24 9:00:00 EDT, Stop Date: 04/21/24 8:59:00 EDT, Physician Stop, Routine Dilaudid, 4 mg = 1 tab, Oral, Tab, every 3 hr, PRN pain, First Dose: 03/21/24 12:35:00 EDT, Routine ketorolac, 15 mg = 1 mL, IV Push, Vial, every 12 hr for 5 days, PRN pain, First Dose: 03/22/24 11:33:00 EDT, Stop Date: 03/27/24 11:32:00 EDT, Physician Stop, Routine ?? 2.??Diabetes mellitus, type 2??E11.9 Insulin-dependent diabetes on insulin pump he is self managing this we are checking blood sugars closely Ordered: Lovenox, 40 mg = 0.4 mL, Subcutaneous, Injection, Daily for 30 days, First Dose: 03/22/24 9:00:00 EDT, Stop Date: 04/21/24 8:59:00 EDT, Physician Stop, Routine Dilaudid, 4 mg = 1 tab, Oral, Tab, every 3 hr, PRN pain, First Dose: 03/21/24 12:35:00 EDT, Routine ketorolac, 15 mg = 1 mL, IV Push, Vial, every 12 hr for 5 days, PRN pain, First Dose: 03/22/24 11:33:00 EDT, Stop Date: 03/27/24 11:32:00 EDT, Physician Stop, Routine ?? 3.??EDGAR (obstructive sleep apnea)??G47.33 No complications in the hospital ?? Medications (15) Active Scheduled: (8) atorvastatin 20 mg Tab [LTTL] ??80 mg 4 tab, Oral, Daily dextrose 50% (25 g/50 mL) Syringe [LTTL] ??25 g 50 mL, IV Push, As Directed DULoxetine 30 mg Cap [LTTL] ??60 mg 2 cap, Oral, Daily enoxaparin 40 mg/0.4 mL Inj [LTTL] ??40 mg 0.4 mL, Subcutaneous, Daily glucagon 1 mg Kit [LTTL] ??1 mg 1 EA, Subcutaneous, As Directed Metoprolol Tartrate 25 mg Tab [LTTL] ??12.5 mg 0.5 tab, Oral, BID Pantoprazole 40 mg Tab [LTTL] ??40 mg 1 tab, Oral, every morning Sertraline 50 mg Tab [LTTL] ??100 mg 2 tab, Oral, Daily Continuous: (1) INSULIN ASPART via insulin pump 0.8 units ??, Subcutaneous PRN: (6) acetaminophen ??1,000 mg 100 mL, IV Piggyback, every 6 hr HYDROmorphone 4 mg Tab [LTTL] ??4 mg 1 tab, Oral, every 3 hr ketorolac 15 mg/1 mL Vial [LTTL] ??15 mg 1 mL, IV Push, every 12 hr Melatonin 3 mg Tab [LTTL] ??6 mg 2 tab, Oral, every night at bedtime ondansetron 2 mg/mL 2 mL Vial [LTTL] ??4 mg 2 mL, IV Push, every 6 hr Senna Conc 8.6 mg Tab [LTTL] ??8.6 mg 1 tab, Oral, BID Ordered: Lovenox, 40 mg = 0.4 mL, Subcutaneous, Injection, Daily for 30 days, First Dose: 03/22/24 9:00:00 EDT, Stop Date: 04/21/24 8:59:00 EDT, Physician Stop, Routine ?? Electronically Signed on 03/22/24 11:37 AM Nyasia Travis MD * Nyasia Travis MD: PERFORM Event Display: Progress Note - Physician Authored Date: [id number] NYASIA PEREZ :1970 Age:53 years Sex:Male Visit Date:03/19/2024 Primary Care Physician: CHRIS KINNEY, STANLEY NUGENT Subjective Patient still reporting pain and frustration Review of Systems Constitutional:??No fevers overnight Respiratory:??No shortness of breath Cardiovascular:??No Chest pain Gastrointestinal:??No nausea, vomiting, diarrhea Musculoskeletal:??No new joint pain Objective Vitals & Measurements T:??36.7?C ??(Temporal Artery)?? TMIN:??35.8?C ??(Temporal Artery)?? TMAX:??36.7?C ??(Temporal Artery)?? HR:??89??(Peripheral)?? RR:??20?? BP:??142/90?? SpO2:??97%?? Pain Score:??10?? O2 Flow Rate:??2?? O2 Therapy:??Room air?? Physical Exam General:??Alert and oriented, No acute distress Eye:??PERRL, EOMI, normal conjunctiva Lungs:??Clear to auscultation and percussion, Non-labored respiration Heart:??Normal rate, Normal rhythm, No murmur, No gallop Abdomen:??Soft nondistended??tenderness palpation present in the right??and especially mid upper quadrant areas??stable from??previous exam. Lab Results Labs??(Last four charted values) WBC ?9.1?(MAY 03)?9.5?(MAY 03) Hgb ?L??12.3?(MAY 03)?L??13.7?(MAY 03) Hct ?L??36.6?(MAY 03)?L??40.9?(MARCH 03) Plt ?191?(MAY 03)?223?(MARCH 20) Na ?136?(MARCH 21)?139?(MARCH 20)?136?(MARCH 20) K ?3.5?(MARCH 21)?4.0?(MARCH 20)?4.3?(MARCH 20) CO2 ?24?(MARCH 21)?27?(MARCH 20)?25?(MARCH 20) Cr ?0.80?(MARCH 21)?0.90?(MARCH 20)?1.00?(MARCH 20) BUN ?7?(MARCH 21)?14?(MARCH 20)?17?(MARCH 20) Glucose Random ?106?(MARCH 21)?H??141?(MARCH 20)?H??213?(MARCH 20) Assessment/Plan 1.??Acute pancreatitis??K85.90 Day prior to admission had a pancreatic stent placed at [facility]??done with an ERCP??which frequently causes pancreatitis which??caused his pancreatitis??he is hospital day 2??still in pain but lipase going down??we will going check a CAT scan the day to make sure were not missing any additional findings.?? Will switch his oral oxycodone to oral Dilaudid??continue Toradol and Tylenol.?? Tolerating p.o.'s and not vomiting??continue some gentle IV fluids. Ordered: Dilaudid, 4 mg = 1 tab, Oral, Tab, every 3 hr, PRN pain, First Dose: 03/21/24 12:35:00 EDT, Routine ketorolac, 15 mg = 1 mL, IV Push, Vial, every 6 hr for 5 days, PRN pain, First Dose: 03/21/24 8:21:00 EDT, Stop Date: 03/26/24 8:20:00 EDT, Physician Stop, Routine senna 8.6 mg oral tablet, 8.6 mg = 1 tab, Oral, Tab, BID for 30 days, PRN congestion, First Dose: 03/20/24 14:59:00 EDT, Stop Date: 04/19/24 14:58:00 EDT, Physician Stop, Routine CT Abdomen and Pelvis w/ Contrast, 03/21/24 12:34:00 EDT, Stat, Reason: abd pain and pancreatitis, recent pancreatic stent at [facility], Transport Mode: Wheelchair, Acute pancreatitis Diabetes mellitus, type 2 Lipase Level, Blood, Timed Study, 03/20/24 14:57:00 EDT, every morning, Lab Collect, Acute pancreatitis Diabetes mellitus, type 2 ?? 2.??Diabetes mellitus, type 2??E11.9 Insulin-dependent patient uses a insulin pump blood sugar control good Ordered: Dilaudid, 4 mg = 1 tab, Oral, Tab, every 3 hr, PRN pain, First Dose: 03/21/24 12:35:00 EDT, Routine ketorolac, 15 mg = 1 mL, IV Push, Vial, every 6 hr for 5 days, PRN pain, First Dose: 03/21/24 8:21:00 EDT, Stop Date: 03/26/24 8:20:00 EDT, Physician Stop, Routine senna 8.6 mg oral tablet, 8.6 mg = 1 tab, Oral, Tab, BID for 30 days, PRN congestion, First Dose: 03/20/24 14:59:00 EDT, Stop Date: 04/19/24 14:58:00 EDT, Physician Stop, Routine CT Abdomen and Pelvis w/ Contrast, 03/21/24 12:34:00 EDT, Stat, Reason: abd pain and pancreatitis, recent pancreatic stent at [facility], Transport Mode: Wheelchair, Acute pancreatitis Diabetes mellitus, type 2 Lipase Level, Blood, Timed Study, 03/20/24 14:57:00 EDT, every morning, Lab Collect, Acute pancreatitis Diabetes mellitus, type 2 ?? 3.??EDGAR (obstructive sleep apnea)??G47.33 Not have any active issues here ?? 4.??Anxiety??F41.9 Has reported chronic history of this and??as with previous visits I had with him??I think this doesinterfere with some of his??interpretation of pain and severity. ?? Medications (14) Active Scheduled: (7) atorvastatin 20 mg Tab [LTTL] ??80 mg 4 tab, Oral, Daily dextrose 50% (25 g/50 mL) Syringe [LTTL] ??25 g 50 mL, IV Push, As Directed DULoxetine 30 mg Cap [LTTL] ??60 mg 2 cap, Oral, Daily glucagon 1 mg Kit [LTTL] ??1 mg 1 EA, Subcutaneous, As Directed Metoprolol Tartrate 25 mg Tab [LTTL] ??12.5 mg 0.5 tab, Oral, BID Pantoprazole 40 mg Tab [LTTL] ??40 mg 1 tab, Oral, every morning Sertraline 50 mg Tab [LTTL] ??100 mg 2 tab, Oral, Daily Continuous: (2) INSULIN ASPART via insulin pump 0.8 units ??, Subcutaneous Sodium Chloride 0.9% 1,000 mL ??1,000 mL, IV, 125 mL/hr PRN: (5) acetaminophen ??1,000 mg 100 mL, IV Piggyback, every 6 hr HYDROmorphone 4 mg Tab [LTTL] ??4 mg 1 tab, Oral, every 3 hr ketorolac 15 mg/1 mL Vial [LTTL] ??15 mg 1 mL, IV Push, every 6 hr ondansetron 2 mg/mL 2 mL Vial [LTTL] ??4 mg 2 mL, IV Push, every 6 hr Senna Conc 8.6 mg Tab [LTTL] ??8.6 mg 1 tab, Oral, BID ?? Orders: INSULIN ASPART via insulin pump 0.8 units, Misc, Subcutaneous, 03/20/24 16:06:00 EDT, kg, 2.07 m2, Constant Indicator Diet Order, 03/20/24 15:48:00 EDT, Low Fat, pancreatitits Vital Signs, 03/20/24 15:00:00 EDT, every 8 hr (nette) Electronically Signed on 03/21/24 01:16 PM Nyasia Travis MD History and physical note * [employer], [employer]: PERFORM, MODIFY, MODIFY Event Display: History and Physical Authored Date: [id number] NYASIA PEREZ :1970 Age:53 years Sex:Male Visit Date:03/19/2024 Primary Care Physician: STANLEY PEREZ PA-C Chief Complaint Had a pancreas divisum, stent placement yesterday 03/19 at [facility]. Started having gradually increasing LUQ pain that radiates to back. Denies, N/V, did not take any OTC pain medications. History of Present Illness 53 yr old male with DM type 2, pancreatic insufficiency, GERD, anxiety. He comes in for worsening abd pain starting in the evening of 03/19. He was was at [facility] yesterday for stent placement for his pancreas divisum. He says the doc there told him there is a chance he might go into acute pancreatitis from the manipulation done to his pancreas. He was admitted here before Jun 2023 for mild acute pancreatitis. His labs is notable for lipase level of?? 1617. His abd pain was midepigastric to left upper quadrant radiating to the back. He was initially given morphine then hydromorphone . He was also given 2L NS boluses. On assessment his pain is down to 5/10. He had one episode of vomiting. He denie s fever, chills, CARRERA, sob, chest pain, dysuria, cough. other labs: wbc 9.5, Hgb 13.7, Hct 40.9, Na 136, K 4.3, AST 76, ALT 56, BUN 17, crea 1.0, anion gap7.0 Review of Systems Constitutional: No fevers, chills, sweats Eye: No recent visual problems ENT: No ear pain, nasal congestion, sore throat Respiratory: No shortness of breath, cough Cardiovascular: No Chest pain, palpitations, syncope Gastrointestinal:??+ nausea, vomiting, no??diarrhea Genitourinary: No hematuria Evaristo/Lymph: Negative for bruising tendency, swollen lymph glands Endocrine: Negative for excessive thirst, excessive hunger Musculoskeletal:??+ back pain, no??neck pain, joint pain, muscle pain, decreased range of motion Integumentary: No rash, pruritus, abrasions Neurologic: Alert & oriented X 4 ?? Physical Exam Vitals & Measurements T:??36.6?C ??(Temporal Artery)?? TMIN:??35.7?C ??(Temporal Artery)?? TMAX:??36.6?C ??(Temporal Artery)?? HR:??68??(Monitored)?? RR:??18?? BP:??125/85?? SpO2:??94%?? HT:??167??cm?? WT:??92.08??kg?? BMI:??33.02?? Pain Score:??5?? O2 Therapy:??Room air?? BSA:??2.07?? General: Alert and oriented, well nourished,?No??acute distress Eye: PERRL, EOMI,?Normal??conjunctiva HENT: Normocephalic, atraumatic Neck:?No??lymphadenopathy Lungs:??Clear??to auscultation ,?Non-labored?? respiration Heart:?Normal?? rate,?Regular??rhythm Abdomen: Soft, + tenderness, epigastric area , left upper quadrant, non- distended,?Normal?? bowel sounds,?? Musculoskeletal:?Normal?? range of motion and strength,?No??tenderness,?No??swelling Skin: Skin is warm, dry and pink,?No??rashes,?No??lesions Neurologic: Awake, alert and oriented X4, CN II-XII intact Assessment/Plan 1.??Acute pancreatitis??K85.90 s/p stenting at [facility] for pancreas divisum given fluids at ED 2L NS NPO for now , may have ice chips, reassess in am for advancing diet NS at 125cc/hr hydromorphone 1mg IV q3h prn ?? 2.??Diabetes mellitus, type 2??E11.9 consistent carbohydrate diet once eating has insulin pump POC glucose monitoring achs ?? dvt prophylaxis: heparin subcu 5000 units q 8 ?? code status: full code Orders: atorvastatin, 80 mg = 4 tab, Oral, Tab, Daily, First Dose: 03/20/24 9:00:00 EDT, Routine DULoxetine, 60 mg = 2 cap, Oral, Cap-DR, Daily, First Dose: 03/20/24 9:00:00 EDT, Routine heparin, 5,000 units = 1 mL, Subcutaneous, Injection, every 8 hr (nette), First Dose: 03/20/24 6:00:00 EDT, Routine HYDROmorphone, 1 mg = 1 mL, IV Push, Injection, every 3 hr, PRN pain, First Dose: 03/20/24 2:29:00 EDT, Physician Stop, Routine Metoprolol Tartrate, 12.5 mg = 0.5 tab, Oral, Tab, BID, First Dose: 03/20/24 9:00:00 EDT, Routine ondansetron, 4 mg = 2 mL, IV Push, Vial, every 6 hr, PRN nausea/vomiting, First Dose: 03/20/24 3:22:00 EDT, Routine, zofran pantoprazole, 40 mg = 1 tab, Oral, Tab-DR, every morning, First Dose: 03/20/24 5:00:00 EDT, Routine sertraline, 100 mg = 2 tab, Oral, Tab, Daily, First Dose: 03/20/24 9:00:00 EDT, Routine NS drip 1,000 mL, Total Volume (mL): 1,000, 1,000 mL, Soln-IV, IV, 125 mL/hr, Order Duration: 30 days, Start Date: 03/20/24 2:28:00 EDT, Stop Date: 04/19/24 2:27:00 EDT, 92.08 kg, Populate Charting Weight From Order, 2.07, m2 Basic Metabolic Panel, Blood, Routine, 03/20/24 2:26:00 EDT, every morning, for 3 days, Lab Collect CBC w/ Diff, Blood, Routine, 03/20/24 2:26:00 EDT, every morning, for 3 days, Lab Collect Diet Order, 03/20/24 2:25:00 EDT, NPO, may have ice chips Magnesium Level, Blood, Routine, 03/20/24 2:26:00 EDT, every morning, for 3 days, Lab Collect Patient Condition, 03/20/24 2:25:00 EDT, Condition Guarded PSO Admit to Inpatient, [facility], Inpatient, 03/20/24 2:23:00 EDT, 03/20/24 2:23:00 EDT, 03/20/24 2:23:00 EDT, 1 midnight or less Resuscitation Status, 03/20/24 2:25:00 EDT, Full Code Up ad Jennifer, 03/20/24 2:25:00 EDT, Constant Order, at nurse's discretion, 03/20/24 2:25:00 EDT Vital Signs, 03/20/24 2:25:00 EDT, every 4 hr (formerly [facility]) Problem List/Past Medical History Ongoing Abdominal pain [...] (02/18/2018)???Arthroscopy of shoulder (10/05/2015)???Abdominal wall hernia procedure (1970)???Cholecystectomy???Surgical removal of wisdom tooth Medications Inpatient atorvastatin, 80 mg= 4 tab, Oral, Daily DULoxetine, 60 mg= 2 cap, Oral, Daily heparin, 5000 units= 1 mL, Subcutaneous, every 8 hr (nette) HYDROmorphone, 1 mg= 1 mL, IV Push, every 3 hr, PRN Metoprolol Tartrate, 12.5 mg= 0.5 tab, Oral, BID NS drip 1,000 mL, 1000 mL, IV ondansetron, 4 mg= 2 mL, IV Push, every 6 hr, PRN pantoprazole, 40 mg= 1 tab, Oral, every morning sertraline, 100 mg= 2 tab, Oral, Daily Home acetaminophen 500 mg [...] MOTHER, at age: Unknown. Cause of : Lab Results Test Name Test Result Date/Time WBC 9.5 K/mcL 03/20/2024 00:31 EDT RBC 4.63 Million/mcL 03/20/2024 00:31 EDT Hgb 13.7 g/dL 03/20/2024 00:31 EDT Hct 40.9 % 03/20/2024 00:31 EDT MCV 88.3 fL 03/20/2024 00:31 EDT MCH 29.7 pg 03/20/2024 00:31 EDT MCHC 33.6 g/dL 03/20/2024 00:31 EDT RDW-CV 14.9 % 03/20/2024 00:31 EDT Platelets 223 K/mcL 03/20/2024 00:31 EDT MPV 8.3 fL 03/20/2024 00:31 EDT Neutro Auto 81.2 % 03/20/2024 00:31 EDT Lymph Auto 13.9 % 03/20/2024 00:31 EDT [place] Auto 4.4 % 03/20/2024 00:31 EDT Eos, Auto 0.20 % 03/20/2024 00:31 EDT Basophil Auto 0.3 % 03/20/2024 00:31 EDT Neutro Absolute 7.7 K/mcL 03/20/2024 00:31 EDT Lymph Absolute 1.3 K/mcL 03/20/2024 00:31 EDT [place] Absolute 0.4 K/mcL 03/20/2024 00:31 EDT Eos Absolute 0.0 K/mcL 03/20/2024 00:31 EDT Baso Absolute 0.0 K/mcL 03/20/2024 00:31 EDT Slide Review Not Indicated 03/20/2024 00:31 EDT Sodium Level 136 mmol/L 03/20/2024 00:31 EDT Potassium Level 4.3 mmol/L 03/20/2024 00:31 EDT Chloride Level 104 mmol/L 03/20/2024 00:31 EDT CO2 25 mmol/L 03/20/2024 00:31 EDT Alk Phos 77 IntlUnit/L 03/20/2024 00:31 EDT AST 76 IntlUnit/L 03/20/2024 00:31 EDT ALT 56 IntlUnit/L 03/20/2024 00:31 EDT BUN 17 mg/dL 03/20/2024 00:31 EDT Glucose Level 213 mg/dL 03/20/2024 00:31 EDT Creatinine Level 1.00 mg/dL 03/20/2024 00:31 EDT BUN/Creat Ratio 17.0 03/20/2024 00:31 EDT eGFR CKD-EPI 89 mL/min/1.73 m2 03/20/2024 00:31 EDT Calcium Level 9.7 mg/dL 03/20/2024 00:31 EDT Protein Total 7.0 g/dL 03/20/2024 00:31 EDT Albumin Level 4.0 g/dL 03/20/2024 00:31 EDT Globulin 3.0 g/dL 03/20/2024 00:31 EDT A/G Ratio 1.3 g/dL 03/20/2024 00:31 EDT Bilirubin Total 0.8 mg/dL 03/20/2024 00:31 EDT Anion Gap 7.0 03/20/2024 00:31 EDT Lipase Level 1617 unit/L 03/20/2024 00:31 EDT Osmolality 280 mOsm/kg 03/20/2024 00:31 EDT Electronically Signed on 03/20/24 03:00 PM Von Soares APRN Patient Care team information Care Team Personnel Name: STANLEY PEREZ PA-C Position: No Access Member Role: Primary Care Physician Address: Address: [place] [address]- Care Team Related Persons Name: JG PEREZ Address: Home [address] [place], [place] [id number] [facility] Name: AYDEN DANIELSON Address: Home [address] [place], [place] [id number] [facility] Name: AYDEN DANIELSON Address: Home [facility] [address] [place] [address] [facility]
== END 2024-04-17 23:59 | disposition home or self-care (01) ==
LOC: CR 09:00
PROVIDERS: PCP Physician Assistant Medical; Visit Provider Internal Medicine Cardiovascular Disease
DX: I25.810 Atherosclerosis of coronary artery bypass graft(s) without angina pectoris (principal); Z51.89 Encounter for other specified aftercare
CPT/HCPCS: S9472

== ENCOUNTER 2024-04-08 13:36 | Outpatient (CLI) | payer MEDICAID, SELFPAY ==
[2024-04-08 10:49] LABS: Abs Immature Grans 0.01 10^3/uL (0.0-0.06); Absolute Basophil Count 0.06 10^3/uL (0.0-0.2); Absolute Eosinophil Count 0.22 10^3/uL (0.0-0.7); Absolute Lymphocyte Count 1.97 10^3/uL (1.2-3.4); Absolute Monocyte Count 0.49 10^3/uL (0.1-0.8); Absolute Neutrophil Count 3.22 10^3/uL (1.2-6.7); Eosinophils % 3.7 %; HCT 41.4 % (40.0-50.0); HGB 13.7 g/dL (13.5-17.5); Immature Grans % 0.2 %; MCH 28.9 pg (27.0-33.0); MCHC 33.1 % (32.0-36.0); MCV 87 fL (80-95); MPV 9.3 fL (8.0-11.0); Monocytes % 8.2 %; Neutrophils % 53.9 %; Platelet Count 322 10^3/uL (130-400); RBC 4.74 10^6/uL (4.36-5.78); RDW 13.8 % (11.8-14.1); RDW-SD 44.1 fL; WBC 5.97 10^3/uL (4.4-10.8)
[2024-04-08 11:14] LABS: ALT 34 U/L (16-63); AST 17 U/L (15-37); Albumin 3.9 g/dL (3.4-5.0); Alkaline Phosphatase 109 U/L (46-116); Anion Gap 8.2 mmol/L (3-11); BUN 22 mg/dL (7-18); Bilirubin, Total 0.4 mg/dL (0.2-1.0); CO2 27.8 mmol/L (21.0-32.0); CREATININE 0.9 mg/dL (0.70-1.30); Calcium 9.5 mg/dL (8.5-10.1); Chloride 103 mmol/L (98-107); Estimated GFR 100.86 (mL/min/1.73m2); Glucose 116 mg/dL (74-106); Lipase 106 U/L (16-77); Potassium 4.1 mmol/L (3.5-5.1); Sodium 139 mmol/L (136-145); Total Protein 7.6 g/dL (6.4-8.2)
[2024-04-08 18:53] LABS: PSA, Screening 0.9 ng/mL (<=3.5)
== END 2024-04-08 13:37 | disposition home or self-care (01) ==
LOC: LBO 13:37
PROVIDERS: PCP Physician Assistant Medical; Visit Provider Physician Assistant Medical
DX: K86.1 Other chronic pancreatitis (principal); N40.1 Benign prostatic hyperplasia with lower urinary tract symptoms
CPT/HCPCS: 36415; 80053; 83690; 84153; 85025

== ENCOUNTER → 2024-04-22 01:42 | Outpatient (CLI) | payer MEDICAID, SELFPAY ==
--- NOTE | 2024-04-22 10:02 | DI.RAD_ITS ---
Exam(s) XR ABDOMEN FLAT PLATE EXAM: 2D digital imaging was performed. CLINICAL HISTORY: PANCREAS DIVISUM Q45.3 CHECK TO SEE IF PANCREAS STENT HAS MIGRATED. COMPARISON: CT CT ABDOMEN W from 03/04/2019 TECHNIQUE: Supine views of the abdomen was performed. Two images were obtained. FINDINGS: LUNG BASES: Clear. BOWEL GAS PATTERN: Nondistended. FREE AIR: None. CALCIFICATIONS: No radiopaque calcifications. OSSEOUS STRUCTURES: Normal for age. OTHER FINDINGS: Sternal wires are in place. There are surgical clips in the right upper quadrant con sistent with the patient's known cholecystectomy. There is a 10.5 cm long stent projected over the T 12 through L2 vertebral bodies. It is obliquely oriented. The pigtail is projected over the right a spect of the L2 vertebral body. IMPRESSION: Stent projected over the T12 through L2 vertebral bodies as described above. DATA REPOSITORY: RADIATION DOSE DELIVERED:
== END ==
PROVIDERS: PCP Physician Assistant Medical; Visit Provider Internal Medicine Gastroenterology
DX: Q45.3 Other congenital malformations of pancreas and pancreatic duct (principal)
CPT/HCPCS: 74018

== ENCOUNTER 2024-05-03 11:35 | Emergency (ER) | payer MEDICAID, SELFPAY ==
[2024-05-03] VITALS (15 sets, daily range): BP systolic 126–145; BP diastolic 84–99; PULSE 88–105; RESP 12–20; TEMP 36.8; O2SAT 95–98
[2024-05-03] MEDS: Normal Saline 1,000 ML 1000 ML IV (11:56)
[2024-05-03] MEDS: methylPREDNISolone SUCC 125 MG VIAL IVP (11:57)
[2024-05-03] MEDS: FAMOTIDINE 20 MG in Normal Saline 100 ML 400 MG IVPB (11:57)
--- NOTE | 2024-05-03 17:08 | W.EDPROG ---
Date of service: 05/03/24 Time of Service: 17:08 Medical Decision Making I had initially signed up to evaluate this patient but I did not see him nor participate in his care. Quality:SDOH Health Related Social Needs: No Data to Display Discharge Plan Disposition Patient Disposition: Home Condition: Stable Discharge Details Clinical Impression: Insect sting Primary Care Provider: Hugo Baumann ED Provider: Kandy Davis Home Meds and New Rx's Prescriptions: New epinephrine 0.3 mg/0.3 mL auto-injector 0.3 ml subcut ONCE Qty: 2 0RF Rx Instructions: as a single dose; may repeat once prednisone 20 mg tablet 40 mg PO ONCE Qty: 4 0RF Continued metformin [Glucophage] 500 mg tablet 1,000 mg PO BID omeprazole 20 mg capsule,delayed release(DR/EC) 20 mg PO DAILY Jardiance 10 mg Tablet 10 mg PO DAILY aspirin 325 mg Tablet 325 mg PO DAILY omega 2-bhb-xpc-fish oil [Fish Oil] 1,000 mg (120 mg-180 mg) Capsule 1 cap PO BID (DME) blood sugar diagnostic Strip MISCELLANEOUS (DME) blood-glucose meter [Blood Glucose Monitoring] Kit MISCELLANEOUS Acetaminophen [Tylenol] 325 MG capsule 650 mg PO Q4H PRN PRNQty: 30 0RF Discharge Instructions Instructions: Anaphylaxis - Discharge instructions Additional Instructions: I am attaching discharge instructions for anaphylaxis so you can review when to use an EpiPen, not because you had an anaphylactoid reaction today I recommend taking another dose of Benadryl tonight but waiting at least 8 hours to take another dose, 25 to 50 mg is reasonable Tomorrow we could take a Zyrtec or Claritin daily and continue on your prednisone for the next 2 days, 40 mg. You received a dose today. Please return immediately should you have new or worsening complaints and do not use the EpiPen unless you have facial swelling difficulty swallowing or significant shortness of breath Referrals: Hugo Baumann PA [Primary Care Provider] - Return if symptoms worsen Discharge Data Discharge Date/Time-TO BE ENTERED AT DEPARTURE: 05/03/24 13:40
== END 2024-05-03 13:40 | disposition home or self-care (01) ==
PROVIDERS: Emergency Provider Physician Assistant; PCP Physician Assistant Medical
DX: R22.0 Localized swelling, mass and lump, head (principal); T63.481A Toxic effect of venom of other arthropod, accidental (unintentional), initial encounter
CPT/HCPCS: 00123; 36416; 82962; 96361; 96365; 96375; 99284; 99283; J2919

== ENCOUNTER 2024-05-15 09:00 | Outpatient (RCR) | payer MEDICAID, SELFPAY ==
[2024-04-18 00:10] VITALS: BP 116/69; PULSE 69
--- NOTE | 2024-05-15 11:34 | NUR.NOTE ---
Nursing Note: Patient presented for CR today and when asked how he was doing hes stated I would be better off if someone would shoot me and proceeded to laugh after making statement. Patient reassured nursing that they should not be concerned and did not indicate that he had a plan. Patient pleasant and interactive with nursing staff for the rest of the session and proceeded with all of his exercises. Patient also noted to have a resting HR in the low to mid 100's which appears to be a trend in the last few sessions. Nursing called patient's primary care office and spoke with the triage nurse and informed of all above information. Triage nurse informed CR nursing that should would call patient immediately after she ended call. Patient left CR session ambulatory in no apparent distress.
== END 2024-05-17 23:59 | disposition home or self-care (01) ==
LOC: CR 09:00
PROVIDERS: PCP Physician Assistant Medical; Visit Provider Internal Medicine Cardiovascular Disease
DX: I25.810 Atherosclerosis of coronary artery bypass graft(s) without angina pectoris (principal); Z95.1 Presence of aortocoronary bypass graft
CPT/HCPCS: S9472

== ENCOUNTER 2024-06-01 09:10 | Outpatient (RCR) | payer MEDICAID, SELFPAY ==
[2024-05-18 00:20] VITALS: BP 116/69; PULSE 69
== END 2024-06-17 23:59 | disposition home or self-care (01) ==
LOC: CR 09:10
PROVIDERS: PCP Physician Assistant Medical; Visit Provider Internal Medicine Cardiovascular Disease
DX: I25.810 Atherosclerosis of coronary artery bypass graft(s) without angina pectoris (principal)
CPT/HCPCS: S9472

== ENCOUNTER 2024-06-26 00:14 | Outpatient (CLI) | payer OTHER, SELFPAY ==
--- NOTE | 2024-06-26 | DI.RAD_ITS ---
Exam(s) XR ANKLE RT 2V XR ANKLE LT 2V EXAM: XR ANKLE RT 2V CLINICAL HISTORY: both ankles crushed, bilat ankle pain, DISABILITY DETERMINATION. TECHNIQUE: 2D digital imaging was performed. T 2 views of both ankles. COMPARISON: CR XR ANKLE LT 2V from 06/26/2024 FINDINGS: BONES: No acute fracture is present. No bony destructive lesion is seen. Symmetric bilateral enthe sophytes at the Achilles insertion on the calcaneus. None JOINTS: The ankle mortise is normally aligned. Tibiotalar joint spaces are maintained. SOFT TISSUE: Normal. IMPRESSION: Bilateral calcaneal enthesophytes. DATA REPOSITORY: RADIATION DOSE DELIVERED:
== END 2024-06-26 00:34 ==
PROVIDERS: PCP Physician Assistant Medical; Visit Provider Pediatrics Pediatric Rheumatology
DX: M77.51 Other enthesopathy of right foot and ankle (principal); M77.52 Other enthesopathy of left foot and ankle
CPT/HCPCS: 73600

== ENCOUNTER 2024-09-09 08:05 | Outpatient (RCR) | payer OTHER, SELFPAY | END 2024-09-17 23:59 | disposition home or self-care (01) | LOC: CR 08:05 | PROVIDERS: PCP Physician Assistant Medical; Visit Provider Internal Medicine Cardiovascular Disease | DX: I25.810 Atherosclerosis of coronary artery bypass graft(s) without angina pectoris (principal); Z51.89 Encounter for other specified aftercare | CPT/HCPCS: S9472 ==

== ENCOUNTER 2024-10-14 08:23 | Outpatient (RCR) | payer OTHER, SELFPAY ==
--- NOTE | 2024-10-09 08:24 | NUR.NOTE ---
Nursing Note: This pt. has been absent from the CR program for the past few weeks. Nursing staff received a call a few weeks ago from the pt.'s , stating that the pt. had been admitted as an inpatient at [facility], but the pt.'s didn't elaborate further than that. This RN attempted to call the pt. once last week and once again this morning (Saturday10/09/24), but was unable to reach the pt. both times. Nursing staff will continue to attempt to call the pt. to check in periodically.
== END 2024-10-17 23:59 | disposition home or self-care (01) ==
LOC: CR 08:23
PROVIDERS: PCP Physician Assistant Medical; Visit Provider Internal Medicine Cardiovascular Disease
DX: I25.810 Atherosclerosis of coronary artery bypass graft(s) without angina pectoris (principal); Z95.1 Presence of aortocoronary bypass graft; Z51.89 Encounter for other specified aftercare
CPT/HCPCS: S9472

== ENCOUNTER 2024-10-21 08:03 | Outpatient (RCR) | payer MEDICAID, SELFPAY | END 2024-11-17 23:59 | disposition home or self-care (01) | LOC: CR 08:03 | PROVIDERS: PCP Physician Assistant Medical; Visit Provider Internal Medicine Cardiovascular Disease | DX: I25.10 Atherosclerotic heart disease of native coronary artery without angina pectoris (principal); Z95.5 Presence of coronary angioplasty implant and graft; Z51.89 Encounter for other specified aftercare | CPT/HCPCS: S9472 ==

== ENCOUNTER 2025-03-09 15:36 | Outpatient (REF) | payer MEDICAID, SELFPAY ==
[2025-03-09 16:06] LABS: Iron 81 ug/dL (65-175); Total Iron Binding Capacity 313 ug/dL (250-450); Transferrin Sat 26 % (20-55)
[2025-03-09 16:07] LABS: Abs Immature Grans 0.02 10^3/uL (0.0-0.06); Absolute Basophil Count 0.05 10^3/uL (0.0-0.2); Absolute Eosinophil Count 0.19 10^3/uL (0.0-0.7); Absolute Monocyte Count 0.54 10^3/uL (0.1-0.8); Absolute Neutrophil Count 3.78 10^3/uL (1.2-6.7); Basophils % 0.8 %; HCT 40.1 % (40.0-50.0); HGB 13.9 g/dL (13.5-17.5); Immature Grans % 0.3 %; Lymphocytes % 28.2 %; MCH 30.8 pg (27.0-33.0); MCHC 34.7 % (32.0-36.0); MCV 89 fL (80-95); MPV 9.7 fL (8.0-11.0); Monocytes % 8.5 %; Neutrophils % 59.2 %; Platelet Count 210 10^3/uL (130-400); RBC 4.51 10^6/uL (4.36-5.78); RDW 12.7 % (11.8-14.1); RDW-SD 41.4 fL; WBC 6.38 10^3/uL (4.4-10.8)
[2025-03-09 16:32] LABS: ALT 38 U/L (16-63); AST 22 U/L (15-37); Albumin 4.1 g/dL (3.4-5.0); Alkaline Phosphatase 87 U/L (46-116); Anion Gap 7.7 mmol/L (3-11); BUN 22 mg/dL (7-18); Bilirubin, Total 0.4 mg/dL (0.2-1.0); CO2 24.3 mmol/L (21.0-32.0); CREATININE 1.1 mg/dL (0.70-1.30); Calcium 9.4 mg/dL (8.5-10.1); Calculated LDL 57 mg/dL (<100); Chloride 105 mmol/L (98-107); Cholesterol 131 mg/dL (<200); Estimated GFR 78.79 (mL/min/1.73m2); Ferritin 223 ng/mL (26-388); Folate 8.1 ng/mL (8.6-20.0); Glucose 207 mg/dL (74-106); HDL Cholesterol 35 mg/dL (>or=40); Potassium 4.6 mmol/L (3.5-5.1); Sodium 137 mmol/L (136-145); Total Protein 7.4 g/dL (6.4-8.2); Triglyceride 196 mg/dL (<150); Vitamin B12 324 pg/mL (193-986)
[2025-03-17 10:40] LABS: Testosterone, Free 11.8 ng/dL (3.87-14.7); Testosterone, Total 348 ng/dL (240-950)
== END 2025-03-09 15:37 | disposition home or self-care (01) ==
LOC: LBN 15:36
PROVIDERS: PCP Physician Assistant Medical; Visit Provider Nurse Practitioner Family
DX: R53.83 Other fatigue (principal); E78.5 Hyperlipidemia, unspecified; I10 Essential (primary) hypertension; E11.65 Type 2 diabetes mellitus with hyperglycemia; Z79.4 Long term (current) use of insulin
CPT/HCPCS: 80053; 80061; 84402; 84403; 82607; 82728; 82746; 83036; 83540; 83550; 84443; 85025

== ENCOUNTER 2025-04-02 09:05 | Emergency (ER) | payer MEDICAID, SELFPAY ==
[2025-04-02 09:10] VITALS: BP 132/88; PULSE 81; TEMP 36.3; O2SAT 93
--- NOTE | 2025-04-02 09:15 | DI.CT_ITS ---
Exam(s) CT FACIAL WO EXAM: CT FACIAL WO CLINICAL HISTORY: Struck L. eye with wagon washer chassis. TECHNIQUE: Imaging Protocol: Axial computed tomography images with coronal and sagittal reformatted images were created and reviewed. No IV contrast COMPARISON: No exams were available for comparison FINDINGS: MAXILLOFACIAL CT SCAN: There is soft tissue swelling at and below the region of the left orbit. There is no evidence of facial fractures nor fluid the visualized paranasal sinuses. There is no guicho dence of orbital blowout fracture. Incidentally there is a small retention cyst in the left maxillar y sinus. No evidence of nasal bone fracture. IMPRESSION: No evidence of facial bone fractures nor orbital fractures. Report called by myself to ER physician 04/02/2025 10:01 a.m. RADIATION DOSE DELIVERED: 996.59mGy.cm Total DLP DATA REPOSITORY: All CT scans at this facility are submitted to the National Radiology Data Registry (NRDR) Dose Index Registry (DIR) with the [employer] (A[employer]). RADIATION OPTIMIZATION: All CT scans at this facility use at least one of these dose optimization te chniques: automated exposure control; mA and/or kV adjustment per patient size (includes targeted exa ms where dose is matched to clinical indication); or iterative reconstruction.
--- NOTE | 2025-04-02 09:34 | ED.GENADUL_ITS ---
Discharge Plan Disposition Patient Disposition: Home Condition: Stable Discharge Details Clinical Impression: Laceration of eyebrow, Traumatic periorbital ecchymosis of left eye Primary Care Provider: Hugo Baumann ED Provider: Celia Canada Home Meds and New Rx's Prescriptions: No Action metformin [Glucophage] 500 mg tablet 1,000 mg PO BID omeprazole 20 mg capsule,delayed release(DR/EC) 20 mg PO DAILY Jardiance 10 mg Tablet 10 mg PO DAILY aspirin 325 mg Tablet 325 mg PO DAILY omega 1-vqz-lkh-fish oil [Fish Oil] 1,000 mg (120 mg-180 mg) Capsule 1 cap PO BID (DME) blood sugar diagnostic Strip MISCELLANEOUS (DME) blood-glucose meter [Blood Glucose Monitoring] Kit MISCELLANEOUS epinephrine 0.3 mg/0.3 mL auto-injector 0.3 ml subcut ONCE Qty: 2 0RF Rx Instructions: as a single dose; may repeat once prednisone 20 mg tablet 40 mg PO ONCE Qty: 4 0RF Acetaminophen [Tylenol] 325 MG capsule 650 mg PO Q4H PRN PRNQty: 30 0RF Airsupra 90-80 mcg/actuation HFA aerosol inhaler 2 inh inhalation QID PRN umeclidinium-vilanterol [Anoro Ellipta] 62.5-25 mcg/actuation blister with device 1 inh inhalation DAILY atorvastatin 80 mg tablet 80 mg PO DAILY Breztri Aerosphere 160-9-4.8 mcg/actuation HFA aerosol inhaler 2 inh inhalation BID clopidogrel 75 mg tablet 75 mg PO DAILY Creon 24,000-76,000 -120,000 unit capsule,delayed release(DR/EC) 3 cap PO TID Rx Instructions: administer with meals and/or snacks diazepam 2 mg tablet 2 mg PO QHS PRN docusate sodium 100 mg capsule 100 mg PO BID duloxetine 60 mg capsule,delayed release(DR/EC) 60 mg PO DAILY escitalopram oxalate 20 mg tablet 20 mg PO DAILY fenofibrate nanocrystallized 48 mg tablet 48 mg PO DAILY ferrous gluconate 236 mg (27 mg iron) tablet 236 mg PO DAILY insulin aspart U-100 100 unit/mL solution 150 unit DAILY Rx Instructions: use 150 units daily to infuse in insulin pump lorazepam 1 mg tablet 1 mg PO BID PRN melatonin 5 mg capsule 5 mg PO QHS metoprolol succinate 50 mg tablet extended release 24 hr 50 mg PO BID nitroglycerin 0.4 mg tablet, sublingual 0.4 mg sublingual Q5-15M PRN Rx Instructions: do not exceed 3 doses per episode pantoprazole 40 mg tablet,delayed release (DR/EC) 40 mg PO DAILY sildenafil 25 mg tablet 25 mg PO DAILY PRN Rx Instructions: administer 30 minutes to 4 hours before activity albuterol 90 mcg/actuation aerosol 90 mcg inhalation Q4-5H PRN Discharge Instructions Instructions: Laceration Repair With Stitches ED Additional Instructions: You were seen in the emergency department today for evaluation of a laceration after being struck by your mold washer. In our department note a full physical examination performed, Ana has a CT scan that did not show any evidence of broken bones. Your laceration was repaired with stitches and these need to be removed in 5 to 7 days. This can be done by your primary care doctor or at our emergency department. Please keep the area clean and dry, and apply jnyv-qek-mcfwxxd antibiotic ointment at least once per day during dressing changes. Use ice and Tylenol for management of pain and swelling, and please follow-up with your primary care provider in the next few days to discuss this visit and any symptoms that change, worsen, or persist. Thank you for allowing us to be part of your care. HPI General Mode of arrival: ambulatory . Date/Time Provider Initiated Documentation: 04/02/25 09:11 . Limitations to Documentation: no limitations . Information obtained by: patient, family and old records reviewed . HPI Narrative: This is a 54-year-old male patient with a past medical history significant for diabetes, CAD, hypertension, presenting for evaluation of an eyebrow laceration. The patient reports that he was trying to load a mold washer onto a trailer, and states that he was struck in the left eye and eyebrow by it when it fell backwards. He was not knocked to the ground, did not otherwise strike his head or lose consciousness. He does not take blood thinning medications. Last tetanus 2020. States that he is experiencing pain around his eye but no vision changes or difficulty moving his eye. He has not taken any medications prior to arrival at our facility and was in his normal state of health prior to presentation. Related Data Home Medications ?Medication ?Instructions ?Recorded ?Confirmed Acetaminophen [Tylenol] 650 mg PO Q4H PRN PRN #30 caps 05/04/18 04/02/25 metformin 500 mg tablet 1,000 mg PO BID 11/30/19 04/02/25 (Glucophage) omeprazole 20 mg capsule,delayed 20 mg PO DAILY 11/30/19 04/02/25 release aspirin 325 mg tablet 325 mg PO DAILY 04/01/20 04/02/25 empagliflozin 10 mg tablet 10 mg PO DAILY 04/01/20 04/02/25 (Jardiance) omega 6-qra-kyj-fish oil 1,000 mg 1 cap PO BID 04/01/20 04/02/25 (120 mg-180 mg) capsule (Fish Oil) blood sugar diagnostic 04/04/20 04/02/25 blood-glucose meter (Blood Glucose 04/04/20 04/02/25 Monitoring kit) epinephrine 0.3 mg/0.3 mL 0.3 ml subcut ONCE #2 ea 05/03/24 04/02/25 injection, auto-injector prednisone 20 mg tablet 40 mg (2 x 20 mg) PO ONCE #4 tabs 05/03/24 04/02/25 albuterol 90 mcg-budesonide 80 2 inh inhalation QID PRN 04/02/25 04/02/25 mcg/actuation HFA aerosol inhaler (Airsupra) albuterol 90 mcg/actuation aerosol 90 mcg inhalation Q4-5H PRN 04/02/25 04/02/25 inhaler atorvastatin 80 mg tablet 80 mg PO DAILY 04/02/25 04/02/25 budesonide 160 mcg-glycopyr 9 2 inh inhalation BID 04/02/25 04/02/25 mcg-formot 4.8 mcg/actuation HFA inhaler (Breztri Aerosphere) clopidogrel 75 mg tablet 75 mg PO DAILY 04/02/25 04/02/25 diazepam 2 mg tablet 2 mg PO QHS PRN 04/02/25 04/02/25 docusate sodium 100 mg capsule 100 mg PO BID 04/02/25 04/02/25 duloxetine 60 mg capsule,delayed 60 mg PO DAILY 04/02/25 04/02/25 release escitalopram oxalate 20 mg tablet 20 mg PO DAILY 04/02/25 04/02/25 fenofibrate nanocrystallized 48 mg 48 mg PO DAILY 04/02/25 04/02/25 tablet ferrous gluconate 236 mg (27 mg 236 mg PO DAILY 04/02/25 04/02/25 iron) tablet insulin aspart U-100 100 unit/mL 150 unit DAILY 04/02/25 subcutaneous solution xteakh-ifzcxtye-fuimpli 3 cap PO TID 04/02/25 04/02/25 24,000-76,000-120,000 unit capsule,delayed rel (Creon) lorazepam 1 mg tablet 1 mg PO BID PRN 04/02/25 04/02/25 melatonin 5 mg capsule 5 mg PO QHS 04/02/25 04/02/25 metoprolol succinate 50 mg 50 mg PO BID 04/02/25 04/02/25 tablet,extended release 24 hr nitroglycerin 0.4 mg sublingual 0.4 mg sublingual Q5-15M PRN 04/02/25 04/02/25 tablet pantoprazole 40 mg tablet,delayed 40 mg PO DAILY 04/02/25 04/02/25 release sildenafil 25 mg tablet 25 mg PO DAILY PRN 04/02/25 04/02/25 umeclidinium 62.5 mcg-vilanterol 1 inh inhalation DAILY 04/02/25 04/02/25 25 mcg/actuation powdr for inhalation (Anoro Ellipta) Previous Rx's ?Medication ?Instructions ?Recorded Acetaminophen [Tylenol] 650 mg PO Q4H PRN PRN #30 caps 05/04/18 epinephrine 0.3 mg/0.3 mL 0.3 ml subcut ONCE #2 ea 05/03/24 injection, auto-injector prednisone 20 mg tablet 40 mg (2 x 20 mg) PO ONCE #4 tabs 05/03/24 Allergies Allergy/AdvReac Type Severity Reaction Status Date / Time Bee Sting Allergy Severe Anaphylaxis Uncoded 04/02/25 09:12 General Stated Complaint: Laceration CARLENE: 4 Exam Narrative Exam Narrative: Gen: Awake and alert, in no apparent distress HEENT: Non-icteric sclera, PERRL, EOMs are full and without evidence of entrapment or diplopia. The patient has an approximately 2 and half centimeter Y-shaped laceration over the lateral aspect of his left eyebrow, hemostatic. He has notable periorbital ecchymosis of that left eye with an abrasion over the left cheek. The bridge of the nose has a small skin tear that is hemostatic. Midface is stable, no epistaxis or septal hematoma Neck: Supple, no tenderness to palpation over the C-spine Lungs: No apparent respiratory distress, normal respiratory effort. CV: Appears well perfused Abdomen: Non-distended MSK: Moves 4 extremities without apparent limitation in ROM Skin: Visualized skin without rashes, cyanosis. Neuro: Normal Gait, no obvious focal deficits or facial asymmetry. Speaks in full, clear sentences. Psych: Appropriate for situation. Course Vital Signs Vital signs: Vital Signs Temperature 36.3 C L 04/02/25 09:10 Pulse 81 04/02/25 09:10 Blood Pressure 132/88 04/02/25 09:10 Pulse Oximetry 93 04/02/25 09:10 Temperature 36.3 C L 04/02/25 09:10 Pulse 81 04/02/25 09:10 Blood Pressure 132/88 04/02/25 09:10 Pulse Oximetry 93 04/02/25 09:10 Procedure Laceration Laceration 1: Date of Procedure: 04/02/25 Time of procedure: 10:00 Provider that performed the procedure: Celia Canada Standard Time Out Performed: No Patient Consented: Verbally Site: face Side (If applicable): left Description: linear Depth: simple, single layer Local anesthetic: Lidocaine 2% and with Epi Amount of anesthesia used (mL): 3 Pre-repair:: wound explored and deep structures intact Skin layer closed with: other (Prolene) Suture size: 5-0 Number of sutures:: 8 Technique: simple, interrupted Complications: None Medical Decision Making This is a 54-year-old male patient presenting for evaluation of an eye injury. Differential includes but is not limited to laceration, contusion, considered fracture specifically of the facial or orbital bones, no evidence for ocular muscle entrapment on my physical examination. The patient is not anticoagulated and I have a lower concern for intracranial hemorrhage and spine fracture based on the history and physical examination. I provided the patient with Tylenol for pain We did obtain a CT facial bones that shows no evidence of facial bone or orbital fractures. After thorough cleansing and local anesthesia, the laceration was repaired as noted above. Patient tolerated this procedure well and the wound was dressed with bacitracin and wound care and suture removal instructions were provided. At this time, the patient has had a full medical evaluation and is safe for discharge to home. They are hemodynamically stable, ambulatory, and tolerating PO. They are understanding of the follow-up plan and return precautions. They left our facility without incident. Celia Canada MD Medical Records Medical records reviewed: Yes I reviewed the patient's medical records. Quality:SDOH Health Related Social Needs: No Data to Display PFSH All Active Problems (Updated 04/02/25 @ 10:10 by Celia Canada MD) Traumatic periorbital ecchymosis of left eye (Acute) Laceration of eyebrow (Acute) Rectus diastasis (Acute) Ventral hernia (Acute) Medical History (Updated 04/02/25 @ 10:10 by Celia Canada MD) Health maintenance examination Actinic keratosis History of alcohol abuse Diabetes type 2, controlled Anxiety Peptic ulcer BCC (basal cell carcinoma of skin) EDGAR (obstructive sleep apnea) Lumbosacral spondylosis without myelopathy Lumbar spondylosis Acute URI Hx of head injury Diabetes Arthritis Low back pain Surgical History S/P shoulder surgery H/O hernia repair Cholecystectomy (05/03/18) Family History Mother Lung cancer Father Myocardial infarction Sister Diabetes Carpal tunnel syndrome Fibromyalgia Social History Smoking/Tobacco Use Status: Former Tobacco Use Smoking risk assessment performed?: Yes Alcohol Intake: never Drug use: Never Substance use type: does not use Household members: spouse Housing: house Number of Children: 4 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
[2025-04-02] MEDS: Lidocaine 2% Multi-Dose W/EPI 1/100,000 20 ML VIAL IJ (09:45)
[2025-04-02] MEDS: Acetaminophen 500 MG TAB 1000 MG PO (09:45)
== END 2025-04-02 10:18 | disposition home or self-care (01) ==
PROVIDERS: Emergency Provider Emergency Medicine; PCP Physician Assistant Medical
DX: S05.12XA Contusion of eyeball and orbital tissues, left eye, initial encounter (principal); S01.112A Laceration without foreign body of left eyelid and periocular area, initial encounter; X58.XXXA Exposure to other specified factors, initial encounter
CPT/HCPCS: 99283; 99284; 12011; 12001; 70486; J2004

== ENCOUNTER 2025-04-26 20:15 | Emergency (ER) | payer MEDICAID, SELFPAY ==
[2025-04-26] VITALS (17 sets, daily range): BP systolic 128–134; BP diastolic 73–84; PULSE 61–77; RESP 20; TEMP 36.5; O2SAT 96
--- NOTE | 2025-04-26 20:15 | RT.EKG_ITS ---
APPROVED REPORT Exam: Resting ECG Reason for Exam: chest pain Patient Location: E HR:67 bpm ECG Measurements Heart Rate 67 AXIS NC 148 P 57 QRSd 78 QRS 5 QT 377 T -32 QTc 398 Conclusion Sinus rhythm...normal P axis, V-rate 60- 99 Inferior infarct, age indeterminate...Q>35mS, T neg, II III aVF No Occlusion VA
--- NOTE | 2025-04-26 20:28 | ED.GENADUL_ITS ---
Discharge Plan Disposition Patient Disposition: Transfer-Acute Inpatient Care Specific Acute Inpt Facility: Other Discharge Details Clinical Impression: Anginal chest pain at rest Primary Care Provider: Hugo Baumann ED Provider: Juan Miguel Morales [place] Meds and New Rx's Prescriptions: No Action metformin [Glucophage] 500 mg tablet 1,000 mg PO BID omeprazole 20 mg capsule,delayed release(DR/EC) 20 mg PO DAILY Jardiance 10 mg Tablet 10 mg PO DAILY aspirin 325 mg Tablet 325 mg PO DAILY omega 9-amd-gpo-fish oil [Fish Oil] 1,000 mg (120 mg-180 mg) Capsule 1 cap PO BID (DME) blood sugar diagnostic Strip MISCELLANEOUS (DME) blood-glucose meter [Blood Glucose Monitoring] Kit MISCELLANEOUS epinephrine 0.3 mg/0.3 mL auto-injector 0.3 ml subcut ONCE Qty: 2 0RF Rx Instructions: as a single dose; may repeat once prednisone 20 mg tablet 40 mg PO ONCE Qty: 4 0RF Acetaminophen [Tylenol] 325 MG capsule 650 mg PO Q4H PRN PRNQty: 30 0RF Airsupra 90-80 mcg/actuation HFA aerosol inhaler 2 inh inhalation QID PRN umeclidinium-vilanterol [Anoro Ellipta] 62.5-25 mcg/actuation blister with device 1 inh inhalation DAILY atorvastatin 80 mg tablet 80 mg PO DAILY Breztri Aerosphere 160-9-4.8 mcg/actuation HFA aerosol inhaler 2 inh inhalation BID clopidogrel 75 mg tablet 75 mg PO DAILY Creon 24,000-76,000 -120,000 unit capsule,delayed release(DR/EC) 3 cap PO TID Rx Instructions: administer with meals and/or snacks diazepam 2 mg tablet 2 mg PO QHS PRN docusate sodium 100 mg capsule 100 mg PO BID duloxetine 60 mg capsule,delayed release(DR/EC) 60 mg PO DAILY escitalopram oxalate 20 mg tablet 20 mg PO DAILY fenofibrate nanocrystallized 48 mg tablet 48 mg PO DAILY ferrous gluconate 236 mg (27 mg iron) tablet 236 mg PO DAILY insulin aspart U-100 100 unit/mL solution 150 unit DAILY Rx Instructions: use 150 units daily to infuse in insulin pump lorazepam 1 mg tablet 1 mg PO BID PRN melatonin 5 mg capsule 5 mg PO QHS metoprolol succinate 50 mg tablet extended release 24 hr 50 mg PO BID nitroglycerin 0.4 mg tablet, sublingual 0.4 mg sublingual Q5-15M PRN Rx Instructions: do not exceed 3 doses per episode pantoprazole 40 mg tablet,delayed release (DR/EC) 40 mg PO DAILY sildenafil 25 mg tablet 25 mg PO DAILY PRN Rx Instructions: administer 30 minutes to 4 hours before activity albuterol 90 mcg/actuation aerosol 90 mcg inhalation Q4-5H PRN HPI General Date/Time Provider Initiated Documentation: 04/26/25 20:28 . HPI Narrative: MDM This is an overall well-appearing normothermic and nontachycardic 54-year-old male with concerning chest pressure reminiscent of prior episodes of ACS for which patient will undergo troponin testing and cardiology transferred given concerning story. Equal breath sounds and no trauma so doubt pneumothorax. No vomiting to suggest for esophageal rupture. No pain out of proportion to the infection. No fevers nor cough making my suspicion low for pneumonia. No rash to chest to suggest zoster. Patient is not hypotensive nor dialysis patient making my suspicion low for tamponade. No tearing quality to suggest increased risk for aortic dissection. I considered PE however the patient not hypotensive tachycardic with hypoxic and is not having any pleuritic quality of pain so did not send a D-dimer. Will provide aspirin and nitro. 04/27 Late charting due to patient care. Patient had improved symptoms in the emergency department aspirin. His ECG was nonischemic. I met with the patient and his . I was concerned about his symptoms and that they could represent angina. In the absence of NSTEMI and did not treat with heparin. I was in touch with [facility] in [facility] where patient had undergone CABG and stenting in the past. Patient was accepted by Dr. Ana Sequeira, ED --> ED. I signed transfer paperwork to have patient sent with a medic. [Diagnostic interpretations performed by me: Per my independent interpretation chest x-ray shows: No acute cardiopulomonary process Per my independent interpretation EKG shows: Narrow complex normal sinus rhythm. Normal axis. Intervals within normal limits. No acute injury pattern. HPI The patient presents for chest pain. He experienced an episode of chest pain while driving, which he describes as a stabbing sensation accompanied by pressure, similar to the symptoms he experienced during his previous heart attack. The pain, which lasted approximately 30 minutes, was localized to the chest and did not radiate. He reports no associated sweating, recent vomiting, falls, or chest trauma. He also reports no recent fevers or cough. His current pain level is reported as 5 out of 10. He has not yet taken aspirin and expresses reluctance to use nitrogl ycerin due to concerns about potential blood pressure effects. He has been compliant with his prescribed medication regimen. He underwent a quadruple bypass surgery on 01/11/2024 and had a stent placed in 07/2024 due to a failed bypass. Exam General: Well-appearing in no acute distress speaking in complete sentences. Head: Normocephalic, atraumatic. Eye: Extraocular eye movements intact. No conjunctival injection. No scleral icterus. Ear, nose, mouth, throat: Grossly normal inspection. Normal voice, handling secretions normally. Neck: Trachea midline. Cardiovascular: Well-perfused distal extremities. Regular rate and rhythm Respiratory: Nonlabored respiration. Clear lungs bilaterally. Gastrointestinal: Nondistended abdomen. Soft nontender. Musculoskeletal: No edema. Moving all 4 extremities spontaneously. Skin: Normal for age and race, grossly normal temperature and turgor. No acute rash. Neurologic: Alert and appropriate, no apparent acute deficits. Psychiatric: Mood and manner are appropriate. Grooming and personal hygiene are appropriate. Related Data Home Medications ?Medication ?Instructions ?Recorded ?Confirmed Acetaminophen [Tylenol] 650 mg PO Q4H PRN PRN #30 caps 05/04/18 04/26/25 metformin 500 mg tablet 1,000 mg PO BID 11/30/19 04/26/25 (Glucophage) omeprazole 20 mg capsule,delayed 20 mg PO DAILY 11/30/19 04/26/25 release aspirin 325 mg tablet 325 mg PO DAILY 04/01/20 04/26/25 empagliflozin 10 mg tablet 10 mg PO DAILY 04/01/20 04/26/25 (Jardiance) omega 6-lrj-ejd-fish oil 1,000 mg 1 cap PO BID 04/01/20 04/26/25 (120 mg-180 mg) capsule (Fish Oil) blood sugar diagnostic 04/04/20 04/26/25 blood-glucose meter (Blood Glucose 04/04/20 04/26/25 Monitoring kit) epinephrine 0.3 mg/0.3 mL 0.3 ml subcut ONCE #2 ea 05/03/24 04/26/25 injection, auto-injector prednisone 20 mg tablet 40 mg (2 x 20 mg) PO ONCE #4 tabs 05/03/24 04/26/25 albuterol 90 mcg-budesonide 80 2 inh inhalation QID PRN 04/02/25 04/26/25 mcg/actuation HFA aerosol inhaler (Airsupra) albuterol 90 mcg/actuation aerosol 90 mcg inhalation Q4-5H PRN 04/02/25 04/26/25 inhaler atorvastatin 80 mg tablet 80 mg PO DAILY 04/02/25 04/26/25 budesonide 160 mcg-glycopyr 9 2 inh inhalation BID 04/02/25 04/26/25 mcg-formot 4.8 mcg/actuation HFA inhaler (Breztri Aerosphere) clopidogrel 75 mg tablet 75 mg PO DAILY 04/02/25 04/26/25 diazepam 2 mg tablet 2 mg PO QHS PRN 04/02/25 04/26/25 docusate sodium 100 mg capsule 100 mg PO BID 04/02/25 04/26/25 duloxetine 60 mg capsule,delayed 60 mg PO DAILY 04/02/25 04/26/25 release escitalopram oxalate 20 mg tablet 20 mg PO DAILY 04/02/25 04/26/25 fenofibrate nanocrystallized 48 mg 48 mg PO DAILY 04/02/25 04/26/25 tablet ferrous gluconate 236 mg (27 mg 236 mg PO DAILY 04/02/25 04/26/25 iron) tablet insulin aspart U-100 100 unit/mL 150 unit DAILY 04/02/25 subcutaneous solution [id number]-dsbjgouo-jseujbp 3 cap PO TID 04/02/25 04/26/25 24,000-76,000-120,000 unit capsule,delayed rel (Creon) lorazepam 1 mg tablet 1 mg PO BID PRN 04/02/25 04/26/25 melatonin 5 mg capsule 5 mg PO QHS 04/02/25 04/26/25 metoprolol succinate 50 mg 50 mg PO BID 04/02/25 04/26/25 tablet,extended release 24 hr nitroglycerin 0.4 mg sublingual 0.4 mg sublingual Q5-15M PRN 04/02/25 04/26/25 tablet pantoprazole 40 mg tablet,delayed 40 mg PO DAILY 04/02/25 04/26/25 release sildenafil 25 mg tablet 25 mg PO DAILY PRN 04/02/25 04/26/25 umeclidinium 62.5 mcg-vilanterol 1 inh inhalation DAILY 04/02/25 04/26/25 25 mcg/actuation powdr for inhalation (Anoro Ellipta) Previous Rx's ?Medication ?Instructions ?Recorded Acetaminophen [Tylenol] 650 mg PO Q4H PRN PRN #30 caps 05/04/18 epinephrine 0.3 mg/0.3 mL 0.3 ml subcut ONCE #2 ea 05/03/24 injection, auto-injector prednisone 20 mg tablet 40 mg (2 x 20 mg) PO ONCE #4 tabs 05/03/24 Allergies Allergy/AdvReac Type Severity Reaction Status Date / Time Bee Sting Allergy Severe Anaphylaxis Uncoded 04/26/25 20:32 General CARLENE: 4 Medical Decision Making Quality:SDOH Health Related Social Needs: No Data to Display PFSH All Active Problems (Updated 04/26/25 @ 23:18 by Juan Miguel Morales MD) Anginal chest pain at rest (Acute) Traumatic periorbital ecchymosis of left eye (Acute) Laceration of eyebrow (Acute) Rectus diastasis (Acute) Ventral hernia (Acute) Medical History (Updated 04/26/25 @ 23:18 by Juan Miguel Morales MD) Health maintenance examination Actinic keratosis History of alcohol abuse Diabetes type 2, controlled Anxiety Peptic ulcer BCC (basal cell carcinoma of skin) EDGAR (obstructive sleep apnea) Lumbosacral spondylosis without myelopathy Lumbar spondylosis Acute URI Hx of head injury Diabetes Arthritis Low back pain Surgical History S/P shoulder surgery H/O hernia repair Cholecystectomy (05/03/18) Family History Mother Lung cancer Father Myocardial infarction Sister Diabetes Carpal tunnel syndrome Fibromyalgia Social History Smoking/Tobacco Use Status: Former Tobacco Use Smoking risk assessment performed?: Yes Alcohol Intake: never Drug use: Never Substance use type: does not use Household members: spouse Housing: house Number of Children: 4 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
[2025-04-26] MEDS: Aspirin 81 MG CHEW 324 MG CH (20:41)
[2025-04-26] MEDS: Aspirin 81 MG CHEW (20:45)
[2025-04-26] MEDS: Normal Saline 500 ML 1000 ML IV (20:55)
[2025-04-26 21:11] LABS: Abs Immature Grans 0.01 10^3/uL (0.0-0.06); Absolute Basophil Count 0.04 10^3/uL (0.0-0.2); Absolute Lymphocyte Count 2.46 10^3/uL (1.2-3.4); Absolute Monocyte Count 0.46 10^3/uL (0.1-0.8); Absolute Neutrophil Count 4.05 10^3/uL (1.2-6.7); Basophils % 0.6 %; Eosinophils % 2.8 %; HCT 45.6 % (40.0-50.0); HGB 15.5 g/dL (13.5-17.5); Immature Grans % 0.1 %; Lymphocytes % 34.1 %; MCH 30.5 pg (27.0-33.0); MCV 90 fL (80-95); MPV 9.2 fL (8.0-11.0); Monocytes % 6.4 %; Platelet Count 223 10^3/uL (130-400); RBC 5.09 10^6/uL (4.36-5.78); RDW 12.6 % (11.8-14.1); RDW-SD 41.7 fL; WBC 7.22 10^3/uL (4.4-10.8)
[2025-04-26 21:40] LABS: Magnesium 2.3 mg/dL (1.8-2.4); Troponin I 8 ng/L (<or=76)
[2025-04-26] MEDS: nitroGLYcerin 0.4 MG TAB SL (21:54)
--- NOTE | 2025-04-26 22:06 | DI.RAD_ITS ---
Exam(s) XR CHEST 2V PA LATERAL EXAM: XR CHEST 2V PA LATERAL CLINICAL HISTORY: Chest pain. TECHNIQUE: 2D digital imaging was performed. COMPARISON: No exams were available for comparison FINDINGS: 2 views: Sternotomy wires and plate noted. Heart size is normal. The mediastinum is not widened. There is some platelike atelectasis in both lung bases. No pleural effusions. No pulmonary edema. IMPRESSION: Platelike atelectasis in both lung bases.No confluent infiltrates evident. Sternotomy wires. Coronary artery stents. No pulmonary edema. Normal heart size. DATA REPOSITORY: RADIATION DOSE DELIVERED:
[2025-04-26 22:10] LABS: Troponin I 8 ng/L (<or=76)
[2025-04-26 22:40] LABS: PTT Activated 26.7 sec (20.6-30.2)
--- NOTE | 2025-04-26 23:05 | DI.VRAD_ITS ---
PROCEDURE INFORMATION: Exam: XR Chest Exam date and time: 04/26/2025 10:02 PM Age: 54 years old Clinical indication: Other: Chest pain TECHNIQUE: Imaging protocol: Radiologic exam of the chest. Views: 2 views. COMPARISON: CT chest PE CTA 01/27/2019 8:33 PM FINDINGS: Lungs: Unremarkable. No consolidation. Pleural spaces: Unremarkable. No pleural effusion. No pneumothorax. Heart/Mediastinum: Unremarkable. No cardiomegaly. Bones/joints: Previous median sternotomy. IMPRESSION: No acute findings. Dictated and Authenticated by: Swapnil Robb MD. Orderin Andrew Bullard MD
[2025-04-26 23:19] LABS: Anion Gap 6.8 mmol/L (3-11); BUN 12 mg/dL (7-18); CO2 28.2 mmol/L (21.0-32.0); CREATININE 1.3 mg/dL (0.70-1.30); Calcium 8.9 mg/dL (8.5-10.1); Chloride 104 mmol/L (98-107); Estimated GFR 64.47 (mL/min/1.73m2); Glucose 89 mg/dL (74-106); Potassium 3.6 mmol/L (3.5-5.1); Sodium 139 mmol/L (136-145)
[2025-04-27] VITALS (52 sets, daily range): BP systolic 128–146; BP diastolic 73–89; PULSE 56–86; RESP 16–18; TEMP 36.5; O2SAT 83–100
[2025-04-27] MEDS: Metoprolol 50 MG TAB PO (00:25)
--- NOTE | 2025-04-27 13:04 | NUR.NOTE ---
Nursing Note: this science writer going on transfer with [facility]. Pt being transferred to [facility] for angina with hx of quadruple bypass and stent placement. departure time from [facility] ED 0835. pt A&Ox4, GCS 15. no neurological deficits noted. arrived at transfer facility at 1045. pt VS remained stable and chest pressure remained unchanged during transport. VS documented on transfer sheet.
== END 2025-04-27 08:31 | disposition short-term general hospital (02) ==
PROVIDERS: Emergency Provider Emergency Medicine; PCP Physician Assistant Medical
DX: R07.9 Chest pain, unspecified (principal); R10.13 Epigastric pain; I25.10 Atherosclerotic heart disease of native coronary artery without angina pectoris; E11.9 Type 2 diabetes mellitus without complications; Z79.84 Long term (current) use of oral hypoglycemic drugs; Z79.02 Long term (current) use of antithrombotics/antiplatelets; Z95.5 Presence of coronary angioplasty implant and graft; Z95.1 Presence of aortocoronary bypass graft; Z87.891 Personal history of nicotine dependence
CPT/HCPCS: 80048; 93005; 96360; 99285; 71046; 83735; 84484; 85025; 85730; 93010

== ENCOUNTER 2025-07-02 09:57 | Emergency (ER) | payer MEDICAID, SELFPAY ==
[2025-07-02] VITALS (63 sets, daily range): BP systolic 98–155; BP diastolic 55–98; PULSE 55–89; RESP 10–24; TEMP 36.5; O2SAT 93–99
--- NOTE | 2025-07-02 09:45 | RT.EKG_ITS ---
APPROVED REPORT Exam: Resting ECG Reason for Exam: chest pain Patient Location: E HR:61 bpm ECG Measurements Heart Rate 61 AXIS IN 150 P 41 QRSd 77 QRS 11 QT 385 T 30 QTc 388 Conclusion Sinus rhythm...normal P axis, V-rate 60- 99 Probable left atrial enlargement...P >50mS, <-0.10mV V1
[2025-07-02 10:37] LABS: Abs Immature Grans 0.02 10^3/uL (0.0-0.06); HCT 42.8 % (40.0-50.0); HGB 14.2 g/dL (13.5-17.5); Immature Grans % 0.3 %; MCH 29.6 pg (27.0-33.0); MCHC 33.2 % (32.0-36.0); MCV 89 fL (80-95); MPV 9.4 fL (8.0-11.0); Platelet Count 217 10^3/uL (130-400); RBC 4.79 10^6/uL (4.36-5.78); RDW 12.3 % (11.8-14.1); RDW-SD 40.6 fL; WBC 6.77 10^3/uL (4.4-10.8)
[2025-07-02] MEDS: nitroGLYcerin 0.4 MG TAB SL (10:46)
[2025-07-02 10:51] LABS: PTT Activated 25.4 sec (20.6-30.2)
[2025-07-02 10:55] LABS: ALT 35 U/L (16-63); AST 19 U/L (15-37); Albumin 4.1 g/dL (3.4-5.0); Alkaline Phosphatase 81 U/L (46-116); Anion Gap 9.5 mmol/L (3-11); BUN 15 mg/dL (7-18); Bilirubin, Total 0.4 mg/dL (0.2-1.0); CO2 28.5 mmol/L (21.0-32.0); Calcium 9.2 mg/dL (8.5-10.1); Chloride 104 mmol/L (98-107); Estimated GFR 88.33 (mL/min/1.73m2); Glucose 124 mg/dL (74-106); Magnesium 2.0 mg/dL (1.8-2.4); Potassium 4.0 mmol/L (3.5-5.1); Sodium 142 mmol/L (136-145); Total Protein 7.4 g/dL (6.4-8.2); Troponin I 7 ng/L (<or=76)
[2025-07-02 12:16] LABS: Troponin I 8 ng/L (<or=76)
--- NOTE | 2025-07-02 12:42 | W.ED.GENAD ---
Discharge Plan Disposition Patient Disposition: Transfer-Acute Inpatient Care Specific Acute Inpt Facility: [facility] Discharge Details Clinical Impression: Chest pain, Coronary artery disease Primary Care Provider: Hugo Baumann ED Provider: Richard Montague Home Meds and New Rx's Prescriptions: No Action omeprazole 20 mg capsule,delayed release(DR/EC) 20 mg PO DAILY aspirin 325 mg Tablet 81 mg PO DAILY (DME) blood sugar diagnostic Strip MISCELLANEOUS (DME) blood-glucose meter [Blood Glucose Monitoring] Kit MISCELLANEOUS epinephrine 0.3 mg/0.3 mL auto-injector 0.3 ml subcut ONCE Qty: 2 0RF Rx Instructions: as a single dose; may repeat once Acetaminophen [Tylenol] 325 MG capsule 650 mg PO Q4H PRN PRNQty: 30 0RF Airsupra 90-80 mcg/actuation HFA aerosol inhaler 2 inh inhalation QID PRN umeclidinium-vilanterol [Anoro Ellipta] 62.5-25 mcg/actuation blister with device 1 inh inhalation DAILY atorvastatin 80 mg tablet 80 mg PO DAILY Breztri Aerosphere 160-9-4.8 mcg/actuation HFA aerosol inhaler 2 inh inhalation BID clopidogrel 75 mg tablet 75 mg PO DAILY Creon 24,000-76,000 -120,000 unit capsule,delayed release(DR/EC) 3 cap PO TID Rx Instructions: administer with meals and/or snacks docusate sodium 100 mg capsule 100 mg PO BID duloxetine 60 mg capsule,delayed release(DR/EC) 60 mg PO DAILY escitalopram oxalate 20 mg tablet 20 mg PO DAILY fenofibrate nanocrystallized 48 mg tablet 48 mg PO DAILY insulin aspart U-100 100 unit/mL solution 150 unit DAILY Rx Instructions: use 150 units daily to infuse in insulin pump melatonin 5 mg capsule 5 mg PO QHS metoprolol succinate 50 mg tablet extended release 24 hr 50 mg PO BID nitroglycerin 0.4 mg tablet, sublingual 0.4 mg sublingual Q5-15M PRN Rx Instructions: do not exceed 3 doses per episode pantoprazole 40 mg tablet,delayed release (DR/EC) 40 mg PO DAILY albuterol 90 mcg/actuation aerosol 90 mcg inhalation Q4-5H PRN HPI General Mode of arrival: ambulatory. Date/Time Provider Initiated Documentation: 07/02/25 10:08. Limitations to Documentation: no limitations. Information obtained by: patient. HPI Narrative: HISTORY OF PRESENT ILLNESS 53-year-old male with CAD post-CABG, diabetes, and EDGAR presenting with chest pain. Took two nitroglycerin tablets prior to arrival, which improved but did not resolve the pain. Last seen in 04/2025 for chest pain, leading to stent placement at [facility]. Managed well until one week ago when he started feeling unwell. On 06/29/2025, his isosorbide dosage was reduced due to leg swelling. Experienced chest and back pain again on 07/01/2025, worsening today. Took two nitroglycerin tablets today, somewhat alleviating the pain. Pain started around 0630 or 0700 hours this morning and was also present last night. Rates pain as 6/10 at worst and 3/10 currently. Pain located between chest and back, typical for him. No difficulty breathing or abdominal pain. Compliant with Plavix and baby aspirin regimen. Does not take nitroglycerin regularly. Past month or two, noticed lightheadedness when laughing hard, standing up quickly, or exerting himself. Experiencing constant pain in the back of his leg for the past couple of weeks. PAST SURGICAL HISTORY: CABG Stent placement in 04/2025 Related Data Home Medications ?Medication ?Instructions ?Recorded ?Confirmed Acetaminophen [Tylenol] 650 mg PO Q4H PRN PRN #30 caps 05/04/18 07/02/25 omeprazole 20 mg capsule,delayed 20 mg PO DAILY 11/30/19 07/02/25 release aspirin 325 mg tablet 81 mg PO DAILY 04/01/20 07/02/25 blood sugar diagnostic 04/04/20 07/02/25 blood-glucose meter (Blood Glucose 04/04/20 07/02/25 Monitoring kit) epinephrine 0.3 mg/0.3 mL 0.3 ml subcut ONCE #2 ea 05/03/24 07/02/25 injection, auto-injector albuterol 90 mcg-budesonide 80 2 inh inhalation QID PRN 04/02/25 07/02/25 mcg/actuation HFA aerosol inhaler (Airsupra) albuterol 90 mcg/actuation aerosol 90 mcg inhalation Q4-5H PRN 04/02/25 07/02/25 inhaler atorvastatin 80 mg tablet 80 mg PO DAILY 04/02/25 07/02/25 budesonide 160 mcg-glycopyr 9 2 inh inhalation BID 04/02/25 07/02/25 mcg-formot 4.8 mcg/actuation HFA inhaler (Breztri Aerosphere) clopidogrel 75 mg tablet 75 mg PO DAILY 04/02/25 07/02/25 docusate sodium 100 mg capsule 100 mg PO BID 04/02/25 07/02/25 duloxetine 60 mg capsule,delayed 60 mg PO DAILY 04/02/25 07/02/25 release escitalopram oxalate 20 mg tablet 20 mg PO DAILY 04/02/25 07/02/25 fenofibrate nanocrystallized 48 mg 48 mg PO DAILY 04/02/25 07/02/25 tablet insulin aspart U-100 100 unit/mL 150 unit DAILY dm 04/02/25 subcutaneous solution [id number] 3 cap PO TID 04/02/25 07/02/25 24,000-76,000-120,000 unit capsule,delayed rel (Creon) melatonin 5 mg capsule 5 mg PO QHS 04/02/25 07/02/25 metoprolol succinate 50 mg 50 mg PO BID 04/02/25 07/02/25 tablet,extended release 24 hr nitroglycerin 0.4 mg sublingual 0.4 mg sublingual Q5-15M PRN 04/02/25 07/02/25 tablet pantoprazole 40 mg tablet,delayed 40 mg PO DAILY 04/02/25 07/02/25 release umeclidinium 62.5 mcg-vilanterol 1 inh inhalation DAILY 04/02/25 07/02/25 25 mcg/actuation powdr for inhalation (Anoro Ellipta) Previous Rx's ?Medication ?Instructions ?Recorded Acetaminophen [Tylenol] 650 mg PO Q4H PRN PRN #30 caps 05/04/18 epinephrine 0.3 mg/0.3 mL 0.3 ml subcut ONCE #2 ea 05/03/24 injection, auto-injector Allergies Allergy/AdvReac Type Severity Reaction Status Date / Time Bee Sting Allergy Severe Anaphylaxis Uncoded 07/02/25 10:07 General Stated Complaint: Chest Pain CARLENE: 3 Review of Systems All systems reviewed & are unremarkable except as noted in HPI and below Constitutional Constitutional: Denies fever(s) Exam Const General: cooperative and no acute distress HENMT Mouth: moist mucous membranes Eyes Conjunctivae: normal conjunctivae Sclera: normal sclerae Neck Neck: trachea midline and supple Resp Auscultation: clear to auscultation bilaterally, no rales, no rhonchi and no wheezes Cardio Rate: regular rate and not tachycardic Rhythm: regular rhythm GI Palpation: soft, not firm, no guarding, no masses, not rigid and nontender Skin General skin exam: no rashes or lesions noted Neuro General: patient alert, patient awake and tone normal Extrem General: no calf tenderness and no edema Course Vital Signs Vital signs: Vital Signs Temperature 36.5 C 07/02/25 10:03 Pulse 68 07/02/25 10:03 Respiratory Rate 18 07/02/25 10:03 Blood Pressure 121/76 07/02/25 10:03 Pulse Oximetry 94 07/02/25 10:03 Temperature 36.5 C 07/02/25 10:03 Temperature Source Oral 07/02/25 10:03 Pulse 61 07/02/25 11:51 Pulse 62 07/02/25 11:51 Respiratory Rate 19 07/02/25 11:51 Respiratory Effort Normal 07/02/25 10:26 Respiratory Depth Normal 07/02/25 10:26 Respiratory Pattern Normal 07/02/25 10:26 Blood Pressure 102/56 L 07/02/25 11:50 Blood Pressure Mean 66 07/02/25 11:50 Blood Pressure Position Sitting 07/02/25 10:03 Pulse Oximetry 97 07/02/25 11:51 Oxygen Delivery Method Room Air 07/02/25 10:03 Oxygen Flow Rate 0 07/02/25 10:03 Lab/Test Results Lab/Test Results: Laboratory Tests Range/Units 07/02/25 07/02/25 10:24 11:48 WBC (4.4-10.8) 10^3/uL 6.77 RBC (4.36-5.78) 10^6/uL 4.79 Hgb (13.5-17.5) g/dL 14.2 Hct (40.0-50.0) % 42.8 MCV (80-95) fL 89 MCH (27.0-33.0) pg 29.6 MCHC (32.0-36.0) % 33.2 RDW (11.8-14.1) % 12.3 Plt Count (130-400) 10^3/uL 217 MPV (8.0-11.0) fL 9.4 Immature Gran % % 0.3 Neutrophils % % 56.0 Lymphocytes % % 31.8 Monocytes % % 8.0 Eosinophils % % 3.2 Basophils % % 0.7 Nucleated RBC % (0.0-0.3) % 0.0 Absolute Neutrophils (1.2-6.7) 10^3/uL 3.79 Absolute Lymphocytes (1.2-3.4) 10^3/uL 2.15 Absolute Monocytes (0.1-0.8) 10^3/uL 0.54 Absolute Eosinophils (0.0-0.7) 10^3/uL 0.22 Absolute Basophils (0.0-0.2) 10^3/uL 0.05 APTT (20.6-30.2) sec 25.4 Sodium (136-145) mmol/L 142 Potassium (3.5-5.1) mmol/L 4.0 Chloride (98-107) mmol/L 104 Carbon Dioxide (21.0-32.0) mmol/L 28.5 Anion Gap (3-11) mmol/L 9.5 BUN (7-18) mg/dL 15 Creatinine (0.70-1.30) mg/dL 1.0 Est GFR (CKD-EPI 2020) (mL/min/1.73m2) 88.33 Glucose (74-106) mg/dL 124 H Calcium (8.5-10.1) mg/dL 9.2 Magnesium (1.8-2.4) mg/dL 2.0 Total Bilirubin (0.2-1.0) mg/dL 0.4 AST (15-37) U/L 19 ALT (16-63) U/L 35 Alkaline Phosphatase (46-116) U/L 81 Troponin I (<or=76) ng/L 7 8 Total Protein (6.4-8.2) g/dL 7.4 Albumin (3.4-5.0) g/dL 4.1 Medical Decision Making ASSESSMENT AND PLAN Initial Assessment: 53-year-old male with CAD post-CABG, recent stent in April, diabetes, and EDGAR, presenting with chest pain. Differential Diagnosis: - Angina: History of CAD; pain improved with nitroglycerin; EKG normal; blood work pending; review discharge summary; contact cardiology. - ACS: History of stent placement; blood work pending; review discharge summary; contact cardiology. ED Course: EKG nondiagnostic. Blood work ordered. Patient took Plavix and aspirin prior to arrival. Patient was given 1 sublingual nitroglycerin here in the Emergency Department and pain resolved. Chest x-ray reviewed interpreted by radiology: No acute pulmonary findings. Mediastinum normal. Final Assessment: Chest pain started after waking up, rated 6/10 at worst, currently 3/10, improved with nitroglycerin. EKG normal. Troponin x 3 negative. Spoke with cardiology at [facility] and recommend stress test and will except patient in transfer. Clinical Impression: - Angina - Lightheadedness Disposition: Transfer to [facility], accepting Dr. Quevedo in the emergency department after discussion with Dr. Bolton Follow-Up: Contact cardiology; review discharge summary. Patient Education: Advised to inform immediately if condition changes or pain intensifies. This document was written with the assistance of ALINA Lang. The patient consented to its use. Lab Data Lab results reviewed: Yes I reviewed the patient's lab results. Labs: Laboratory Tests Range/Units 07/02/25 07/02/25 07/02/25 10:24 11:48 13:15 WBC (4.4-10.8) 10^3/uL 6.77 RBC (4.36-5.78) 10^6/uL 4.79 Hgb (13.5-17.5) g/dL 14.2 Hct (40.0-50.0) % 42.8 MCV (80-95) fL 89 MCH (27.0-33.0) pg 29.6 MCHC (32.0-36.0) % 33.2 RDW (11.8-14.1) % 12.3 Plt Count (130-400) 10^3/uL 217 MPV (8.0-11.0) fL 9.4 Immature Gran % % 0.3 Neutrophils % % 56.0 Lymphocytes % % 31.8 Monocytes % % 8.0 Eosinophils % % 3.2 Basophils % % 0.7 Nucleated RBC % (0.0-0.3) % 0.0 Absolute Neutrophils (1.2-6.7) 10^3/uL 3.79 Absolute Lymphocytes (1.2-3.4) 10^3/uL 2.15 Absolute Monocytes (0.1-0.8) 10^3/uL 0.54 Absolute Eosinophils (0.0-0.7) 10^3/uL 0.22 Absolute Basophils (0.0-0.2) 10^3/uL 0.05 APTT (20.6-30.2) sec 25.4 Sodium (136-145) mmol/L 142 Potassium (3.5-5.1) mmol/L 4.0 Chloride (98-107) mmol/L 104 Carbon Dioxide (21.0-32.0) mmol/L 28.5 Anion Gap (3-11) mmol/L 9.5 BUN (7-18) mg/dL 15 Creatinine (0.70-1.30) mg/dL 1.0 Est GFR (CKD-EPI 2020) (mL/min/1.73m2) 88.33 Glucose (74-106) mg/dL 124 H Calcium (8.5-10.1) mg/dL 9.2 Magnesium (1.8-2.4) mg/dL 2.0 Total Bilirubin (0.2-1.0) mg/dL 0.4 AST (15-37) U/L 19 ALT (16-63) U/L 35 Alkaline Phosphatase (46-116) U/L 81 Troponin I (<or=76) ng/L 7 8 8 Total Protein (6.4-8.2) g/dL 7.4 Albumin (3.4-5.0) g/dL 4.1 PFSH All Active Problems (Updated 07/02/25 @ 16:07 by Richard Montague MD) Coronary artery disease (Chronic) Chest pain (Acute) Rectus diastasis (Acute) Ventral hernia (Acute) Medical History Health maintenance examination Actinic keratosis History of alcohol abuse Diabetes type 2, controlled Anxiety Peptic ulcer BCC (basal cell carcinoma of skin) EDGAR (obstructive sleep apnea) Lumbosacral spondylosis without myelopathy Lumbar spondylosis Acute URI Hx of head injury Diabetes Arthritis Low back pain Surgical History S/P shoulder surgery H/O hernia repair Cholecystectomy (05/03/18) Family History Mother Lung cancer Father Myocardial infarction Sister Diabetes Carpal tunnel syndrome Fibromyalgia Social History Smoking/Tobacco Use Status: Former Tobacco Use Smoking risk assessment performed?: Yes Alcohol Intake: never Drug use: Never Substance use type: does not use Household members: spouse Housing: house Number of Children: 4 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
[2025-07-02 13:41] LABS: Troponin I 8 ng/L (<or=76)
--- NOTE | 2025-07-02 14:30 | DI.RAD_ITS ---
Exam(s) XR CHEST 2V PA LATERAL EXAM: XR CHEST 2V PA LATERAL CLINICAL HISTORY: chest pain TECHNIQUE: 2D digital imaging was performed of the chest. Two images were obtained. PA and lateral views were obtained. COMPARISON: CR,XR XR CHEST 2V PA LATERAL from 04/26/2025 FINDINGS: MEDIASTINUM: Normal. HEART: Normal. Status post CABG. PULMONARY VASCULATURE: Normal. LUNGS: There is plate atelectasis seen in the left lower lobe. PLEURAL SPACE: No pleural effusion or pneumothorax. BONE:Within normal limits for the patient's age. Sternal wires are in place. OTHER FINDINGS:Normal. IMPRESSION: No acute pulmonary findings. DATA REPOSITORY: RADIATION DOSE DELIVERED:
--- NOTE | 2025-07-02 15:30 | RT.EKG_ITS ---
APPROVED REPORT Exam: Resting ECG Reason for Exam: chest pain Patient Location: E HR:71 bpm ECG Measurements Heart Rate 71 AXIS NM 151 P 54 QRSd 79 QRS 5 QT 390 T 35 QTc 424 Conclusion Sinus rhythm...normal P axis, V-rate 60- 99
[2025-07-02] MEDS: Lactated Ringers 1,000 ML 125 ML IV (16:24)
== END 2025-07-02 17:06 | disposition short-term general hospital (02) ==
PROVIDERS: Emergency Provider Student in an Organized Health Care Education/Training Program; PCP Physician Assistant Medical
DX: R07.9 Chest pain, unspecified (principal); I25.10 Atherosclerotic heart disease of native coronary artery without angina pectoris
CPT/HCPCS: 36415; 80053; 93005; 96360; 99285; 71046; 83735; 84484; 85025; 85730; 93010

== ENCOUNTER 2025-08-11 09:33 | Emergency (ER) | payer MEDICAID, SELFPAY ==
[2025-08-11] VITALS (45 sets, daily range): BP systolic 107–147; BP diastolic 50–89; PULSE 63–85; RESP 13–26; TEMP 36.4; O2SAT 90–100
--- NOTE | 2025-08-11 09:30 | RT.EKG_ITS ---
APPROVED REPORT Exam: Resting ECG Reason for Exam: Chest pain Patient Location: E HR:68 bpm ECG Measurements Heart Rate 68 AXIS DC 151 P 45 QRSd 80 QRS -2 QT 392 T 15 QTc 416 Conclusion Sinus, no stemi I have reviewed and interpreted ECG and agree with software generated interpretation.
--- NOTE | 2025-08-11 09:56 | W.ED.GENAD ---
Discharge Plan Disposition Patient Disposition: Home Condition: Stable Discharge Details Clinical Impression: Chest pain Primary Care Provider: Hugo Baumann ED Provider: Rashmi Pisano Home Meds and New Rx's Prescriptions: Continued aspirin 325 mg Tablet 81 mg PO DAILY (DME) blood sugar diagnostic Strip MISCELLANEOUS (DME) blood-glucose meter [Blood Glucose Monitoring] Kit MISCELLANEOUS epinephrine 0.3 mg/0.3 mL auto-injector 0.3 ml subcut ONCE Qty: 2 0RF Rx Instructions: as a single dose; may repeat once diltiazem HCl [Cardizem] 30 mg tablet 30 mg PO ONCE Acetaminophen [Tylenol] 325 MG capsule 650 mg PO Q4H PRN PRNQty: 30 0RF Airsupra 90-80 mcg/actuation HFA aerosol inhaler 2 inh inhalation QID PRN umeclidinium-vilanterol [Anoro Ellipta] 62.5-25 mcg/actuation blister with device 1 inh inhalation DAILY atorvastatin 80 mg tablet 80 mg PO DAILY Breztri Aerosphere 160-9-4.8 mcg/actuation HFA aerosol inhaler 2 inh inhalation BID clopidogrel 75 mg tablet 75 mg PO DAILY Creon 24,000-76,000 -120,000 unit capsule,delayed release(DR/EC) 3 cap PO TID Rx Instructions: administer with meals and/or snacks docusate sodium 100 mg capsule 100 mg PO BID duloxetine 60 mg capsule,delayed release(DR/EC) 60 mg PO DAILY escitalopram oxalate 20 mg tablet 20 mg PO DAILY fenofibrate nanocrystallized 48 mg tablet 48 mg PO DAILY insulin aspart U-100 100 unit/mL solution 150 unit DAILY Rx Instructions: use 150 units daily to infuse in insulin pump melatonin 5 mg capsule 5 mg PO QHS nitroglycerin 0.4 mg tablet, sublingual 0.4 mg sublingual Q5-15M PRN Rx Instructions: do not exceed 3 doses per episode pantoprazole 40 mg tablet,delayed release (DR/EC) 40 mg PO DAILY albuterol 90 mcg/actuation aerosol 90 mcg inhalation Q4-5H PRN Discharge Instructions Instructions: Troponin Test, Medicines for angina (chest pain), Chest Pain, Adult ED Additional Instructions: At this time your cardiac workup is within normal limits, CT chest abdomen pelvis was performed which shows no pulmonary embolism or clot in your lungs, no fluid around your heart. no evidence of pneumonia. Labs are within normal limits. I was able to speak with cardiology at [facility] regarding your case and presentation. They do report that you did have a normal echocardiogram and stress test in April. They recommend that you follow-up with your primary care provider closely continue taking the diltiazem as previously prescribed. They also states that this could be a small vasospasm. This seems reasonable at this time. Please call your primary care provider to schedule a urgent follow-up to discuss further care if needed including a repeat echocardiogram or stress test. Follow up with primary care provider in 3-5 days. Thank you for allowing us to care for you today. Stand Alone Forms: Work Release Referrals: Hugo Baumann PA [Primary Care Provider, Medicine] - 5 days Referral Note: Urgent ER follow-up, call for an appointment Clinical Impression: Chest pain HPI General Mode of arrival: ambulatory. Date/Time Provider Initiated Documentation: 08/11/25 09:35. Limitations to Documentation: no limitations. Information obtained by: patient, RN notes reviewed and old records reviewed. HPI Narrative: 54-year-old male presents to the ER with a chief complaint of chest pain, palpitation and shortness of breath which radiates into his back bilateral shoulders which began yesterday midmorning. He reports that he took 3 sublingual nitro every 5 minutes which calmed his pain down but did not take it away. He was able to sleep last night. Presents to the ER this morning with continued 6 out of 10 chest pain. He did take his daily medications this morning including 81 mg aspirin and clopidogrel, 30 mg diltiazem. He reports that at home yesterday his heart rate was up to 115 and decreased to 90 after the 3 nitroglycerin. He is also complaining of a headache. He is a former smoker, denies any drugs or alcohol denies any nausea vomiting diarrhea or significant diaphoresis. Past medical history includes obstructive sleep apnea, insulin-dependent diabetes type 2, anxiety peptic ulcer, CABG 2 years ago, history of alcohol abuse, cholecystectomy hernia repair Related Data Home Medications ?Medication ?Instructions ?Recorded ?Confirmed Acetaminophen [Tylenol] 650 mg PO Q4H PRN PRN #30 caps 05/04/18 08/11/25 aspirin 325 mg tablet 81 mg PO DAILY 04/01/20 08/11/25 blood sugar diagnostic 04/04/20 08/11/25 blood-glucose meter (Blood Glucose 04/04/20 08/11/25 Monitoring kit) epinephrine 0.3 mg/0.3 mL 0.3 ml subcut ONCE #2 ea 05/03/24 08/11/25 injection, auto-injector albuterol 90 mcg-budesonide 80 2 inh inhalation QID PRN 04/02/25 08/11/25 mcg/actuation HFA aerosol inhaler (Airsupra) albuterol 90 mcg/actuation aerosol 90 mcg inhalation Q4-5H PRN 04/02/25 08/11/25 inhaler atorvastatin 80 mg tablet 80 mg PO DAILY 04/02/25 08/11/25 budesonide 160 mcg-glycopyr 9 2 inh inhalation BID 04/02/25 08/11/25 mcg-formot 4.8 mcg/actuation HFA inhaler (Breztri Aerosphere) clopidogrel 75 mg tablet 75 mg PO DAILY 04/02/25 08/11/25 docusate sodium 100 mg capsule 100 mg PO BID 04/02/25 08/11/25 duloxetine 60 mg capsule,delayed 60 mg PO DAILY 04/02/25 08/11/25 release escitalopram oxalate 20 mg tablet 20 mg PO DAILY 04/02/25 08/11/25 fenofibrate nanocrystallized 48 mg 48 mg PO DAILY 04/02/25 08/11/25 tablet insulin aspart U-100 100 unit/mL 150 unit DAILY dm 04/02/25 subcutaneous solution [id number] 3 cap PO TID 04/02/25 08/11/25 24,000-76,000-120,000 unit capsule,delayed rel (Creon) melatonin 5 mg capsule 5 mg PO QHS 04/02/25 08/11/25 nitroglycerin 0.4 mg sublingual 0.4 mg sublingual Q5-15M PRN 04/02/25 08/11/25 tablet pantoprazole 40 mg tablet,delayed 40 mg PO DAILY 04/02/25 08/11/25 release umeclidinium 62.5 mcg-vilanterol 1 inh inhalation DAILY 04/02/25 08/11/25 25 mcg/actuation powdr for inhalation (Anoro Ellipta) diltiazem HCl 30 mg tablet 30 mg PO ONCE 08/11/25 08/11/25 (Cardizem) Previous Rx's ?Medication ?Instructions ?Recorded Acetaminophen [Tylenol] 650 mg PO Q4H PRN PRN #30 caps 05/04/18 epinephrine 0.3 mg/0.3 mL 0.3 ml subcut ONCE #2 ea 05/03/24 injection, auto-injector Allergies Allergy/AdvReac Type Severity Reaction Status Date / Time Bee Sting Allergy Severe Anaphylaxis Uncoded 08/11/25 09:42 General Stated Complaint: Chest Pain CARLENE: 2 Review of Systems All systems reviewed & are unremarkable except as noted in HPI and below Cardiovascular Cardiovascular: Reports chest pain, Reports chest pain at rest, Denies pedal edema, Denies edema, Reports radiating jaw, neck or arm pain, Reports palpitations and Reports dyspnea Respiratory Respiratory: Denies chest congestion, Denies cough, Denies hemoptysis and Reports dyspnea Gastrointestinal Gastrointestinal: Denies abdominal pain, Denies diarrhea, Denies nausea and Denies vomiting Endocrine Endocrine: Reports palpitations Exam Narrative Exam Narrative: Constitutional: Alert and oriented x3. Appears stated age. Obese body habitus. Head: Normocephalic, no trauma. Eyes: Pupils PERRL, Red reflex noted, EOM's intact. Eyelids symmetrical without lesions, discharge, or swelling. ENT: Bilateral TM's WNL, External ear normal to inspection, no mastoid TTP, swelling, or erythema, Nasal turbinates WNL, no nasal discharge. Normal dentition, Posterior pharynx WNL, no exudate. Chest: RRR, Normal S1, S2, distal pulses intact. Resp: Lungs clear to auscultation bilaterally, no wheezes, rales, or rhonchi. Abdomen: Soft, non-distended, Normoactive bowel sounds all 4 quads. Musculoskeletal: Normal gait, Moves all 4 extremities without difficulty. Skin: Does appear flushed to the face, no suspicious rashes or lesions. Capillary refill less than 2 sec. Neurologic: Cranial nerves II-XII intact. Alert and oriented x 3. Motor: No deficits noted. Sensory: Intact bilaterally all 4 extremities. Hematologic/Lymphatic: No ecchymosis, no lymphadenopathy. Course Vital Signs Vital signs: Vital Signs Temperature 36.4 C 08/11/25 09:38 Pulse 71 08/11/25 09:38 Respiratory Rate 20 08/11/25 09:38 Blood Pressure 111/61 08/11/25 09:38 Pulse Oximetry 97 08/11/25 09:38 Temperature 36.4 C 08/11/25 09:38 Temperature Source Temporal Artery Scan 08/11/25 09:38 Pulse 71 08/11/25 09:38 Respiratory Rate 20 08/11/25 09:38 Blood Pressure 111/61 08/11/25 09:38 Blood Pressure Position Sitting 08/11/25 09:38 Pulse Oximetry 97 08/11/25 09:38 Oxygen Delivery Method Room Air 08/11/25 09:38 Oxygen Flow Rate 0 08/11/25 09:38 Pain Level 6 08/11/25 09:38 Medical Decision Making 54-year-old male presents to the ER with a chief complaint of chest pain, palpitation and shortness of breath which radiates into his back bilateral shoulders which began yesterday midmorning. He reports that he took 3 sublingual nitro every 5 minutes which calmed his pain down but did not take it away. He was able to sleep last night. Presents to the ER this morning with continued 6 out of 10 chest pain. He did take his daily medications this morning including 81 mg aspirin and clopidogrel, 30 mg diltiazem. He reports that at home yesterday his heart rate was up to 115 and decreased to 90 after the 3 nitroglycerin. He is also complaining of a headache. He is a former smoker, denies any drugs or alcohol denies any nausea vomiting diarrhea or significant diaphoresis. Past medical history includes obstructive sleep apnea, insulin-dependent diabetes type 2, anxiety peptic ulcer, CABG 2 years ago, with revision of stent 6 months thereafter per report, history of alcohol abuse, cholecystectomy hernia repair. Cardiac workup ordered including serial troponins, PT PTT, proBNP due to the shortness of breath, lipase CT chest abdomen pelvis rule out PE. EKG was reviewed by Dr. Aguilar and myself, old EKG available for review, no ST elevation or ischemic changes, no STEMI please see official report. Differential diagnosis includes not limited to NSTEMI, CAD, PE, CHF exacerbation, anxiety, AAA, angina Initial troponin 8, 1 hour troponin also flat at 8, CBC shows no leukocytosis hemoglobin 13.1 hematocrit 38.3 sodium 140 potassium 3.7, PT 10.2 INR 1.0, BUN 16 creatinine 1.1, glucose 160, proBNP is pending at this time. Lipase 46. 1124: On reeval patient states his pain is down to a 3 out of 10 after the morphine 2 mg, family is at bedside, vital signs stable. Pending CT results. 1248: Patient resting in bed, breathing eupneic, is requesting Coffee, awaiting CT results and 3 hr trop. 1303: Will consult with cardiology at [facility] at patients request, for recommendations. Patient states his CP has mostly resolved. He has remained Hemodynamically stable throughout stay. 3 hr troponin flat at a level of 8, at this time workup is reassuring I do feel that patient could be discharged home safely. Will touch base with cardiology team. 1345: Spoke with Cardiology at [facility], who reports that in April patient had a normal echocardiogram and stress test, he reports that this could be a vaso-spasm versus GI etiology. will refer patient to his PCP for close follow up. This text was generated using [employer] dictation system, please disregard any oddities of phrase or misspellings. Medical Records Medical records reviewed: Yes I reviewed the patient's medical records. Imaging Data Radiologic Study: Imaging: CT Scan Radiologist's impression: CHEST: Tracheobronchial tree: Patent where visualized. No evidence of bronchiectasis. Pulmonary parenchyma: No consolidation or dominant measurable mass. There is atelectasis in the lung bases. Pulmonary Arteries: No evidence of filling defect to suggest pulmonary emboli. Mediastinum and Viridiana: No dominant adenopathy or fluid collection. The esophagus is unremarkable. Visualized thyroid gland: Unremarkable. Pleura: No effusion or pneumothorax. Heart: The heart is not dilated. Coronary artery calcifications are present. No pericardial effusion. Aorta: Thoracic aorta non-dilated. No evidence of dissection. Atherosclerotic calcification is present. Bones: Within normal limits for the patient's age. Sternal wires are in place. Soft tissues: Unremarkable. ABDOMEN: Liver: Normal density. No measurable mass. Portal, Superior Mesenteric, and Splenic Veins: Unremarkable. Gallbladder and Biliary Tract: Status post cholecystectomy. There is no biliary ductal dilatation. Pancreas: Normal density, no abnormal calcifications or inflammatory process. Spleen: Normal. Adrenals: No masses seen. Kidneys: Normal size, contour and axis. No radiodense stones or obstructive uropathy. No masses seen. Abdominal Aorta: Abdominal portion non-dilated. Atherosclerotic calcification is present. Bowel: No obstruction or bowel wall thickening. Appendix is unremarkable. The stomach is incompletely distended limiting evaluation. Peritoneal Cavity: No ascites, collection or mesenteric inflammatory response. No free air. Lymph Nodes: Within normal limits. Bones: Within normal limits for the patient's age. Soft Tissues: There is a fat containing left inguinal hernia. There is a small fat containing right inguinal hernia. PELVIS: Bladder: Symmetric distention, no gross wall thickening. Reproductive Organs: Unremarkable as visualized. Lymph Nodes: Within normal limits. Bones: Within normal limits. IMPRESSION: 1. There is no acute abdominal or pelvic process. 2. There is no evidence of a pulmonary embolism or thoracic aortic dissection. 3. Atelectasis is seen in the lung bases. There are no focal consolidating infiltrates. Lab Data Lab results reviewed: Yes I reviewed the patient's lab results. Labs: Laboratory Tests Range/Units 08/11/25 08/11/25 09:50 10:35 WBC (4.4-10.8) 10^3/uL 5.98 RBC (4.36-5.78) 10^6/uL 4.32 L Hgb (13.5-17.5) g/dL 13.1 L Hct (40.0-50.0) % 38.3 L MCV (80-95) fL 89 MCH (27.0-33.0) pg 30.3 MCHC (32.0-36.0) % 34.2 RDW (11.8-14.1) % 12.7 Plt Count (130-400) 10^3/uL 201 MPV (8.0-11.0) fL 9.1 Immature Gran % % 0.3 Neutrophils % % 56.3 Lymphocytes % % 32.4 Monocytes % % 7.7 Eosinophils % % 2.8 Basophils % % 0.5 Nucleated RBC % (0.0-0.3) % 0.0 Absolute Neutrophils (1.2-6.7) 10^3/uL 3.36 Absolute Lymphocytes (1.2-3.4) 10^3/uL 1.94 Absolute Monocytes (0.1-0.8) 10^3/uL 0.46 Absolute Eosinophils (0.0-0.7) 10^3/uL 0.17 Absolute Basophils (0.0-0.2) 10^3/uL 0.03 PT (9.1-11.1) sec 10.2 INR (0.9-1.1) 1.0 APTT (20.6-30.2) sec 25.2 Sodium (136-145) mmol/L 140 Potassium (3.5-5.1) mmol/L 3.7 Chloride (98-107) mmol/L 104 Carbon Dioxide (21.0-32.0) mmol/L 28.2 Anion Gap (3-11) mmol/L 7.8 BUN (7-18) mg/dL 16 Creatinine (0.70-1.30) mg/dL 1.1 Est GFR (CKD-EPI 2020) (mL/min/1.73m2) 78.79 Glucose (74-106) mg/dL 160 H Calcium (8.5-10.1) mg/dL 9.5 Magnesium (1.8-2.4) mg/dL 1.9 Total Bilirubin (0.2-1.0) mg/dL 0.5 AST (15-37) U/L 20 ALT (16-63) U/L 33 Alkaline Phosphatase (46-116) U/L 85 Troponin I (<or=76) ng/L 8 8 NT-Pro-B Natriuret Pep (<300) pg/mL 52 Total Protein (6.4-8.2) g/dL 7.6 Albumin (3.4-5.0) g/dL 4.1 Lipase (<78) U/L 46 ECG Data Prior ECG tracings: available for review Core Measures Measure exclusions: not indicated PFSH All Active Problems (Updated 08/11/25 @ 13:20 by Rashmi Pisano NP) Chest pain (Acute) Rectus diastasis (Acute) Ventral hernia (Acute) Medical History Health maintenance examination Actinic keratosis History of alcohol abuse Diabetes type 2, controlled Anxiety Peptic ulcer BCC (basal cell carcinoma of skin) EDGAR (obstructive sleep apnea) Lumbosacral spondylosis without myelopathy Lumbar spondylosis Acute URI Hx of head injury Diabetes Arthritis Low back pain Surgical History S/P shoulder surgery H/O hernia repair Cholecystectomy (05/03/18) Family History Mother Lung cancer Father Myocardial infarction Sister Diabetes Carpal tunnel syndrome Fibromyalgia Social History Smoking/Tobacco Use Status: Former Tobacco Use Smoking risk assessment performed?: Yes Alcohol Intake: never Drug use: Never Substance use type: does not use Household members: spouse Housing: house Number of Children: 4 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
[2025-08-11 09:59] LABS: Abs Immature Grans 0.02 10^3/uL (0.0-0.06); HCT 38.3 % (40.0-50.0); HGB 13.1 g/dL (13.5-17.5); Immature Grans % 0.3 %; MCH 30.3 pg (27.0-33.0); MCHC 34.2 % (32.0-36.0); MCV 89 fL (80-95); MPV 9.1 fL (8.0-11.0); Platelet Count 201 10^3/uL (130-400); RBC 4.32 10^6/uL (4.36-5.78); RDW 12.7 % (11.8-14.1); RDW-SD 41.7 fL; WBC 5.98 10^3/uL (4.4-10.8)
[2025-08-11 10:16] LABS: INR 1.0 (0.9-1.1); PTT Activated 25.2 sec (20.6-30.2); Prothrombin Time 10.2 sec (9.1-11.1)
[2025-08-11 10:20] LABS: ALT 33 U/L (16-63); AST 20 U/L (15-37); Albumin 4.1 g/dL (3.4-5.0); Alkaline Phosphatase 85 U/L (46-116); Anion Gap 7.8 mmol/L (3-11); BUN 16 mg/dL (7-18); Bilirubin, Total 0.5 mg/dL (0.2-1.0); CO2 28.2 mmol/L (21.0-32.0); Calcium 9.5 mg/dL (8.5-10.1); Chloride 104 mmol/L (98-107); Estimated GFR 78.79 (mL/min/1.73m2); Glucose 160 mg/dL (74-106); Lipase 46 U/L (<78); Magnesium 1.9 mg/dL (1.8-2.4); Potassium 3.7 mmol/L (3.5-5.1); Sodium 140 mmol/L (136-145); Total Protein 7.6 g/dL (6.4-8.2); Troponin I 8 ng/L (<or=76)
[2025-08-11] MEDS: Ondansetron 4 MG/2 ML VIAL IVP (10:20)
[2025-08-11] MEDS: MORPHine 10 MG/ML VIAL 2 MG IVP (10:20)
[2025-08-11 10:58] LABS: Troponin I 8 ng/L (<or=76)
[2025-08-11] MEDS: Omnipaque 350 MG/ML 100 ML BTL IJ (11:06)
[2025-08-11] MEDS: Normal Saline - Diluent 50 ML VIAL IJ (11:06)
[2025-08-11] MEDS: Normal Saline Flush 10 ML SYR IVP (11:06)
--- NOTE | 2025-08-11 11:15 | DI.CT_ITS ---
Exam(s) CT CHEST PE ABD PELVIS W EXAM: CT CHEST PE ABD PELVIS W CLINICAL HISTORY: Chest pain radiates into back. TECHNIQUE: Imaging Protocol: Axial CT angiography was performed with multi- slice acquisition and multi-planar and/or 3D reconstructions. Computer aided detection (CAD) was utilized. CONTRAST MATERIAL: Intravenous: Omnipaque 350contrast volume:100 mL COMPARISON: CT CT ABDOMEN PELVIS WO from 01/27/[address] chest PE CTA from 01/27/[address] ABDOMEN W from 03/04/2019 FINDINGS: CHEST: Tracheobronchial tree: Patent where visualized. No evidence of bronchiectasis. Pulmonary parenchyma: No consolidation or dominant measurable mass. There is atelectasis in the lung bases. Pulmonary Arteries: No evidence of filling defect to suggest pulmonary emboli. Mediastinum and Viridiana: No dominant adenopathy or fluid collection. The esophagus is unremarkable. Visualized thyroid gland: Unremarkable. Pleura: No effusion or pneumothorax. Heart: The heart is not dilated. Coronary artery calcifications are present. No pericardial effusion. Aorta: Thoracic aorta non-dilated. No evidence of dissection. Atherosclerotic calcification is present. Bones: Within normal limits for the patient's age. Sternal wires are in place. Soft tissues: Unremarkable. ABDOMEN: Liver: Normal density. No measurable mass. Portal, Superior Mesenteric, and Splenic Veins: Unremarkable. Gallbladder and Biliary Tract: Status post cholecystectomy. There is no biliary ductal dilatation. Pancreas: Normal density, no abnormal calcifications or inflammatory process. Spleen: Normal. Adrenals: No masses seen. Kidneys: Normal size, contour and axis. No radiodense stones or obstructive uropathy. No masses seen. Abdominal Aorta: Abdominal portion non-dilated. Atherosclerotic calcification is present. Bowel: No obstruction or bowel wall thickening. Appendix is unremarkable. The stomach is incompletely distended limiting evaluation. Peritoneal Cavity: No ascites, collection or mesenteric inflammatory response. No free air. Lymph Nodes: Within normal limits. Bones: Within normal limits for the patient's age. Soft Tissues: There is a fat containing left inguinal hernia. There is a small fat containing right inguinal hernia. PELVIS: Bladder: Symmetric distention, no gross wall thickening. Reproductive Organs: Unremarkable as visualized. Lymph Nodes: Within normal limits. Bones: Within normal limits. IMPRESSION: 1. There is no acute abdominal or pelvic process. 2. There is no evidence of a pulmonary embolism or thoracic aortic dissection. 3. Atelectasis is seen in the lung bases. There are no focal consolidating infiltrates. RADIATION DOSE DELIVERED: 981.06mGy.cm Total DLP DATA REPOSITORY: All CT scans at this facility are submitted to the National Radiology Data Registry (NRDR) Dose Index Registry (DIR) with the [employer] (ACR). RADIATION OPTIMIZATION: All CT scans at this facility use at least one of these dose optimization techniques: automated exposure control; mA and/or kV adjustment per patient size (includes targeted exams where dose is matched to clinical indication); or iterative reconstruction.
[2025-08-11 11:23] LABS: NT-proBNP 52 pg/mL (<300)
[2025-08-11 13:07] LABS: Troponin I 8 ng/L (<or=76)
== END 2025-08-11 14:12 | disposition home or self-care (01) ==
PROVIDERS: Emergency Provider Registered Nurse Emergency; PCP Physician Assistant Medical
DX: R07.9 Chest pain, unspecified (principal); E11.9 Type 2 diabetes mellitus without complications; Z95.1 Presence of aortocoronary bypass graft; Z79.82 Long term (current) use of aspirin; Z79.4 Long term (current) use of insulin; Z87.891 Personal history of nicotine dependence
CPT/HCPCS: 71275; 74177; 80053; 83690; 93005; 96374; 96375; 99285; 83735; 83880; 84484; 85025; 85610; 85730; 93010; J2270; J2405; J3490

== ENCOUNTER 2025-10-20 09:56 | Emergency (ER) | payer MEDICAID, SELFPAY ==
[2025-10-20] VITALS (31 sets, daily range): BP systolic 128–162; BP diastolic 72–103; PULSE 58–78; RESP 12–20; TEMP 36.8–37; O2SAT 93–100
--- NOTE | 2025-10-20 09:45 | RT.EKG_ITS ---
APPROVED REPORT Exam: Resting ECG Reason for Exam: chest pain Patient Location: E HR:62 bpm ECG Measurements Heart Rate 62 AXIS IN 146 P 33 QRSd 80 QRS 3 QT 382 T 35 QTc 388 Conclusion Sinus rhythm...normal P axis, V-rate 60- 99 Probable left atrial enlargement...P >50mS, <-0.10mV V1 No STEMI
--- NOTE | 2025-10-20 10:11 | W.ED.GENAD ---
Discharge Plan Disposition Patient Disposition: Transfer-Acute Inpatient Care Specific Acute Inpt Facility: Other Discharge Details Clinical Impression: Chest pain Primary Care Provider: Hugo Baumann ED Provider: Zeeshan Alamo Home Meds and New Rx's Prescriptions: No Action aspirin 325 mg Tablet 81 mg PO DAILY (DME) blood sugar diagnostic Strip MISCELLANEOUS (DME) blood-glucose meter [Blood Glucose Monitoring] Kit MISCELLANEOUS epinephrine 0.3 mg/0.3 mL auto-injector 0.3 ml subcut ONCE Qty: 2 0RF Rx Instructions: as a single dose; may repeat once diltiazem HCl [Cardizem] 30 mg tablet 30 mg PO ONCE isosorbide mononitrate 30 mg tablet extended release 24 hr 30 mg PO DAILY Acetaminophen [Tylenol] 325 MG capsule 650 mg PO Q4H PRN PRNQty: 30 0RF Airsupra 90-80 mcg/actuation HFA aerosol inhaler 2 inh inhalation QID PRN umeclidinium-vilanterol [Anoro Ellipta] 62.5-25 mcg/actuation blister with device 1 inh inhalation DAILY atorvastatin 80 mg tablet 80 mg PO DAILY Breztri Aerosphere 160-9-4.8 mcg/actuation HFA aerosol inhaler 2 inh inhalation BID clopidogrel 75 mg tablet 75 mg PO DAILY Creon 24,000-76,000 -120,000 unit capsule,delayed release(DR/EC) 3 cap PO TID Rx Instructions: administer with meals and/or snacks docusate sodium 100 mg capsule 100 mg PO BID duloxetine 60 mg capsule,delayed release(DR/EC) 60 mg PO DAILY escitalopram oxalate 20 mg tablet 20 mg PO DAILY fenofibrate nanocrystallized 48 mg tablet 48 mg PO DAILY insulin aspart U-100 100 unit/mL solution 150 unit DAILY Rx Instructions: use 150 units daily to infuse in insulin pump melatonin 5 mg capsule 5 mg PO QHS nitroglycerin 0.4 mg tablet, sublingual 0.4 mg sublingual Q5-15M PRN Rx Instructions: do not exceed 3 doses per episode pantoprazole 40 mg tablet,delayed release (DR/EC) 40 mg PO DAILY albuterol 90 mcg/actuation aerosol 90 mcg inhalation Q4-5H PRN Discharge Data Discharge Date/Time-TO BE ENTERED AT DEPARTURE: 10/20/25 14:45 HPI General Date/Time Provider Initiated Documentation: 10/20/25 10:11. HPI Narrative: 55 year-old male presents to ED today by POV/ambulating with a chief complaint of near constant chest pain- worse with exacerbation in the setting of complex cardiac history- had an OR two years ago, has had CABGx4 with collapse of a bypass and subsequent stent placement, with further stent occlusion months after that, presents with exertional worsening of his baseline chest pain, taking nitro almost daily with onset insidiously. Quality described as aching chest pain, heaviness, no radiation to syncope, hemoptysis, nausea/vomiting, cough, fever, endorses exertional shortness of breath and fatigue. Severity is described as 5/10 near constant with some worsening from there. Palliating factors include nothing specific- notes increased nitro use but no long lasting improvement. Provoking factors include nothing specific. Events leading up to the incident/Associated Symptoms: Patient had planned to have a cath done at [facility] today, but found out from his insurance company yesterday there was a denial of coverage even though [facility] has historically handled all of his cardiac care. Patient not anticoagulated, does take DAPT. Related Data Home Medications ?Medication ?Instructions ?Recorded ?Confirmed Acetaminophen [Tylenol] 650 mg PO Q4H PRN PRN #30 caps 05/04/18 10/20/25 aspirin 325 mg tablet 81 mg PO DAILY 04/01/20 10/20/25 blood sugar diagnostic 04/04/20 10/20/25 blood-glucose meter (Blood Glucose 04/04/20 10/20/25 Monitoring kit) epinephrine 0.3 mg/0.3 mL 0.3 ml subcut ONCE #2 ea 05/03/24 10/20/25 injection, auto-injector albuterol 90 mcg-budesonide 80 2 inh inhalation QID PRN 04/02/25 10/20/25 mcg/actuation HFA aerosol inhaler (Airsupra) albuterol 90 mcg/actuation aerosol 90 mcg inhalation Q4-5H PRN 04/02/25 10/20/25 inhaler atorvastatin 80 mg tablet 80 mg PO DAILY 04/02/25 10/20/25 budesonide 160 mcg-glycopyr 9 2 inh inhalation BID 04/02/25 10/20/25 mcg-formot 4.8 mcg/actuation HFA inhaler (Breztri Aerosphere) clopidogrel 75 mg tablet 75 mg PO DAILY 04/02/25 10/20/25 docusate sodium 100 mg capsule 100 mg PO BID 04/02/25 10/20/25 duloxetine 60 mg capsule,delayed 60 mg PO DAILY 04/02/25 10/20/25 release escitalopram oxalate 20 mg tablet 20 mg PO DAILY 04/02/25 10/20/25 fenofibrate nanocrystallized 48 mg 48 mg PO DAILY 04/02/25 10/20/25 tablet insulin aspart U-100 100 unit/mL 150 unit DAILY dm 04/02/25 subcutaneous solution niktfa-[id number]-rysdbb(pork)24,000-76,000-120,000 3 cap PO TID 04/02/25 10/20/25 unit capsule,del rel (Creon) melatonin 5 mg capsule 5 mg PO QHS 04/02/25 10/20/25 nitroglycerin 0.4 mg sublingual 0.4 mg sublingual Q5-15M PRN 04/02/25 10/20/25 tablet pantoprazole 40 mg tablet,delayed 40 mg PO DAILY 04/02/25 10/20/25 release umeclidinium 62.5 mcg-vilanterol 1 inh inhalation DAILY 04/02/25 10/20/25 25 mcg/actuation powdr for inhalation (Anoro Ellipta) diltiazem HCl 30 mg tablet 30 mg PO ONCE 08/11/25 10/20/25 (Cardizem) isosorbide mononitrate 30 mg 30 mg PO DAILY 10/20/25 10/20/25 tablet,extended release 24 hr Previous Rx's ?Medication ?Instructions ?Recorded Acetaminophen [Tylenol] 650 mg PO Q4H PRN PRN #30 caps 05/04/18 epinephrine 0.3 mg/0.3 mL 0.3 ml subcut ONCE #2 ea 05/03/24 injection, auto-injector Allergies Allergy/AdvReac Type Severity Reaction Status Date / Time Bee Sting Allergy Severe Anaphylaxis Uncoded 10/20/25 10:12 General Stated Complaint: Chest Pain CARLENE: 2 Review of Systems All systems reviewed & are unremarkable except as noted in HPI and below Exam Narrative Exam Narrative: GENERAL APPEARANCE: Well-nourished, non-toxic, awake and alert, atraumatic, no acute distress. SKIN: Warm, pale, dry, intact, without rashes/lesions/ulcerations. HEAD: Normocephalic, atraumatic, normal hair distribution for gender/age. EYES: Normal conjunctiva, no exudates on lids/lashes. ENT: Nares patent, no circumoral cyanosis, no facial swelling NECK: Supple, trachea midline, painless cervical ROM. LUNGS/CHEST: Lungs CTA bilaterally-no rhonchi/rales/wheezes diffusely, non-labored respirations, normal A/P diameter, symmetrical expansion, no chest wall deformity HEART (CV/PV): Regular rate and rhythm without murmur, no peripheral edema, no JVD. ABDOMEN: Soft, non-distended, no guarding, no tenderness. MSK: Normal ROM, no swelling/deformity to bilateral UEs or LEs, moving all extremities without weakness, no cyanosis, spine midline without tenderness, normal curvature. NEURO: Mental Status AAOx4 - alert to person, place, time, events No facial droop, no forehead involvement. Motor: No focal weakness - strength 5/5 in bilateral UEs and LEs, proximal and distal, symmetric. Sensory: sensation intact to light touch globally. Gait normal: patient ambulated without ataxia into ED room. PSYCH: euthymic, cooperative, pleasant, appropriate speech Course Vital Signs Vital signs: Vital Signs Temperature 37.0 C 10/20/25 10:06 Pulse 66 10/20/25 10:06 Respiratory Rate 16 10/20/25 10:06 Blood Pressure 144/80 H 10/20/25 10:06 Pulse Oximetry 97 10/20/25 10:06 Temperature 37.0 C 10/20/25 10:06 Temperature Source Oral 10/20/25 10:06 Pulse 66 10/20/25 10:06 Respiratory Rate 16 10/20/25 10:06 Blood Pressure 144/80 H 10/20/25 10:06 Pulse Oximetry 97 10/20/25 10:06 Oxygen Delivery Method Room Air 10/20/25 10:06 Oxygen Flow Rate 0 10/20/25 10:06 Pain Level 5 10/20/25 10:06 Medical Decision Making This dictation utilizes [id number] dictation software and may contain unedited grammatical errors. 55 year-old male presents to ED today by POV/ambulating with a chief complaint of near constant chest pain- worse with exacerbation in the setting of complex cardiac history- had an OR two years ago, has had CABGx4 with collapse of a bypass and subsequent stent placement, with further stent occlusion months after that, presents with exertional worsening of his baseline chest pain, taking nitro almost daily with onset insidiously. Quality described as aching chest pain, heaviness, no radiation to syncope, hemoptysis, nausea/vomiting, cough, fever, endorses exertional shortness of breath and fatigue. Severity is described as 5/10 near constant with some worsening from there. Palliating factors include nothing specific- notes increased nitro use but no long lasting improvement. Provoking factors include nothing specific. Events leading up to the incident/Associated Symptoms: Patient had planned to have a cath done at [facility] today, but found out from his insurance company yesterday there was a denial of coverage even though [facility] has historically handled all of his cardiac care. Patient not anticoagulated, does take DAPT. Patients' medical history: T2DM, peptic ulcer, EDGAR, history of alcohol use. Family and social history: Denies EtOH or drug use, eats healthy diet, tries to get low-level of regular exercise. Pertinent exam findings / vital signs include benign cardiopulmonary exam, no pitting edema of legs, benign abdomen, nontoxic and afebrile. Differential / pathologies of concern include ACS, demand ischemia, PE, pneumonia, CHF. Diagnostic studies of: -EKG, CBC, CMP, serial troponins, magnesium, D-dimer, BNP, lipase, x-ray chest. - CBC is unremarkable - D-dimer negative - CMP is unremarkable - Serial troponins negative - BNP within normal limits - Lipase negative - Magnesium within normal limits - It should be noted that on patient's prior workups with occlusions noted on Adela had negative cardiac workups - EKG shows sinus rhythm at 62 bpm with P waves followed by a narrow complex QRS with normal axis, good R wave progression, no ST elevations or reciprocal depressions, slightly prolonged MA, normal QTc - X-ray chest negative Interventions of: - 243 mg chewable aspirin. - Paged out [facility] to get better historical data on patients cardiac interventions- spoke with Dr. 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 Evans as accepting at 1351. Informed Dr[address] Givens of hospitalist service so they are aware of incoming patient at 1403. ED Course/Assessment/Plan: 55-year-old male presents with worsening baseline 5 out of 10 chest pain with exertional exacerbation over the past couple weeks with severe four-vessel disease and history of graft in-stent occlusions managed at [facility] in the past with negative workups at ED presentations of these occlusive events in the past. His cardiac workup is negative here today and his vitals have been stable but he does need admission for catheterization he has been dealing with some denial by insurance provider for catheterization as they stated the referral for procedure needs to come from his primary care provider not his detention sergeant per patient's account. He is high risk on heart score despite his negative troponins and is transferred to ED to ED from [facility] to [facility] for admission and catheterization. Disposition of Chest Pain. Patient verbalized understanding of the plan and return to ED criteria and engaged in shared decision making. Medical Records Medical records reviewed: Yes I reviewed the patient's medical records. Imaging Data Radiologic Study: Attestation: I personally reviewed and interpreted this imaging study as follows: Imaging: X-Ray Radiologist's impression: EXAM: XR CHEST 2V PA LATERAL CLINICAL HISTORY: chest pain TECHNIQUE: 2D digital imaging was performed of the chest. Two images were obtained. PA and lateral views were obtained. COMPARISON: CR XR CHEST 2V PA LATERAL from 07/02/2025 FINDINGS: MEDIASTINUM: Normal. HEART: Normal. PULMONARY VASCULATURE: Normal. LUNGS: Clear. PLEURAL SPACE: No pleural effusion or pneumothorax. BONE:Within normal limits for the patient's age. Sternal wires are in place. OTHER FINDINGS:Normal. IMPRESSION: No acute pulmonary findings. Lab Data Lab results reviewed: Yes I reviewed the patient's lab results. Labs: Laboratory Tests Range/Units 10/20/25 10/20/25 10:35 11:40 WBC (4.4-10.8) 10^3/uL 5.28 RBC (4.36-5.78) 10^6/uL 4.73 Hgb (13.5-17.5) g/dL 14.4 Hct (40.0-50.0) % 41.7 MCV (80-95) fL 88 MCH (27.0-33.0) pg 30.4 MCHC (32.0-36.0) % 34.5 RDW (11.8-14.1) % 12.7 Plt Count (130-400) 10^3/uL 193 MPV (8.0-11.0) fL 8.9 Immature Gran % % 0.2 Neutrophils % % 52.8 Lymphocytes % % 34.1 Monocytes % % 8.7 Eosinophils % % 3.4 Basophils % % 0.8 Nucleated RBC % (0.0-0.3) % 0.0 Absolute Neutrophils (1.2-6.7) 10^3/uL 2.79 Absolute Lymphocytes (1.2-3.4) 10^3/uL 1.80 Absolute Monocytes (0.1-0.8) 10^3/uL 0.46 Absolute Eosinophils (0.0-0.7) 10^3/uL 0.18 Absolute Basophils (0.0-0.2) 10^3/uL 0.04 D-Dimer (<500) ng/mlFEU 268 Sodium (136-145) mmol/L 140 Potassium (3.5-5.1) mmol/L 4.4 Chloride (98-107) mmol/L 106 Carbon Dioxide (20.0-31.0) mmol/L 27.4 Anion Gap (3-11) mmol/L 6.6 BUN (9-23) mg/dL 14 Creatinine (0.73-1.18) mg/dL 1.04 Est GFR (CKD-EPI 2020) (mL/min/1.73m2) 73.58 Glucose (74-106) mg/dL 213 H Calcium (8.3-10.6) mg/dL 9.1 Magnesium (1.6-2.6) mg/dL 1.9 Total Bilirubin (0.2-1.2) mg/dL 0.50 AST (<34) U/L 22 ALT (10-49) U/L 32 Alkaline Phosphatase (46-116) U/L 54 Troponin I (<54) ng/L 3 < 3 NT-Pro-B Natriuret Pep (<300) pg/mL 71 Total Protein (5.7-8.2) g/dL 7.3 Albumin (3.2-5.0) g/dL 4.5 Lipase (<53) U/L 32 PFSH All Active Problems (Updated 10/22/25 @ 14:54 by DANIELA Crocker) Chest pain (Acute) Rectus diastasis (Acute) Ventral hernia (Acute) Medical History Health maintenance examination Actinic keratosis History of alcohol abuse Diabetes type 2, controlled Anxiety Peptic ulcer BCC (basal cell carcinoma of skin) EDGAR (obstructive sleep apnea) Lumbosacral spondylosis without myelopathy Lumbar spondylosis Acute URI Hx of head injury Diabetes Arthritis Low back pain Surgical History S/P shoulder surgery H/O hernia repair Cholecystectomy (05/03/18) Family History Mother Lung cancer Father Myocardial infarction Sister Diabetes Carpal tunnel syndrome Fibromyalgia Social History Smoking/Tobacco Use Status: Former Tobacco Use Smoking risk assessment performed?: Yes Alcohol Intake: never Drug use: Never Substance use type: does not use Household members: spouse Housing: house Number of Children: 4 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
[2025-10-20] MEDS: Aspirin 81 MG CHEW 243 MG CH (10:45)
[2025-10-20 10:53] LABS: Abs Immature Grans 0.01 10^3/uL (0.0-0.06); HCT 41.7 % (40.0-50.0); HGB 14.4 g/dL (13.5-17.5); Immature Grans % 0.2 %; MCH 30.4 pg (27.0-33.0); MCHC 34.5 % (32.0-36.0); MCV 88 fL (80-95); MPV 8.9 fL (8.0-11.0); Platelet Count 193 10^3/uL (130-400); RBC 4.73 10^6/uL (4.36-5.78); RDW 12.7 % (11.8-14.1); RDW-SD 41.2 fL; WBC 5.28 10^3/uL (4.4-10.8)
[2025-10-20 11:04] LABS: Lipase 32 U/L (<53); Magnesium 1.9 mg/dL (1.6-2.6)
[2025-10-20 11:05] LABS: Troponin I 3 ng/L (<54)
[2025-10-20 11:06] LABS: ALT 32 U/L (10-49); AST 22 U/L (<34); Albumin 4.5 g/dL (3.2-5.0); Alkaline Phosphatase 54 U/L (46-116); Anion Gap 6.6 mmol/L (3-11); BUN 14 mg/dL (9-23); Bilirubin, Total 0.50 mg/dL (0.2-1.2); CO2 27.4 mmol/L (20.0-31.0); Calcium 9.1 mg/dL (8.3-10.6); Chloride 106 mmol/L (98-107); Glucose 213 mg/dL (74-106); Potassium 4.4 mmol/L (3.5-5.1); Sodium 140 mmol/L (136-145); Total Protein 7.3 g/dL (5.7-8.2)
[2025-10-20 11:18] LABS: D-Dimer 268 ng/mlFEU (<500)
[2025-10-20 12:14] LABS: Troponin I < 3 ng/L (<54)
--- NOTE | 2025-10-20 12:15 | DI.RAD_ITS ---
Exam(s) XR CHEST 2V PA LATERAL EXAM: XR CHEST 2V PA LATERAL CLINICAL HISTORY: chest pain TECHNIQUE: 2D digital imaging was performed of the chest. Two images were obtained. PA and lateral views were obtained. COMPARISON: CR XR CHEST 2V PA LATERAL from 07/02/2025 FINDINGS: MEDIASTINUM: Normal. HEART: Normal. PULMONARY VASCULATURE: Normal. LUNGS: Clear. PLEURAL SPACE: No pleural effusion or pneumothorax. BONE:Within normal limits for the patient's age. Sternal wires are in place. OTHER FINDINGS:Normal. IMPRESSION: No acute pulmonary findings. DATA REPOSITORY: RADIATION DOSE DELIVERED:
== END 2025-10-20 14:45 | disposition home or self-care (01) ==
LOC: ER 10:03
PROVIDERS: Emergency Provider Physician Assistant; PCP Physician Assistant Medical
DX: I49.9 Cardiac arrhythmia, unspecified (principal); E11.9 Type 2 diabetes mellitus without complications; I25.2 Old myocardial infarction; Z95.5 Presence of coronary angioplasty implant and graft; Z95.1 Presence of aortocoronary bypass graft; Z79.82 Long term (current) use of aspirin; Z79.02 Long term (current) use of antithrombotics/antiplatelets; Z79.4 Long term (current) use of insulin; Z87.891 Personal history of nicotine dependence
CPT/HCPCS: 80053; 83690; 93005; 99284; 71046; 83735; 83880; 84484; 85025; 85379; 93010